=== PATIENT | female | born 1950 | race Caucasian/White ===

== ENCOUNTER 2020-05-24 18:42 | Outpatient (REF) | payer MEDICARE, SELFPAY | END 2020-05-24 18:43 | disposition home or self-care (01) | LOC: HO.LNP 18:42 | PROVIDERS: Visit Provider Hospitalist | DX: N39.0 Urinary tract infection, site not specified (principal) | CPT/HCPCS: 87086 ==

== ENCOUNTER 2020-05-28 11:10 | Outpatient (REF) | payer MEDICARE, SELFPAY | END 2020-05-28 11:11 | disposition home or self-care (01) | LOC: HO.HMGCLDS 11:10 | PROVIDERS: PCP Internal Medicine; Visit Provider Internal Medicine | DX: Z20.828 Contact with and (suspected) exposure to other viral communicable diseases (principal) | CPT/HCPCS: C9803; U0003 ==

== ENCOUNTER 2020-07-24 10:43 | Outpatient (REF) | payer MEDICARE, SELFPAY ==
--- NOTE | 2020-07-24 10:50 | XR_ITS ---
EXAMINATION: XR ANKLE, RIGHT CLINICAL INFORMATION: Pain COMPARISON: Previous exam most recent January 2016 TECHNIQUE: AP, lateral, and mortise views of the right ankle. FINDINGS: There is an old healed fracture of the right distal fibular shaft. No acute fracture or dislocation is seen. The ankle mortise is normal. Soft tissues are normal. XR/XR ankle RT min 3V IMPRESSION: Old healed fracture of the right distal fibular shaft. No acute fracture or dislocation seen.
== END 2020-07-24 10:44 | disposition home or self-care (01) ==
LOC: HO.HMGCX 10:43
PROVIDERS: PCP Internal Medicine; Visit Provider Nurse Practitioner Family
DX: M25.571 Pain in right ankle and joints of right foot (principal)
CPT/HCPCS: 73610

== ENCOUNTER 2020-08-20 10:25 | Outpatient (REF) | payer MEDICARE, SELFPAY ==
--- NOTE | 2020-08-20 | US_ITS ---
EXAMINATION: US THYROID CLINICAL INFORMATION: Nontoxic multinodular goiter. COMPARISON: Ultrasound soft tissue head/neck thyroid dated 05/10/2019 and 05/04/2018. TECHNIQUE: Linear transducer jones-scale and color Doppler examination with attention to the region of the thyroid. FINDINGS: SIZE: Measurements of the thyroid lobes and nodules are given in sagittal, anteroposterior and transverse dimensions respectively. Right Thyroid Lobe: 4.4 x 1.3 x 1.5 cm, volume 4.5 mL. Previously 4.1 x 1.4 x 1.6 cm, volume 4.8 mL. Parenchyma: The gland echotexture is heterogeneous. Thyroid vascularity is normal. Left Thyroid Lobe: 4.7 x 2.1 x 1.7 cm, volume 8.8 mL. Previously 4.8 x 1.9 x 1.7 cm, volume 8.1 mL. Parenchyma: The gland echotexture is heterogeneous. Thyroid vascularity is normal. Isthmus: 0.2 cm in maximum AP dimension. Previously 0.2 cm. Estimated total number of nodules greater than or equal to 1 cm: 1. Strategy Associate nodules are described as follows: 1. Location: Right lateral superior. Size: 0.6 x 0.4 x 0.4 cm, volume 0.05 mL. Previously: 0.4 x 0.4 x 0.3 cm, volume 0.03 mL. Nodule characteristics: Composition: Solid/almost completely solid (2). Echogenicity: Isoechoic (1). Shape: Not taller than wide (0). Margins: Smooth (0). Echogenic Foci: Punctate echogenic foci (3). ACR TI-RADS total points: 6 ACR TI-RADS category: 4 Significant change in size (>/= 20% in 2 dimensions and minimal increase of 2 mm): Not significant. Change in features: None. 2. Location: Right inferior medial. Size: 0.6 x 0.3 x 0.5 cm, volume 0.05 mL. Previously: 0.6 x 0.3 x 0.5 cm, volume 0.05 mL. Nodule characteristics: Composition: Spongiform (0). Echogenicity: Isoechoic (0). Shape: Not taller than wide (0). Margins: Smooth (0). Echogenic Foci: Punctate echogenic foci (0). ACR TI-RADS total points: 0 ACR TI-RADS category: 1 Significant change in size (>/= 20% in 2 dimensions and minimal increase of 2 mm): Not significant. Change in features: None. 3. Location: Left inferior/mid. Size: 1.9 x 1.8 x 1.8 cm, volume 3.22 mL. Previously: 1.8 x 1.8 x 1.7 cm, volume 2.88 mL. Nodule characteristics: Composition: Solid (2). Echogenicity: Isoechoic (1). Shape: Not taller than wide (0). Margins: Smooth (0). Echogenic Foci: Peripheral calcifications (2). ACR TI-RADS total points: 5 ACR TI-RADS category: 4 Significant change in size (>/= 20% in 2 dimensions and minimal increase of 2 mm): None. Change in features: Stable. 4. Location: Left inferior. Size: 0.5 x 0.5 x 0.4 cm, volume 0.05 mL. Previously: 0.6 x 0.4 x 0.4 cm, volume 0.05 mL. Nodule characteristics: Composition: Solid (2). Echogenicity: Hyperechoic (1). Shape: Taller than wide (3). Margins: Smooth (0). Echogenic Foci: None (0). ACR TI-RADS total points: 6 ACR TI-RADS category: 4 Significant change in size (>/= 20% in 2 dimensions and minimal increase of 2 mm): Not significant. Change in features: None. NODES: No lymphadenopathy is seen in the tissue surrounding the thyroid gland. US/US thyroid IMPRESSION: No significant change in the small nodules. The largest nodule lower pole left lobe is stable in spite of high TI-RADS category. Recommend continued followup. ACR TI-RADS RECOMMENDATIONS: Ultrasound-guided fine-needle aspiration, followup ultrasound, no further follow up. * TR1 (0 point) and TR 2 (2 points): No FNA or follow up * TR3 (3 points): FNA if more than or equal to 2.5 cm in maximum dimension, follow up in 1, 3 and 5 years if 1.5 to 2.4 cm in maximum dimension. * TR 4 (4-6 points): FNA if more than or equal to 1.5 cm in maximum dimension, follow up in 1, 2, 3 and 5 years if 1 to 1.4 cm in maximum dimension. * TR 5 (more than or equal to 7 points): FNA if more than or equal to 1 cm in maximum dimension, follow up every year for 5 years if 0.5 to 0.9 cm in maximum dimension. TR3, TR4 or TR5 nodules that are below the size threshold for follow up receive no follow up.
== END 2020-08-20 10:26 | disposition home or self-care (01) ==
LOC: HO.HMGCX 10:25
PROVIDERS: PCP Internal Medicine; Visit Provider Internal Medicine Endocrinology, Diabetes & Metabolism
DX: E04.2 Nontoxic multinodular goiter (principal)
CPT/HCPCS: 76536

== ENCOUNTER 2020-08-29 11:19 | Outpatient (REF) | payer MEDICARE, SELFPAY ==
--- NOTE | ~2020-08-29 | MM_ITS ---
EXAMINATION: MM SCREENING DIGITAL BREAST TOMOSYNTHESIS, BILATERAL CLINICAL INFORMATION: Screening. Asymptomatic. Prior history biopsy x2, fibroadenomatous). The lifetime risk of breast cancer based on the Tyrer-Cuzick Model is 10%. COMPARISON: Mammography: 10/04/2018, 09/30/2017, 04/29/2016 TECHNIQUE: Digital breast tomosynthesis is performed in both the craniocaudal and mediolateral oblique views along with computer-aided detection (CAD). Synthesized 2D images are generated from the tomosynthesis. FINDINGS: The breasts are heterogeneously dense, which may obscure small masses (ACR BI-RADS breast composition Category c). There are no significant masses, abnormal calcifications, or other abnormalities. There are scattered numerous bilateral punctate calcifications again noted in both breasts. The axilla and skin contours are unremarkable. No significant changes. MM/MM tomosynthesis screening BI IMPRESSION: No mammographic evidence of malignancy. ASSESSMENT: BI-RADS 2: Benign RECOMMENDATION: Routine annual mammography screening. This patient's information was entered into a reminder system with a target due date for their next mammogram.
== END 2020-08-29 11:20 | disposition home or self-care (01) ==
LOC: HO.MAMMO 11:19
PROVIDERS: PCP Internal Medicine; Visit Provider Internal Medicine
DX: Z12.31 Encounter for screening mammogram for malignant neoplasm of breast (principal)
CPT/HCPCS: 77063; 77067

== ENCOUNTER → 2020-09-18 11:15 | Outpatient (BNVA) | payer MEDICARE, SELFPAY | PROVIDERS: PCP Internal Medicine; Visit Provider Internal Medicine Endocrinology, Diabetes & Metabolism | DX: Z13.89 Encounter for screening for other disorder (principal) | CPT/HCPCS: 99212 ==

== ENCOUNTER 2020-09-18 12:34 | Outpatient (REF) | payer MEDICARE, SELFPAY ==
[2020-09-18 14:39] LABS: Free T4 (Free Thyroxine) 0.92 ng/dL (0.71-1.85)
== END 2020-09-18 12:35 | disposition home or self-care (01) ==
LOC: HO.10HDL 12:34
PROVIDERS: Visit Provider Internal Medicine Endocrinology, Diabetes & Metabolism
DX: E04.2 Nontoxic multinodular goiter (principal)
CPT/HCPCS: 36415; 84439; 84443; 99212

== ENCOUNTER 2020-09-24 11:49 | Outpatient (REF) | payer MEDICARE, SELFPAY | END 2020-09-24 11:50 | disposition home or self-care (01) | LOC: HO.HMGCLDS 11:49 | PROVIDERS: PCP Internal Medicine; Visit Provider Internal Medicine | DX: Z13.89 Encounter for screening for other disorder (principal) ==

== ENCOUNTER 2020-09-25 10:25 | Outpatient (REF) | payer MEDICARE, SELFPAY ==
[2020-09-25 11:10] LABS: MANUAL DIFF FLAG NO
[2020-09-25 11:28] LABS: Basophils Percent Auto 0.4 % (0-2); Eosinophils Absolute Auto 0.1 X10*3/uL (0.0-0.4); Hemoglobin 14.1 g/dl (12.0-16.0); Imm Gran Abs Auto 0.01 X10*3/uL (0.00-0.03); Imm Gran Pct Auto 0.2 % (0.0-0.4); Lymphocytes Absolute Auto 1.5 X10*3/uL (1.2-4.9); Lymphocytes Percent Auto 28.6 % (20-40); Mean Corpuscular HGB Conc 34.4 g/dl (31.0-35.0); Mean Corpuscular Hemoglobin 32.6 pg (27.0-33.0); Mean Corpuscular Volume 94.7 fL (80-98); Mean Platelet Volume 9.1 fL (9.4-12.3); Monocytes Absolute Auto 0.3 X10*3/uL (0.1-1.2); Monocytes Percent Auto 6.7 % (2-11); Neutrophils Absolute Auto 3.2 X10*3/uL (2.0-8.3); Neutrophils Percent Auto 63.1 % (45-73); Platelet Count 340 X10*3/uL (160-400); Red Blood Count 4.33 X10*6/uL (4.20-5.50); Red Cell Distribution Width 12.1 % (11.0-16.0); White Blood Count 5.1 X10*3/uL (4.8-10.8)
[2020-09-25 11:57] LABS: Alanine Aminotransferase 14 U/L (0-31); Albumin Level 4.3 g/dL (3.5-5.0); Alkaline Phosphatase 60 U/L (39-117); Anion Gap 12 (12-20); Aspartate Amino Transferase 23 U/L (5-31); Bilirubin Total 0.6 mg/dL (0.0-1.0); Blood Urea Nitrogen 9 mg/dL (9-16); Calcium 9.5 mg/dL (8.4-10.2); Carbon Dioxide 29 mmol/L (22-29); Chloride 101 mmol/L (96-108); Cholesterol 248 mg/dL; Estimated Glomerular Filt Rate > 60; Glucose Fasting 96 mg/dL (60-99); HDL Cholesterol 70 mg/dL; LDL Cholesterol Calculated 159 mg/dl; Potassium 4.8 mmol/L (3.3-5.1); Sodium 137 mmol/L (135-145); Total Protein 7.7 g/dL (6.5-8.0); Triglycerides 96 mg/dL
[2020-09-25 12:01] LABS: Free T4 (Free Thyroxine) 0.92 ng/dL (0.71-1.85); Thyroid Stimulating Hormone 0.69 uIU/mL (0.32-4.0)
[2020-09-25 12:06] LABS: Free T4 (Free Thyroxine) 0.87 ng/dL (0.71-1.85)
== END 2020-09-25 10:26 | disposition home or self-care (01) ==
LOC: HO.HMGCLDS 10:25
PROVIDERS: Internal Medicine Endocrinology, Diabetes & Metabolism; PCP Internal Medicine; Visit Provider Internal Medicine
DX: K21.9 Gastro-esophageal reflux disease without esophagitis (principal); E78.00 Pure hypercholesterolemia, unspecified; R63.4 Abnormal weight loss; E04.9 Nontoxic goiter, unspecified
CPT/HCPCS: 36415; 80053; 80061; 84439; 84443; 85025

== ENCOUNTER 2020-11-12 11:16 | Outpatient (REF) | payer MEDICARE, SELFPAY ==
--- NOTE | ~2020-11-12 | XR_ITS ---
EXAMINATION: THORACIC AND LUMBAR SPINE X-RAY CLINICAL INFORMATION: Back pain COMPARISON: Previous lumbar spine x-ray February 2016 TECHNIQUE: 3 views of the thoracic spine and 3 views of the lumbar spine FINDINGS: Thoracic spine: There is mild curvature of the midthoracic spine to the right. Bone alignment is otherwise normal. No fracture or dislocation is seen. There is multilevel degenerative disc disease and spondylosis of the mid and lower thoracic spine. There are spinal soft tissues are normal. Lumbar spine: There is curvature of the lower lumbar sacral spine to the right. Bone alignment is otherwise normal. No fracture or dislocation is seen. There is severe degenerative disc disease at L5-S1. There is mild degenerative disc disease at L3-L4. There is lower lumbar spine facet arthritis. Comparison with previous exam 2016, the sacral stimulator has been removed. XR/XR lumbar spine 2-3V IMPRESSION: Degenerative changes.
--- NOTE | ~2020-11-12 | XR_ITS ---
EXAMINATION: THORACIC AND LUMBAR SPINE X-RAY CLINICAL INFORMATION: Back pain COMPARISON: Previous lumbar spine x-ray February 2016 TECHNIQUE: 3 views of the thoracic spine and 3 views of the lumbar spine FINDINGS: Thoracic spine: There is mild curvature of the midthoracic spine to the right. Bone alignment is otherwise normal. No fracture or dislocation is seen. There is multilevel degenerative disc disease and spondylosis of the mid and lower thoracic spine. There are spinal soft tissues are normal. Lumbar spine: There is curvature of the lower lumbar sacral spine to the right. Bone alignment is otherwise normal. No fracture or dislocation is seen. There is severe degenerative disc disease at L5-S1. There is mild degenerative disc disease at L3-L4. There is lower lumbar spine facet arthritis. Comparison with previous exam 2016, the sacral stimulator has been removed. XR/XR thoracic spine 2V IMPRESSION: Degenerative changes.
--- NOTE | ~2020-11-12 | XR_ITS ---
EXAMINATION: XR SHOULDER, RIGHT CLINICAL INFORMATION: Pain COMPARISON: Previous x-ray May 2014 TECHNIQUE: AP external rotation, Grashey, scapular Y, and axillary views of the right shoulder. FINDINGS: Bone alignment is normal. No fracture or dislocation is seen. The glenohumeral joint is normal. There is mild arthritis at the acromioclavicular joint. There is an undersurface acromial osteophyte. XR/XR shoulder RT min 2V IMPRESSION: Mild arthritis at the acromioclavicular joint and undersurface acromial osteophyte.
[2020-11-12 13:02] LABS: MANUAL DIFF FLAG NO
[2020-11-12 13:09] LABS: Basophils Percent Auto 0.4 % (0-2); Eosinophils Absolute Auto 0.1 X10*3/uL (0.0-0.4); Eosinophils Percent Auto 1.5 % (0-4); Hematocrit 40.4 % (37-47); Hemoglobin 13.6 g/dl (12.0-16.0); Imm Gran Abs Auto 0.01 X10*3/uL (0.00-0.03); Imm Gran Pct Auto 0.2 % (0.0-0.4); Lymphocytes Absolute Auto 1.5 X10*3/uL (1.2-4.9); Lymphocytes Percent Auto 28.5 % (20-40); Mean Corpuscular HGB Conc 33.7 g/dl (31.0-35.0); Mean Corpuscular Volume 95.1 fL (80-98); Monocytes Absolute Auto 0.3 X10*3/uL (0.1-1.2); Monocytes Percent Auto 6.5 % (2-11); Neutrophils Absolute Auto 3.3 X10*3/uL (2.0-8.3); Neutrophils Percent Auto 62.9 % (45-73); Platelet Count 334 X10*3/uL (160-400); Red Blood Count 4.25 X10*6/uL (4.20-5.50); Red Cell Distribution Width 12.1 % (11.0-16.0); White Blood Count 5.3 X10*3/uL (4.8-10.8)
[2020-11-12 13:30] LABS: Alanine Aminotransferase 15 U/L (0-31); Albumin Level 4.1 g/dL (3.5-5.0); Alkaline Phosphatase 59 U/L (39-117); Anion Gap 13 (12-20); Aspartate Amino Transferase 21 U/L (5-31); Bilirubin Total 0.5 mg/dL (0.0-1.0); Blood Urea Nitrogen 12 mg/dL (9-16); C Reactive Protein 0.14 mg/dL (< or = 0.50); Calcium 9.7 mg/dL (8.4-10.2); Carbon Dioxide 31 mmol/L (22-29); Chloride 97 mmol/L (96-108); Estimated Glomerular Filt Rate > 60; Glucose Random 88 mg/dL (60-115); Potassium 4.8 mmol/L (3.3-5.1); Sodium 136 mmol/L (135-145); Total Protein 7.3 g/dL (6.5-8.0)
[2020-11-12 13:59] LABS: Vitamin B12 570 pg/mL (200-900)
[2020-11-12 14:26] LABS: Estimated Average Glucose 100 mg/dL; Hemoglobin A1c % 5.1 %
== END 2020-11-12 11:17 | disposition home or self-care (01) ==
LOC: HO.LAB 11:16
PROVIDERS: PCP Internal Medicine; Visit Provider Internal Medicine
DX: M54.9 Dorsalgia, unspecified (principal); M54.5 Low back pain; M25.511 Pain in right shoulder; R53.83 Other fatigue; E78.00 Pure hypercholesterolemia, unspecified; K21.9 Gastro-esophageal reflux disease without esophagitis; R42 Dizziness and giddiness
CPT/HCPCS: 36415; 72070; 72100; 73030; 80053; 82607; 83036; 85025; 86140

== ENCOUNTER 2020-12-08 02:13 | Emergency (ER) | payer MEDICARE, SELFPAY ==
--- NOTE | ~2020-12-08 | CT_ITS ---
EXAMINATION: NONCONTRAST HEAD CT NONCONTRAST CERVICAL SPINE CT INDICATION INFORMATION: Fall COMPARISON: None TECHNIQUE: Separate noncontrast CT examinations of the head and cervical spine were performed. Coronal head CT images and coronal and sagittal cervical spine images were created at the technologist workstation. DLP: 896 mGy-cm DOSE LOWERING TECHNIQUES: This CT examination was performed using dose optimization techniques as appropriate, variously including the following: - Automated exposure control - Adjustment of mA and/or kV according to patient size (this includes techniques or standardized protocols for targeted exams were dose is matched to indication/reason for exam; i.e. extremities or head) - Use of iterative reconstruction technique FINDINGS: Head: There is no evidence of acute intracranial hemorrhage or territorial infarction. No abnormal mass-effect or midline shift is seen. Fuentes to white matter differentiation is well preserved. No extra-axial fluid collections are identified. The ventricles are normal in size. There is mild to moderate patchy subcortical white matter hypoattenuation suspicious for chronic small vessel ischemic disease. No acute fracture is seen. There is right occipital scalp soft tissue swelling with foci of gas. The mastoid air cells and visualized portions of the paranasal sinuses are well-aerated. Cervical spine: There is minimal grade 1 anterolisthesis of C4 on C5. There is otherwise anatomic alignment of the vertebral bodies and posterior elements. Vertebral body heights are maintained. There is disc space narrowing at C5-C6 with associated endplate osteophyte formation. There is right-sided facet arthropathy of the mid cervical spine. No evidence of acute fracture. No prevertebral soft tissue swelling. Visualized portions of the lung apices are unremarkable. There is a peripherally calcified left thyroid nodule measuring up to 2.0 cm in the axial plane; of note, recent thyroid ultrasound was performed on 08/20/2020. CT/CT cervical spine wo con IMPRESSION: 1. Head: No acute intracranial findings. Right occipital scalp soft tissue injury. 2. Cervical spine: No acute findings identified.
[2020-12-08 02:17] VITALS: BP 114/57; PULSE 60; RESP 16; TEMP 36.6; O2SAT 97; BMI 20.3
--- NOTE | 2020-12-08 02:30 | ECG_ITS ---
Test Reason : FALL, DIZZINESS Blood Pressure : / mmHG Vent. Rate : 059 BPM Atrial Rate : 059 BPM P-R Int : 180 ms QRS Dur : 080 ms QT Int : 392 ms P-R-T Axes : 049 013 021 degrees QTc Int : 388 ms Sinus bradycardia Low voltage QRS Borderline ECG When compared with ECG of 02-AUG-2006 12:59, No significant change was found Referred By: Generic ED Physician Electronically Signed By:CARLYN KEENAN MD
--- NOTE | 2020-12-08 03:50 | PC.NURSE ---
Laceration and abrasion to the rear of head cleaned and bandaged. Ice applied. Awaiting primary MD marisela.
[2020-12-08 04:17] VITALS: BP 132/70; PULSE 63; RESP 16; TEMP 36.7; O2SAT 99
[2020-12-08 04:33] LABS: MANUAL DIFF FLAG NO
[2020-12-08 04:34] LABS: Basophils Percent Auto 0.3 % (0-2); Eosinophils Absolute Auto 0.3 X10*3/uL (0.0-0.4); Eosinophils Percent Auto 2.5 % (0-4); Hematocrit 39.7 % (37-47); Hemoglobin 13.5 g/dl (12.0-16.0); Imm Gran Abs Auto 0.03 X10*3/uL (0.00-0.03); Imm Gran Pct Auto 0.3 % (0.0-0.4); Lymphocytes Absolute Auto 1.9 X10*3/uL (1.2-4.9); Lymphocytes Percent Auto 18.3 % (20-40); Mean Corpuscular Hemoglobin 32.5 pg (27.0-33.0); Mean Corpuscular Volume 95.7 fL (80-98); Mean Platelet Volume 8.7 fL (9.4-12.3); Monocytes Absolute Auto 0.7 X10*3/uL (0.1-1.2); Monocytes Percent Auto 6.4 % (2-11); Neutrophils Absolute Auto 7.4 X10*3/uL (2.0-8.3); Neutrophils Percent Auto 72.2 % (45-73); Platelet Count 319 X10*3/uL (160-400); Red Blood Count 4.15 X10*6/uL (4.20-5.50); Red Cell Distribution Width 12.7 % (11.0-16.0); White Blood Count 10.3 X10*3/uL (4.8-10.8)
[2020-12-08 05:04] LABS: Alanine Aminotransferase 25 U/L (0-31); Albumin Level 4.4 g/dL (3.5-5.0); Alkaline Phosphatase 73 U/L (39-117); Anion Gap 13 (12-20); Aspartate Amino Transferase 29 U/L (5-31); Bilirubin Direct < 0.2 mg/dL (0.0-0.5); Bilirubin Total 0.2 mg/dL (0.0-1.0); Blood Urea Nitrogen 18 mg/dL (9-16); Calcium 9.8 mg/dL (8.4-10.2); Carbon Dioxide 30 mmol/L (22-29); Chloride 103 mmol/L (96-108); Creatinine Clr Calc Pharmacy 56.2; Estimated Glomerular Filt Rate > 60; Glucose Random 100 mg/dL (60-115); Potassium 4.8 mmol/L (3.3-5.1); Sodium 141 mmol/L (135-145); Total Protein 7.6 g/dL (6.5-8.0)
[2020-12-08 06:00] LABS: Appearance Urine HAZY; Color Urine YELLOW; Glucose Urine UA NEG (NEG); Leukocyte Esterase Urine 3+ (NEG); Nitrite Urine NEG (NEG); Specific Gravity - Urine 1.025 (1.005-1.025); UACC Culture Trigger YES; Urine Blood 2+ (NEG); Urine Ketones NEG (NEG); Urine Protein NEG (NEG-TRACE)
[2020-12-08 06:14] LABS: Bacteria Urine 1+ /LPF; Mucus Urine TRACE /LPF; Squamous Epithelial Cell Urine 1+ /LPF
--- NOTE | 2020-12-08 06:16 | ED.FALL ---
HPI - Fall General Chief Complaint: Fall Stated Complaint: fall Time Seen by Provider: 12/08/20 05:49 Source: patient Mode of arrival: ambulatory History of Present Illness HPI Narrative: This is a 69-year-old female who presents to the emergency room after having had a syncopal episode while walking to the bathroom. She denies any prodrome of symptoms and states that she just found herself on the kitchen floor. On further questioning patient describes it she was outside in the heat at a concert yesterday and drank very little water and then follow that with to last is of wine later on the evening. She denies ever feeling palpitations or dizziness. Related Data Home Medications Medication Instructions Recorded Confirmed estradiol 0.5 mg tablet 0.5 mg PO BEDTIME 05/24/20 12/03/20 fluoxetine 20 mg capsule 20 mg PO BEDTIME 05/24/20 12/03/20 acetaminophen 500 mg tablet 500 mg PO QAM 07/24/20 12/03/20 estradiol VAGINAL 09/18/20 omeprazole magnesium [Prilosec OTC] 20 mg PO DAILY PRN 12/03/20 12/03/20 Previous Rx's Medication Instructions Recorded cefdinir 300 mg PO BID 5 Days #10 cap 12/08/20 Allergies Allergy/AdvReac Type Severity Reaction Status Date / Time hydrocodone Allergy Intermediate Vomiting Verified 12/08/20 02:27 amoxicillin AdvReac Intermediate Gastrointestinal Verified 12/08/20 02:27 Upset nitrofurantoin AdvReac Intermediate Gastrointestinal Verified 12/08/20 02:27 Upset sulfadiazine AdvReac Intermediate Gastrointestinal Verified 12/08/20 02:27 Upset Review of Systems Review of Systems: Pertinent positives and negatives as stated in HPI 10 point review of systems otherwise negative. [facility] Past Medical History Source: nursing notes reviewed Medical History Arthritis COVID-19 vaccine administered Depression Elevated cholesterol GERD (gastroesophageal reflux disease) Hx of bipolar disorder Non-toxic multinodular goiter Surgical History H/O colonoscopy History of breast lump/mass excision Hx of cholecystectomy Hx of total hysterectomy with removal of both tubes and ovaries Social History Social History Household Members: Family Housing: House Are you a primary health care recruiter to a significant other at home: No Do you presently have visiting nurse or other home services: No Smoking Status: Former smoker Advance Directives: No Advance Directives Information Provided: No Physical Exam Vital Signs: Vital Signs: Last Vital Signs Temp 98.1 F 12/08/20 04:17 Pulse 63 12/08/20 04:17 Resp 16 12/08/20 04:17 BP 132/70 12/08/20 04:17 Pulse Ox 99 12/08/20 04:17 Body Mass Index 20.3 VITAL SIGNS: Reviewed. GENERAL: Well developed, well nourished, in no acute distress. HEAD: Normocephalic/1 laceration approximately 4.5 cm to the left occipital and 3 cm laceration to the right occipital EYES: PERRLA, EOMI OROPHARYNX: no oral lesions noted, posterior pharynx clear, tacky mucosa NECK: Supple, no adenopathy LUNGS: Normal breath sounds. No adventitious sounds or accessory muscle use. SpO2<99> CARDIOVASCULAR: Regular rate and rhythm without noted murmurs, no JVD or lower extremity edema. ABDOMEN: Soft, non-tender, non-distended with bowel sounds. NEUROLOGIC: Alert and oriented x 4. Strength and sensation to light touch were grossly intact x 4, no pronator drift, cranial nerves 2-12 are grossly intact, no facial asymmetry. Course Course Course Narrative: 69-year-old female with history and clinical presentation consistent with vasovagal syncope and low clinical suspicion for intracranial pathology or cardiac etiology. However, will rule out evidence of infection, anemia, arrhythmia. Review of all investigations significant for UTI. Lacerations were repaired in patient was discharged home with antibiotics for treatment of her UTI. Procedures Laceration Laceration 1: Site: scalp Side (If applicable): left Size (cm): 4.5 Description: linear Depth: simple, single layer Pre-repair: wound explored, irrigated extensively and deep structures intact Skin layer closed with: other (Eula) Number of sutures: 7 Laceration 2: Site: scalp Side (If applicable): right Size (cm): 3 Description: linear Depth: simple, single layer Pre-repair: wound explored, irrigated extensively and deep structures intact Skin layer closed with: other (Eula) Number of sutures: 2 Technique: simple, interrupted MDM - Fall Lab Data Result diagrams: 12/08/20 04:24 12/08/20 04:24 Labs: Lab Results 12/08/20 12/08/20 12/08/20 Range/Units 04:24 04:24 04:24 WBC 10.3 (4.8-10.8) X10*3/uL RBC 4.15 L (4.20-5.50) X10*6/uL Hgb 13.5 (12.0-16.0) g/dl Hct 39.7 (37-47) % MCV 95.7 (80-98) fL MCH 32.5 (27.0-33.0) pg MCHC 34.0 (31.0-35.0) g/dl RDW 12.7 (11.0-16.0) % Plt Count 319 (160-400) X10*3/uL MPV 8.7 L (9.4-12.3) fL Immature Gran % (Auto) 0.3 (0.0-0.4) % Neut % (Auto) 72.2 (45-73) % Lymph % (Auto) 18.3 L (20-40) % Carlisle % (Auto) 6.4 (2-11) % Eos % (Auto) 2.5 (0-4) % Baso % (Auto) 0.3 (0-2) % Lymph # (Auto) 1.9 (1.2-4.9) X10*3/uL Carl[place] # (Auto) 0.7 (0.1-1.2) X10*3/uL Eos # (Auto) 0.3 (0.0-0.4) X10*3/uL Baso # (Auto) 0.0 (0.0-0.2) X10*3/uL Abs Immat Gran (auto) 0.03 (0.00-0.03) X10*3/uL Absolute Neuts (auto) 7.4 (2.0-8.3) X10*3/uL Absolute Nucleated RBC 0.000 (0.0-0.012) X10*3/uL Nucleated RBC % (auto) 0.0 (0.0-0.2) /100WBC Hold Blue Top SEE NOTE Sodium 141 (135-145) mmol/L Potassium 4.8 (3.3-5.1) mmol/L Chloride 103 (96-108) mmol/L Carbon Dioxide 30 H (22-29) mmol/L Anion Gap 13 (12-20) BUN 18 H (9-16) mg/dL Creatinine 0.80 (0.5-1.4) mg/dL Estim Creat Clear Calc 56.2 Estimated GFR > 60 Random Glucose 100 (60-115) mg/dL Calcium 9.8 (8.4-10.2) mg/dL Total Bilirubin 0.2 (0.0-1.0) mg/dL Direct Bilirubin < 0.2 (0.0-0.5) mg/dL AST 29 (5-31) U/L ALT 25 (0-31) U/L Alkaline Phosphatase 73 D (39-117) U/L Total Protein 7.6 (6.5-8.0) g/dL Albumin 4.4 (3.5-5.0) g/dL Hold Red Top Urine Color Urine Appearance Urine pH (5.0-8.0) Ur Specific [place] (1.005-1.025) Urine Protein (NEG-TRACE) MG/DL Urine Glucose (UA) (NEG) MG/DL Urine Ketones (NEG) MG/DL Urine Blood (NEG) Urine Nitrite (NEG) Ur Leukocyte Esterase (NEG) Urine RBC (0) /HPF Urine WBC (0-4) /HPF Ur Squamous Epith Cells /LPF Urine Bacteria /LPF Urine Mucus /LPF 12/08/20 12/08/20 Range/Units 04:24 05:55 WBC (4.8-10.8) X10*3/uL RBC (4.20-5.50) X10*6/uL Hgb (12.0-16.0) g/dl Hct (37-47) % MCV (80-98) fL MCH (27.0-33.0) pg MCHC (31.0-35.0) g/dl RDW (11.0-16.0) % Plt Count (160-400) X10*3/uL MPV (9.4-12.3) fL Immature Gran % (Auto) (0.0-0.4) % Neut % (Auto) (45-73) % Lymph % (Auto) (20-40) % Carlisle % (Auto) (2-11) % Eos % (Auto) (0-4) % Baso % (Auto) (0-2) % Lymph # (Auto) (1.2-4.9) X10*3/uL [place] # (Auto) (0.1-1.2) X10*3/uL Eos # (Auto) (0.0-0.4) X10*3/uL Baso # (Auto) (0.0-0.2) X10*3/uL Abs Immat Gran (auto) (0.00-0.03) X10*3/uL Absolute Neuts (auto) (2.0-8.3) X10*3/uL Absolute Nucleated RBC (0.0-0.012) X10*3/uL Nucleated RBC % (auto) (0.0-0.2) /100WBC Hold Blue Top Sodium (135-145) mmol/L Potassium (3.3-5.1) mmol/L Chloride (96-108) mmol/L Carbon Dioxide (22-29) mmol/L Anion Gap (12-20) BUN (9-16) mg/dL Creatinine (0.5-1.4) mg/dL Estim Creat Clear Calc Estimated GFR Random Glucose (60-115) mg/dL Calcium (8.4-10.2) mg/dL Total Bilirubin (0.0-1.0) mg/dL Direct Bilirubin (0.0-0.5) mg/dL AST (5-31) U/L ALT (0-31) U/L Alkaline Phosphatase (39-117) U/L Total Protein (6.5-8.0) g/dL Albumin (3.5-5.0) g/dL Hold Red Top See Note Urine Color YELLOW Urine Appearance HAZY Urine pH 6.0 (5.0-8.0) Ur Specific [place] 1.025 (1.005-1.025) Urine Protein NEG (NEG-TRACE) MG/DL Urine Glucose (UA) NEG (NEG) MG/DL Urine Ketones NEG (NEG) MG/DL Urine Blood 2+ H (NEG) Urine Nitrite NEG (NEG) Ur Leukocyte Esterase 3+ H (NEG) Urine RBC 1-4 (0) /HPF Urine WBC 76-150 H (0-4) /HPF Ur Squamous Epith Cells 1+ /LPF Urine Bacteria 1+ /LPF Urine Mucus TRACE /LPF Discharge Plan Discharge Clinical Impression: Acute UTI, Syncope, vasovagal, Laceration of occipital scalp Patient Disposition: Home, Self-Care Instructions: Urinary Tract Infection in Women (ED), Syncope (ED), Head Laceration (ED) Additional Instructions: Resume all home medications as prescribed Return to your primary care provider for removal of eula in 7 days. You may cleanse your hair with soap and water without difficulty but use caution when brushing her hair. Recommend using efft-jum-lwatasm Tylenol/ibuprofen as needed for pain control. Return the ER for any acute worsening of your symptoms. Prescriptions: New cefdinir 300 mg capsule 300 mg PO BID 5 Days Qty: 10 RF: 0 No Action omeprazole magnesium [Prilosec OTC] 20 mg Tablet,Delayed Release (Dr/Ec) 20 mg PO DAILY PRN (Reason: Acid Reflux) RF: 0 acetaminophen [Tylenol Extra Strength] 500 mg tablet 500 mg PO QAM RF: 0 fluoxetine 20 mg capsule 20 mg PO BEDTIME RF: 0 estradiol 0.5 mg tablet 0.5 mg PO BEDTIME RF: 0 estradiol 0.01 % (0.1 mg/gram) cream vaginal RF: 0 Referrals: Jay Uribe MD [Primary Care Provider] - 2 days (Staple removal, 7 on left, 2 on right)
== END 2020-12-08 07:49 | disposition home or self-care (01) ==
PROVIDERS: Emergency Provider Student in an Organized Health Care Education/Training Program; PCP Internal Medicine
DX: S01.01XA Laceration without foreign body of scalp, initial encounter (principal); R55 Syncope and collapse; N39.0 Urinary tract infection, site not specified; G44.309 Post-traumatic headache, unspecified, not intractable; M54.2 Cervicalgia; W01.0XXA Fall on same level from slipping, tripping and stumbling without subsequent striking against object, initial encounter; Y93.9 Activity, unspecified; Y92.9 Unspecified place or not applicable; Y99.9 Unspecified external cause status; Z86.16 Personal history of COVID-19; Z79.899 Other long term (current) drug therapy; Z87.891 Personal history of nicotine dependence
CPT/HCPCS: 12002; 36415; 70450; 72125; 80053; 80076; 81001; 81003; 82248; 85025; 87086; 93005; 99284

== ENCOUNTER 2020-12-09 06:02 | Day surgery (SDC) | payer MEDICARE, SELFPAY ==
--- NOTE | 2020-11-29 16:27 | HP_ITS ---
DATE OF SERVICE: 12/09/2020 HISTORY OF PRESENT ILLNESS: The patient is a 69-year-old female, scheduled for cataract surgery with Dr. Deleon at the end of the month and in December. The patient has had lab work completed on November 12. REVIEW OF SYSTEMS: No fevers or chills. No chest pains or palpitations. No shortness of breath. No headaches. Weight is up 3 pounds. No abdominal pain or heartburn. No dysuria. Some arthralgias. Sleeping and appetite are stable. No complaints of hay fever. No skin complaints. 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 PAST FAMILY HISTORY: Parents are . She has 1 brother. SOCIAL HISTORY: She is , lives with daughter and grandchild. She has a daughter and a son. PHYSICAL EXAMINATION: GENERAL: She is awake and alert, in no distress. VITAL SIGNS: Temperature 98.7, pulse 68, respirations 12, blood pressure 112/80, and O2 of 98% on room air. Weight is 112 and height is 4 feet 9 inches. No distress. HEENT: Pupils are equal. TMs clear. Pharynx clear. NECK: Supple. No lymph nodes, bruits, or masses. HEART: Sounds S1 and S2. Regular rate. LUNGS: Clear. ABDOMEN: Soft. No HSM. EXTREMITIES: No clubbing, cyanosis, or edema. 1+ pulses. NEUROLOGICAL: Exam is nonfocal. Cranial nerves are intact. PRESENT MEDICATIONS: Fluoxetine 20 mg a day. Prilosec 20 mg a day. Premarin from [facility]. ALLERGIES: NO REPORTED ALLERGIES TO MEDICINES.??? She is medically stable for the proposed procedure. I will be available during medical questions. MD FLO Benoit/[facility] / [phone]
[2020-12-03 11:01] VITALS: BMI 23.3
--- NOTE | 2020-12-05 08:46 | MHC.SHP ---
Pre-Procedural Eval Section A The patient is an INPATIENT: No The History & Physical has been completed within 30 days and I have reviewed it.: Yes Section B Chief Complaint: Left Eye Cataract Allergies: Allergies Allergy/AdvReac Type Severity Reaction Status Date / Time hydrocodone Allergy Intermediate Vomiting Verified 12/03/20 11:09 amoxicillin AdvReac Intermediate Gastrointestinal Verified 12/03/20 10:58 Upset nitrofurantoin AdvReac Intermediate Gastrointestinal Verified 12/03/20 10:58 Upset sulfadiazine AdvReac Intermediate Gastrointestinal Verified 12/03/20 10:58 Upset Plan Diagnosis/Plan: Unchanged I have reviewed the history and physical and performed a pertinent physical examination on my patient. No changes have occurred unless specified.
--- NOTE | 2020-12-06 09:37 | P.CONAN_ITS ---
Documented by User: Cony Loganney 12/06/20 09:37 HPI - Anesthesia Eval Consult details Narrative: 69yo F for Left Cataract Extraction IOL Insertion PCP cleared No prev cataract on record PMFSH Active Problems Active Problems: All Active Problems (Updated 12/03/20 @ 11:02 by Mira Tian) Dysuria (Acute) Pain in right ankle (Acute) Non-toxic multinodular goiter (Acute) Past Medical History Medical History Arthritis COVID-19 vaccine administered Depression Elevated cholesterol GERD (gastroesophageal reflux disease) Hx of bipolar disorder Non-toxic multinodular goiter Surgical History Surgical History H/O colonoscopy History of breast lump/mass excision Hx of cholecystectomy Hx of total hysterectomy with removal of both tubes and ovaries Social History Social History Household Members: Family Housing: House Are you a primary intensive care specialist to a significant other at home: No Do you presently have visiting nurse or other home services: No Smoking Status: Former smoker Smoking Quit Date: 1990 Use of substances other than those prescribed or required for medical reasons: No Have you been hit, kicked, punched, or otherwise hurt by someone within the past year? If so, by whom?: No Are you DNR?: No Advance Directives Information Provided: No Recently lost weight without trying: No Eating poorly because of decreased appetite: No Nutrition Risks: No Nutritional Risk Poor oral hygiene: No (has lower partial) Meds Allergies Allergy/AdvReac Type Severity Reaction Status Date / Time hydrocodone Allergy Intermediate Vomiting Verified 12/09/20 06:18 amoxicillin AdvReac Intermediate Gastrointestinal Verified 12/09/20 06:18 Upset nitrofurantoin AdvReac Intermediate Gastrointestinal Verified 12/09/20 06:18 Upset sulfadiazine AdvReac Intermediate Gastrointestinal Verified 12/09/20 06:18 Upset Home Medications Medication Instructions Recorded Confirmed Last Taken Type estradiol 0.5 mg tablet 0.5 mg PO BEDTIME 05/24/20 12/03/20 Unknown History fluoxetine 20 mg capsule 20 mg PO BEDTIME 05/24/20 12/03/20 Unknown History acetaminophen 500 mg tablet 500 mg PO QAM 07/24/20 12/03/20 Unknown History estradiol VAGINAL 09/18/20 Unknown History omeprazole magnesium [Prilosec OTC] 20 mg PO DAILY PRN 12/03/20 12/03/20 Unknown History Exam Exam Date and Time: December 06, 2020 0937 Height,Weight and Vital Signs: Height 4 ft 10 in Weight 50.802 kg Assessment and Plan Assessment Anesthesia Assessment: Chart Reviewed Documented by User: Halie Aguilera 12/09/20 07:25 PMFSH Past Medical History Medical History Arthritis COVID-19 vaccine administered Depression Elevated cholesterol GERD (gastroesophageal reflux disease) Hx of bipolar disorder Non-toxic multinodular goiter Surgical History Surgical History H/O colonoscopy History of breast lump/mass excision Hx of cholecystectomy Hx of total hysterectomy with removal of both tubes and ovaries Social History Social History Household Members: Family Housing: House Are you a primary intensive care specialist to a significant other at home: No Do you presently have visiting nurse or other home services: No Smoking Status: Former smoker Smoking Quit Date: 1990 Use of substances other than those prescribed or required for medical reasons: No Have you been hit, kicked, punched, or otherwise hurt by someone within the past year? If so, by whom?: No Are you DNR?: No Advance Directives Information Provided: No Recently lost weight without trying: No Eating poorly because of decreased appetite: No Nutrition Risks: No Nutritional Risk Poor oral hygiene: No (has lower partial) Meds Allergies Allergy/AdvReac Type Severity Reaction Status Date / Time hydrocodone Allergy Intermediate Vomiting Verified 12/09/20 06:18 amoxicillin AdvReac Intermediate Gastrointestinal Verified 12/09/20 06:18 Upset nitrofurantoin AdvReac Intermediate Gastrointestinal Verified 12/09/20 06:18 Upset sulfadiazine AdvReac Intermediate Gastrointestinal Verified 12/09/20 06:18 Upset Home Medications Medication Instructions Recorded Confirmed Last Taken Type estradiol 0.5 mg tablet 0.5 mg PO BEDTIME 05/24/20 12/03/20 Unknown History fluoxetine 20 mg capsule 20 mg PO BEDTIME 05/24/20 12/03/20 Unknown History acetaminophen 500 mg tablet 500 mg PO QAM 07/24/20 12/03/20 Unknown History estradiol VAGINAL 09/18/20 Unknown History omeprazole magnesium [Prilosec OTC] 20 mg PO DAILY PRN 12/03/20 12/03/20 Unknown History Exam Airway Mallampati Class: III TM Dist: >3cm Neck ROM: Limited Loose/Missing/Broken Teeth: No Heart: RRR Lungs: CTA Assessment and Plan Assessment Anesthesia Assessment: Anesthesia Plan Discussed and Chart Reviewed Final Anesthetic Review NPO: Yes ASA Class: II Final Preanesthetic Review: Meds/Allgs Chart Reviewed, Consent Obtained/Reviewed and Anes Risks/Benef Reviewed Patient Risk: Low Procedure Risk: Low Anesthetic Plan Anesthetic Plan: MAC: Disposition: Standard PACU
[2020-12-09 06:23] VITALS: BP 165/76; PULSE 58; RESP 18; TEMP 36.2; O2SAT 99
[2020-12-09] MEDS: Tetracaine HCl/PF 0.5% Oph Sol 4 ML DROPS 1 DROP EYE-LEFT (06:45)
[2020-12-09] MEDS: Phenylephrine HCL 2.5% Oph SoL 2 ML BOTTLE 1 DROP EYE-LEFT ×3 (06:46→06:53)
[2020-12-09] MEDS: Tropicamide 1 % Ophth Sol 3 ML BTL 1 DROP EYE-LEFT ×3 (06:49→06:54)
[2020-12-09] MEDS: Lactated Ringers 500 ML 50 ML IV (07:02)
--- NOTE | 2020-12-09 07:55 | HO.PNOPHT ---
Ophthalmology Procedure Procedure Date of Service: 12/09/20 Ophthalmology Viscoelastic: Healon Duet Dual Pack Pro Ophthalmology Lenses: TECNIS [id number] (23.5) Procedure Notes: PREOPERATIVE DIAGNOSIS: Decreased visual acuity left eye secondary to cataract POSTOPERATIVE DIAGNOSIS: Same PROCEDURE: Left cataract extraction with intraocular lens insertion and trabeculectomy, left eye SURGEON: Oswald Deleon M.D. ANESTHESIA: Topical/MAC ESTIMATED BLOOD LOSS: None COMPLICATIONS: None
[2020-12-09 07:57] VITALS: BP 148/72; PULSE 63; RESP 16; TEMP 36.3; O2SAT 100
--- NOTE | 2020-12-09 07:57 | HO.PNOPHT ---
Ophthalmology Procedure Procedure Date of Service: 12/09/20 Ophthalmology Viscoelastic: Healon Duet Dual Pack Pro Ophthalmology Lenses: TECNIS [id number] (23.5) Procedure Notes: PREOPERATIVE DIAGNOSIS: Decreased visual acuity left eye secondary to cataract POSTOPERATIVE DIAGNOSIS: Same PROCEDURE: Left cataract extraction with intraocular lens insertion SURGEON: Oswald Deleon M.D. ANESTHESIA: Topical/MAC ESTIMATED BLOOD LOSS: None COMPLICATIONS: None After obtaining informed consent, the patient was brought to the operation room suite and placed in the supine position. After adequate sedation per anesthesia, topical drops of Tetracaine were given to the left eye. The eye was then prepped and draped in the usual sterile fashion. The operating room microscope was then positioned over the operative eye and a lid speculum placed. A paracentesis was created. Viscoelastic was then instilled into the anterior chamber. A three plane incision was then created temporally, utilizing a 2.85 mm keratome. Capsulotomy forceps were then utilized to create a circular tear capsulotomy. Hydrodissection and hydrodelineation were carried out until adequate mobilization of the nucleus occurred. Phacoemulsification was then utilized to remove the dense central nucleus followed by removal of the cortical material utilizing the automated aspiration irrigation unit. Viscoat elastic was instilled into the posterior capsular bag followed by placement of a posterior chamber intraocular lens without difficulty. The residual Viscoat elastic was then removed utilizing the automated IA machine. The wound was check and found to be watertight. The patient tolerated the procedure well and the lid speculum was removed. Intracameral injection of Vigamox 0.1 mL followed by a subtenon injection of Kenalog-40 0.2 mL were administered. The patient will be seen in the a.m.
== END 2020-12-09 08:16 | disposition home or self-care (01) ==
PROVIDERS: PCP Internal Medicine; Visit Provider Ophthalmology
PROC: (CPT 66985; principal; 2020-12-09 07:30)
DX: H25.12 Age-related nuclear cataract, left eye (principal); H54.7 Unspecified visual loss; H04.123 Dry eye syndrome of bilateral lacrimal glands; Z83.511 Family history of glaucoma; E04.2 Nontoxic multinodular goiter; Z79.899 Other long term (current) drug therapy
CPT/HCPCS: 66984; J2250; J3300; V2632

== ENCOUNTER 2020-12-23 06:02 | Day surgery (SDC) | payer MEDICARE, SELFPAY ==
[2020-12-03 11:07] VITALS: BMI 23.6
--- NOTE | 2020-12-18 16:29 | MHC.SHP ---
Pre-Procedural Eval Section A The patient is an INPATIENT: No The History & Physical has been completed within 30 days and I have reviewed it.: Yes Section B Chief Complaint: Right Eye Cataract Allergies: Allergies Allergy/AdvReac Type Severity Reaction Status Date / Time hydrocodone Allergy Intermediate Vomiting Verified 12/09/20 06:18 amoxicillin AdvReac Intermediate Gastrointestinal Verified 12/09/20 06:18 Upset nitrofurantoin AdvReac Intermediate Gastrointestinal Verified 12/09/20 06:18 Upset sulfadiazine AdvReac Intermediate Gastrointestinal Verified 12/09/20 06:18 Upset Plan Diagnosis/Plan: Unchanged I have reviewed the history and physical and performed a pertinent physical examination on my patient. No changes have occurred unless specified.
--- NOTE | 2020-12-20 09:09 | P.CONAN_ITS ---
Documented by User: Cony Handley 12/20/20 09:10 HPI - Anesthesia Eval Consult details Narrative: 69yo F for Right Cataract Extraction IOL Insertion PCP Cleared Left eye 12/09: Surekha 2 [facility] Active Problems Active Problems: All Active Problems (Updated 12/09/20 @ 00:01 by Malia Reed) Dysuria (Acute) Pain in right ankle (Acute) Non-toxic multinodular goiter (Acute) Past Medical History Medical History Arthritis COVID-19 vaccine administered Depression Elevated cholesterol GERD (gastroesophageal reflux disease) Hx of bipolar disorder Non-toxic multinodular goiter Surgical History Surgical History H/O colonoscopy History of breast lump/mass excision Hx of cholecystectomy Hx of total hysterectomy with removal of both tubes and ovaries Social History Social History Household Members: Family Housing: House Are you a primary acute care nursing assistant to a significant other at home: No Do you presently have visiting nurse or other home services: No Use of substances other than those prescribed or required for medical reasons: No Have you been hit, kicked, punched, or otherwise hurt by someone within the past year? If so, by whom?: No Are you DNR?: No Advance Directives Information Provided: No Recently lost weight without trying: No Eating poorly because of decreased appetite: No Nutrition Risks: No Nutritional Risk Poor oral hygiene: No (has lower partial) Meds Allergies Allergy/AdvReac Type Severity Reaction Status Date / Time hydrocodone Allergy Intermediate Vomiting Verified 12/09/20 06:18 amoxicillin AdvReac Intermediate Gastrointestinal Verified 12/09/20 06:18 Upset nitrofurantoin AdvReac Intermediate Gastrointestinal Verified 12/09/20 06:18 Upset sulfadiazine AdvReac Intermediate Gastrointestinal Verified 12/09/20 06:18 Upset Home Medications Medication Instructions Recorded Confirmed Last Taken Type estradiol 0.5 mg tablet 0.5 mg PO BEDTIME 05/24/20 12/03/20 Unknown History fluoxetine 20 mg capsule 20 mg PO BEDTIME 05/24/20 12/03/20 Unknown History acetaminophen 500 mg tablet 500 mg PO QAM 07/24/20 12/03/20 Unknown History estradiol VAGINAL 09/18/20 Unknown History omeprazole magnesium [Prilosec OTC] 20 mg PO DAILY PRN 12/03/20 12/03/20 Unknown History Exam Exam Date and Time: December 20, 2020908 Height,Weight and Vital Signs: Height 4 ft 10 in Weight 51.219 kg Assessment and Plan Assessment Anesthesia Assessment: Chart Reviewed Documented by User: Kamari Daniel 12/23/20 07:10 PMFSH Past Medical History Medical History Arthritis COVID-19 vaccine administered Depression Elevated cholesterol GERD (gastroesophageal reflux disease) Hx of bipolar disorder Non-toxic multinodular goiter Surgical History Surgical History H/O colonoscopy History of breast lump/mass excision Hx of cholecystectomy Hx of total hysterectomy with removal of both tubes and ovaries Social History Social History Household Members: Family Housing: House Are you a primary acute care nursing assistant to a significant other at home: No Do you presently have visiting nurse or other home services: No Use of substances other than those prescribed or required for medical reasons: No Have you been hit, kicked, punched, or otherwise hurt by someone within the past year? If so, by whom?: No Are you DNR?: No Advance Directives Information Provided: No Recently lost weight without trying: No Eating poorly because of decreased appetite: No Nutrition Risks: No Nutritional Risk Poor oral hygiene: No (has lower partial) Meds Allergies Allergy/AdvReac Type Severity Reaction Status Date / Time hydrocodone Allergy Intermediate Vomiting Verified 12/09/20 06:18 amoxicillin AdvReac Intermediate Gastrointestinal Verified 12/09/20 06:18 Upset nitrofurantoin AdvReac Intermediate Gastrointestinal Verified 12/09/20 06:18 Upset sulfadiazine AdvReac Intermediate Gastrointestinal Verified 12/09/20 06:18 Upset Home Medications Medication Instructions Recorded Confirmed Last Taken Type estradiol 0.5 mg tablet 0.5 mg PO BEDTIME 05/24/20 12/03/20 Unknown History fluoxetine 20 mg capsule 20 mg PO BEDTIME 05/24/20 12/03/20 Unknown History acetaminophen 500 mg tablet 500 mg PO QAM 07/24/20 12/03/20 Unknown History estradiol VAGINAL 09/18/20 Unknown History omeprazole magnesium [Prilosec OTC] 20 mg PO DAILY PRN 12/03/20 12/03/20 Unknown History Exam Airway Mallampati Class: II TM Dist: >3cm Neck ROM: Full Loose/Missing/Broken Teeth: No Heart: [id number] Lungs: cta b/l Assessment and Plan Assessment Anesthesia Assessment: Anesthesia Plan Discussed, PAT Visit and Chart Reviewed Final Anesthetic Review NPO: Yes ASA Class: II Final Preanesthetic Review: No Changes in Pt Med Stat, Meds/Allgs Chart Reviewed, Consent Obtained/Reviewed and Anes Risks/Benef Reviewed Patient Risk: Low Procedure Risk: Low Assessment/Block/Sedation in SS: Assess/Block/Sedation-SS Anesthetic Plan Anesthetic Plan: MAC: and Agree w/ Assess. and Plan Disposition: Standard PACU
[2020-12-23 06:30] VITALS: BP 151/71; PULSE 61; RESP 16; TEMP 35.7; O2SAT 98
[2020-12-23] MEDS: Tetracaine HCl/PF 0.5% Oph Sol 4 ML DROPS 1 DROP EYE-RIGHT (06:36)
[2020-12-23] MEDS: Tropicamide 1 % Ophth Sol 3 ML BTL 1 DROP EYE-RIGHT ×3 (06:40→06:53)
[2020-12-23] MEDS: Lactated Ringers 500 ML 50 ML IV (06:41)
[2020-12-23] MEDS: Phenylephrine HCL 2.5% Oph SoL 2 ML BOTTLE 1 DROP EYE-RIGHT ×3 (06:43→06:57)
[2020-12-23 08:10] VITALS: BP 150/78; PULSE 63; RESP 16; TEMP 36.2; O2SAT 98
--- NOTE | 2020-12-23 08:11 | HO.PNOPHT ---
Ophthalmology Procedure Procedure Date of Service: 12/23/20 Ophthalmology Viscoelastic: Healon Duet Dual Pack Pro Ophthalmology Lenses: TECNIS [id number] (23.5) Procedure Notes: PREOPERATIVE DIAGNOSIS: Decreased visual acuity right eye secondary to cataract POSTOPERATIVE DIAGNOSIS: Same PROCEDURE: Right cataract extraction with intraocular lens insertion SURGEON: Oswald Deleon M.D. ANESTHESIA: Topical/MAC ESTIMATED BLOOD LOSS: None COMPLICATIONS: None After obtaining informed consent, the patient was brought to the operating room suite and placed in the supine position. After adequate sedation per anesthesia, topical drops of Tetracaine were given to the right eye. The eye was then prepped and draped in the usual sterile fashion. The operating room microscope was then positioned over the operative eye and a lid speculum placed. A paracentesis was created. Viscoelastic was then instilled into the anterior chamber. A three plane incision was then created temporally, utilizing a 2.85 mm keratome. Capsulotomy forceps were then utilized to create a circular tear capsulotomy. Hydrodissection and hydrodelineation were carried out until adequate mobilization of the nucleus occurred. Phacoemulsification was then utilized to remove the dense central nucleus followed by removal of the cortical material utilizing the automated aspiration irrigation unit. Viscoelastic was instilled into the posterior capsular bag followed by placement of a posterior chamber intraocular lens without difficulty. The residual Viscoelastic was then removed utilizing the automated IA machine. The wound was checked and found to be watertight. The patient tolerated the procedure well and the lid speculum was removed. Intracameral injection of Vigamox 0.1 mL followed by a subtenon injection of Kenalog-40 0.2 mL were administered. The patient will be seen in the a.m.
== END 2020-12-23 08:13 | disposition home or self-care (01) ==
PROVIDERS: PCP Internal Medicine; Visit Provider Ophthalmology
PROC: (CPT 66985; principal; 2020-12-23 07:50)
DX: H25.11 Age-related nuclear cataract, right eye (principal); H54.7 Unspecified visual loss; H18.503 Unspecified hereditary corneal dystrophies, bilateral; H04.123 Dry eye syndrome of bilateral lacrimal glands; Z83.511 Family history of glaucoma; E04.2 Nontoxic multinodular goiter; Z79.899 Other long term (current) drug therapy; Z88.0 Allergy status to penicillin; Z88.2 Allergy status to sulfonamides; Z88.8 Allergy status to other drugs, medicaments and biological substances
CPT/HCPCS: 66984; J2250; J3010; J3300; V2632

== ENCOUNTER 2021-03-21 09:00 | Outpatient (RCR) | payer MEDICARE, SELFPAY | END 2021-04-15 11:41 | disposition home or self-care (01) | LOC: HO.PT 09:00 | PROVIDERS: PCP Internal Medicine; Visit Provider Physical Medicine & Rehabilitation | DX: M51.36 Other intervertebral disc degeneration, lumbar region (principal); M25.511 Pain in right shoulder | CPT/HCPCS: 97110; 97150; 97161; 97530 ==

== ENCOUNTER 2021-04-17 10:14 | Outpatient (REF) | payer MEDICARE, SELFPAY | END 2021-04-17 10:15 | disposition home or self-care (01) | LOC: HO.HMGCLDS 10:14 | PROVIDERS: PCP Internal Medicine; Visit Provider Internal Medicine | DX: Z20.822 Contact with and (suspected) exposure to COVID-19 (principal) | CPT/HCPCS: C9803; U0003; U0005 ==

== ENCOUNTER 2021-05-30 17:00 | Outpatient (REF) | payer MEDICARE, SELFPAY | END 2021-05-30 17:01 | disposition home or self-care (01) | LOC: HO.LNP 17:00 | PROVIDERS: Visit Provider Physician Assistant Medical | DX: J06.9 Acute upper respiratory infection, unspecified (principal); Z20.822 Contact with and (suspected) exposure to COVID-19 | CPT/HCPCS: U0003; U0005 ==

== ENCOUNTER 2021-06-07 18:15 | Emergency (ER) | payer MEDICARE, SELFPAY ==
[2021-06-07 18:19] VITALS: BP 151/75; PULSE 75; RESP 18; TEMP 37.3; O2SAT 99; BMI 54.8
== END 2021-06-07 20:46 | disposition left against medical advice (07) ==
PROVIDERS: Emergency Provider Emergency Medicine; PCP Internal Medicine
DX: R68.83 Chills (without fever) (principal)
CPT/HCPCS: 99281; 99282

== ENCOUNTER 2021-06-23 14:22 | Outpatient (REF) | payer MEDICARE, SELFPAY ==
[2021-06-23 15:13] LABS: Influenza A PCR NEGATIVE (Negative); Influenza B PCR NEGATIVE (Negative); Resp Syncy Virus RNA Qual PCR NEGATIVE (Negative); SARS COV2 PCR INHOUSE POSITIVE (Negative)
== END 2021-06-23 14:23 | disposition home or self-care (01) ==
LOC: HO.LNP 14:22
PROVIDERS: Visit Provider Internal Medicine
DX: Z20.822 Contact with and (suspected) exposure to COVID-19 (principal)
CPT/HCPCS: 0241U

== ENCOUNTER 2021-06-30 13:57 | Outpatient (REF) | payer MEDICARE, SELFPAY ==
[2021-06-30 15:22] LABS: Influenza A PCR NEGATIVE (Negative); Influenza B PCR NEGATIVE (Negative); Resp Syncy Virus RNA Qual PCR NEGATIVE (Negative); SARS COV2 PCR INHOUSE POSITIVE (Negative)
== END 2021-06-30 13:58 | disposition home or self-care (01) ==
LOC: HO.LNP 13:57
PROVIDERS: PCP Internal Medicine; Visit Provider Internal Medicine
DX: Z20.822 Contact with and (suspected) exposure to COVID-19 (principal); R05.9 Cough, unspecified
CPT/HCPCS: 0241U

== ENCOUNTER 2021-07-08 13:38 | Outpatient (REF) | payer MEDICARE, SELFPAY ==
[2021-07-08 14:28] LABS: Influenza A PCR NEGATIVE (Negative); Influenza B PCR NEGATIVE (Negative); Resp Syncy Virus RNA Qual PCR NEGATIVE (Negative); SARS COV2 PCR INHOUSE NEGATIVE (Negative)
== END 2021-07-08 13:39 | disposition home or self-care (01) ==
LOC: HO.LNP 13:38
PROVIDERS: Visit Provider Internal Medicine
DX: Z20.822 Contact with and (suspected) exposure to COVID-19 (principal)
CPT/HCPCS: 0241U

== ENCOUNTER 2021-09-01 15:11 | Outpatient (REF) | payer MEDICARE, SELFPAY ==
--- NOTE | ~2021-09-01 | MM_ITS ---
EXAMINATION: MM SCREENING DIGITAL BREAST TOMOSYNTHESIS, BILATERAL CLINICAL INFORMATION: Screening. Asymptomatic. The lifetime risk of breast cancer based on the Tyrer-Cuzick Model is 8%. COMPARISON: Mammography: 09/01/2021, 10/04/2018, 09/30/2017 TECHNIQUE: Digital breast tomosynthesis is performed in both the craniocaudal and mediolateral oblique views along with computer-aided detection (CAD). Synthesized 2D images are generated from the tomosynthesis. FINDINGS: The breasts are heterogeneously dense, which may obscure small masses (ACR BI-RADS breast composition Category c). Breast tissue composition borders on heterogeneously dense. There is fibronodular parenchymal pattern is similar to prior studies. There is no interval dominant nodularity, significant mass, or architectural abnormality. Again, there are numerous bilateral scattered and small grouped round calcifications. The axilla and skin contours are unremarkable. MM/MM tomosynthesis screening BI IMPRESSION: No mammographic evidence of malignancy. ASSESSMENT: BI-RADS 2: Benign RECOMMENDATION: Routine annual mammography screening. This patient's information was entered into a reminder system with a target due date for their next mammogram.
== END 2021-09-01 15:12 | disposition home or self-care (01) ==
LOC: HO.MAMMO 15:11
PROVIDERS: PCP Internal Medicine; Visit Provider Internal Medicine
DX: Z12.31 Encounter for screening mammogram for malignant neoplasm of breast (principal)
CPT/HCPCS: 77063; 77067

== ENCOUNTER 2021-09-16 10:51 | Outpatient (REF) | payer MEDICARE, SELFPAY ==
[2021-09-16 11:18] LABS: MANUAL DIFF FLAG NO
[2021-09-16 11:55] LABS: Basophils Percent Auto 0.7 % (0-2); Eosinophils Absolute Auto 0.1 X10*3/uL (0.0-0.4); Eosinophils Percent Auto 3.1 % (0-4); Hematocrit 38.9 % (37.0-47.0); Imm Gran Abs Auto 0.02 X10*3/uL (0.00-0.03); Imm Gran Pct Auto 0.4 % (0.0-0.4); Lymphocytes Absolute Auto 1.5 X10*3/uL (1.2-4.9); Lymphocytes Percent Auto 32.1 % (20-40); Mean Corpuscular HGB Conc 33.4 g/dl (31.0-35.0); Mean Corpuscular Hemoglobin 31.7 pg (27.0-33.0); Mean Corpuscular Volume 94.9 fL (80.0-98.0); Monocytes Absolute Auto 0.3 X10*3/uL (0.1-1.2); Monocytes Percent Auto 6.8 % (2-11); Neutrophils Absolute Auto 2.6 x10*3/uL (2.0-8.3); Neutrophils Percent Auto 56.9 % (45-73); Platelet Count 330 X10*3/uL (160-400); Red Cell Distribution Width 13.1 % (11.0-16.0); White Blood Count 4.6 X10*3/uL (4.8-10.8)
[2021-09-16 12:54] LABS: Alanine Aminotransferase 12 U/L (0-31); Alkaline Phosphatase 61 U/L (39-117); Anion Gap 12 (12-20); Aspartate Amino Transferase 20 U/L (5-31); Bilirubin Total 0.6 mg/dL (0.0-1.0); Blood Urea Nitrogen 12 mg/dL (9-16); Calcium 9.8 mg/dL (8.4-10.2); Carbon Dioxide 29 mmol/L (22-29); Chloride 102 mmol/L (96-108); Cholesterol 262 mg/dL; Estimated Glomerular Filt Rate > 60; Glucose Fasting 93 mg/dL (60-99); HDL Cholesterol 72 mg/dL; LDL Cholesterol Calculated 166 mg/dl; Potassium 4.8 mmol/L (3.3-5.1); Sodium 138 mmol/L (135-145); Total Protein 7.5 g/dL (6.5-8.0); Triglycerides 120 mg/dL
== END 2021-09-16 10:52 | disposition home or self-care (01) ==
LOC: HO.LAB 10:51
PROVIDERS: PCP Internal Medicine; Visit Provider Internal Medicine
DX: K21.9 Gastro-esophageal reflux disease without esophagitis (principal); E78.00 Pure hypercholesterolemia, unspecified; R06.02 Shortness of breath; Z86.16 Personal history of COVID-19
CPT/HCPCS: 36415; 80053; 80061; 84439; 84443; 85025

== ENCOUNTER 2021-09-29 11:09 | Outpatient (REF) | payer MEDICARE, SELFPAY ==
[2021-09-30 16:36] LABS: Triiodothyronine T3 Free 2.6 pg/mL (2.3-4.2)
[2021-09-30 18:07] LABS: Thyroid Peroxidase Antibodies 3 IU/mL (<9)
== END 2021-09-29 11:10 | disposition home or self-care (01) ==
LOC: HO.HMGCLDS 11:09
PROVIDERS: Visit Provider Internal Medicine
DX: E03.9 Hypothyroidism, unspecified (principal)
CPT/HCPCS: 36415; 84481; 86376

== ENCOUNTER 2021-12-22 15:59 | Outpatient (REF) | payer MEDICARE, SELFPAY ==
--- NOTE | ~2021-12-22 | US_ITS ---
EXAMINATION: US THYROID CLINICAL INFORMATION: Nontoxic multinodular goiter. COMPARISON: US thyroid 08/20/2020 and 05/10/2019. TECHNIQUE: Linear transducer grayscale and color Doppler examination with attention to the region of the thyroid. FINDINGS: SIZE: Measurements of the thyroid lobes and nodules are given in sagittal, anteroposterior and transverse dimensions respectively. Right Thyroid Lobe: 5.4 x 1.7 x 1.3 cm, volume 6.5 mL. Previously 4.4 x 1.3 x 1.5 cm, volume 4.5 mL. Parenchyma: The gland echotexture is homogeneous. Thyroid vascularity is normal. Left Thyroid Lobe: 6.2 x 2.1 x 1.5 cm, volume 10.1 mL. Previously 4.7 x 2.1 x 1.7 cm, volume 8.8 mL. Parenchyma: The gland echotexture is homogeneous. Thyroid vascularity is normal. Isthmus: 0.2 cm in maximum AP dimension. Previously 0.2 cm. Estimated total number of nodules greater than or equal to 1 cm: 1. Special Delivery Carrier nodules are described as follows: 1. Location: Right medial mid. Size: 0.6 x 0.5 x 0.3 cm, volume 0.04 mL. Previously: 0.6 x 0.3 x 0.5 cm, volume 0.04 mL. Nodule characteristics: Composition: Spongiform (0). Echogenicity: Anechoic (0). Shape: Not taller than wide (0). Margins: Smooth (0). Echogenic Foci: None (0). ACR TI-RADS total points: 0. ACR TI-RADS category: 1. Significant change in size (>/= 20% in 2 dimensions and minimal increase of 2 mm or 50% or greater increase in volume): None. Change in features: None. Change in ACR TI-RADS risk category: Not applicable. 2. Location: Right medial superior. Size: 0.4 x 0.3 x 0.3 cm, volume 0.01 mL. Previously: 0.4 x 0.3 x 0.3 cm, volume 0.01 mL. Nodule characteristics: Composition: Solid/almost completely solid (2). Echogenicity: Cannot be determined (1). Shape: Not taller than wide (0). Margins: Smooth (0). Echogenic Foci: None (0). ACR TI-RADS total points: 3. Previous: 0. ACR TI-RADS category: 3. Previous: 1. Significant change in size (>/= 20% in 2 dimensions and minimal increase of 2 mm or 50% or greater increase in volume): None. Change in features: None. Change in ACR TI-RADS risk category: None. 3. Location: Left mid. Size: 1.9 x 1.7 x 1.7 cm, volume 2.9 mL. Previously: 1.9 x 1.8 x 1.8 cm, volume 3.22 mL. Nodule characteristics: Composition: Solid (2). Echogenicity: Isoechoic (1). Shape: Not taller than wide (0). Margins: Smooth (0). Echogenic Foci: Peripheral calcifications (2). ACR TI-RADS total points: 5. Previous: 5. ACR TI-RADS category: 4. Previous: 4. Significant change in size (>/= 20% in 2 dimensions and minimal increase of 2 mm or 50% or greater increase in volume): None. Change in features: None. Change in ACR TI-RADS risk category: None. NODES: No lymphadenopathy is seen in the tissue surrounding the thyroid gland. US/US thyroid IMPRESSION: Multiple thyroid nodules. The largest midpole nodule left lobe has a calcified rim and is stable. It has a high ACR TI-RADS criteria, but stable since 05/06/2018. Continued follow-up is recommended. ACR TI-RADS RECOMMENDATION REFERENCE: Ultrasound-guided fine-needle aspiration, followup ultrasound, no further follow up. * TR1 (0 point) and TR 2 (2 points): No FNA or follow up * TR3 (3 points): FNA if more than or equal to 2.5 cm in maximum dimension, followup ultrasound in 1, 3 and 5 years if 1.5 to 2.4 cm in maximum dimension. * TR4 (4-6 points): FNA if more than or equal to 1.5 cm in maximum dimension, followup ultrasound in 1, 2, 3 and 5 years if 1 to 1.4 cm in maximum dimension. * TR5 (more than or equal to 7 points): FNA if more than or equal to 1 cm in maximum dimension, followup ultrasound every year for 5 years if 0.5 to 0.9 cm in maximum dimension. * TR3, TR4 or TR5 nodules that are below the size threshold for follow up receive no follow up.
== END 2021-12-22 16:00 | disposition home or self-care (01) ==
LOC: HO.US 15:59
PROVIDERS: Visit Provider Internal Medicine Endocrinology, Diabetes & Metabolism
DX: E04.2 Nontoxic multinodular goiter (principal)
CPT/HCPCS: 76536

== ENCOUNTER 2022-01-13 08:55 | Outpatient (REF) | payer MEDICARE, SELFPAY ==
[2022-01-13 09:32] LABS: MANUAL DIFF FLAG NO
[2022-01-13 10:03] LABS: Basophils Percent Auto 0.7 % (0-2); Eosinophils Absolute Auto 0.2 X10*3/uL (0.0-0.4); Eosinophils Percent Auto 3.5 % (0-4); Hematocrit 41.2 % (37.0-47.0); Hemoglobin 14.3 g/dl (12.0-16.0); Imm Gran Abs Auto 0.02 X10*3/uL (0.00-0.03); Imm Gran Pct Auto 0.4 % (0.0-0.4); Lymphocytes Absolute Auto 1.6 X10*3/uL (1.2-4.9); Lymphocytes Percent Auto 35.1 % (20-40); Mean Corpuscular HGB Conc 34.7 g/dl (31.0-35.0); Mean Corpuscular Hemoglobin 32.1 pg (27.0-33.0); Mean Corpuscular Volume 92.4 fL (80.0-98.0); Mean Platelet Volume 8.8 fL (9.4-12.3); Monocytes Absolute Auto 0.4 X10*3/uL (0.1-1.2); Monocytes Percent Auto 9.2 % (2-11); Neutrophils Absolute Auto 2.4 x10*3/uL (2.0-8.3); Neutrophils Percent Auto 51.1 % (45-73); Platelet Count 337 X10*3/uL (160-400); Red Blood Count 4.46 X10*6/uL (4.20-5.50); Red Cell Distribution Width 12.2 % (11.0-16.0); White Blood Count 4.6 X10*3/uL (4.8-10.8)
[2022-01-13 10:39] LABS: Alanine Aminotransferase 14 U/L (0-31); Albumin Level 4.4 g/dL (3.5-5.0); Alkaline Phosphatase 59 U/L (39-117); Anion Gap 11 (12-20); Aspartate Amino Transferase 22 U/L (5-31); Bilirubin Total 0.7 mg/dL (0.0-1.0); Blood Urea Nitrogen 11 mg/dL (9-16); C Reactive Protein 0.09 mg/dL (< or = 0.50); Calcium 9.6 mg/dL (8.4-10.2); Carbon Dioxide 29 mmol/L (22-29); Chloride 101 mmol/L (96-108); Cholesterol 215 mg/dL; Estimated Glomerular Filt Rate > 60; Glucose Fasting 112 mg/dL (60-99); HDL Cholesterol 83 mg/dL; LDL Cholesterol Calculated 120 mg/dl; Lipase 49 U/L (8-78); Potassium 4.5 mmol/L (3.3-5.1); Sodium 136 mmol/L (135-145); Total Protein 7.8 g/dL (6.5-8.0); Triglycerides 63 mg/dL
== END 2022-01-13 08:56 | disposition home or self-care (01) ==
LOC: HO.LAB 08:55
PROVIDERS: PCP Internal Medicine; Visit Provider Internal Medicine
DX: E78.00 Pure hypercholesterolemia, unspecified (principal); R10.9 Unspecified abdominal pain; K21.9 Gastro-esophageal reflux disease without esophagitis
CPT/HCPCS: 36415; 80053; 80061; 83690; 85025; 86140

== ENCOUNTER → 2022-01-29 09:50 | Outpatient (BNVA) | payer MEDICARE, SELFPAY | PROVIDERS: PCP Internal Medicine; Visit Provider Internal Medicine Endocrinology, Diabetes & Metabolism | DX: E04.2 Nontoxic multinodular goiter (principal) | CPT/HCPCS: Q3014 ==

== ENCOUNTER → 2022-03-16 14:14 | Outpatient (BNVA) | payer MEDICARE, SELFPAY | PROVIDERS: PCP Internal Medicine; Visit Provider Orthopaedic Surgery | DX: M75.41 Impingement syndrome of right shoulder (principal); F32.A Depression, unspecified | CPT/HCPCS: 99202 ==

== ENCOUNTER 2022-04-07 14:28 | Outpatient (REF) | payer MEDICARE, SELFPAY ==
[2022-04-07 15:13] LABS: COVID-19 Test Negative (Negative); IDNOW Serial# 55D5AD1C
== END 2022-04-07 14:29 | disposition home or self-care (01) ==
LOC: HO.LAB 14:28
PROVIDERS: Visit Provider Internal Medicine
DX: Z20.822 Contact with and (suspected) exposure to COVID-19 (principal)
CPT/HCPCS: 87635; C9803

== ENCOUNTER 2022-05-01 11:00 | Outpatient (RCR) | payer MEDICARE, SELFPAY ==
--- NOTE | 2022-03-31 13:27 | MHC.PT.DC ---
[facility] [place] Office [place] Office [place] Office [address] Andrea Griffith 140 [facility] [phone] F: [phone] F: [phone] F: [phone] F: [phone] Physical Therapy Discharge Report Diagnosis: impingement of R shoulder Date of Surgery: N/A Date of Evaluation: 03/31/22 Date of Discharge: Treatments to Date: 1 Cancellations to Date: No Shows to Date: Discharge Status: Discharge Summary: pt is a 71 yo female presenting to physical therapy with referring diagnosis impingement syndrome R shoulder . She has symptoms that include pain, decreased ROM, strength, postural awareness, and difficulty with ADLs. Pt has difficulty with ADLs including cleaning, carrying objects, caring for her father, and sleeping. Pt is a good candidate for PT d/t her success with PT in the past, disease pathology, and motivation. Pt will benefit from skilled PT to improve ROM, strength, postural re-education, modalities as needed, stretching, and proper lifting mechanics. Electronically signed by: Please sign and return to therapist. Thank you for your referral.
--- NOTE | 2022-03-31 18:11 | MHC.PT.EP ---
[facility] [place] Office [place] Office [place] Office [address] [phone] F: [phone] F: [phone] F: [phone] F: [phone] Physical Therapy Plan of Care Date of Evaluation: Date of Surgery: N/A Diagnosis: impingement of R shoulder Assessment: pt is a 71 yo female presenting to physical therapy with referring diagnosis impingement syndrome R shoulder . She has symptoms that include pain, decreased ROM, strength, postural awareness, and difficulty with ADLs. Pt has difficulty with ADLs including cleaning, carrying objects, caring for her father, and sleeping. Pt is a good candidate for PT d/t her success with PT in the past, disease pathology, and motivation. Pt will benefit from skilled PT to improve ROM, strength, postural re-education, modalities as needed, stretching, and proper lifting mechanics. Frequency and Duration: The patient will be seen 2x/4weeks Short Term Goals: Pt will be I in HEP to promote self-management of condition Pt will improve R ER ROM by 10* to assist with upper body ADLs/self-care. Certified Neurodiagnostic Technologist Goals: Pt will improve R shoulder flexion MMT to 5/5 to assist with primary client care specialist activities including transfers. Pt will demonstrate proper body mechanics with lifting 15# object from ground to self without verbal cueing. Pt will demonstrate proper sweeping and vacuuming techniques to return to PLOF. Treatment Plan: Modalities to reduce pain, spasms and effusion. Manual therapy to restore motion and function. Therapeutic exercise to improve strength and flexibility. Neuromuscular re-education for posture and balance. Therapeutic activities to return to functional activities of daily living. Electronically signed by: Ronda Hogan PT, DPT Please sign and return to therapist. Thank you for your referral.
--- NOTE | 2022-05-01 13:35 | MHC.PT.DC ---
[facility] [place] Office [place] Office [place] Office [address] Andrea Griffith [address] [phone] F: [phone] F: [phone] F: [phone] F: [phone] Physical Therapy Discharge Report Diagnosis: impingement of R shoulder Date of Surgery: N/A Date of Evaluation: 03/31/22 Date of Discharge: Treatments to Date: 4 Cancellations to Date: No Shows to Date: Discharge Status: Discharge Summary: The patient had poor attendance and compliance throughout this plan of care. In the 31 days her chart was open she only attended 3 visits. She was either more than 30 minutes late, had multiple cancels, or no showed. She was given home exercise programs but would refer to old exercise programs from greater than a year ago. The patient is currently taking care of her father which requires a lot of her time and attention which may also be contributing to her poor compliance. A final home exercise program was developed and reviewed today. She was encouraged, as always, to only move through her tolerable range of motion. It was also recommended to her to lighten her purse or to start carrying it under her left arm. She is discharged from this physical therapy plan of care with recommendations for other medical management at this time as she is not a physical therapy candidate. Electronically signed by: Please sign and return to therapist. Thank you for your referral.
== END 2022-05-01 13:36 | disposition home or self-care (01) ==
LOC: HO.PT 11:00
PROVIDERS: PCP Internal Medicine; Visit Provider Orthopaedic Surgery
DX: M75.41 Impingement syndrome of right shoulder (principal)
CPT/HCPCS: 97110; 97162

== ENCOUNTER 2022-05-07 10:36 | Outpatient (REF) | payer MEDICARE, SELFPAY ==
--- NOTE | ~2022-05-07 | XR_ITS ---
EXAMINATION: XR SHOULDER, RIGHT CLINICAL INFORMATION: Pain COMPARISON: Previous x-ray October 2020 TECHNIQUE: 3 views of the right shoulder. FINDINGS: Bone alignment is normal. No fracture or dislocation. Normal glenohumeral joint. Mild arthritis at the acromioclavicular joint. Undersurface acromial osteophyte. Degenerative changes of the greater tuberosity and adjacent periarticular soft tissue calcifications or ossifications. XR/XR shoulder RT min 2V IMPRESSION: Mild arthritis at the acromioclavicular joint. Undersurface acromial osteophyte. Degenerative changes of the greater tuberosity and adjacent soft tissue calcifications or ossifications.
== END 2022-05-07 10:37 | disposition home or self-care (01) ==
LOC: HO.HOSX 10:36
PROVIDERS: Visit Provider Orthopaedic Surgery
DX: M19.011 Primary osteoarthritis, right shoulder (principal); M75.41 Impingement syndrome of right shoulder; F32.1 Major depressive disorder, single episode, moderate
CPT/HCPCS: 20610; 73030; 99212; J1100

== ENCOUNTER 2022-06-02 16:45 | Outpatient (REF) | payer MEDICARE, SELFPAY ==
[2022-06-02 17:37] LABS: Influenza A PCR NEGATIVE (Negative); Influenza B PCR NEGATIVE (Negative); Resp Syncy Virus RNA Qual PCR NEGATIVE (Negative); SARS COV2 PCR INHOUSE NEGATIVE (Negative)
== END 2022-06-02 16:46 | disposition home or self-care (01) ==
LOC: HO.LNP 16:45
PROVIDERS: Visit Provider Internal Medicine
DX: Z20.822 Contact with and (suspected) exposure to COVID-19 (principal); R05.9 Cough, unspecified; R52 Pain, unspecified
CPT/HCPCS: 0241U; C9803

== ENCOUNTER 2022-06-16 11:06 | Outpatient (REF) | payer MEDICARE, SELFPAY ==
--- NOTE | ~2022-06-16 | XR_ITS ---
EXAMINATION: XR CHEST CLINICAL INFORMATION: Cough COMPARISON: Previous chest x-ray July 2006 TECHNIQUE: 2 views of the chest were obtained. FINDINGS: No significant abnormality is noted involving the heart, lungs, mediastinum, bony thorax or soft tissues. There are degenerative changes of the spine. XR/XR chest 2V IMPRESSION: No evidence for acute disease in the chest.
== END 2022-06-16 11:07 | disposition home or self-care (01) ==
LOC: HO.XRAY 11:06
PROVIDERS: PCP Internal Medicine; Visit Provider Internal Medicine
DX: R05.9 Cough, unspecified (principal)
CPT/HCPCS: 71046

== ENCOUNTER 2022-06-30 10:22 | Day surgery (SDC) | payer MEDICARE, SELFPAY ==
--- NOTE | 2022-06-29 13:57 | P.CONAN_ITS ---
Documented by User: Cony Handley NP 06/29/22 13:59 HPI - Anesthesia Eval Consult details Narrative: 71yo F for Colonoscopy PMFSH Active Problems Active Problems: All Active Problems (Updated 06/29/22 @ 13:21 by Brenda Anderson RN) Dysuria (Acute) Pain in right ankle (Acute) URI (upper respiratory infection) (Acute) Impingement syndrome of right shoulder (Acute) Depression (Acute) Non-toxic multinodular goiter (Acute) Past Medical History Medical History Arthritis COVID-19 vaccine administered Depression Elevated cholesterol GERD (gastroesophageal reflux disease) Hx of bipolar disorder Non-toxic multinodular goiter Urinary incontinence Surgical History Surgical History H/O colonoscopy History of bladder surgery History of breast lump/mass excision Hx of cholecystectomy Hx of total hysterectomy with removal of both tubes and ovaries Social History Social History Household Members: Family Housing: House Are you a primary urgent care nurse practitioner to a significant other at home: No Do you presently have visiting nurse or other home services: No Patient Tobacco Use Status: Former Tobacco user Quit Date: over 30 yrs ago Use of substances other than those prescribed or required for medical reasons: Yes Substance Use Type Other:: smoking Substance Use Frequency: Daily Are you DNR?: No Advance Directives: No Advance Directives Information Provided: Yes Meds Allergies Allergy/AdvReac Type Severity Reaction Status Date / Time hydrocodone Allergy Intermediate Vomiting Verified 05/07/22 12:07 amoxicillin AdvReac Intermediate Gastrointestinal Verified 05/07/22 12:07 Upset nitrofurantoin AdvReac Intermediate Gastrointestinal Verified 05/07/22 12:07 Upset sulfadiazine AdvReac Intermediate Gastrointestinal Verified 05/07/22 12:07 Upset Home Medications Medication Instructions Recorded Confirmed Last Taken Type estradiol 0.5 mg tablet 0.5 mg PO BEDTIME 05/24/20 02/27/22 Unknown History fluoxetine 20 mg capsule 20 mg PO BEDTIME 05/24/20 03/16/22 Unknown History acetaminophen 500 mg tablet 500 mg PO QAM 07/24/20 03/16/22 Unknown History (Tylenol Extra Strength) estradiol 0.01% (0.1 mg/gram) vaginal 09/18/20 02/27/22 Unknown History vaginal cream omeprazole magnesium 20 mg 20 mg PO DAILY PRN Acid Reflux 12/03/20 03/16/22 Unknown History tablet,delayed release (Prilosec OTC) fluoxetine 10 mg capsule 10 mg PO 01/29/22 02/27/22 Unknown History pravastatin 20 mg tablet 20 mg PO ONCE 01/29/22 03/16/22 Unknown History azithromycin 250 mg tablet mg PO 06/29/22 Unknown History diclofenac sodium 1 % topical gel g topical Q6H PRN pain 06/29/22 Unknown History estradiol 0.5 mg tablet 1 tab PO 3XW 06/29/22 06/29/22 Unknown History prednisone 20 mg tablet 2 tab PO DAILY 06/29/22 06/29/22 Unknown History Exam Exam Date and Time: June 29, 2022 1357 Pertinent Lab Results Pertinent Lab Results: Laboratory Tests 01/13/22 01/13/22 09:30 09:30 WBC 4.6 L Hgb 14.3 Hct 41.2 Plt Count 337 Sodium 136 Potassium 4.5 Chloride 101 Carbon Dioxide 29 BUN 11 Creatinine 0.86 Assessment and Plan Assessment Anesthesia Assessment: Chart Reviewed Documented by User: Halie Aguilera MD 06/30/22 11:35 [facility] Past Medical History Medical History Arthritis COVID-19 vaccine administered Depression Elevated cholesterol GERD (gastroesophageal reflux disease) Hx of bipolar disorder Non-toxic multinodular goiter Urinary incontinence Surgical History Surgical History H/O colonoscopy History of bladder surgery History of breast lump/mass excision Hx of cholecystectomy Hx of total hysterectomy with removal of both tubes and ovaries History of Problems with Anesthesia: No Social History Social History Household Members: Family Housing: House Are you a primary urgent care nurse practitioner to a significant other at home: No Do you presently have visiting nurse or other home services: No Patient Tobacco Use Status: Former Tobacco user Quit Date: over 30 yrs ago Use of substances other than those prescribed or required for medical reasons: Yes Substance Use Type Other:: smoking Substance Use Frequency: Daily Are you DNR?: No Advance Directives: No Advance Directives Information Provided: Yes Meds Allergies Allergy/AdvReac Type Severity Reaction Status Date / Time hydrocodone Allergy Intermediate Vomiting Verified 05/07/22 12:07 amoxicillin AdvReac Intermediate Gastrointestinal Verified 05/07/22 12:07 Upset nitrofurantoin AdvReac Intermediate Gastrointestinal Verified 05/07/22 12:07 Upset sulfadiazine AdvReac Intermediate Gastrointestinal Verified 05/07/22 12:07 Upset Home Medications Medication Instructions Recorded Confirmed Last Taken Type estradiol 0.5 mg tablet 0.5 mg PO BEDTIME 05/24/20 02/27/22 Unknown History fluoxetine 20 mg capsule 20 mg PO BEDTIME 05/24/20 03/16/22 Unknown History acetaminophen 500 mg tablet 500 mg PO QAM 07/24/20 03/16/22 Unknown History (Tylenol Extra Strength) estradiol 0.01% (0.1 mg/gram) vaginal 09/18/20 02/27/22 Unknown History vaginal cream omeprazole magnesium 20 mg 20 mg PO DAILY PRN Acid Reflux 12/03/20 03/16/22 Unknown History tablet,delayed release (Prilosec OTC) fluoxetine 10 mg capsule 10 mg PO 01/29/22 02/27/22 Unknown History pravastatin 20 mg tablet 20 mg PO ONCE 01/29/22 03/16/22 Unknown History azithromycin 250 mg tablet mg PO 06/29/22 Unknown History diclofenac sodium 1 % topical gel g topical Q6H PRN pain 06/29/22 Unknown History estradiol 0.5 mg tablet 1 tab PO 3XW 06/29/22 06/29/22 Unknown History prednisone 20 mg tablet 2 tab PO DAILY 06/29/22 06/29/22 Unknown History Exam Airway Mallampati Class: II TM Dist: >3cm Neck ROM: Full Loose/Missing/Broken Teeth: Yes and Upper (Missing upper left incisor) Heart: RRR Lungs: CTA Assessment and Plan Assessment Anesthesia Assessment: Anesthesia Plan Discussed Final Anesthetic Review History of Problems with Anesthesia: No NPO: Yes ASA Class: II Final Preanesthetic Review: Meds/Allgs Chart Reviewed, Consent Obtained/Reviewed and Anes Risks/Benef Reviewed Patient Risk: Low Procedure Risk: Low Anesthetic Plan Anesthetic Plan: MAC: Disposition: Standard PACU
[2022-06-30 11:06] VITALS: BMI 25.9
[2022-06-30 11:10] VITALS: BP 127/64; PULSE 65; RESP 16; TEMP 36.1; O2SAT 97
[2022-06-30] MEDS: Lactated Ringers 1,000 ML 100 ML IVCONT (11:18)
--- NOTE | 2022-06-30 11:34 | MHC.SHP ---
Pre-Procedural Eval Section A Date of Service: 06/30/22 The patient is an INPATIENT: No Changes since office visit: No Cold of Flu in the past 2 weeks, No New Medical Problems, No Changes in Medication and No Patient answered all questions The History & Physical has been completed within 30 days and I have reviewed it.: Yes Section B Chief Complaint: rectal bleeding Allergies: Allergies Allergy/AdvReac Type Severity Reaction Status Date / Time hydrocodone Allergy Intermediate Vomiting Verified 05/07/22 12:07 amoxicillin AdvReac Intermediate Gastrointestinal Verified 05/07/22 12:07 Upset nitrofurantoin AdvReac Intermediate Gastrointestinal Verified 05/07/22 12:07 Upset sulfadiazine AdvReac Intermediate Gastrointestinal Verified 05/07/22 12:07 Upset Plan I have reviewed the history and physical and performed a pertinent physical examination on my patient. No changes have occurred unless specified. Time Spent With Patient Time: Total time managing care of this patient today ____ minutes.
--- NOTE | 2022-06-30 12:05 | P.BOP_ITS ---
Brief Operative Note Date of Service: 06/30/22 Pre-op diagnosis: rectal bleeding Post-op diagnosis: same (limited exam) Procedure: colonoscopy Surgeon: Robert Mendoza Anesthesia: MAC Was an American Sign Language Teacher used for this Procedure?: No Estimated blood loss (mL): 0 Pathology: none sent Condition: stable Disposition: PACU
[2022-06-30 12:08] VITALS: BP 70/40; PULSE 70; RESP 16; TEMP 36.6; O2SAT 97
[2022-06-30 12:23] VITALS: BP 107/65; PULSE 16; RESP 16; TEMP 36.2; O2SAT 97
--- NOTE | 2022-06-30 13:05 | OP_ITS ---
SURGEON: Robert Mendoza MD INDICATIONS: Rectal bleeding. PREOPERATIVE DIAGNOSIS: POSTOPERATIVE DIAGNOSIS: PROCEDURE PERFORMED: Colonoscopy to the terminal ileum. ESTIMATED BLOOD LOSS: COMPLICATIONS: ANESTHESIA: Monitored anesthesia care. ASSISTANTS: SPECIMENS: DESCRIPTION OF PROCEDURE: Date 06/30/22. History and physical performed. The risks and benefits of the procedure were explained to the patient. Informed consent was obtained. The patient was placed in the left lateral decubitus position. A digital rectal exam was performed and was found to be normal. The Olympus pediatric video colonoscope was introduced into the rectum and advanced to the cecum without difficulty. The cecum was identified by transillumination, palpation, and identification of ileocecal valve. Examination was performed. The scope was removed. She tolerated the procedure well and was taken to recovery area in stable condition. FINDINGS: The terminal ileum was briefly examined and appeared normal. There was a large amount of formed and liquid stool present throughout the colon and the terminal ileum. This limited the sensitivity examination for detection of small polyps. No polyps were identified. There was mild sigmoid diverticulosis. Retroflexed examination did show some small internal hemorrhoids. IMPRESSION: Limited colonoscopy. RECOMMENDATION: Repeat colonoscopy in 6 months with a 2 day prep is recommended for a complete examination of the colon. MD MADELINE Iraheta/MIKI / [id number] MTDD
== END 2022-06-30 13:15 | disposition home or self-care (01) ==
PROVIDERS: PCP Internal Medicine; Visit Provider Internal Medicine Gastroenterology
PROC: 0DJD8ZZ Inspection of Lower Intestinal Tract, Via Natural or Artificial Opening Endoscopic (ICD-10-PCS; CPT 45378; principal; 2022-06-30 11:40)
DX: K62.5 Hemorrhage of anus and rectum (principal); K57.30 Diverticulosis of large intestine without perforation or abscess without bleeding; K64.8 Other hemorrhoids; K21.9 Gastro-esophageal reflux disease without esophagitis; M19.90 Unspecified osteoarthritis, unspecified site; Z79.52 Long term (current) use of systemic steroids; Z79.899 Other long term (current) drug therapy; Z88.0 Allergy status to penicillin; Z88.2 Allergy status to sulfonamides; Z88.5 Allergy status to narcotic agent
CPT/HCPCS: 45378; J2370

== ENCOUNTER 2022-07-28 08:02 | Day surgery (SDC) | payer MEDICARE, SELFPAY ==
--- NOTE | 2022-07-27 12:10 | P.CONAN_ITS ---
Documented by User: Cony Handley NP 07/27/22 12:12 HPI - Anesthesia Eval Consult details Narrative: 71yo F for Colonoscopy s/p colo 06/2022 with MAC (limited/poor prep) PMFSH Active Problems Active Problems: All Active Problems (Updated 06/29/22 @ 13:21 by Brenda Anderson RN) Dysuria (Acute) Pain in right ankle (Acute) URI (upper respiratory infection) (Acute) Impingement syndrome of right shoulder (Acute) Depression (Acute) Non-toxic multinodular goiter (Acute) Past Medical History Medical History Arthritis COVID-19 vaccine administered Depression Elevated cholesterol GERD (gastroesophageal reflux disease) Hx of bipolar disorder Non-toxic multinodular goiter Urinary incontinence Surgical History Surgical History H/O colonoscopy History of bladder surgery History of breast lump/mass excision Hx of cholecystectomy Hx of total hysterectomy with removal of both tubes and ovaries History of Problems with Anesthesia: No Social History Social History Household Members: Family Housing: House Are you a primary foster care case manager to a significant other at home: No Do you presently have visiting nurse or other home services: No Patient Tobacco Use Status: Former Tobacco user Quit Date: Use of substances other than those prescribed or required for medical reasons: Yes Are you DNR?: No Advance Directives: No Advance Directives Information Provided: Yes Meds Allergies Allergy/AdvReac Type Severity Reaction Status Date / Time hydrocodone Allergy Intermediate Vomiting Verified 05/07/22 12:07 amoxicillin AdvReac Intermediate Gastrointestinal Verified 05/07/22 12:07 Upset nitrofurantoin AdvReac Intermediate Gastrointestinal Verified 05/07/22 12:07 Upset sulfadiazine AdvReac Intermediate Gastrointestinal Verified 05/07/22 12:07 Upset Home Medications Medication Instructions Recorded Confirmed Last Taken Type estradiol 0.5 mg tablet 0.5 mg PO BEDTIME 05/24/20 02/27/22 Unknown History fluoxetine 20 mg capsule 20 mg PO BEDTIME 05/24/20 03/16/22 Unknown History acetaminophen 500 mg tablet 500 mg PO QAM 07/24/20 03/16/22 Unknown History (Tylenol Extra Strength) estradiol 0.01% (0.1 mg/gram) vaginal 09/18/20 02/27/22 Unknown History vaginal cream omeprazole magnesium 20 mg 20 mg PO DAILY PRN Acid Reflux 12/03/20 03/16/22 Unknown History tablet,delayed release (Prilosec OTC) pravastatin 20 mg tablet 20 mg PO DAILY 01/29/22 03/16/22 Unknown History diclofenac sodium 1 % topical gel g topical Q6H PRN pain 06/29/22 Unknown History estradiol 0.5 mg tablet 1 tab PO 3XW 06/29/22 06/29/22 Unknown History Exam Exam Date and Time: July 27, 2022 1210 Pertinent Lab Results Pertinent Lab Results: Laboratory Tests 01/13/22 01/13/22 09:30 09:30 WBC 4.6 L Hgb 14.3 Hct 41.2 Plt Count 337 Sodium 136 Potassium 4.5 Chloride 101 Carbon Dioxide 29 BUN 11 Creatinine 0.86 Assessment and Plan Assessment Anesthesia Assessment: Chart Reviewed Final Anesthetic Review History of Problems with Anesthesia: No Documented by User: Carol Cm MD 07/28/22 10:34 [facility] Active Problems Active Problems: All Active Problems (Updated 06/29/22 @ 13:21 by Brenda Anderson RN) Dysuria (Acute) Pain in right ankle (Acute) URI (upper respiratory infection) (Acute) Impingement syndrome of right shoulder (Acute) Depression (Acute) Non-toxic multinodular goiter (Acute) Right shoulder pain Past Medical History Medical History Arthritis COVID-19 vaccine administered Depression Elevated cholesterol GERD (gastroesophageal reflux disease) Hx of bipolar disorder Non-toxic multinodular goiter Urinary incontinence Family History Family history of problems with anesthesia: No Surgical History Surgical History H/O colonoscopy History of bladder surgery History of breast lump/mass excision Hx of cholecystectomy Hx of total hysterectomy with removal of both tubes and ovaries Social History Social History Household Members: Family Housing: House Are you a primary foster care case manager to a significant other at home: No Do you presently have visiting nurse or other home services: No Patient Tobacco Use Status: Former Tobacco user Quit Date: Use of substances other than those prescribed or required for medical reasons: Yes Are you DNR?: No Advance Directives: No Advance Directives Information Provided: Yes Meds Allergies Allergy/AdvReac Type Severity Reaction Status Date / Time hydrocodone Allergy Intermediate Vomiting Verified 05/07/22 12:07 amoxicillin AdvReac Intermediate Gastrointestinal Verified 05/07/22 12:07 Upset nitrofurantoin AdvReac Intermediate Gastrointestinal Verified 05/07/22 12:07 Upset sulfadiazine AdvReac Intermediate Gastrointestinal Verified 05/07/22 12:07 Upset Home Medications Medication Instructions Recorded Confirmed Last Taken Type estradiol 0.5 mg tablet 0.5 mg PO BEDTIME 05/24/20 02/27/22 Unknown History fluoxetine 20 mg capsule 20 mg PO BEDTIME 05/24/20 03/16/22 Unknown History acetaminophen 500 mg tablet 500 mg PO QAM 07/24/20 03/16/22 Unknown History (Tylenol Extra Strength) estradiol 0.01% (0.1 mg/gram) vaginal 09/18/20 02/27/22 Unknown History vaginal cream omeprazole magnesium 20 mg 20 mg PO DAILY PRN Acid Reflux 12/03/20 03/16/22 Unknown History tablet,delayed release (Prilosec OTC) pravastatin 20 mg tablet 20 mg PO DAILY 01/29/22 03/16/22 Unknown History diclofenac sodium 1 % topical gel g topical Q6H PRN pain 06/29/22 Unknown History estradiol 0.5 mg tablet 1 tab PO 3XW 06/29/22 06/29/22 Unknown History Exam Height,Weight and Vital Signs: Height 4 ft 10 in Weight 57.153 kg Vital Signs Temp Pulse Resp BP Pulse Ox O2 Del Method 07/28/22 09:02 98.1 F 81 18 167/77 H 98 Room Air Airway Mallampati Class: III TM Dist: >3cm Neck ROM: Full Loose/Missing/Broken Teeth: Yes (Missing top right back) Heart: RRR Lungs: CTAB Assessment and Plan Assessment Anesthesia Assessment: Anesthesia Plan Discussed Final Anesthetic Review Family History of Problems with Anesthesia: No NPO: Yes ASA Class: II Final Preanesthetic Review: No Changes in Pt Med Stat, Meds/Allgs Chart Reviewed , Consent Obtained/Reviewed and Anes Risks/Benef Reviewed Patient Risk: Low Procedure Risk: Low Assessment/Block/Sedation in SS: Assess/Block/Sedation-SS Anesthetic Plan Anesthetic Plan: MAC: Disposition: Standard PACU
[2022-07-28 09:02] VITALS: BP 167/77; PULSE 81; RESP 18; TEMP 36.7; O2SAT 98; BMI 26.3
[2022-07-28] MEDS: Lactated Ringers 1,000 ML 100 ML IVCONT (09:25)
--- NOTE | 2022-07-28 11:21 | P.HPSUR_ITS ---
Pre-Procedural Eval Section A Date of Service: 07/28/22 Section B Chief Complaint: Hemorrhage of anus and rectum Details of Present Illness: SEE h&p NO CHANGES Relevant Family History (Specify if Yes): No Relevant Social History: None Present Medications: see Short Stay Collaborative assessment Medical History: No relevant PMH History of Previous Operations: No relevant previous surgery Allergies: Allergies Allergy/AdvReac Type Severity Reaction Status Date / Time hydrocodone Allergy Intermediate Vomiting Verified 05/07/22 12:07 amoxicillin AdvReac Intermediate Gastrointestinal Verified 05/07/22 12:07 Upset nitrofurantoin AdvReac Intermediate Gastrointestinal Verified 05/07/22 12:07 Upset sulfadiazine AdvReac Intermediate Gastrointestinal Verified 05/07/22 12:07 Upset Review of Systems Sugical H&P ROS: Negative: Constitution, Cardiovascular, Respiratory, Neurological, Psychiatric, Hem-Onc, Allergic/Immunologic, Gastrointestinal, Genitourinary, Musculoskeletal, Integumentary, Endocrine and Eyes/Ears /Nose/Throat Exam Surgical H&P Exam: Normal: HEENT, Normal: Heart, Normal: Lungs, Normal: Extremities, Normal: Abdomen, Normal: Skin and Normal: Neurological Plan Diagnosis/Plan: Unchanged I have reviewed the history and physical and performed a pertinent physical examination on my patient. No changes have occurred unless specified. Time Spent With Patient Time: Total time managing care of this patient today ____ minutes.
[2022-07-28 12:13] VITALS: BP 113/52; PULSE 71; RESP 18; TEMP 36.7; O2SAT 97
--- NOTE | 2022-07-28 12:14 | PM.OP ---
Brief Operative Note Date of Service: 07/28/22 Pre-op diagnosis: RECTAL BLEEDING Post-op diagnosis: same Procedure: COLONOSCOPY Surgeon: Robert Mendoza Anesthesia: MAC Was an Weight Control Lecturer used for this Procedure?: No Estimated blood loss (mL): 5
--- NOTE | 2022-07-28 12:25 | OP_ITS ---
SURGEON: Robert Mendoza MD INDICATIONS: Rectal bleeding. PREOPERATIVE DIAGNOSIS: POSTOPERATIVE DIAGNOSIS: PROCEDURE PERFORMED: Colonoscopy to the terminal ilium with biopsy. ESTIMATED BLOOD LOSS: COMPLICATIONS: ANESTHESIA: Monitored anesthesia care. ASSISTANTS: SPECIMENS: DESCRIPTION OF PROCEDURE: The history and physical was performed. The risks and benefits of the procedure were explained to the patient. Informed consent was obtained. The patient was placed in the left lateral decubitus position. A digital rectal exam was performed and was found to be normal. The Olympus pediatric video colonoscope was introduced into the rectum and advanced to the cecum without difficulty. The cecum was identified by transillumination, palpation, identification of ileocecal valve. Examination was performed. The scope was removed. She tolerated the procedure well and was transferred to recovery area in stable condition. The procedure was performed on 07/28/2022. FINDINGS: The terminal ileum was examined and appeared normal. The visualized colonic mucosa was normal. The quality of the prep was good. Two polyps measuring less than 5 mm were identified in the right colon, one in the cecum and one at 65 cm. These were removed with biopsy forceps. No other polyps were identified. Retroflexed examination showed small internal hemorrhoids. There was mild sigmoid diverticulosis. IMPRESSION: Colon polyps. RECOMMENDATION: Follow up the biopsy results. MD MADELINE Iraheta/MIKI / [id number]
[2022-07-28 12:34] VITALS: BP 143/71; PULSE 64; RESP 18; TEMP 36.7; O2SAT 99
== END 2022-07-28 12:59 | disposition home or self-care (01) ==
PROVIDERS: PCP Internal Medicine; Visit Provider Internal Medicine Gastroenterology
PROC: 0DJD8ZZ Inspection of Lower Intestinal Tract, Via Natural or Artificial Opening Endoscopic (ICD-10-PCS; CPT 45378; principal; 2022-07-28 09:10)
DX: K62.5 Hemorrhage of anus and rectum (principal); D12.4 Benign neoplasm of descending colon; K63.5 Polyp of colon; K57.30 Diverticulosis of large intestine without perforation or abscess without bleeding; K64.8 Other hemorrhoids; K21.9 Gastro-esophageal reflux disease without esophagitis; E04.2 Nontoxic multinodular goiter; R32 Unspecified urinary incontinence; E78.00 Pure hypercholesterolemia, unspecified; Z79.52 Long term (current) use of systemic steroids; Z79.899 Other long term (current) drug therapy; Z88.2 Allergy status to sulfonamides; Z88.8 Allergy status to other drugs, medicaments and biological substances; Z87.891 Personal history of nicotine dependence; Z90.49 Acquired absence of other specified parts of digestive tract
CPT/HCPCS: 45380; 88305

== ENCOUNTER 2022-09-02 15:40 | Outpatient (REF) | payer MEDICARE, SELFPAY ==
--- NOTE | ~2022-09-02 | MM_ITS ---
EXAMINATION: MM SCREENING DIGITAL BREAST TOMOSYNTHESIS, BILATERAL CLINICAL INFORMATION: Screening. Asymptomatic. The lifetime risk of breast cancer based on the Tyrer-Cuzick Model is 8%. COMPARISON: Mammography: 09/01/2021, 08/29/2020, 10/04/2018 TECHNIQUE: Digital breast tomosynthesis is performed in both the craniocaudal and mediolateral oblique views along with computer-aided detection (CAD). Synthesized 2D images are generated from the tomosynthesis. FINDINGS: The breasts are heterogeneously dense, which may obscure small masses (ACR BI-RADS breast composition Category c). Parenchymal pattern is similar to prior studies. There is no developing density or architectural abnormality. Again, there are numerous bilateral scattered isolated and grouped punctate round calcifications. The axilla are unremarkable. No significant changes. MM/MM tomosynthesis screening BI IMPRESSION: No mammographic evidence of malignancy. ASSESSMENT: BI-RADS 2: Benign RECOMMENDATION: Routine annual mammography screening. This patient's information was entered into a reminder system with a target due date for their next mammogram.
== END 2022-09-02 15:41 | disposition home or self-care (01) ==
LOC: HO.MAMMO 15:40
PROVIDERS: PCP Internal Medicine; Visit Provider Internal Medicine
DX: Z12.31 Encounter for screening mammogram for malignant neoplasm of breast (principal)
CPT/HCPCS: 77063; 77067

== ENCOUNTER → 2022-09-03 14:45 | Outpatient (BNVA) | payer MEDICARE, SELFPAY | PROVIDERS: PCP Internal Medicine; Visit Provider Orthopaedic Surgery | DX: M75.41 Impingement syndrome of right shoulder (principal); F32.A Depression, unspecified | CPT/HCPCS: 99212 ==

== ENCOUNTER 2022-09-28 16:07 | Outpatient (REF) | payer MEDICARE, SELFPAY ==
[2022-09-28 17:35] LABS: Appearance Urine Cloudy; Color Urine Yellow; Glucose Urine UA Negative (Negative); Leukocyte Esterase Urine Large (3+) (Negative); Nitrite Urine Negative (Negative); Specific Gravity - Urine <= 1.005 (1.005-1.025); UMIC TRIGGER UACC YES; Urine Blood Small (1+) (Negative); Urine Ketones Negative (Negative); Urine Protein Negative (Neg-Trace)
[2022-09-28 17:51] LABS: Bacteria Urine 4+ (None Seen); Hyaline Casts Urine 0-2 /LPF (0-2); RBC Urine 0-2 /HPF (0-2); Squamous Epithelial Cell Urine 0-2 /HPF (0-2); UACC Culture Trigger YES; WBC Urine >50 /HPF (0-5)
[2022-09-29 03:38] LABS: CT PCR NOT DETECTED (Not Detect.); NG PCR NOT DETECTED (Not Detect.)
[2022-09-30 04:25] LABS: HIV AB/AG Nonreactive (Nonreactive); HIV Num 1 0.09 S/CO (0.00-0.99)
== END 2022-09-28 16:08 | disposition home or self-care (01) ==
LOC: HO.LAB 16:07
PROVIDERS: PCP Internal Medicine; Visit Provider Internal Medicine
DX: Z11.4 Encounter for screening for human immunodeficiency virus [HIV] (principal); Z20.2 Contact with and (suspected) exposure to infections with a predominantly sexual mode of transmission; R30.0 Dysuria
CPT/HCPCS: 0353U; 81001; 87086; 87088; 87186; 87389

== ENCOUNTER → 2022-11-20 12:28 | Outpatient (BNVA) | payer MEDICARE, SELFPAY | PROVIDERS: PCP Internal Medicine; Visit Provider Orthopaedic Surgery | DX: M75.41 Impingement syndrome of right shoulder (principal); M54.2 Cervicalgia; F32.A Depression, unspecified | CPT/HCPCS: 20610; 99212; J1100 ==

== ENCOUNTER 2023-01-07 11:06 | Outpatient (REF) | payer MEDICARE, SELFPAY ==
--- NOTE | ~2023-01-07 | XR_ITS ---
EXAMINATION: XR CERVICAL SPINE CLINICAL INFORMATION: Neck pain COMPARISON: None available. TECHNIQUE: 5 views of the cervical spine FINDINGS: Bone alignment is normal. No fracture or dislocation. Degenerative spondylosis and degenerative disc disease at C4-C5, C5-C6 and C6-C7. Right-sided neural foramen are patent. Left-sided neuroforaminal narrowing at C5-C6 from bony osteophyte. Prevertebral soft tissues are normal. XR/XR cervical spine 5V IMPRESSION: Degenerative changes.
[2023-01-07 11:23] LABS: MANUAL DIFF FLAG NO
[2023-01-07 11:58] LABS: Appearance Urine Cloudy; Color Urine Yellow; Glucose Urine UA Negative (Negative); Leukocyte Esterase Urine Large (3+) (Negative); Nitrite Urine Positive (Negative); Specific Gravity - Urine 1.015 (1.005-1.025); UMIC TRIGGER UACC YES; Urine Blood Small (1+) (Negative); Urine Ketones Negative (Negative); Urine Protein Negative (Neg-Trace)
[2023-01-07 12:00] LABS: Basophils Percent Auto 0.6 % (0-2); Eosinophils Absolute Auto 0.1 X10*3/uL (0.0-0.4); Eosinophils Percent Auto 1.9 % (0-4); Hematocrit 39.2 % (37.0-47.0); Hemoglobin 13.3 g/dl (12.0-16.0); Imm Gran Abs Auto 0.01 X10*3/uL (0.00-0.03); Imm Gran Pct Auto 0.2 % (0.0-0.4); Lymphocytes Absolute Auto 1.4 X10*3/uL (1.2-4.9); Lymphocytes Percent Auto 29.8 % (20-40); Mean Corpuscular HGB Conc 33.9 g/dl (31.0-35.0); Mean Corpuscular Hemoglobin 31.7 pg (27.0-33.0); Mean Corpuscular Volume 93.6 fL (80.0-98.0); Mean Platelet Volume 8.9 fL (9.4-12.3); Monocytes Absolute Auto 0.3 X10*3/uL (0.1-1.2); Monocytes Percent Auto 7.1 % (2-11); Neutrophils Absolute Auto 2.9 x10*3/uL (2.0-8.3); Neutrophils Percent Auto 60.4 % (45-73); Platelet Count 335 X10*3/uL (160-400); Red Blood Count 4.19 X10*6/uL (4.20-5.50); Red Cell Distribution Width 13.9 % (11.0-16.0); White Blood Count 4.8 X10*3/uL (4.8-10.8)
[2023-01-07 12:07] LABS: Bacteria Urine 4+ (None Seen); Hyaline Casts Urine 0-2 /LPF (0-2); RBC Urine 0-2 /HPF (0-2); UACC Culture Trigger YES; WBC Urine >50 /HPF (0-5)
[2023-01-07 12:53] LABS: Alanine Aminotransferase 14 U/L (0-31); Albumin Level 4.1 g/dL (3.5-5.0); Alkaline Phosphatase 62 U/L (39-117); Anion Gap 8 (12-20); Aspartate Amino Transferase 21 U/L (5-31); Bilirubin Total 0.8 mg/dL (0.0-1.0); Blood Urea Nitrogen 8 mg/dL (9-16); Calcium 9.1 mg/dL (8.4-10.2); Carbon Dioxide 30 mmol/L (22-29); Chloride 103 mmol/L (96-108); Cholesterol 226 mg/dL; Estimated Glomerular Filt Rate > 60; Free T4 (Free Thyroxine) 0.83 ng/dL (0.71-1.85); Glucose Fasting 97 mg/dL (60-99); HDL Cholesterol 80 mg/dL; LDL Cholesterol Calculated 119 mg/dl; Sodium 137 mmol/L (135-145); Thyroid Stimulating Hormone 0.75 uIU/mL (0.32-4.0); Total Protein 7.8 g/dL (6.5-8.0); Triglycerides 138 mg/dL
== END 2023-01-07 11:07 | disposition home or self-care (01) ==
LOC: HO.LAB 11:06
PROVIDERS: PCP Internal Medicine; Visit Provider Internal Medicine
DX: K21.9 Gastro-esophageal reflux disease without esophagitis (principal); E78.00 Pure hypercholesterolemia, unspecified; E04.9 Nontoxic goiter, unspecified; M19.90 Unspecified osteoarthritis, unspecified site; R82.90 Unspecified abnormal findings in urine
CPT/HCPCS: 36415; 72050; 80053; 80061; 81001; 84439; 84443; 85025; 87086; 87088; 87186

== ENCOUNTER 2023-01-14 11:00 | Outpatient (RCR) | payer MEDICARE, SELFPAY ==
--- NOTE | 2022-12-25 12:58 | MHC.PT.EP ---
[facility] [place] Office [place] Office [place] Office [address] Andrea Griffith [address] [phone] F: [phone] F: [phone] F: [phone] F: [phone] Physical Therapy Plan of Care Date of Evaluation: Date of Surgery: N/A Diagnosis: impingement syndrome of right shoulder cervicalgia Assessment: Pt is a pleasant 72yo F who presents to PT with neck and R shoulder pain. She presents to PT with current impairments in pain, decreased neck ROM, decreased shoulder ROM, decreased UE strength, soft tissue restrictions and impaired posture. She is limited functionally by looking down, head rotation, lifting, reaching, overhead ADLs, carrying groceries, raking, and texting. She is a good candidate for skilled PT in order to address current impairments to facilitate return to PLOF. She is recommended to be seen 2x/week for 4 weeks and will be reassessed at that time. Frequency and Duration: The patient will be seen 2x/week for 4 weeks Short Term Goals: Pt will be I with HEP to promote self management of symptoms Pt will improve B cervical rotation by at least 10 degrees ea Residential Goals: Pt will improve all planes of cervical ROM to assist with functional tasks such as reading Pt will improve R shoulder flexion strength to at least 4+/5 to assist with lifting and reaching Pt will demonstrate improvements in function as evidenced by statistically significant improvement in Neck Pain Disability Index Questionnaire Treatment Plan: Modalities to reduce pain, spasms and effusion. Manual therapy to restore motion and function. Therapeutic exercise to improve strength and flexibility. Neuromuscular re-education for posture and balance. Therapeutic activities to return to functional activities of daily living. Electronically signed by: Alexandra Gavin, PT, DPT Please sign and return to therapist. Thank you for your referral.
--- NOTE | 2023-02-22 10:43 | MHC.PT.DC ---
[facility] [place] Office [place] Office [place] Office [address] Andrea Griffith 140 [facility] [phone] F: [phone] F: [phone] F: [phone] F: [phone] Physical Therapy Discharge Report Diagnosis: impingement syndrome of right shoulder cervicalgia Date of Surgery: N/A Date of Evaluation: 12/24/22 Date of Discharge: 02/22/23 Treatments to Date: 5 Cancellations to Date: 3 No Shows to Date: Discharge Status: Patient Elected to Stop Discharge Summary: Pt was seen for PT from 12/24/22-. Her last attended appointment was 01/14/23. She had 3 cancellations including 2 cancellations for her last 2 scheduled appointments. When she cancelled her appointment on 01/21/23 she reported she was self discharging from PT. Pt is being D/C from skilled PT at this time. Pt current level of function unknown. Electronically signed by: Alexandra Gavin, PT, DPT Please sign and return to therapist. Thank you for your referral.
== END 2023-02-22 10:43 | disposition home or self-care (01) ==
LOC: HO.PT 11:00
PROVIDERS: PCP Internal Medicine; Visit Provider Orthopaedic Surgery
DX: M75.41 Impingement syndrome of right shoulder (principal); M54.2 Cervicalgia
CPT/HCPCS: 97035; 97110; 97140; 97163

== ENCOUNTER 2023-05-10 13:32 | Outpatient (AMB) | payer MEDICARE, SELFPAY ==
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
[2023-05-10 13:56] VITALS: BMI 26.3
== END 2023-05-10 14:41 | disposition home or self-care (01) ==
PROVIDERS: PCP Internal Medicine; Visit Provider Orthopaedic Surgery
DX: S46.211A Strain of muscle, fascia and tendon of other parts of biceps, right arm, initial encounter (principal); M75.41 Impingement syndrome of right shoulder
CPT/HCPCS: 99213

== ENCOUNTER → 2023-05-10 13:32 | Outpatient (BNVA) | payer MEDICARE, SELFPAY | PROVIDERS: PCP Internal Medicine; Visit Provider Orthopaedic Surgery | DX: S46.211A Strain of muscle, fascia and tendon of other parts of biceps, right arm, initial encounter (principal); M75.41 Impingement syndrome of right shoulder | CPT/HCPCS: 99212 ==

== ENCOUNTER 2023-07-22 16:57 | Outpatient (REF) | payer MEDICARE, SELFPAY | END 2023-07-22 16:58 | disposition home or self-care (01) | LOC: HO.LNP 16:57 | PROVIDERS: Visit Provider Internal Medicine | DX: R05.9 Cough, unspecified (principal); R06.02 Shortness of breath; Z11.52 Encounter for screening for COVID-19; Z20.828 Contact with and (suspected) exposure to other viral communicable diseases | CPT/HCPCS: 0241U ==

== ENCOUNTER 2023-07-27 04:39 | Emergency (ER) | payer MEDICARE, SELFPAY ==
[2023-07-27 04:51] VITALS: BP 181/72; PULSE 72; RESP 16; TEMP 36.4; O2SAT 96; BMI 26.4
--- NOTE | 2023-07-27 05:29 | ED.GENADULT ---
HPI - General Adult General Chief complaint: General Medical Stated complaint: ?Spots on tongue Time Seen by Provider: 07/27/23 05:16 History of Present Illness HPI narrative: Patient is a 72-year-old female with a history of arthritis. Patient has some diclofenac cream. Accidentally squeezed out a little too much. Patient tried to put the extra medication in the cap. Unfortunately she thought that cap contain water. Accidentally may have gotten a little diclofenac into her mouth. Patient denies any pain there is no systemic complaints there is no difficulty with her voice is no difficulty swallowing there is no difficulty breathing patient then look at her tongue and felt that there was some spots there. She decided come to the emergency department. Related Data Home Medications Medication Instructions Recorded Confirmed estradiol 0.5 mg tablet 0.5 mg PO BEDTIME 05/24/20 02/27/22 acetaminophen 500 mg tablet 500 mg PO QAM 07/24/20 03/16/22 (Tylenol Extra Strength) estradiol 0.01% (0.1 mg/gram) vaginal 09/18/20 02/27/22 vaginal cream omeprazole magnesium 20 mg 20 mg PO DAILY PRN Acid Reflux 12/03/20 03/16/22 tablet,delayed release (Prilosec OTC) pravastatin 20 mg tablet 20 mg PO DAILY 01/29/22 03/16/22 diclofenac sodium 1 % topical gel g topical Q6H PRN pain 06/29/22 estradiol 0.5 mg tablet 1 tab PO 3XW 06/29/22 06/29/22 cyclosporine 0.05 % eye drops 0 drp ophthalmic (eye) 11/20/22 (Restasis MultiDose) fluoxetine 20 mg capsule 30 mg PO BEDTIME 11/20/22 Allergies Allergy/AdvReac Type Severity Reaction Status Date / Time hydrocodone Allergy Intermediate Vomiting Verified 07/27/23 04:50 amoxicillin AdvReac Intermediate Gastrointestinal Verified 07/27/23 04:50 Upset nitrofurantoin AdvReac Intermediate Gastrointestinal Verified 07/27/23 04:50 Upset sulfadiazine AdvReac Intermediate Gastrointestinal Verified 07/27/23 04:50 Upset Review of Systems Review of Systems: No fever no chills no chest pain or shortness of breath no difficulty swallowing no changes in voice Yes all other systems are reviewed and are negative PMFSH Past Medical History Onset Date is defined in the Problem List Problems that require an onset date and time if occurred within 24 hrs of arrival to the ED Aortic Dissection and Rupture; Neurologic impairment; Cardiopulmonary Arrest; Endotracheal Intubation; Insertion or Replacement of Mechanical Circulatory Assist Device Medical History Urinary incontinence COVID-19 vaccine administered Arthritis Elevated cholesterol Hx of bipolar disorder Depression GERD (gastroesophageal reflux disease) Non-toxic multinodular goiter Surgical History History of bladder surgery History of breast lump/mass excision Hx of cholecystectomy Hx of total hysterectomy with removal of both tubes and ovaries H/O colonoscopy Social History Social History Household Members: Family Housing: House Are you a primary healthcare representative to a significant other at home: No Do you presently have visiting nurse or other home services: No Patient Tobacco Use Status: Former Tobacco user Quit Date: Physical Exam ED Vital Signs: Vital Signs - 24 hr 07/27/23 04:51 Temperature 97.6 F Pulse Rate 72 Respiratory Rate 16 Blood Pressure 181/72 H Pulse Oximetry 96 Oxygen Delivery Method Room Air BMI result Body Mass Index 26.4 Appearance: Alert. Oriented X3. No acute distress. Eyes: Pupils equal, round and reactive to light. ENT: Pharynx normal. Tongue was normal. Posterior pharynx is normal. Her voice is normal. She is able to swallow. Neck: Normal inspection. Neck supple. No lymph nodes noted. No crepitus CVS: Normal heart rate and rhythm. Pulses normal. Normal S1 and S2 Respiratory: No respiratory distress. Breath sounds normal. No Wheezing. No rales clear bilaterally to auscultation Abdomen: Soft and nontender. No rigidity. No distention. good BS x4 Skin: Skin warm and dry. Normal skin color. Normal skin turgor. Extremities: No lower extremity edema. Neurovascular intact to all extremities. No Lacerations. No Rash Neuro: Oriented X 3. No motor deficit. No sensory deficit. Moving all extermities. No slurred speech Medical Decision Making Medical Decision Making MDM Narrative: Patient has no difficulty swallowing. No lesion was noted in the tongue. Patient O2 sat is normal. No changes in speech. No difficulty breathing. Will discharge patient home. Explained to patient the need to take care of her medications carefully. She states understanding Differential Diagnosis Differential Diagnoses: The differential diagnosis associated with the presentation includes Overdose of medication, burn to the mouth. Admission/Observation Consideration of admission/observation: Escalation of care including admission/observation considered Patient well-appearing no need to admit Prescription Management History of arthritis Discharge Plan Discharge Clinical Impression: Medication adverse effect Patient Disposition: Home, Self-Care Instructions: Adult Overdose (ED) Prescriptions: No Action omeprazole magnesium [Prilosec OTC] 20 mg Tablet,Delayed Release (Dr/Ec) 20 mg PO DAILY PRN (Reason: Acid Reflux) estradiol 0.5 mg tablet 1 tab PO 3XW diclofenac sodium 1 % gel topical Q6H PRN (Reason: pain) acetaminophen [Tylenol Extra Strength] 500 mg tablet 500 mg PO QAM estradiol 0.5 mg tablet 0.5 mg PO BEDTIME fluoxetine 20 mg capsule 30 mg PO BEDTIME estradiol 0.01 % (0.1 mg/gram) cream vaginal pravastatin 20 mg tablet 20 mg PO DAILY Restasis MultiDose 0.05 % drops 0 drp ophthalmic (eye) Referrals: Jay Uribe MD [Primary Care Provider] - 07/30/23
--- OUTSIDE RECORDS SUMMARY | 2023-07-27 05:38 | XMS_ITS | Patient Health Record ---
Author Name Unknown Organization [facility] Address [address] [place] [address] Care Team Providers Care Group Account Director Name Role Phone Jay Uribe MD Primary Care Provider UnavailRobert Pepper Jr Unavailable [phone] ALLERGIES Allergen (clinical drug ingredient) Drug/Non Drug Allergy documented on EMR Reaction Allergy Type Onset Date Status Sulfa Unknown Drug Allergy Active RESULTS Component Value Reference Range Notes Pathology Reviewed date:08/04/2022 02:03:13 PM Interpretation: Performing Lab:[facility], [address] [place] [id number] Notes/Report: REASON FOR REFERRAL No Information MEDICATIONS Medication SIG (Take, Route, Frequency, Duration) Notes Start Date End Date Status Multi For Her 50+ - as directed Orally Active Hair Regrowth for Women Active Estradiol 0.5 MG 1 tablet Orally Once a day for 30 day(s) Active Tylenol 325 MG 1 tablet as needed Orally every 4 hrs Active Biotin 10 MG 1 tablet Orally Once a day for 30 day(s) Active Calcium 1 tab Oral for 14 days Active Flax Seed Oil 1000 MG as directed Orally Active Naproxen 15 % Externally Activ e oxyBUTYnin Chloride 5 MG 1 tablet Orally Twice a day for 30 day(s) as needed Active Omeprazole 20 MG 1 capsule Orally Onc e a day Active Premarin 0.3 MG 1 tablet Orally Jeanne y for Three Weeks, 1 Week off Active Fluoxetine & Diet Manage Prod 10 MG Orally Active Pravastatin Sodium 20 MG 1 tablet Orally Once a day Active IMMUNIZATIONS Vaccine Route Administration Date Status Comme nts Influenza Unknown 03/19/2015 Administered Influenza Unknown 05/19/2022 Administered SOCIAL HISTORY Sex Assigned At : Social History Observation Description Sex Assigned At Unknown PROBLEMS Problem Type ICD Code Onset Dates Problem Status W/U Status Risk SNOMED Code Notes Problem Colon cancer screening (Z12.11) Active confirmed 664845999 Problem Gastroesophageal reflux disease without esophagitis (K21.9) Active confirmed 669600299 Problem Gastroesophageal reflux disease, unspecified whether esophagitis present (K21.9) Active confirmed 024068261 Problem Constipation, unspecified constipation type (K59.00) Active confirmed 75817838 Encounters Encounter Location Date Provider Diagnosis [facility] Out[facility] [address] [place] [phone] 07/28/2022 Robert Mendoza Jr Rectal bleeding K62.5 and Colon polyps K63.5 [facility] [address] [id number] 12/23/2022 Robert Mendoza Jr Gastroesophageal reflux disease without esophagitis K21.9 ; Colon cancer screening Z12.11 and Constipation, unspecified constipation type K59.00 [facility] [address] [place] [id number] 08/04/2022 Robert Mendoza Jr ASSESSMENTS Encounter Date Diagnosis Assessment Notes Treatment Notes Treatment Clinical Notes 12/23/2022 Gastroesophageal reflux disease without esophagitis (ICD-10 - K21.9) Gastroesophageal reflux disease material was printed 07/28/2022 Rectal bleeding (ICD-10 - K62.5) 07/28/2022 Colon polyps (ICD-10 - K63.5) 12/23/2022 Colon cancer screening (ICD-10 - Z12.11) 12/23/2022 Constipation, unspecified constipation type (ICD-10 - K59.00) PLAN OF TREATMENT Future Test Test Name Order Date COLONOSCOPY 12/04/2015 COLONOSCOPY 06/08/2022 Next Appt Details Provider Name:Robert loving Jr, 2023 11:10:00 AM, [address] [place] [address], Suite [facility], [place], [address], Insurance Providers Payer Name Payer Address Payer Phone Subscriber Number Group Number Insured Name Patient Relationship to Insured Coverage Start Date Coverage End Date [facility] [address] [place], [place] [phone] [id number] RIANNA FERGUSON Self - patient is the insured MEDICAL (GENERAL) HISTORY Medical History History ICD Code urinary incontinence, bladder stimulator placement and removal Multinodular goiter Arthritis Depression Elevated cholesterol Gastroesophageal reflux disease Surgical History Surgery Date(Month/Year) removal fibroadenoma left and right [facility] [facility] Total hysterectomy 09/1999 Cholecystectomy 08/2006 Thyroid nodules
== END 2023-07-27 05:42 | disposition home or self-care (01) ==
LOC: HO.ED 05:36
PROVIDERS: Emergency Provider Emergency Medicine Emergency Medical Services; PCP Internal Medicine
DX: R13.10 Dysphagia, unspecified (principal); T50.905A Adverse effect of unspecified drugs, medicaments and biological substances, initial encounter; Y92.9 Unspecified place or not applicable; Z79.899 Other long term (current) drug therapy
CPT/HCPCS: 99282; 99284

== ENCOUNTER 2023-08-04 21:38 | Emergency (ER) | payer MEDICARE, SELFPAY ==
[2023-08-04 21:55] VITALS: BP 140/70; PULSE 85; RESP 16; TEMP 36.7; O2SAT 94; BMI 27.0
[2023-08-04 22:41] VITALS: BP 134/71; PULSE 73; RESP 16; TEMP 36.6; O2SAT 96
--- NOTE | 2023-08-04 22:41 | ED.GENADULT ---
HPI - General Adult General Chief complaint: General Medical Stated complaint: Had surgery on wednesday, pain at incision Time Seen by Provider: 08/04/23 22:36 Source: patient Mode of arrival: ambulatory Limitations: no limitations History of Present Illness HPI narrative: Patient is a 9-year-old female who presents emergency department for evaluation. She underwent bladder surgery 07/30/[address] Myers this involved implantation of stimulator due to her overactive/dysfunctional bladder and incontinence by her account, (Brand name [id number], a sacral neuromodulator). She reports for the past 2 days she has noticed blood on the initial surgical incision bandage. She felt as though this was increasing in size which prompted her concern. She also states that she had been experiencing pain at this site which is primarily to the left/mid lower back. Pain is intermittent. She does state that she ?may have overdone it? while grocery shopping as this did cause her to have worse pain. She has been taking Tylenol with some improvement. She also states she has been taking the prophylactic antibiotics as prescribed. Earlier today that the pain in her lower back radiated upwards through the abdomen towards her ribs, was brief in nature. She denies fevers, chills, nausea, vomiting, abdominal pain, hematuria, dysuria Related Data Home Medications Medication Instructions Recorded Confirmed estradiol 0.5 mg tablet 0.5 mg PO BEDTIME 05/24/20 02/27/22 acetaminophen 500 mg tablet 500 mg PO QAM 07/24/20 03/16/22 (Tylenol Extra Strength) estradiol 0.01% (0.1 mg/gram) vaginal 09/18/20 02/27/22 vaginal cream omeprazole magnesium 20 mg 20 mg PO DAILY PRN Acid Reflux 12/03/20 03/16/22 tablet,delayed release (Prilosec OTC) pravastatin 20 mg tablet 20 mg PO DAILY 01/29/22 03/16/22 diclofenac sodium 1 % topical gel g topical Q6H PRN pain 06/29/22 estradiol 0.5 mg tablet 1 tab PO 3XW 06/29/22 06/29/22 cyclosporine 0.05 % eye drops 0 drp ophthalmic (eye) 11/20/22 (Restasis MultiDose) fluoxetine 20 mg capsule 30 mg PO BEDTIME 11/20/22 Allergies Allergy/AdvReac Type Severity Reaction Status Date / Time hydrocodone Allergy Intermediate Vomiting Verified 08/04/23 21:51 amoxicillin AdvReac Intermediate Gastrointestinal Verified 08/04/23 21:51 Upset nitrofurantoin AdvReac Intermediate Gastrointestinal Verified 08/04/23 21:51 Upset sulfadiazine AdvReac Intermediate Gastrointestinal Verified 08/04/23 21:51 Upset Review of Systems Review of Systems: Yes all other systems are reviewed and are negative PMFSH Past Medical History Attestation statement: The following information was validated with the patient. Source: old records reviewed Onset Date is defined in the Problem List Problems that require an onset date and time if occurred within 24 hrs of arrival to the ED Aortic Dissection and Rupture; Neurologic impairment; Cardiopulmonary Arrest; Endotracheal Intubation; Insertion or Replacement of Mechanical Circulatory Assist Device Medical History Urinary incontinence COVID-19 vaccine administered Arthritis Elevated cholesterol Hx of bipolar disorder Depression GERD (gastroesophageal reflux disease) Non-toxic multinodular goiter Surgical History History of bladder surgery History of breast lump/mass excision Hx of cholecystectomy Hx of total hysterectomy with removal of both tubes and ovaries H/O colonoscopy Social History Social History Household Members: Family Housing: House Are you a primary doggy daycare activities director to a significant other at home: No Do you presently have visiting nurse or other home services: No Patient Tobacco Use Status: Former Tobacco user Quit Date: Advance Directives: No Advance Directives Information Provided: No Physical Exam ED Vital Signs: Vital Signs - 24 hr 08/04/23 21:55 08/04/23 22:41 Temperature 98.0 F 97.8 F Pulse Rate 85 73 Respiratory Rate 16 16 Blood Pressure 140/70 H 134/71 Pulse Oximetry 94 96 Oxygen Delivery Method Room Air Room Air BMI result Body Mass Index 27.0 Appearance: Alert.?Oriented to person, place and time. No acute distress.?Normal affect. Eyes: Pupils equal, round and reactive to light.? ENT: Pharynx normal.?? Neck: Normal inspection.? Neck supple.?? CVS: Heart sounds normal. Normal heart rate and rhythm.? Pulses normal.?? Respiratory: No respiratory distress.? Lung sounds clear to auscultation bilaterally?? Abdomen: Soft and non-tender. Normoactive bowel sounds. Back: Mild tenderness upon palpation over the surgical site, bandage with small amount of dried blood, appears to be initial surgical bandage, which is over the neuromodulator insertion site. The insertion site itself appears normal, there is no active bleeding, pus like discharge, redness, swelling Skin: Skin warm and dry.? Normal skin color.? Extremities: No lower extremity edema.? No calf ttp? Neuro: Moves all extremities spontaneously. Sensation intact bilaterally.No focal neuro deficits. Ambulates with normal steady gait. Medical Decision Making Medical Decision Making MDM Narrative: Patient is a 72-year-old female who presents to the emergency department for evaluation of pain primarily localized towards her surgical site where sacral neuromodulator was inserted and concern over blood noted on the surgical bandage. There is a small amount of dried blood, overall is non concerning in my opinion, the insertion site of the neuromodulator is free from signs of infection. She does have some diffuse tenderness upon palpation over the left lumbosacral region. Her abdominal examination is benign. She appears nontoxic, afebrile, and is without tachycardia. Serum labs obtained reveals no evidence of leukocytosis or anemia. CMP is unremarkable, no DANIA her electrolyte derangement. Urinalysis reveals microscopic hematuria, 3+ leukocyte esterase, urine wbc's and 1+ bacteria although there is however squamous epithelial cells present, concern whether this is true UTI versus contaminant, nonetheless she is already taking a course of antibiotics, cephalexin, I would not recommend change at this time. Culture to be followed. Viral testing is negative. I reviewed all these findings with patient, I did recommend that she refrain from any strenuous activity especially over the next few days. She should have outpatient follow-up with her surgeon and further monitoring of her surgical site as scheduled. We discussed worrisome signs and symptoms that would warrant re-evaluation in the emergency department. All questions answered. Stable for discharge. Differential Diagnosis Differential Diagnoses: The differential diagnosis associated with the presentation includes (Seen narrative above ) Admission/Observation Consideration of admission/observation: Escalation of care including admission/observation considered (See narrative above) Lab Data MDM Lab Attestation statement: I reviewed the patient's lab results. (See narrative above) 08/04/23 22:55 08/04/23 22:55 Labs: Lab Results 08/04/23 08/04/23 Range/Units 22:55 22:57 WBC 6.6 (4.8-10.8) X10*3/uL RBC 4.18 L (4.20-5.50) X10*6/uL Hgb 13.4 (12.0-16.0) g/dl Hct 38.4 (37.0-47.0) % MCV 91.9 (80.0-98.0) fL MCH 32.1 (27.0-33.0) pg MCHC 34.9 (31.0-35.0) g/dl RDW 12.6 (11.0-16.0) % Plt Count 363 (160-400) X10*3/uL MPV 8.5 L (9.4-12.3) fL Immature Gran % (Auto) 0.3 (0.0-0.4) % Neut % (Auto) 52.0 (45-73) % Lymph % (Auto) 29.8 (20-40) % [place] % (Auto) 8.0 (2-11) % Eos % (Auto) 9.1 H (0-4) % Baso % (Auto) 0.8 (0-2) % Lymph # (Auto) 2.0 (1.2-4.9) X10*3/uL [place] # (Auto) 0.5 (0.1-1.2) X10*3/uL Eos # (Auto) 0.6 H (0.0-0.4) X10*3/uL Baso # (Auto) 0.1 (0.0-0.2) X10*3/uL Abs Immat Gran (auto) 0.02 (0.00-0.03) X10*3/uL Absolute Neuts (auto) 3.4 (2.0-8.3) x10*3/uL Absolute Nucleated RBC 0.000 (0.0-0.012) X10*3/uL Nucleated RBC % (auto) 0.0 (0.0-0.2) /100WBC Sodium 136 (135-145) mmol/L Potassium 3.9 (3.3-5.1) mmol/L Chloride 102 (96-108) mmol/L Carbon Dioxide 27 (22-29) mmol/L Anion Gap 11 L (12-20) BUN 12 (9-16) mg/dL Creatinine 0.77 (0.5-1.4) mg/dL Estim Creat Clear Calc 49.1 Estimated GFR > 60 Random Glucose 89 (60-115) mg/dL Calcium 9.2 (8.4-10.2) mg/dL Magnesium 2.2 (1.6-2.6) mg/dL Total Bilirubin 0.4 (0.0-1.0) mg/dL AST 18 (5-31) U/L ALT 13 (0-31) U/L Alkaline Phosphatase 66 (39-117) U/L B-Natriuretic Peptide 53 (<100) pg/mL Total Protein 7.4 (6.5-8.0) g/dL Albumin 3.9 (3.5-5.0) g/dL Urine Color Yellow Urine Appearance Cloudy Urine pH 7.5 (5.0-9.0) Ur Specific [place] 1.015 (1.005-1.025) Urine Protein Negative (Neg-Trace) mg/dL Urine Glucose (UA) Negative (Negative) mg/dL Urine Ketones Negative (Negative) mg/dL Urine Blood Trace H (Negative) Urine Nitrite Negative (Negative) Ur Leukocyte Esterase Large (3+) H (Negative) Urine RBC 3-5 H (0-2) /HPF Urine WBC 21-50 H (0-5) /HPF Ur Squamous Epith Cells 11-20 (0-2) /HPF Urine Bacteria 1+ (None Seen) Hyaline Casts 0-2 (0-2) /LPF COVID-19 (LYDIA) Negative (Negative) COVID-19 Clin Com See Note Influenza Type A (KARINA) Negative (Negative) Influenza Type B (KARINA) Negative (Negative) Influenza A & B Note See Note Independent Historian Clinical information obtained from an independent historian. History obtained from or confirmed by: Other (Daughter who confirms history) External Record Review External record reviewed: Outpatient record Prescription Management I considered prescription management with: Antibiotic (She is already on antibiotics) Discharge Plan Discharge Clinical Impression: Encounter for post surgical wound check Patient Disposition: Home, Self-Care Additional Instructions: Continue taking all of your medications as prescribed. Contact your doctor to arrange for outpatient follow-up and further management of your stimulator. You may return back to emergency department any new or worsening symptoms or concerns. Prescriptions: No Action omeprazole magnesium [Prilosec OTC] 20 mg Tablet,Delayed Release (Dr/Ec) 20 mg PO DAILY PRN (Reason: Acid Reflux) estradiol 0.5 mg tablet 1 tab PO 3XW diclofenac sodium 1 % gel topical Q6H PRN (Reason: pain) acetaminophen [Tylenol Extra Strength] 500 mg tablet 500 mg PO QAM estradiol 0.5 mg tablet 0.5 mg PO BEDTIME fluoxetine 20 mg capsule 30 mg PO BEDTIME estradiol 0.01 % (0.1 mg/gram) cream vaginal pravastatin 20 mg tablet 20 mg PO DAILY Restasis MultiDose 0.05 % drops 0 drp ophthalmic (eye) Referrals: Jay Uribe MD [Primary Care Provider] -
[2023-08-04 23:00] LABS: MANUAL DIFF FLAG NO
[2023-08-04 23:02] LABS: Basophils Absolute Auto 0.1 X10*3/uL (0.0-0.2); Basophils Percent Auto 0.8 % (0-2); Eosinophils Absolute Auto 0.6 X10*3/uL (0.0-0.4); Eosinophils Percent Auto 9.1 % (0-4); Hematocrit 38.4 % (37.0-47.0); Hemoglobin 13.4 g/dl (12.0-16.0); Imm Gran Abs Auto 0.02 X10*3/uL (0.00-0.03); Imm Gran Pct Auto 0.3 % (0.0-0.4); Lymphocytes Percent Auto 29.8 % (20-40); Mean Corpuscular HGB Conc 34.9 g/dl (31.0-35.0); Mean Corpuscular Hemoglobin 32.1 pg (27.0-33.0); Mean Corpuscular Volume 91.9 fL (80.0-98.0); Mean Platelet Volume 8.5 fL (9.4-12.3); Monocytes Absolute Auto 0.5 X10*3/uL (0.1-1.2); Neutrophils Absolute Auto 3.4 x10*3/uL (2.0-8.3); Platelet Count 363 X10*3/uL (160-400); Red Blood Count 4.18 X10*6/uL (4.20-5.50); Red Cell Distribution Width 12.6 % (11.0-16.0); White Blood Count 6.6 X10*3/uL (4.8-10.8)
[2023-08-04 23:03] LABS: Appearance Urine Cloudy; Color Urine Yellow; Glucose Urine UA Negative (Negative); Leukocyte Esterase Urine Large (3+) (Negative); Nitrite Urine Negative (Negative); PH 7.5 (5.0-9.0); Specific Gravity - Urine 1.015 (1.005-1.025); UMIC TRIGGER UACC YES; Urine Blood Trace (Negative); Urine Ketones Negative (Negative); Urine Protein Negative (Neg-Trace)
[2023-08-04 23:12] LABS: Bacteria Urine 1+ (None Seen); Hyaline Casts Urine 0-2 /LPF (0-2); UACC Culture Trigger YES; WBC Urine 21-50 /HPF (0-5)
[2023-08-04 23:21] LABS: Alanine Aminotransferase 13 U/L (0-31); Albumin Level 3.9 g/dL (3.5-5.0); Alkaline Phosphatase 66 U/L (39-117); Anion Gap 11 (12-20); Aspartate Amino Transferase 18 U/L (5-31); Bilirubin Total 0.4 mg/dL (0.0-1.0); Blood Urea Nitrogen 12 mg/dL (9-16); Calcium 9.2 mg/dL (8.4-10.2); Carbon Dioxide 27 mmol/L (22-29); Chloride 102 mmol/L (96-108); Creatinine Clr Calc Pharmacy 49.1; Estimated Glomerular Filt Rate > 60; Glucose Random 89 mg/dL (60-115); Magnesium 2.2 mg/dL (1.6-2.6); Potassium 3.9 mmol/L (3.3-5.1); Sodium 136 mmol/L (135-145); Total Protein 7.4 g/dL (6.5-8.0)
[2023-08-04 23:26] LABS: B Type Natriuretic Peptide 53 pg/mL (<100)
[2023-08-04 23:28] LABS: COVID-19 Test Negative (Negative); IDNOW Serial# 08D9AD1C; IDNOW Serial# 9DB6401D; Influenza A Negative (Negative); Influenza B2 Negative (Negative)
[2023-08-05 00:05] VITALS: BP 141/82; PULSE 66; RESP 16; TEMP 36.8; O2SAT 97
== END 2023-08-05 00:21 | disposition home or self-care (01) ==
PROVIDERS: Nurse Practitioner Family; Emergency Provider Emergency Medicine; PCP Internal Medicine
DX: Z48.01 Encounter for change or removal of surgical wound dressing (principal); G89.18 Other acute postprocedural pain; Z11.52 Encounter for screening for COVID-19
CPT/HCPCS: 80053; 81001; 81003; 83735; 83880; 85025; 87086; 87502; 87635; 99283; 99284

== ENCOUNTER → 2023-09-13 15:45 | Outpatient (BNV) | payer MEDICARE, SELFPAY | PROVIDERS: PCP Internal Medicine; Visit Provider Radiology Diagnostic Radiology | DX: Z12.31 Encounter for screening mammogram for malignant neoplasm of breast (principal) | CPT/HCPCS: 77063; 77067 ==

== ENCOUNTER 2023-09-13 15:50 | Outpatient (REF) | payer MEDICARE, SELFPAY ==
--- NOTE | ~2023-09-13 | MM_ITS ---
EXAMINATION: MM SCREENING DIGITAL BREAST TOMOSYNTHESIS, BILATERAL CLINICAL INFORMATION: Screening. Asymptomatic. COMPARISON: Mammography: This study is compared with prior exams dating back to 2018. TECHNIQUE: Digital breast tomosynthesis is performed in both the craniocaudal and mediolateral oblique views along with computer-aided detection (CAD). Synthesized 2D images are generated from the tomosynthesis. FINDINGS: The breasts are heterogeneously dense, which may obscure small masses (ACR BI-RADS breast composition Category c). There are no significant masses, abnormal calcifications, or other abnormalities. Few, bilateral benign calcifications are present. MM/MM tomosynthesis screening BI IMPRESSION: No mammographic evidence of malignancy. ASSESSMENT: BI-RADS BI-RADS 2 - Benign Findings RECOMMENDATION: Routine annual mammography screening. 1 year F/U This examination should not preclude the clinical evaluation of a suspicious palpable abnormality. This patient's information was entered into a reminder system with a target due date for their next mammogram.
== END 2023-09-13 15:51 | disposition home or self-care (01) ==
LOC: HO.MAMMO 15:50
PROVIDERS: PCP Internal Medicine; Visit Provider Internal Medicine
DX: Z12.31 Encounter for screening mammogram for malignant neoplasm of breast (principal)
CPT/HCPCS: 77063; 77067

== ENCOUNTER 2023-11-11 12:03 | Outpatient (REF) | payer MEDICARE, SELFPAY ==
--- NOTE | ~2023-11-11 | XR_ITS ---
EXAMINATION: XR CERVICAL SPINE CLINICAL INFORMATION: Neck pain. COMPARISON: January 07, 2023. TECHNIQUE: 6 views of the cervical spine. FINDINGS: The bones are diffusely demineralized. Degenerative changes in the imaged upper thoracic spine. Grade 1 anterolisthesis of C4 and C5. Multilevel cervical spondylosis with [id number] loss of disc space height at C4-C5, C5-C6 and C6-C7. XR/XR cervical spine 3V IMPRESSION: Multilevel cervical spondylosis most notable at C4-C7.
== END 2023-11-11 12:04 | disposition home or self-care (01) ==
LOC: HO.HOSX 12:03
PROVIDERS: PCP Internal Medicine; Visit Provider Physical Medicine & Rehabilitation
DX: M47.812 Spondylosis without myelopathy or radiculopathy, cervical region (principal); M79.18 Myalgia, other site; M54.2 Cervicalgia
CPT/HCPCS: 72040; 99202

== ENCOUNTER 2023-11-11 12:03 | Outpatient (AMB) | payer MEDICARE, SELFPAY ==
--- NOTE | 2023-11-11 12:07 | A.OFFVIS_ITS ---
Intake Visit Reasons: newprob- neck pain Intake Note: Isabel is a 72 year old female who presents to the office today for neck pain. Pt states her neck pain started a long time ago without any known injury. She states she has tried PT and it helped but now she states it came back. She denies any numbness or tingling. Allergies hydrocodone Allergy (Intermediate, Verified 11/11/23 12:07) Vomiting amoxicillin Adverse Reaction (Intermediate, Verified 11/11/23 12:07) Gastrointestinal Upset nitrofurantoin Adverse Reaction (Intermediate, Verified 11/11/23 12:07) Gastrointestinal Upset sulfadiazine Adverse Reaction (Intermediate, Verified 11/11/23 12:07) Gastrointestinal Upset Medication List - Last Reconciled 11/11/23 by Patricia Galaviz MD acetaminophen (Tylenol Extra Strength) 500 mg PO QAM cyclosporine 0.05% (Restasis MultiDose) 0 drps ophthalmic (eye) diclofenac sodium 1% grams topical Q6H PRN estradiol 1 tab PO 3XW estradiol 0.5 mg PO BEDTIME estradiol 0.01%(0.1mg/gram) vaginal fluoxetine 30 mg PO BEDTIME omeprazole magnesium (Prilosec OTC) 20 mg PO DAILY PRN pravastatin 20 mg PO DAILY tizanidine 2 mg PO BID HPI Comments Details: Neck pain since 2018. 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 Admits to bad posture. No recent falls or accidents. Feels like twinge. Midline posterior neck goes to trapezius. Non radicular to arms. No numbness. 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 [facility] Medical History (Updated 11/11/23 @ 12:22 by Patricia Galaviz MD) Cervical spondylosis Urinary incontinence COVID-19 vaccine administered Arthritis Elevated cholesterol Hx of bipolar disorder Depression GERD (gastroesophageal reflux disease) Non-toxic multinodular goiter Surgical History History of bladder surgery History of breast lump/mass excision Hx of cholecystectomy Hx of total hysterectomy with removal of both tubes and ovaries H/O colonoscopy Social History Household Members: Family Housing: House Are you a primary child care specialist to a significant other at home: No Do you presently have visiting nurse or other home services: No Patient Tobacco Use Status: Former Tobacco user Quit Date: Review of Systems Const All systems reviewed & are unremarkable except as noted in HPI and below Physical Exam Constitutional: Patient appears to be in no acute distress, well nourished and well developed. Patient was appropriately conversant and oriented. Good historian. MSK: Inspection reveals appropriate head and neck positioning. No pain with palpation over the spinous processes. Slightly tight upper trapezius. Cervical ROM was limited extension due to pain. Spurling's sign negative. Strength is 5/5 in all muscle groups tested. No increased tone noted. Neurological: Neurologic examination of the upper and lower extremities was nonfocal with intact sensation, muscle stretch reflexes and without focal motor deficits . Brambila?s negative bilaterally. Babinski was down going bilaterally. Clonus was negative. Gait is non-antalgic without loss of balance. Results Reviewed Results Reviewed: Ordering Physician: Generic ED Physician Date of Service: 12/08/20 Procedure(s): CT cervical spine wo con Accession Number(s): [id number] cc: Generic ED Physician~ EXAMINATION: NONCONTRAST HEAD CT NONCONTRAST CERVICAL SPINE CT INDICATION INFORMATION: Fall COMPARISON: None TECHNIQUE: Separate noncontrast CT examinations of the head and cervical spine were performed. Coronal head CT images and coronal and sagittal cervical spine images were created at the technologist workstation. DLP: 896 mGy-cm DOSE LOWERING TECHNIQUES: This CT examination was performed using dose optimization techniques as appropriate, variously including the following: - Automated exposure control - Adjustment of mA and/or kV according to patient size (this includes techniques or standardized protocols for targeted exams were dose is matched to indication/reason for exam; i.e. extremities or head) - Use of iterative reconstruction technique FINDINGS: Head: There is no evidence of acute intracranial hemorrhage or territorial infarction. No abnormal mass-effect or midline shift is seen. Fuentes to white matter differentiation is well preserved. No extra-axial fluid collections are identified. The ventricles are normal in size. There is mild to moderate patchy subcortical white matter hypoattenuation suspicious for chronic small vessel ischemic disease. No acute fracture is seen. There is right occipital scalp soft tissue swelling with foci of gas. The mastoid air cells and visualized portions of the paranasal sinuses are well-aerated. Cervical spine: There is minimal grade 1 anterolisthesis of C4 on C5. There is otherwise anatomic alignment of the vertebral bodies and posterior elements. Vertebral body heights are maintained. There is disc space narrowing at C5-C6 with associated endplate osteophyte formation. There is right-sided facet arthropathy of the mid cervical spine. No evidence of acute fracture. No prevertebral soft tissue swelling. Visualized portions of the lung apices are unremarkable. There is a peripherally calcified left thyroid nodule measuring up to 2.0 cm in the axial plane; of note, recent thyroid ultrasound was performed on 08/20/2020. CT/CT cervical spine wo con IMPRESSION: 1. Head: No acute intracranial findings. Right occipital scalp soft tissue injury. 2. Cervical spine: No acute findings identified. Ordering Physician: CLARITA MARQUEZ MD Date of Service: 11/12/20 Procedure(s): XR lumbar spine 2-3V Accession Number(s): [id number] cc: CLARITA MARQUEZ MD~ EXAMINATION: THORACIC AND LUMBAR SPINE X-RAY CLINICAL INFORMATION: Back pain COMPARISON: Previous lumbar spine x-ray February 2016 TECHNIQUE: 3 views of the thoracic spine and 3 views of the lumbar spine FINDINGS: Thoracic spine: There is mild curvature of the midthoracic spine to the right. Bone alignment is otherwise normal. No fracture or dislocation is seen. There is multilevel degenerative disc disease and spondylosis of the mid and lower thoracic spine. There are spinal soft tissues are normal. Lumbar spine: There is curvature of the lower lumbar sacral spine to the right. Bone alignment is otherwise normal. No fracture or dislocation is seen. There is severe degenerative disc disease at L5-S1. There is mild degenerative disc disease at L3-L4. There is lower lumbar spine facet arthritis. Comparison with previous exam 2015, the sacral stimulator has been removed. XR/XR lumbar spine 2-3V IMPRESSION: Degenerative changes. I reviewed records from the following: Ortho PCP Assessment & Plan Assessment & Plan (1) Cervical spondylosis: Code(s): M47.812 - Spondylosis without myelopathy or radiculopathy, cervical region Category: Medical (2) Myofascial pain: Code(s): M79.18 - Myalgia, other site Category: Medical Plan History of cervical spondylosis. Tight upper trapezius. Will repeat cervical xrays today. Discussed option for injection - trigger points injection vs facet injection. She does not seem to want any injections especially if steroid. I asked her to consider trigger point injections that would not haver steroid. Assessment and plan discussed with patient, and patient was agreeable. All questions were answered thoroughly. Follow-up 6 weeks. Patricia Galaviz MD, BETSY Board Certified, [place] [employer] and Rehabilitation (ABPMR) Board Certified, [place] Board [employer] Electro[employer] (ABEM) Orders: Orders XR cervical spine 3V Today M54.2 - Cervicalgia Coding Level of Care Code New Pt Level 4 (97483) Diagnoses Cervical spondylosis M47.812 Myofascial pain M79.18
== END 2023-11-11 15:00 ==
PROVIDERS: PCP Internal Medicine; Visit Provider Physical Medicine & Rehabilitation
DX: M47.812 Spondylosis without myelopathy or radiculopathy, cervical region (principal); M79.18 Myalgia, other site
CPT/HCPCS: 99204

== ENCOUNTER 2023-12-09 11:48 | Outpatient (AMB) | payer MEDICARE, SELFPAY ==
--- NOTE | 2023-12-09 11:51 | MHC.OFFVIS ---
Intake Visit Reasons: ov-neck pain Intake Note: Isabel is a 72 year old female who presenets today for a follow up of cervical spondylosis & Tight upper trapezius. Patient reports that she is feeling depressed which is due to bipolar. She is having continued pain, she is asking about possibility of a neck brace. She does not want lidoncaine, she believes it is very damaging. When asked about new medications she reports I dont remember Allergies hydrocodone Allergy (Intermediate, Verified 12/09/23 11:54) Vomiting amoxicillin Adverse Reaction (Intermediate, Verified 12/09/23 11:54) Gastrointestinal Upset nitrofurantoin Adverse Reaction (Intermediate, Verified 12/09/23 11:54) Gastrointestinal Upset sulfadiazine Adverse Reaction (Intermediate, Verified 12/09/23 11:54) Gastrointestinal Upset HPI Comments Details: Neck pain since 2019. 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 Admits to bad posture. No recent falls or accidents. Feels like twinge. Midline posterior neck goes to trapezius. Non radicular to arms. No numbness. No weakness Treatment done so far: NSAIDs tizanidine - helps, been taking since June, but does not like taking it [facility] - December 2022 Lidocaine cream Follows with ortho for shoulder pain. [facility] Medical History (Updated 11/11/23 @ 12:22 by Patricia Galaviz MD) Cervical spondylosis Urinary incontinence COVID-19 vaccine administered Arthritis Elevated cholesterol Hx of bipolar disorder Depression GERD (gastroesophageal reflux disease) Non-toxic multinodular goiter Surgical History History of bladder surgery History of breast lump/mass excision Hx of cholecystectomy Hx of total hysterectomy with removal of both tubes and ovaries H/O colonoscopy Social History Household Members: Family Housing: House Are you a primary mall plant caretaker to a significant other at home: No Do you presently have visiting nurse or other home services: No Patient Tobacco Use Status: Former Tobacco user Quit Date: Physical Exam Constitutional: Patient appears to be in no acute distress, well nourished and well developed. Patient was appropriately conversant and oriented. Results Reviewed Results Reviewed: Ordering Physician: Generic ED Physician Date of Service: 12/08/20 Procedure(s): CT cervical spine wo con Accession Number(s): [id number] cc: Generic ED Physician~ EXAMINATION: NONCONTRAST HEAD CT NONCONTRAST CERVICAL SPINE CT INDICATION INFORMATION: Fall COMPARISON: None TECHNIQUE: Separate noncontrast CT examinations of the head and cervical spine were performed. Coronal head CT images and coronal and sagittal cervical spine images were created at the technologist workstation. DLP: 896 mGy-cm DOSE LOWERING TECHNIQUES: This CT examination was performed using dose optimization techniques as appropriate, variously including the following: - Automated exposure control - Adjustment of mA and/or kV according to patient size (this includes techniques or standardized protocols for targeted exams were dose is matched to indication/reason for exam; i.e. extremities or head) - Use of iterative reconstruction technique FINDINGS: Head: There is no evidence of acute intracranial hemorrhage or territorial infarction. No abnormal mass-effect or midline shift is seen. Fuentes to white matter differentiation is well preserved. No extra-axial fluid collections are identified. The ventricles are normal in size. There is mild to moderate patchy subcortical white matter hypoattenuation suspicious for chronic small vessel ischemic disease. No acute fracture is seen. There is right occipital scalp soft tissue swelling with foci of gas. The mastoid air cells and visualized portions of the paranasal sinuses are well-aerated. Cervical spine: There is minimal grade 1 anterolisthesis of C4 on C5. There is otherwise anatomic alignment of the vertebral bodies and posterior elements. Vertebral body heights are maintained. There is disc space narrowing at C5-C6 with associated endplate osteophyte formation. There is right-sided facet arthropathy of the mid cervical spine. No evidence of acute fracture. No prevertebral soft tissue swelling. Visualized portions of the lung apices are unremarkable. There is a peripherally calcified left thyroid nodule measuring up to 2.0 cm in the axial plane; of note, recent thyroid ultrasound was performed on 08/20/2020. CT/CT cervical spine wo con IMPRESSION: 1. Head: No acute intracranial findings. Right occipital scalp soft tissue injury. 2. Cervical spine: No acute findings identified. Ordering Physician: CLARITA MARQUEZ MD Date of Service: 11/12/20 Procedure(s): XR lumbar spine 2-3V Accession Number(s): [id number] cc: CLARITA MARQUEZ MD~ EXAMINATION: THORACIC AND LUMBAR SPINE X-RAY CLINICAL INFORMATION: Back pain COMPARISON: Previous lumbar spine x-ray February 2016 TECHNIQUE: 3 views of the thoracic spine and 3 views of the lumbar spine FINDINGS: Thoracic spine: There is mild curvature of the midthoracic spine to the right. Bone alignment is otherwise normal. No fracture or dislocation is seen. There is multilevel degenerative disc disease and spondylosis of the mid and lower thoracic spine. There are spinal soft tissues are normal. Lumbar spine: There is curvature of the lower lumbar sacral spine to the right. Bone alignment is otherwise normal. No fracture or dislocation is seen. There is severe degenerative disc disease at L5-S1. There is mild degenerative disc disease at L3-L4. There is lower lumbar spine facet arthritis. Comparison with previous exam 2016, the sacral stimulator has been removed. XR/XR lumbar spine 2-3V IMPRESSION: Degenerative changes. I reviewed records from the following: Ortho PCP Assessment & Plan Assessment & Plan (1) Cervical spondylosis: Code(s): M47.812 - Spondylosis without myelopathy or radiculopathy, cervical region Category: Medical (2) Myofascial pain: Code(s): M79.18 - Myalgia, other site Category: Medical Plan Non focal exam previously. Suspect more myofascial. No signs of myelopathy or radiculopathy. She had many questions about whether synvisc can be used for neck pain because she read on internet, [employer] this is not done as far as I am aware of. She had questions about lidocaine. She does not want any form of steroid. She had questions about neck brace which I discussed was not indicated for her. Ultimately she is curious about cervical interventions but with many questions and agreed to being referred to Pain Management, as I believe they are able to give more options including but not limited to PNS. She is now agreeable to being referred back to PT. Assessment and plan discussed with patient, and patient was agreeable. All questions were answered thoroughly. Patricia Galaviz MD, BETSY Board Certified, [place] Board [employer] Medicine and Rehabilitation (ABPMR) Board Certified, [place] Board of Electrodiagnostic Medicine (ABEM) Orders: Orders PT Evaluation and Treatment Today M47.812 - Spondylosis without myelopathy or radiculopathy, cervical region, M79.18 - Myalgia, other site Referrals Pain Management Referral M47.812 - Spondylosis without myelopathy or radiculopathy, cervical region Coding Level of Care Code Est Pt Level 3 (83935) Diagnoses Cervical spondylosis M47.812 Myofascial pain M79.18
== END 2023-12-09 12:04 | disposition home or self-care (01) ==
PROVIDERS: PCP Internal Medicine; Visit Provider Physical Medicine & Rehabilitation
DX: M47.812 Spondylosis without myelopathy or radiculopathy, cervical region (principal); M79.18 Myalgia, other site
CPT/HCPCS: 99213

== ENCOUNTER → 2023-12-09 11:48 | Outpatient (BNVA) | payer MEDICARE, SELFPAY | PROVIDERS: PCP Internal Medicine; Visit Provider Physical Medicine & Rehabilitation | DX: M47.812 Spondylosis without myelopathy or radiculopathy, cervical region (principal); M79.18 Myalgia, other site | CPT/HCPCS: 99212 ==

== ENCOUNTER 2024-05-26 13:01 | Outpatient (REF) | payer MEDICARE, SELFPAY ==
[2024-05-26 13:46] LABS: MANUAL DIFF FLAG NO
[2024-05-26 14:25] LABS: Basophils Percent Auto 0.8 % (0-2); Eosinophils Absolute Auto 0.1 X10*3/uL (0.0-0.4); Eosinophils Percent Auto 2.4 % (0-4); Hematocrit 40.6 % (37.0-47.0); Hemoglobin 14.2 g/dl (12.0-16.0); Imm Gran Abs Auto 0.01 X10*3/uL (0.00-0.03); Imm Gran Pct Auto 0.2 % (0.0-0.4); Lymphocytes Absolute Auto 1.5 X10*3/uL (1.2-4.9); Lymphocytes Percent Auto 28.9 % (20-40); Mean Corpuscular Hemoglobin 33.1 pg (27.0-33.0); Mean Corpuscular Volume 94.6 fL (80.0-98.0); Mean Platelet Volume 8.9 fL (9.4-12.3); Monocytes Absolute Auto 0.4 X10*3/uL (0.1-1.2); Monocytes Percent Auto 8.5 % (2-11); Neutrophils Percent Auto 59.2 % (45-73); Platelet Count 335 X10*3/uL (160-400); Red Blood Count 4.29 X10*6/uL (4.20-5.50); Red Cell Distribution Width 13.3 % (11.0-16.0); White Blood Count 5.1 X10*3/uL (4.8-10.8)
[2024-05-26 15:35] LABS: Alanine Aminotransferase 18 U/L (0-31); Albumin Level 4.3 g/dL (3.5-5.0); Alkaline Phosphatase 65 U/L (39-117); Anion Gap 13 (12-20); Aspartate Amino Transferase 28 U/L (5-31); Bilirubin Total 0.6 mg/dL (0.0-1.0); Blood Urea Nitrogen 8 mg/dL (9-16); Calcium 9.7 mg/dL (8.4-10.2); Carbon Dioxide 28 mmol/L (22-29); Chloride 102 mmol/L (96-108); Cholesterol 228 mg/dL (<200); Estimated Glomerular Filt Rate > 60; Glucose Random 98 mg/dL (60-115); HDL Cholesterol 89 mg/dL (>40); LDL Cholesterol Calculated 117 mg/dL (<100); Potassium 4.5 mmol/L (3.3-5.1); Sodium 138 mmol/L (135-145); Total Protein 8.2 g/dL (6.5-8.0); Triglycerides 110 mg/dL (<150)
[2024-05-26 15:54] LABS: Vitamin D 25-OH Total 40.8 ng/mL (>30)
[2024-05-26 16:06] LABS: Folate 14.1 ng/mL (> or = 4.0); Vitamin B12 579 pg/mL (200-900)
== END 2024-05-26 13:02 | disposition home or self-care (01) ==
LOC: HO.LAB 13:01
PROVIDERS: PCP Internal Medicine; Visit Provider Internal Medicine
DX: E78.00 Pure hypercholesterolemia, unspecified (principal); K21.9 Gastro-esophageal reflux disease without esophagitis; R53.83 Other fatigue
CPT/HCPCS: 36415; 80053; 80061; 82306; 82607; 82746; 84443; 85025

== ENCOUNTER 2024-07-11 04:41 | Emergency (ER) | payer MEDICARE, SELFPAY ==
--- NOTE | ~2024-07-11 | CT_ITS ---
EXAMINATION: CT LUMBAR SPINE WITHOUT CONTRAST CLINICAL INFORMATION: Worsening lumbar pain. COMPARISON: No prior CT or MRI available. Correlation made with plain films lumbar spine 11/12/2020. TECHNIQUE: Spiral CT imaging of the lumbar spine was performed without IV contrast. Sagittal, coronal, and thin section axial reformatted images were constructed from the axial data set. This CT examination was performed using dose optimization techniques as appropriate, variously including the following: *Automated exposure control *Adjustment of mA and/or kV according to patient size (this includes techniques or standardized protocols for targeted exams where dose is matched to indication/reason for exam; i.e. extremities or head) *Use of iterative reconstruction technique DLP; 262 mGy-cm FINDINGS: There is normal bony mineralization. No fractures or compression deformities. There is straightening of the normal lordosis, nonspecific. There is a 5 mm degenerative anterolisthesis of L4 upon L5. There is complete bony fusion of the L5-S1 disc space. There is predominantly sclerotic bubbly lesion in the posterior S1 vertebral body, in the midline, uncertain etiology although appearance is most consistent with a benign enostosis. Mild sclerotic type endplate changes present T12-L1 with severe disc degeneration. Moderate loss of disc disc height L3-4 and L4-5. There are scattered Schmorl's nodes in the endplates. No central canal or neural foraminal stenosis spanning T12-L3. At L3-4, there is a diffuse disc bulge present, concentrically involving both foraminal zones, mild facet hypertrophic arthropathy with mild posterior ligamentous thickening/infolding, with the combination of findings resulting in mild central canal stenosis, mild bilateral subarticular recess stenosis, and mild bilateral neural foraminal stenosis. At L4-5, there is a 5 mm anterolisthesis which appears based upon degenerative disc and facet changes. There are no pars defects. There is disc uncovering with a diffusely bulging disc present,, with a superimposed right lateral and foraminal extrusion of disc material with a small associated calcification. This indents upon the right lateral ventral thecal sac, and coupled with advanced degenerative facet changes bilaterally, results in severe right subarticular recess narrowing, mild central canal narrowing, and severe right greater than left neural foraminal narrowing. At L5-S1, the disc space is completely fused. There are mild to moderate left greater than right hypertrophic degenerative facet changes, and a minimal irregular disc osteophytic bulge without significant central canal narrowing. There is mild subarticular recess narrowing bilaterally, and there is moderate to severe bilateral neural foraminal narrowing. A right sided sacral stimulator device is noted on the machine inspector exam. There are cholecystectomy clips present. The aorta is calcified but nonaneurysmal. Mild atelectasis in the imaged lung bases. There is a incompletely imaged probable type I hiatus hernia. CT/CT lumbar spine wo IV con IMPRESSION: 1. No acute fracture or acute findings of the lumbar spine. 2. Spondylotic findings most significant at L4-5, where there is a 5 mm degenerative anterolisthesis, based upon degenerative disc and facet changes. There is a disc bulge with a superimposed right lateral and foraminal disc extrusion which indents upon the right ventral thecal sac, and results in severe right subarticular recess narrowing, and mild central canal narrowing. There is severe right greater than left neural foraminal narrowing. 3. At L5-S1, there is moderate to severe bilateral neural foraminal narrowing. There is complete bony fusion of the disc space. 4. See the body of the report for further detail. Electronically signed by: Chavez Liz MD 07/11/2024 09:42 AM CARMEN
[2024-07-11 04:48] VITALS: BP 180/80; PULSE 55; RESP 20; TEMP 36.6; O2SAT 99; BMI 24.1
--- NOTE | 2024-07-11 05:35 | ED.BACK ---
HPI - Back Pain/Injury General Chief Complaint: Back Pain/Injury Stated Complaint: back pain & right leg pain Time Seen by Provider: 07/11/24 05:01 Source: patient and family Mode of arrival: ambulatory Limitations: no limitations History of Present Illness ED Provider: Dr. Kizzy Heard HPI Narrative: Patient comes to the emergency room reporting chronic back pain for months. However, patient states that recently she started noticing that it radiates towards the right thigh. According to the patient she has never had pain this bad before. Patient states that all night she could not get comfortable despite taking Tylenol. Patient denies urinary retention. According to the patient, it is not her back that hurts, it is mostly the constant discomfort of numbness tingling and burning sensation in the inner thigh. Patient denies any recent falls. Related Data Home Medications ?Medication ?Instructions ?Recorded ?Confirmed estradiol 0.5 mg tablet 0.5 mg PO BEDTIME 05/24/20 11/11/23 acetaminophen 500 mg tablet 500 mg PO QAM 07/24/20 11/11/23 (Tylenol Extra Strength) estradiol 0.01% (0.1 mg/gram) vaginal 09/18/20 11/11/23 vaginal cream omeprazole magnesium 20 mg 20 mg PO DAILY PRN Acid Reflux 12/03/20 11/11/23 tablet,delayed release (Prilosec OTC) pravastatin 20 mg tablet 20 mg PO DAILY 01/29/22 11/11/23 diclofenac sodium 1 % topical gel g topical Q6H PRN pain 06/29/22 11/11/23 estradiol 0.5 mg tablet 1 tab PO 3XW 06/29/22 11/11/23 cyclosporine 0.05 % eye drops 0 drp ophthalmic (eye) 11/20/22 11/11/23 (Restasis MultiDose) fluoxetine 20 mg capsule 30 mg PO BEDTIME 11/20/22 11/11/23 tizanidine 2 mg tablet 2 mg PO BID 11/11/23 11/11/23 Previous Rx's ?Medication ?Instructions ?Recorded gabapentin 100 mg capsule 100 mg PO BID #20 caps 07/11/24 Allergies Allergy/AdvReac Type Severity Reaction Status Date / Time hydrocodone Allergy Intermediate Vomiting Verified 07/11/24 04:52 amoxicillin AdvReac Intermediate Gastrointestinal Verified 07/11/24 04:52 Upset nitrofurantoin AdvReac Intermediate Gastrointestinal Verified 07/11/24 04:52 Upset sulfadiazine AdvReac Intermediate Gastrointestinal Verified 07/11/24 04:52 Upset PMFSH Past Medical History Medical History Cervical spondylosis Urinary incontinence COVID-19 vaccine administered Arthritis Elevated cholesterol Hx of bipolar disorder Depression GERD (gastroesophageal reflux disease) Non-toxic multinodular goiter Surgical History History of bladder surgery History of breast lump/mass excision Hx of cholecystectomy Hx of total hysterectomy with removal of both tubes and ovaries H/O colonoscopy Social History Social History Household Members: Family Housing: House Are you a primary long term acute care registered nurse to a significant other at home: No Do you presently have visiting nurse or other home services: No Alcohol intake: current Alcohol intake frequency: a few times a week Patient Tobacco Use Status: Former Tobacco user Smoked in Last 30 Days: No Use of substances other than those prescribed or required for medical reasons: Yes Substance Use Type: Marijuana Substance Use Frequency: Weekly Advance Directives: No Advance Directives Information Provided: Yes Physical Exam Vital Signs: Vital Signs: Last Vital Signs Temp 98.2 F 07/11/24 06:33 Pulse 59 07/11/24 06:33 Resp 18 07/11/24 06:33 BP 169/71 H 07/11/24 06:33 Pulse Ox 98 07/11/24 06:33 O2 Del Method Room Air 07/11/24 06:33 BMI result Body Mass Index 24.1 Const: Other: Appearance: Alert. Oriented X3. No acute distress. Eyes: Pupils equal, round and reactive to light. ENT: Pharynx normal. Neck: Normal inspection. Neck supple. No lymph nodes noted. No crepitus CVS: Normal heart rate and rhythm. Pulses normal. Normal S1 and S2 Respiratory: No respiratory distress. Breath sounds normal. No Wheezing. No rales Abdomen: Soft and nontender. No rigidity. No distention. Back: No cervical spine pain or thoracic or lumbar. Negative bilateral leg raise test Skin: Skin warm and dry. Normal skin color. Normal skin turgor. Extremities: No lower extremity edema. No Lacerations. No Rash Neuro: Oriented X 3. No motor deficit. No sensory deficit. Moving all extremities. No slurred speech. CN 2 through 12 grossly intact Psych: calm, cooperative, normal affect Medications Administered Discontinued Medications Generic Name Dose Route Start Last Admin Trade Name Freq PRN Reason Stop Dose Admin Dexamethasone Sodium Phosphate 4 mg 07/11/24 05:32 07/11/24 05:40 Dexamethasone Sod Phosphate 4 Mg/Ml Vial IM 07/11/24 05:33 4 mg ONCE ONE Administration Ketorolac Tromethamine 30 mg 07/11/24 05:36 07/11/24 05:41 Ketorolac Tromethamine 30 Mg/Ml Vial IM 07/11/24 05:37 30 mg ONCE ONE Administration Oxycodone HCl 5 mg 07/11/24 07:06 07/11/24 07:29 Oxycodone Hcl Immed Release 5 Mg Tablet PO 07/11/24 07:07 5 mg ONCE ONE Administration Medical Decision Making Medical Decision Making [facility] Narrative: I discussed the physical exam with the patient and her daughter, patient likely having sciatica versus disc herniation versus/radiculopathy -patient was given ketorolac and Decadron, patient states that she still having pain. Patient given p.o. oxycodone. -patient denies any lower extremity weakness,, no saddle anesthesia, no urinary/fecal incontinence/retention Patient is a bit anxious, CT scan pending sign-out given to my colleague Dr. Del Real Differential Diagnosis Differential Diagnoses: The differential diagnosis associated with the presentation includes (As above) Independent Interpretation I performed an independent interpretation of an: CT Scan Discharge Plan Discharge Clinical Impression: Sciatica, Radiculopathy Patient Disposition: Home, Self-Care Instructions: Sciatica (ED), Back Pain (ED) Additional Instructions: Please make sure that if you take gabapentin, stay in bed, this medication may make you feel drowsy. Please follow-up with your primary care physician tomorrow. If you have any worsening or new symptoms, please return to the emergency room or call 911 Prescriptions: New gabapentin 100 mg capsule 100 mg PO BID Qty: 20 0RF No Action omeprazole magnesium [Prilosec OTC] 20 mg Tablet,Delayed Release (Dr/Ec) 20 mg PO DAILY PRN (Reason: Acid Reflux) estradiol 0.5 mg tablet 1 tab PO 3XW diclofenac sodium 1 % gel topical Q6H PRN (Reason: pain) acetaminophen [Tylenol Extra Strength] 500 mg tablet 500 mg PO QAM estradiol 0.5 mg tablet 0.5 mg PO BEDTIME fluoxetine 20 mg capsule 30 mg PO BEDTIME estradiol 0.01 % (0.1 mg/gram) cream vaginal pravastatin 20 mg tablet 20 mg PO DAILY Restasis MultiDose 0.05 % drops 0 drp ophthalmic (eye) tizanidine 2 mg tablet 2 mg PO BID Print Language: Ug[place]an
[2024-07-11] MEDS: dexAMETHasone sod phosphate 4 MG/ML VIAL IM (05:40)
[2024-07-11] MEDS: Ketorolac Tromethamine 30 MG/ML VIAL IM (05:41)
[2024-07-11 06:33] VITALS: BP 169/71; PULSE 59; RESP 18; TEMP 36.8; O2SAT 98
[2024-07-11] MEDS: oxyCODONE HCl Immed Release 5 MG TABLET PO (07:29)
--- NOTE | 2024-07-11 07:34 | PC.NURSE ---
ambulated to the bathroom independently with strong steady gait. patient reports pain with ambulation.
[2024-07-11 09:10] VITALS: BP 168/76; PULSE 70; RESP 16; TEMP 36.4; O2SAT 97
[2024-07-11 10:13] VITALS: BP 168/76; PULSE 70; RESP 16; TEMP 36.4; O2SAT 97
== END 2024-07-11 10:14 | disposition home or self-care (01) ==
PROVIDERS: Emergency Provider Emergency Medicine; PCP Internal Medicine
DX: M54.16 Radiculopathy, lumbar region (principal); M54.50 Low back pain, unspecified; M79.651 Pain in right thigh
CPT/HCPCS: 72131; 99284; J1100; J1885

== ENCOUNTER → 2024-07-11 05:29 | Outpatient (BNV) | payer MEDICARE, SELFPAY | PROVIDERS: Emergency Provider Emergency Medicine; PCP Internal Medicine; Visit Provider Radiology Diagnostic Radiology | DX: M54.50 Low back pain, unspecified (principal) | CPT/HCPCS: 72131 ==

== ENCOUNTER 2024-07-11 11:30 | Emergency (ER) | payer MEDICARE, SELFPAY ==
[2024-07-11 11:31] VITALS: BP 164/79; PULSE 84; RESP 16; TEMP 36.4; O2SAT 96; BMI 23.4
--- NOTE | 2024-07-11 11:33 | ED_ITS ---
HPI - General Adult General Chief complaint: Recheck/Abnormal Lab/Rx Stated complaint: Pain Time Seen by Provider: 07/11/24 11:32 Source: patient and family (patient's niece Alexandra) Mode of arrival: ambulatory Limitations: no limitations History of Present Illness ED Provider: Jill Torres PA-C HPI narrative: Patient is a 73 year old assigned female at with a history of depression presenting to the emergency department today with right sided low back and upper leg pain. Patient states that she was seen on 07/11/2024 for this right sided low back pain that radiates into her right upper leg. Patient states that while in the department she was given Toradol, Decadron, and PO Oxycodone. Patient states that Oxycodone is what helped the most and she was not discharged home with a prescription for it. Patient states that she was sent home with a prescription for Gabapentin but she has never been on that medication before and is concerned it won't be enough to address the pain. Patient's niece, Alexandra, states that she is in town for the next few days and does not live with the patient. Patient denies any dizziness, lightheadedness, abdominal pain, nausea, vomiting, fever, chills, blurry vision, double vision, loss of vision, chest pain, difficulty breathing, shortness of breath, night sweats, pain with urination, increased urinary frequency, increased urinary urgency, blood in her urine or stool, syncope or a near syncopal episode, recent trauma or falls, bowel incontinence, bladder incontinence, or any other complaints at this time. Relieving factors: immobilization Exacerbating factors: movement Associated symptoms: denies other symptoms Treatments prior to arrival: other ([facility] ED visit where she received Toradol, Decadron, and Oxycodone.) Related Data Home Medications ?Medication ?Instructions ?Recorded ?Confirmed estradiol 0.5 mg tablet 0.5 mg PO BEDTIME 05/24/20 11/11/23 acetaminophen 500 mg tablet 500 mg PO QAM 07/24/20 11/11/23 (Tylenol Extra Strength) estradiol 0.01% (0.1 mg/gram) vaginal 09/18/20 11/11/23 vaginal cream omeprazole magnesium 20 mg 20 mg PO DAILY PRN Acid Reflux 12/03/20 11/11/23 tablet,delayed release (Prilosec OTC) pravastatin 20 mg tablet 20 mg PO DAILY 01/29/22 11/11/23 diclofenac sodium 1 % topical gel g topical Q6H PRN pain 06/29/22 11/11/23 estradiol 0.5 mg tablet 1 tab PO 3XW 06/29/22 11/11/23 cyclosporine 0.05 % eye drops 0 drp ophthalmic (eye) 11/20/22 11/11/23 (Restasis MultiDose) fluoxetine 20 mg capsule 30 mg PO BEDTIME 11/20/22 11/11/23 tizanidine 2 mg tablet 2 mg PO BID 11/11/23 11/11/23 Previous Rx's ?Medication ?Instructions ?Recorded gabapentin 100 mg capsule 100 mg PO BID #20 caps 07/11/24 oxycodone 5 mg tablet,oral ONLY 5 mg PO Q8H PRN breakthrough pain 07/11/24 (not feeding tubes) #3 ea Allergies Allergy/AdvReac Type Severity Reaction Status Date / Time hydrocodone Allergy Intermediate Vomiting Verified 07/11/24 11:32 amoxicillin AdvReac Intermediate Gastrointestinal Verified 07/11/24 11:32 Upset nitrofurantoin AdvReac Intermediate Gastrointestinal Verified 07/11/24 11:32 Upset sulfadiazine AdvReac Intermediate Gastrointestinal Verified 07/11/24 11:32 Upset Review of Systems Constitutional: Constitutional: Reports no additional constitutional complaints, Denies chills, Denies fever(s) and Denies night sweats Eyes: Eyes: Reports no additional eye complaints, Denies blurry vision, Denies change in vision, Denies diplopia, Denies eye discharge, Denies loss of vision and Denies eye pain ENT: Denies dizziness Cardiovascular: Cardiovascular: Reports no additional cardiovascular complaints, Denies chest pain, Denies lightheadedness, Denies Loss of Consciousness and Denies dyspnea Respiratory: Respiratory: Reports no additional respiratory complaints and Denies dyspnea Gastrointestinal: Gastrointestinal: Reports no additional gastrointestinal complaints, Denies abdominal pain, Denies melena, Denies hematochezia, Denies change in bowel habits and Denies change in stool character Genitourinary: Genitourinary: Denies hematuria, Denies urinary frequency, Denies dysuria, Denies urinary incontinence, Denies urinary hesitancy and Denies urinary urgency Musculoskeletal: Musculoskeletal: Reports no additional musculoskeletal complaints, Reports back pain, Denies numbness and Denies tingling Neurologic: Denies dizziness, Denies loss of vision, Denies numbness and Denies tingling Psychiatric: Psychiatric: Reports no additional psychiatric complaints Endocrine: Endocrine: Reports no additional endocrine complaints Hematologic/Lymphatic: Hematologic/Lymphatic: Reports no additional hematologic/lymphatic complaints Allergic/Immunologic: Allergic/Immunologic: Reports no additional allergic/immunologic complaints PMFSH Past Medical History Attestation statement: The following information was validated with the patient. (all information validated with the patient's niece) Source: old records reviewed, obtained from family (patient's niece provided additional history and confirmed the history provided by the patient.) and nursing notes reviewed Medical History Right arm pain Pain in right ankle Sciatic nerve pain Dysuria URI (upper respiratory infection) Cervical spondylosis Urinary incontinence COVID-19 vaccine administered Arthritis Elevated cholesterol Hx of bipolar disorder Depression GERD (gastroesophageal reflux disease) Non-toxic multinodular goiter Surgical History History of bladder surgery History of breast lump/mass excision Hx of cholecystectomy Hx of total hysterectomy with removal of both tubes and ovaries H/O colonoscopy Social History Social History Household Members: Family Housing: House Are you a primary palliative care nurse to a significant other at home: No Do you presently have visiting nurse or other home services: No Alcohol intake: current Alcohol intake frequency: a few times a week Patient Tobacco Use Status: Former Tobacco user Substance Use Type: Marijuana Advance Directives: No Advance Directives Information Provided: Yes Physical Exam ED Vital Signs: Vital Signs - 24 hr 07/11/24 11:31 07/11/24 13:46 07/11/24 13:47 Temperature 97.6 F 97.5 F 97.5 F Pulse Rate 84 76 76 Respiratory Rate 16 14 14 Blood Pressure 164/79 H 162/88 H 162/88 H Pulse Oximetry 96 96 96 Oxygen Delivery Method Room Air Room Air Room Air BMI result Body Mass Index 23.4 Const General: cooperative, no acute distress, alert and awake Nutritional Appearance: well nourished Orientation/consciousness: patient oriented x3 Limitations: no limitations HENMT Head: Yes normal to inspection and Yes atraumatic Ears: hearing grossly normal bilaterally and external ears normal General nose exam: Normal external nose present, no nasal discharge noted and no epistaxis Face and sinus: Yes normal facial exam, No abrasion and No laceration Mouth: Normal oral and palatal mucosa present, no drooling and no muffled voice Eyes General: appearance normal, both eyes and all related structures Periorbital: periorbital findings normal Eyelids: Yes eyelids normal Conjunctivae: conjunctivae normal Pupils: Equal, round and reactive pupils present EOM: EOMs intact bilaterally Neck Neck: Yes normal visual inspection, Yes full ROM and Yes no lymphadenopathy Chest Chest palpation & inspection: normal inspection of the chest Resp Effort & Inspection: normal respiratory effort and able to speak in complete sentences GI Inspection: Yes normal to inspection Neuro General: patient oriented x3 and moves all extremities Cranial nerves: Yes Equal, round and reactive pupils present Cognition (Neuro): normal cognition Extrem General: Yes normal to inspection, Yes full ROM and Yes capillary refill normal Psych Appearance: grossly normal Mental Status: mental status grossly normal Affect: normal affect Attitude: cooperative Thought process: Normal thought process present Thought content: Normal thought content present Insight: Good insight present (Psych) Medications Administered Discontinued Medications Generic Name Dose Route Start Last Admin Trade Name Freq PRN Reason Stop Dose Admin Gabapentin 100 mg 07/11/24 11:33 07/11/24 12:07 Gabapentin 100 Mg Capsule PO 07/11/24 11:34 100 mg ONCE ONE Administration Naloxone HCl 8 mg 07/11/24 13:28 07/11/24 13:35 Naloxone Hcl Nasal Take Home 4 Mg [place] NOSTRILALT 07/11/24 13:29 8 mg ONCE ONE Administration Oxycodone HCl 5 mg 07/11/24 13:11 07/11/24 13:29 Oxycodone Hcl Immed Release 5 Mg Tablet PO 07/11/24 13:12 5 mg ONCE ONE Administration Medical Decision Making Medical Decision Making MDM Narrative: Patient is a 73 year old assigned female at with a history of depression presenting to the emergency department today with right sided low back and upper leg pain. Patient's physical exam was unremarkable, patient was able to cross her right leg overtop her left and was able to ambulate. Patient's CT lumbar spine performed on her previous 07/11/2024 ED visit showed no acute fracture or findings of the lumbar spine but showed multiple chronic findings including spondylotic findings at L4-5, disc bulge with a superimposed right lateral and foraminal disc extrusion that indents upon the right ventral thecal sac that results in right subarticular recess narrowing, mild central canal narrowing, and right greater than left neural foraminal narrowing, there is additionally L5-S1 bilateral neural foraminal narrowing. I explained my physical exam findings as well as all test results to the patient and the patient's niece, Alexandra. I answered all questions asked by the patient and the patient's niece, Alexandra. Patient received PO Gabapentin which, upon re-evaluation, she stated it helped it did not help her symptoms in any meaningful way. I had a lengthy conversation with the patient and her niece, Alexandra, regarding appropriate pain management for the patient's diagnosis. I explained, repeatedly, that opiates are not the mainstay of treatment as they do not treat the underlying cause and have multiple adverse effects on individuals over the age of 65. I explained to the patient and Alexandra that the patient on opiate medication at home is at a higher risk of falls and her living alone, is worrisome. Patient's niece Alexandra stated that she would stay with the patient over night and monitor her if that meant getting the patient prescribed Oxycodone for home. I explained to Alexandra and the patient that I would be willing to prescribed 3 doses of 5mg Oxycodone for breakthrough pain only if Alexandra was staying over with the patient and willing to take on any and all liability for any negative or adverse outcomes the patient may experience. Traci and the patient verbalized understanding, acceptance, and agreement of this proposed treatment plan. I stressed the importance of the patient taking her medication as directed (either prescribed or as the over the counter packaging recommends). I stressed the importance of the patient following up with her primary care provider, a pain specialist, and given her CT findings - a experience specialist. I stressed the importance of the patient returning to the emergency department immediately if her symptoms were to worsen or if she were to develop any dizziness, shortness of breath, difficulty breathing, chest pain, blurry vision, loss of vision, nausea, vomiting, abdominal pain, fever, chills, back pain, or any other complaints. Patient and the patient's niece Alexandra, verbalized agreement and understanding with this treatment plan and discharge. Patient's niece contact information: Alexandra Bates [phone] Differential Diagnosis Differential Diagnoses: The differential diagnosis associated with the presentation includes Low back pain Sciatic nerve pain Admission/Observation Consideration of admission/observation: Escalation of care including admission/observation considered Patient would have been admitted to the hospital had her work up had any findings where hospital admission was appropriate and her clinical presentation warranted hospital admission. Independent Interpretation I performed an independent interpretation of an: CT Scan Interpretation: My interpretation is in agreement with the radiologist's impression of this imaging study. EXAMINATION: CT LUMBAR SPINE WITHOUT CONTRAST CLINICAL INFORMATION: Worsening lumbar pain. COMPARISON: No prior CT or MRI available. Correlation made with plain films lumbar spine 11/12/2020. TECHNIQUE: Spiral CT imaging of the lumbar spine was performed without IV contrast. Sagittal, coronal, and thin section axial reformatted images were constructed from the axial data set. This CT examination was performed using dose optimization techniques as appropriate, variously including the following: *Automated exposure control *Adjustment of mA and/or kV according to patient size (this includes techniques or standardized protocols for targeted exams where dose is matched to indication/reason for exam; i.e. extremities or head) *Use of iterative reconstruction technique DLP; 262 mGy-cm FINDINGS: There is normal bony mineralization. No fractures or compression deformities. There is straightening of the normal lordosis, nonspecific. There is a 5 mm degenerative anterolisthesis of L4 upon L5. There is complete bony fusion of the L5-S1 disc space. There is predominantly sclerotic bubbly lesion in the posterior S1 vertebral body, in the midline, uncertain etiology although appearance is most consistent with a benign enostosis. Mild sclerotic type endplate changes present T12-L1 with severe disc degeneration. Moderate loss of disc disc height L3-4 and L4-5. There are scattered Schmorl's nodes in the endplates. No central canal or neural foraminal stenosis spanning T12-L3. At L3-4, there is a diffuse disc bulge present, concentrically involving both foraminal zones, mild facet hypertrophic arthropathy with mild posterior ligamentous thickening/infolding, with the combination of findings resulting in mild central canal stenosis, mild bilateral subarticular recess stenosis, and mild bilateral neural foraminal stenosis. At L4-5, there is a 5 mm anterolisthesis which appears based upon degenerative disc and facet changes. There are no pars defects. There is disc uncovering with a diffusely bulging disc present,, with a superimposed right lateral and foraminal extrusion of disc material with a small associated calcification. This indents upon the right lateral ventral thecal sac, and coupled with advanced degenerative facet changes bilaterally, results in severe right subarticular recess narrowing, mild central canal narrowing, and severe right greater than left neural foraminal narrowing. At L5-S1, the disc space is completely fused. There are mild to moderate left greater than right hypertrophic degenerative facet changes, and a minimal irregular disc osteophytic bulge without significant central canal narrowing. There is mild subarticular recess narrowing bilaterally, and there is moderate to severe bilateral neural foraminal narrowing. A right sided sacral stimulator device is noted on the crap game box person exam. There are cholecystectomy clips present. The aorta is calcified but nonaneurysmal. Mild atelectasis in the imaged lung bases. There is a incompletely imaged probable type I hiatus hernia. CT/CT lumbar spine wo IV con IMPRESSION: 1. No acute fracture or acute findings of the lumbar spine. 2. Spondylotic findings most significant at L4-5, where there is a 5 mm degenerative anterolisthesis, based upon degenerative disc and facet changes. There is a disc bulge with a superimposed right lateral and foraminal disc extrusion which indents upon the right ventral thecal sac, and results in severe right subarticular recess narrowing, and mild central canal narrowing. There is severe right greater than left neural foraminal narrowing. 3. At L5-S1, there is moderate to severe bilateral neural foraminal narrowing. There is complete bony fusion of the disc space. 4. See the body of the report for further detail. Electronically signed by: Chavez Liz MD 07/11/2024 09:42 AM [facility] Dictated By: Chavez Liz MD Signed By: Electronically signed by Chavez Liz MD 07/11/24 0987 Radiology Impression Discussion of test interpretation with radiology: I have reviewed the radiologist's reading. Independent Historian Clinical information obtained from an independent historian. History obtained from or confirmed by: Other (Patient's niece Alexandra provided additional history and confirmed the history provided by the patient.) Prescription Management I considered prescription management with: Pain Medication (patient prescribed pain medication as noted in the MDM Rationale portion of this note.) Discharge Plan Discharge Clinical Impression: Sciatic nerve pain, Bulging lumbar disc Patient Disposition: Home, Self-Care Instructions: Sciatica (ED), Acute Low Back Pain (ED), Lower Back Exercises (ED) Additional Instructions: Your CT of the lumbar spine showed the following things: 1. NO fracutre (break) or other acute (emergent / new) findings in the lumbar spine. 2. Spondylotic findings most significant at L4 - L5 with a bulging right lateral and foraminal disc indenting upon the right ventral thecal sac which is resulting in right subarticular recess narrowing and mild central canal narrowing. There is also right great than left neural foraminal narrowing. 3. At the L5 - S1 level there is bilateral neural foraminal narrowing with complete bony fusion of the disc space. You MUST follow up with both your primary care provider for these findings / about your visits to the Emergency Department on 07/11/2024 and a experience specialist. I also recommend you see a pain specialist as this pain is likely to return. Take your medication as prescribed. The Oxycodone is reserved for breakthrough pain only. You should continue taking NSAID medication (like Advil, Aleve, or ibuprofen) as well as Tylenol and the previously prescribed Gabapentin to manage the pain on a continuing basis. The Oxycodone poses an increased risk of falls. Your niece Alexandra has stated she will stay with you to ensure you do not fall or have any adverse effects taking this medication. I have informed you and Alexandra of all the associated risks of taking narcotic type medication for someone of your age. You and Alexandra verbaliz ed understanding and requested to be prescribed it anyway. I have provided take home Narcan for you as well. If you were to have decreased respirations or to stop breathing after taking the Oxycodone, Alexandra should use this on you immediately. Return to the emergency department immediately if your symptoms worsen or if you develop any dizziness, shortness of breath, difficulty breathing, chest pain, blurry vision, loss of vision, nausea, vomiting, abdominal pain, fever, chills, back pain, or any other complaints. Please see the information below about our Patient Portal. If you are not yet enrolled in the [facility] Patient Portal, you will receive an enrollment email invitation following your visit to any [facility] setting. You may also self-enroll in the Patient Portal by visiting our website: [email or web address] The following information is required to access the Patient Portal: - Your [facility] Medical Record Number - Your personal home email address (must match what is in your electronic medical record, Registration staff can assist with this) - Name - Date of Capabilities of the Patient Portal: - Message some providers - View upcoming appointments - Access your health summary, medical history, and visit history - View current conditions and allergies - View procedure and lab results - View your medications, including guidelines, side effects, and precautions - Complete pre-appointment questionnaires requested by your provider - Ready summary reports of your office visits and procedures To access the Patient Portal Mobile [employer], follow these directions: - Search [employer] in the [employer] Store or [employer] Store - Download the [employer]illa - Search for [facility] - Enter your login/password Prescriptions: New oxycodone 5 mg tablet, oral only 5 mg PO Q8H PRN (Reason: breakthrough pain) Qty: 3 0RF Rx Instructions: Partial Fill upon patient request. No Action omeprazole magnesium [Prilosec OTC] 20 mg Tablet,Delayed Release (Dr/Ec) 20 mg PO DAILY PRN (Reason: Acid Reflux) estradiol 0.5 mg tablet 1 tab PO 3XW diclofenac sodium 1 % gel topical Q6H PRN (Reason: pain) gabapentin 100 mg capsule 100 mg PO BID Qty: 20 0RF acetaminophen [Tylenol Extra Strength] 500 mg tablet 500 mg PO QAM estradiol 0.5 mg tablet 0.5 mg PO BEDTIME fluoxetine 20 mg capsule 30 mg PO BEDTIME estradiol 0.01 % (0.1 mg/gram) cream vaginal pravastatin 20 mg tablet 20 mg PO DAILY Restasis MultiDose 0.05 % drops 0 drp ophthalmic (eye) tizanidine 2 mg tablet 2 mg PO BID Referrals: [facility] Family Medicine [Provider Group] (Call to establish and follow up with a primary care provider. If you already have a primary care provider, please follow up with them (there was not one listed in your chart).) [facility] Primary Care, [facility] [Provider Group] (Call to establish and follow up with a primary care provider. If you already have a primary care provider, please follow up with them (there was not one listed in your chart).) [facility] Primary [facility]on[facility] [Provider Group] (Call to establish and follow up with a primary care provider. If you already have a primary care provider, please follow up with them (there was not one listed in your chart).) [facility] Sp[facility] [Provider Group] (Call to establish and follow up with a experience specialist for your CT lumbar spine findings. ) [facility] Pain Management [Provider Group] (Call to establish and follow up with a pain specialist for your low back pain. ) [facility] [Provider Group] (Call to establish and follow up with a experience specialist for your CT lumbar spine findings. ) Interventions: ED Discharge Assessment Last Done: 07/11/24 13:47 Discharge Date/Time: 07/11/24 13:47 Print Language: Portuguese
[2024-07-11] MEDS: Gabapentin 100 MG CAPSULE PO (12:07)
[2024-07-11] MEDS: oxyCODONE HCl Immed Release 5 MG TABLET PO (13:29)
[2024-07-11] MEDS: Naloxone HCl Nasal TAKE HOME 4 MG SPRAY 8 MG NOSTRILALT (13:35)
[2024-07-11 13:46] VITALS: BP 162/88; PULSE 76; RESP 14; TEMP 36.4; O2SAT 96
[2024-07-11 13:47] VITALS: BP 162/88; PULSE 76; RESP 14; TEMP 36.4; O2SAT 96
== END 2024-07-11 13:47 | disposition home or self-care (01) ==
PROVIDERS: Emergency Provider Student in an Organized Health Care Education/Training Program
DX: M54.41 Lumbago with sciatica, right side (principal); M79.604 Pain in right leg; Z79.899 Other long term (current) drug therapy; Z87.891 Personal history of nicotine dependence
CPT/HCPCS: 72131; 96372; 99283; 99284; J1100; J1885

== ENCOUNTER 2024-07-20 14:25 | Outpatient (AMB) | payer MEDICARE, SELFPAY ==
--- NOTE | 2024-07-20 14:27 | A.SPINEOV_ITS ---
Intake Visit Reasons: ED F/u Intake Note: Ms. Cid is here today to F/u after being seen at the ED for Low back pain. Vp Rheumatology Required: No Allergies hydrocodone Allergy (Intermediate, Verified 07/20/24 14:34) Vomiting amoxicillin Adverse Reaction (Intermediate, Verified 07/20/24 14:34) Gastrointestinal Upset nitrofurantoin Adverse Reaction (Intermediate, Verified 07/20/24 14:34) Gastrointestinal Upset sulfadiazine Adverse Reaction (Intermediate, Verified 07/20/24 14:34) Gastrointestinal Upset Assessment & Plan Assessment & Plan (1) Spondylolisthesis at L4-L5 level: Code(s): M43.16 - Spondylolisthesis, lumbar region Category: Medical Plan Isabel is a pleasant 73-year-old female who comes in today after being evaluated in our emergency department a couple of weeks ago for low back pain and shooting pains into her right leg. Today she reports continuation of this pain. She is a somewhat poor historian and reports she has been having memory issues as of late. When describing the pain she states it starts in her low back, shoots over her right hip, into her right anterior thigh, terminating near the anterior tibialis. She has developed numbness over the anterior thigh and tibialis which she states began a few weeks ago. When describing her back pain she states it has been there for years but when describing her leg pain she states it began without any inciting incident back in March. She feels this pain has worsened since onset. She has tried many conservative treatments including at home stretching / walking, advil, tylneol, tizanidine, gabapentin, oxycodone, and prednisone. She has experienced modest relief from the medications, but the pain always returns. In the last month or so she feels the pain has gotten so bad with ambulation that she now needs either a walker or wheelchair to get around. She can only walk about 10-15 feet without needing to sit down and rest. She is scheduled to start physical therapy later today. She has not had any injections as of yet. PMH: No surgical Hx. Right shoulder impingement. Depression, GERD, hyperlipidemia. Social hx: Patient does not use nicotine. Does report occasional cannabis and alcohol use. Medications: Tylenol, Restasis, diclofenac, estradiol, fluoxetine, gabapentin, omeprazole, oxycodone, pravastatin, tizanidine. Allergies: Hydrocodone, amoxicillin, nitrofurantoin, sulfadiazine. Physical exam: The patient has 5/5 strength of her upper and lower extremities. She has hypoesthesia over her right anterior thigh and right anterior tibialis. Her right patella reflex is hypoactive, but the rest of her lower extremity reflexes are 2+. Her upper extremities reveal hyperreflexia. She also has (+) bilateral lee's. No clonus. No babinski. (-) bilateral straight leg raise. Imaging review: CT scan of the lumbar spine completed here at [facility] shows diffuse spondylosis of the lumbar spine with complete auto fusion at L5-S1. There is a grade 1 spondylolisthesis at L4-5. It is difficult to assess the neuro anatomy on CT imaging. Impression: Isabel is a pleasant 73 year old female who comes in today with a CC of low back pain and shooting pain into her right lower extremity. She also has a component of anterior thigh and tibialis numbness on the right. She has trouble recounting some events, but states that she has had low back pain for many years. She began having increased low back pain with a new component of right leg pain back in March. This pain has gradually worsened in intensity and it is now to the point where she is unable to ambulate due to the pain. She is now dependent on assistive devices to travel anywhere outside of her home. Her CT scan imaging shows auto fusion at L5-S1 with a grade 1 spondylolisthesis at L4-5. The spondylolisthesis at L4-5 is likely contributing to her neurogenic claudication and radicular pain. I would like to send the patient for an MRI of the lumbar spine to evaluate the neuro anatomy. I believe she likely has central canal stenosis with a component of right-sided foraminal stenosis as well at this level. Thank you for allowing us to care for your patient. The total time spent with this visit with this patient was 45 minutes reviewing history, physical exam, MRI imaging review, and implementation of treatment plan or further diagnostic testing Adria Lyon MD,PhD [facility] Orders: Orders MR lumbar spine wo con Today M43.10 - Spondylolisthesis, site unspecified Coding Level of Care Code New Pt Level 4 (66230) Diagnoses Spondylolisthesis at L4-L5 level M43.16
== END 2024-07-20 15:56 | disposition home or self-care (01) ==
PROVIDERS: PCP Internal Medicine; Visit Provider Physician Assistant
DX: M43.16 Spondylolisthesis, lumbar region (principal)
CPT/HCPCS: 99204

== ENCOUNTER → 2024-07-20 14:25 | Outpatient (BNVA) | payer MEDICARE, SELFPAY | PROVIDERS: PCP Internal Medicine; Visit Provider Physician Assistant | DX: M43.16 Spondylolisthesis, lumbar region (principal) | CPT/HCPCS: 99202 ==

== ENCOUNTER 2024-07-22 13:36 | Emergency (ER) | payer MEDICARE, SELFPAY ==
--- NOTE | ~2024-07-22 | XR_ITS ---
CLINICAL HISTORY: fall 4 view right knee Comparison: None Findings: No fractures or dislocations. No significant loss of joint space, osteophytes, or erosions. No joint effusion. No radiopaque foreign body. IMPRESSION: 1. No acute findings. This document has been electronically signed by: Marquis Quiros MD on 07/22/2024 18:15:05
[2024-07-22 13:44] VITALS: BP 194/94; BP 210/94; PULSE 67; PULSE 94; RESP 20; TEMP 36.1; O2SAT 94; O2SAT 96; BMI 27.5
--- NOTE | 2024-07-22 13:59 | PC.NURSE ---
patient presents from home, states she has right leg pain that goes from her waist down to her toes. starts as sharp then goes to burning. patient is atruamtic and has been going on since 07/11. patient states she lives with her daughter and 15 y/o grandson. patient states that her daughter helps her with meals but feels like she needs more help at home. patient requested to speak to a social sciences lecturer.
[2024-07-22 14:31] LABS: MANUAL DIFF FLAG NO
[2024-07-22 14:34] LABS: Basophils Percent Auto 0.1 % (0-2); Hemoglobin 13.6 g/dl (12.0-16.0); Imm Gran Abs Auto 0.05 X10*3/uL (0.00-0.03); Imm Gran Pct Auto 0.5 % (0.0-0.4); Lymphocytes Absolute Auto 0.9 X10*3/uL (1.2-4.9); Lymphocytes Percent Auto 9.7 % (20-40); Mean Corpuscular HGB Conc 35.8 g/dl (31.0-35.0); Mean Corpuscular Hemoglobin 32.9 pg (27.0-33.0); Mean Platelet Volume 8.6 fL (9.4-12.3); Monocytes Absolute Auto 0.1 X10*3/uL (0.1-1.2); Monocytes Percent Auto 0.9 % (2-11); Neutrophils Absolute Auto 8.2 x10*3/uL (2.0-8.3); Neutrophils Percent Auto 88.8 % (45-73); Platelet Count 341 X10*3/uL (160-400); Red Blood Count 4.13 X10*6/uL (4.20-5.50); Red Cell Distribution Width 12.4 % (11.0-16.0); White Blood Count 9.2 X10*3/uL (4.8-10.8)
[2024-07-22 14:50] LABS: Alanine Aminotransferase 23 U/L (0-31); Albumin Level 3.9 g/dL (3.5-5.0); Alkaline Phosphatase 63 U/L (39-117); Anion Gap 14 (12-20); Aspartate Amino Transferase 23 U/L (5-31); Bilirubin Total 0.4 mg/dL (0.0-1.0); Blood Urea Nitrogen 12 mg/dL (9-16); Calcium 9.4 mg/dL (8.4-10.2); Carbon Dioxide 23 mmol/L (22-29); Chloride 102 mmol/L (96-108); Estimated Glomerular Filt Rate > 60; Glucose Random 154 mg/dL (60-115); Potassium 4.3 mmol/L (3.3-5.1); Sodium 135 mmol/L (135-145); Total Protein 7.8 g/dL (6.5-8.0)
[2024-07-22 16:22] VITALS: BP 185/80; PULSE 73; RESP 17; O2SAT 96
--- NOTE | 2024-07-22 16:51 | ED.GENADULT ---
HPI - General Adult General Chief complaint: General Medical Stated complaint: R LEG PAIN Time Seen by Provider: 07/22/24 16:22 Source: patient, RN notes reviewed and old records reviewed Mode of arrival: EMS Limitations: no limitations History of Present Illness ED Provider: Linda ARNOLD narrative: 73-year-old female past medical history significant for hyperlipidemia, bipolar disorder presents for evaluation right lower back pain that radiates down her right leg. Patient was seen here on [place], a little over week ago for similar complaints and was diagnosed with sciatica. She states that her pain feels similar Her pain radiates down the right lateral leg and wraps around to the front of her right knee She feels that her pain is worse with standing She reports that she followed up with the ?social media content specialist last . She was not given any prescriptions to help with her symptoms. She reports that she fell onto her knees later that day on . She does complain of some right knee pain. The patient is able to ambulate with assistance. She reports that she has a walker at home Denies any numbness and tingling. Denies any bladder or bowel incontinence Her pain is 10/10 Related Data Home Medications ?Medication ?Instructions ?Recorded ?Confirmed acetaminophen 500 mg tablet 500 mg PO QAM 07/24/20 11/11/23 (Tylenol Extra Strength) estradiol 0.01% (0.1 mg/gram) vaginal 09/18/20 11/11/23 vaginal cream omeprazole magnesium 20 mg 20 mg PO DAILY PRN Acid Reflux 12/03/20 07/22/24 tablet,delayed release (Prilosec OTC) diclofenac sodium 1 % topical gel g topical Q6H PRN pain 06/29/22 11/11/23 cyclosporine 0.05 % eye drops 1 drp ophthalmic (eye) DAILY 11/20/22 07/22/24 (Restasis MultiDose) tizanidine 2 mg tablet 2 mg PO BID 11/11/23 11/11/23 estradiol 0.5 mg tablet 0.5 mg PO 3XW 07/22/24 07/22/24 fluoxetine 20 mg capsule 20 mg PO BEDTIME 07/22/24 07/22/24 gabapentin 100 mg capsule 200 mg PO TID 07/22/24 07/22/24 oxycodone 5 mg tablet 5 mg PO Q8H PRN pain 07/22/24 07/22/24 pravastatin 20 mg tablet 20 mg PO BEDTIME 07/22/24 07/22/24 Allergies Allergy/AdvReac Type Severity Reaction Status Date / Time hydrocodone Allergy Intermediate Vomiting Verified 07/22/24 13:46 amoxicillin AdvReac Intermediate Gastrointestinal Verified 07/22/24 13:46 Upset nitrofurantoin AdvReac Intermediate Gastrointestinal Verified 07/22/24 13:46 Upset sulfadiazine AdvReac Intermediate Gastrointestinal Verified 07/22/24 13:46 Upset Review of Systems Constitutional: Constitutional: Denies body ache(s), Denies chills, Denies fever(s) and Denies headache(s) Eyes: Eyes: Denies blurry vision ENT: Denies headache(s), Denies neck pain and Denies sore throat Cardiovascular: Cardiovascular: Denies chest pain and Denies dyspnea Respiratory: Respiratory: Denies cough and Denies dyspnea Gastrointestinal: Gastrointestinal: Denies abdominal pain, Denies nausea and Denies vomiting Musculoskeletal: Musculoskeletal: Reports back pain, Reports arthralgias, Reports joint swelling, Reports limited range of motion, Denies neck pain, Denies numbness and Denies stiffness Integumentary/Breasts: Skin/Breast: Denies rash Neurologic: Denies headache(s) and Denies numbness Psychiatric: Psychiatric: Denies anxiety PMFSH Past Medical History Medical History Right arm pain Pain in right ankle Sciatic nerve pain Dysuria URI (upper respiratory infection) Cervical spondylosis Urinary incontinence COVID-19 vaccine administered Arthritis Elevated cholesterol Hx of bipolar disorder Depression GERD (gastroesophageal reflux disease) Non-toxic multinodular goiter Surgical History History of bladder surgery History of breast lump/mass excision Hx of cholecystectomy Hx of total hysterectomy with removal of both tubes and ovaries H/O colonoscopy Social History Social History Household Members: Family Housing: House Are you a primary healthcare market consultant to a significant other at home: No Do you presently have visiting nurse or other home services: No Alcohol intake: current Alcohol intake frequency: a few times a week Patient Tobacco Use Status: Former Tobacco user Substance Use Type: Marijuana Advance Directives: Yes Advance Directives on File: Yes Advance Directives Date on File: 07/23/24 Do you have a plan to hurt others: No Plan Physical Exam ED Vital Signs: Vital Signs - 24 hr 07/22/24 13:44 07/22/24 16:22 07/22/24 18:33 Temperature 97 F 98.0 F Pulse Rate 67 73 70 Respiratory Rate 20 17 17 Blood Pressure 194/94 H 185/80 H 167/85 H Pulse Oximetry 96 96 95 Oxygen Delivery Method Room Air Room Air Room Air 07/23/24 03:50 07/23/24 08:00 07/23/24 08:42 Temperature 97.8 F 98.1 F Pulse Rate 66 63 Respiratory Rate 18 12 Blood Pressure 214/100 H 197/95 H 197/95 H Pulse Oximetry 97 97 Oxygen Delivery Method Room Air Room Air BMI result Body Mass Index 27.5 Const General: healthy appearing, comfortable, no acute distress, alert and awake Nutritional Appearance: well nourished Orientation/consciousness: patient oriented x3 HENMT Head: Yes normocephalic and Yes atraumatic Eyes Eyelids: Yes eyelids normal Conjunctivae: conjunctivae normal Sclerae: sclerae normal Corneas: corneas normal Pupils: Equal, round and reactive pupils present EOM: EOMs intact bilaterally Neck Neck: Yes full ROM Resp Effort & Inspection: normal respiratory effort, able to speak in complete sentences and not labored GI Inspection: No distended Palpation (GI): Soft to palpation, not firm, nontender, no guarding and not rigid Back/Spine/Pelvis Other: Minimal tenderness to the right lumbar paraspinous region. Straight leg raise test negative on the right. Skin General skin exam: elasticity normal Neuro General: patient oriented x3 Cranial nerves: Yes Equal, round and reactive pupils present and Yes Bilaterally intact EOM present Cognition (Neuro): normal cognition Extrem Other: No calf tenderness to palpation Course Course Course Narrative: Patient is pending a physical therapy evaluation and case management involvement to determine disposition. She had some discomfort overnight and so I did adjust her oxycodone frequency and added tizanidine and Lidoderm patches as needed. I did speak to her at the bedside and length about her stay and her recent CT results as well as her recent appointment with her social media content specialist. Vital signs are stable. No complaints from nursing overnight with the exception of above. Will continue physician observation pain disposition Medications Administered Generic Name Dose Route Start Last Admin Trade Name Isaiahq PRN Reason Stop Dose Admin Fluoxetine HCl 20 mg 07/22/24 21:00 07/22/24 20:37 Fluoxetine Hcl 20 Mg Capsule PO 20 mg BEDTIME JOSÉ MIGUEL Administration Gabapentin 200 mg 07/23/24 09:00 07/23/24 08:41 Gabapentin 100 Mg Capsule PO 200 mg TID JOSÉ MIGUEL Administration Ibuprofen 600 mg 07/22/24 19:45 07/23/24 03:41 Ibuprofen 600 Mg Tablet PO 600 mg Q6H PRN Administration Pain, Mild 1-3,fever,headache Pravastatin Sodium 20 mg 07/22/24 21:00 07/22/24 21:56 Pravastatin Sodium 20 Mg Tablet PO 20 mg BEDTIME JOSÉ MIGUEL Administration Discontinued Medications Generic Name Dose Route Start Last Admin Trade Name Idania PRN Reason Stop Dose Admin Amlodipine Besylate 10 mg 07/23/24 05:39 07/23/24 06:23 Amlodipine Besylate 10 Mg Tablet PO 07/23/24 05:40 Not Given ONCE ONE Protocol Amlodipine Besylate 10 mg 07/23/24 09:00 07/23/24 08:42 Amlodipine Besylate 10 Mg Tablet PO 07/23/24 09:01 10 mg ONCE ONE Administration Protocol Gabapentin 100 mg 07/22/24 21:00 07/22/24 21:00 Gabapentin 100 Mg Capsule PO Not Given BID JOSÉ MIGUEL Gabapentin 200 mg 07/22/24 19:45 07/22/24 20:37 Gabapentin 100 Mg Capsule PO 07/22/24 19:46 200 mg TID ONE Administration Lidocaine 1 patch 07/23/24 09:39 07/23/24 10:40 Lidocaine 4 % Patch Adh..Patch TRANSDERMA 07/23/24 09:40 1 patch ONCE ONE Administration Protocol Oxycodone HCl 5 mg 07/22/24 21:46 07/23/24 08:40 Oxycodone Hcl Immed Release 5 Mg Tablet PO 5 mg Q8H PRN Administration Pain, Severe (Pain Scale 7-10) Medical Decision Making Medical Decision Making [facility] Narrative: 73-year-old female presents for evaluation of continued right lower back pain that radiates down her right leg. I did review her CT scan of the lumbar spine that was ordered on 07/11/2024. This shows significant neural foraminal narrowing and disc herniation which is likely contributing to sciatica. The patient's exam is reassuring. She is able to ambulate with assistance. There are no red flag signs for cauda equina syndrome. I ordered a knee x-ray on the right due to the reported fall from 2 days ago. The patient is interested in physical therapy/rehab. Her labs are without any concerning abnormalities I was informed by the patient's nurse that the patient's blood pressure is in the I want 90s systolic to 214 systolic. Patient was given p.o. 10 mg amlodipine. -per patient's nurse, patient is not having any chest pain shortness of breath or headache. Differential Diagnosis Differential Diagnoses: The differential diagnosis associated with the presentation includes Sciatica Muscle strain Disc herniation Right knee pain Arthritis Patellar fracture Lab Data MDM Lab Attestation statement: I reviewed the patient's lab results. No leukocytosis or anemia. Normal platelet count. No electrolyte abnormalities. Random glucose elevated to 154. No evidence of DKA. The patient is not a known diabetic and this was a random glucose 07/22/24 14:28 07/22/24 14:28 Labs: Lab Results 07/22/24 Range/Units 14:28 WBC 9.2 (4.8-10.8) X10*3/uL RBC 4.13 L (4.20-5.50) X10*6/uL Hgb 13.6 (12.0-16.0) g/dl Hct 38.0 (37.0-47.0) % MCV 92.0 (80.0-98.0) fL MCH 32.9 (27.0-33.0) pg MCHC 35.8 H (31.0-35.0) g/dl RDW 12.4 (11.0-16.0) % Plt Count 341 (160-400) X10*3/uL MPV 8.6 L (9.4-12.3) fL Immature Gran % (Auto) 0.5 H (0.0-0.4) % Neut % (Auto) 88.8 H (45-73) % Lymph % (Auto) 9.7 L (20-40) % [place] % (Auto) 0.9 L (2-11) % Eos % (Auto) 0.0 (0-4) % Baso % (Auto) 0.1 (0-2) % Lymph # (Auto) 0.9 L (1.2-4.9) X10*3/uL [place] # (Auto) 0.1 (0.1-1.2) X10*3/uL Eos # (Auto) 0.0 (0.0-0.4) X10*3/uL Baso # (Auto) 0.0 (0.0-0.2) X10*3/uL Abs Immat Gran (auto) 0.05 H (0.00-0.03) X10*3/uL Absolute Neuts (auto) 8.2 (2.0-8.3) x10*3/uL Absolute Nucleated RBC 0.000 (0.0-0.012) X10*3/uL Nucleated RBC % (auto) 0.0 (0.0-0.2) /100WBC Sodium 135 (135-145) mmol/L Potassium 4.3 (3.3-5.1) mmol/L Chloride 102 (96-108) mmol/L Carbon Dioxide 23 (22-29) mmol/L Anion Gap 14 (12-20) BUN 12 (9-16) mg/dL Creatinine 0.66 (0.5-1.4) mg/dL Estim Creat Clear Calc 57.0 Estimated GFR > 60 Random Glucose 154 H (60-115) mg/dL Calcium 9.4 (8.4-10.2) mg/dL Total Bilirubin 0.4 (0.0-1.0) mg/dL AST 23 (5-31) U/L ALT 23 (0-31) U/L Alkaline Phosphatase 63 (39-117) U/L Total Protein 7.8 (6.5-8.0) g/dL Albumin 3.9 (3.5-5.0) g/dL Discharge Plan Discharge Clinical Impression: Low back pain radiating to right leg Patient Disposition: Still a Patient Prescriptions: No Action omeprazole magnesium [Prilosec OTC] 20 mg Tablet,Delayed Release (Dr/Ec) 20 mg PO DAILY PRN (Reason: Acid Reflux) diclofenac sodium 1 % gel topical Q6H PRN (Reason: pain) pravastatin 20 mg tablet 20 mg PO BEDTIME gabapentin 100 mg capsule 200 mg PO TID estradiol 0.5 mg tablet 0.5 mg PO 3XW Rx Instructions: bedtime fluoxetine 20 mg capsule 20 mg PO BEDTIME oxycodone 5 mg tablet 5 mg PO Q8H PRN (Reason: pain) acetaminophen [Tylenol Extra Strength] 500 mg tablet 500 mg PO QAM estradiol 0.01 % (0.1 mg/gram) cream vaginal Restasis MultiDose 0.05 % drops 1 drp ophthalmic (eye) DAILY Rx Instructions: 1 drop, both eyes tizanidine 2 mg tablet 2 mg PO BID Print Language: Portuguese
[2024-07-22 18:33] VITALS: BP 167/85; PULSE 70; RESP 17; TEMP 36.7; O2SAT 95
--- NOTE | 2024-07-22 19:39 | PC.NURSE ---
med rec completed based on pt's written home med list adn recently filled list in record, pt also reports taking ibuprofen now, not Tylenol, provider aware.
[2024-07-22] MEDS: FLUoxetine HCl 20 MG CAPSULE PO (20:37)
[2024-07-22] MEDS: Gabapentin 100 MG CAPSULE 200 MG PO (20:37)
--- NOTE | 2024-07-22 21:51 | PC.NURSE ---
report given to overflow RN
[2024-07-22] MEDS: oxyCODONE HCl Immed Release 5 MG TABLET PO (21:56)
[2024-07-22] MEDS: Pravastatin Sodium 20 MG TABLET PO (21:56)
--- NOTE | 2024-07-22 23:46 | PC.NURSE ---
Pt is a&ox4, no signs of distress. Pt ambulates to restroom with a slow steady gait. Plan of care ongoing.
[2024-07-23] MEDS: Ibuprofen 600 MG TABLET PO ×2 (03:41→23:20)
[2024-07-23 03:50] VITALS: BP 214/100; PULSE 66; RESP 18; TEMP 36.6; O2SAT 97
--- NOTE | 2024-07-23 03:59 | PC.NURSE ---
ED provider notified of pts B/P. No new orders at this time. Plan of care ongoing.
--- NOTE | 2024-07-23 06:27 | PC.NURSE ---
Pt reports sciatica pain that is increasing, believes it is due to the way she is sitting in bed. Pt denies chest pain/headaches at this time. Plan of care ongoing.
[2024-07-23 08:00] VITALS: BP 197/95; PULSE 63; RESP 12; TEMP 36.7; O2SAT 97
[2024-07-23] MEDS: oxyCODONE HCl Immed Release 5 MG TABLET PO ×3 (08:40→23:18)
[2024-07-23] MEDS: Gabapentin 100 MG CAPSULE 200 MG PO ×3 (08:41→20:43)
[2024-07-23 08:42] VITALS: BP 197/95
[2024-07-23] MEDS: amLODIPine Besylate 10 MG TABLET PO (08:42)
--- NOTE | 2024-07-23 08:44 | PC.NURSE ---
patient a&ox3, pt noted to be hypertensive- pt medicated with amlodipine per order, pt continues to c/o 04/27 pain to rt hip radiating down rt leg- this nurse spoke with patient about lidocaine patches and she is willing to try them as well- will speak with the provider to see if that would be an option she could try. pt rr equal/non labored, lungs clear- speaking in full sentences, ate full breakfast, ambulated with assist due to pain to bathroom, pt can make her needs known, call tan within reach, plan of care ongoing
[2024-07-23] MEDS: Lidocaine 4 % Patch ADH..PATCH 1 PATCH TRANSDERMA (10:40)
--- NOTE | 2024-07-23 13:33 | MHC.CM.PN ---
Addendum entered by Ирина Hernandez RN 07/23/24 16:08: JIAN/JODY DECLINES PT, [facility]VIEW[facility]. Addendum entered by Ирина Hernandez RN 07/23/24 14:19: REF PLACED TO [facility] Original Note: CM RECEIVED CM ASSESSMENT FROM GAUDENCIO MEEKS, CM MET W/PT WHO REPORTS SHE WOULD LIKE STR D/T HER PAIN, CM DISCUSSED IN DETAIL MULTIPLE TIMES THAT SHE IS NOT ADMITTED TO HOSPITAL AND THEREFORE MEDICARE WILL NOT PAY FOR STR, AND PT WILL NEED TO PRIVATE PAY IF P.T. RECOMMENDS REHAB AND SHE DOES NOT MEET CRITERIA FOR ACUTE WHICH SHE WILL LIKELY NOT, IF P.T. REC'S HOME W/SERVICES HER INSURANCE WILL PAY FOR HOME P.T. PT REPORTS SHE HAS ENOUGH MONEY TO PAY FOR 2 WKS AT A STR AND IS VERY INSISTENT SHE GOES TO REHAB, REF'S PLACED TO LOCAL STR/AR. PT REPORTS SHE LIVES AT HOME W/DTR BECKY AND GRANDCHILD, PT HAS A CANE/WALKER AT HOME HOWEVER DOES NOT USE THEM, NO HOME SERVICES. PT EDUCATED ON AND COMPLETES A HCP NAMING HER DTR BECKY DE LA CRUZLIEU [phone] HER [facility] AND HER SON DELFINA CHAWLA C: [phone] W: [phone] HER ALTERNATE, COPY UPLOADED TO [facility] AND PLACED IN CHART.
[2024-07-23 14:01] VITALS: BP 193/78; PULSE 69; RESP 16; TEMP 36.6; O2SAT 94
--- NOTE | 2024-07-23 15:13 | PHA.MEDREC ---
Addendum entered by Kinsey Hutchins RPh 07/23/24 18:48: Med rec reviewed by [facility]. Original Note: Pharmacy Consult ? Medication Reconciliation Pharmacy has completed the medication reconciliation. Spoke with patient to confirm. She ran out of oxycodone (1 day supply on 07/11), leaving it off home med list. No claims for restasis, says she uses one drop daily instead of BID because she cannot afford it. Her estradiol cream is 3xw but only does it 1x/wk due to sciatica pain making it hard to apply. She is not currently taking 30 mg of fluoxetine, only 20 mg daily. She completed prednisone course.
[2024-07-23 15:27] VITALS: BP 183/85; PULSE 76; RESP 16; TEMP 36.5; O2SAT 96
--- NOTE | 2024-07-23 15:35 | PC.NURSE ---
pt a&ox3, pt continues to be hypertensive despite her am 1x dose of amlodipine, notified provider of this. after family left pt stating her pain is 10/10- pt was medicated with prn pain meds. call tan within reach, plan of care ongoing
[2024-07-23 20:37] VITALS: BP 146/72; PULSE 80; RESP 14; TEMP 37; O2SAT 97
[2024-07-23] MEDS: Pravastatin Sodium 20 MG TABLET PO (20:43)
[2024-07-23] MEDS: FLUoxetine HCl 20 MG CAPSULE PO (20:43)
--- NOTE | 2024-07-23 21:25 | MHC.EDTECH ---
Provided ADL toiletries for patient. Toothpaste/brush, mouthwash, and denture janitor and cleaner with cup. Patient requested purewick in place. Purewick placed. All current needs met.
--- NOTE | 2024-07-23 23:39 | PC.NURSE ---
Patient requesting Oxycodone 5 mg and Ibuprofen 600 mg PO for 7/10 pain in right lower back and right lower leg d/t sciatica.
--- NOTE | 2024-07-23 23:41 | PC.NURSE ---
Patient medicated with Oxycodone and Ibuprofen for right lower back and leg pain, tolerated well, call tan in patient's reach. Plan of care ongoing.
[2024-07-24 00:45] VITALS: BP 184/88; PULSE 72; RESP 16; TEMP 36.6; O2SAT 97
--- NOTE | 2024-07-24 01:24 | PC.NURSE ---
BP 184/88, P72 reported to [facility], ED provider. Patient asymptomatic-she denies headache, chest pain, SOB. ED provider prescribed Metoprolol Tartrate 25 mg PO once. Patient medicated per SEP. Plan of care ongoing.
[2024-07-24 01:30] VITALS: BP 184/88; PULSE 72
[2024-07-24] MEDS: Metoprolol Tartrate 25 MG TABLET PO (01:30)
[2024-07-24] MEDS: oxyCODONE HCl Immed Release 5 MG TABLET PO ×2 (06:17→12:55)
[2024-07-24 06:44] VITALS: BP 174/89; PULSE 62; RESP 16; TEMP 37; O2SAT 98
[2024-07-24] MEDS: amLODIPine Besylate 10 MG TABLET PO (08:24)
[2024-07-24] MEDS: Gabapentin 100 MG CAPSULE 200 MG PO ×2 (08:25→14:50)
[2024-07-24 08:28] VITALS: BP 123/80; PULSE 61
[2024-07-24] MEDS: TiZANidine HCL 4 MG TABLET 2 MG PO (10:39)
[2024-07-24] MEDS: Ibuprofen 600 MG TABLET PO (10:40)
[2024-07-24 11:42] LABS: COVID-19 Test Negative (Negative); IDNOW Serial# 58CA691E
--- NOTE | 2024-07-24 13:34 | MHC.CM.ED ---
Patient remains in ER overflow. Physical therapy eval completed. Home with services is recommended. Met with patient in regards to discharge planning. Patient states she is unable to afford private pay SNF and is willing to d/c home. She has experience with [facility] with her mother and father and is requesting referral there for physical therapy. Patient also interested in meals on wheels, a home health aide and a toll line inspector. Referral made to [facility] in [facility] so they can reach out to patient. Patient is requesting to speak to Wendie TIMMONS. Patient wants to make sure she goes home with oxycodone. Wendie TIMMONS aware. Patient states her daughter will transport her home. Continue to monitor for d/c needs.
[2024-07-24 14:13] VITALS: BP 115/61; PULSE 67; RESP 16; TEMP 36.7; O2SAT 96
[2024-07-24 15:26] VITALS: BP 115/61; PULSE 67; RESP 16; TEMP 36.7; O2SAT 96
== END 2024-07-24 15:39 | disposition still patient (30) ==
PROVIDERS: Physician Assistant Medical; Emergency Provider Emergency Medicine Emergency Medical Services; PCP Internal Medicine
DX: M54.41 Lumbago with sciatica, right side (principal); M25.561 Pain in right knee; G89.29 Other chronic pain; E78.5 Hyperlipidemia, unspecified; F31.9 Bipolar disorder, unspecified; Z79.891 Long term (current) use of opiate analgesic; Z87.891 Personal history of nicotine dependence; F12.90 Cannabis use, unspecified, uncomplicated; Z79.02 Long term (current) use of antithrombotics/antiplatelets; Z79.899 Other long term (current) drug therapy; Z11.52 Encounter for screening for COVID-19
CPT/HCPCS: 36415; 73562; 80053; 85025; 87635; 97161; 99285

== ENCOUNTER → 2024-07-22 17:02 | Outpatient (BNV) | payer MEDICARE, SELFPAY | PROVIDERS: Emergency Provider Emergency Medicine Emergency Medical Services; PCP Internal Medicine; Visit Provider Nuclear Medicine | DX: M79.604 Pain in right leg (principal) | CPT/HCPCS: 73562 ==

== ENCOUNTER 2024-07-28 13:05 | Emergency (ER) | payer MEDICARE, SELFPAY ==
[2024-07-28 13:26] VITALS: BP 170/90; PULSE 72; O2SAT 96
[2024-07-28 13:56] VITALS: BP 148/82; PULSE 83; RESP 16; TEMP 36.8; O2SAT 98; BMI 27.0
--- NOTE | 2024-07-28 13:56 | ED_ITS ---
HPI - Back Pain/Injury General Chief Complaint: Back Pain/Injury Stated Complaint: CHRONIC BACK PAIN Time Seen by Provider: 07/28/24 15:49 Source: patient Mode of arrival: ambulatory Limitations: no limitations History of Present Illness ED Provider: SHANELLE Gómez HPI Narrative: This is a 73-year-old female presenting to the emergency department with low back pain with radiation into right lower extremity posteriorly then wraps around to the lateral calf. She reports pain is worse with movement better at rest. She has been seen here multiple times for this same type of pain and has had multiple imaging modalities done. She reports she was supposed to see somebody in pain management however they cancel that appointment on her and rescheduled her for Wednesday. She reports she has physical therapy scheduled. Denies numbness, tingling, fevers, chills, urinary/bowel incontinence/retention. No new trauma or falls. Related Data Home Medications ?Medication ?Instructions ?Recorded ?Confirmed estradiol 0.01% (0.1 mg/gram) 1 g vaginal QWEEK 09/18/20 07/23/24 vaginal cream omeprazole magnesium 20 mg 20 mg PO DAILY PRN Acid Reflux 12/03/20 07/23/24 tablet,delayed release (Prilosec OTC) diclofenac sodium 1 % topical gel 2 g topical Q6H PRN pain 06/29/22 07/23/24 cyclosporine 0.05 % eye drops 1 drp ophthalmic (eye) DAILY 11/20/22 07/23/24 (Restasis MultiDose) tizanidine 2 mg tablet 2 mg PO BID PRN Pain 11/11/23 07/23/24 estradiol 0.5 mg tablet 0.5 mg PO MOWEFR 07/22/24 07/23/24 fluoxetine 20 mg capsule 20 mg PO BEDTIME 07/22/24 07/23/24 gabapentin 100 mg capsule 200 mg PO TID 07/22/24 07/23/24 pravastatin 20 mg tablet 20 mg PO BEDTIME 07/22/24 07/23/24 calcium 600 mg (as 1 tab PO DAILY 07/23/24 07/23/24 carbonate)-vitamin D3 10 mcg (400 unit) tablet (Calcium 600 + D(3)) flaxseed oil 1,000 mg capsule 1,000 mg PO DAILY 07/23/24 07/23/24 multivitamin 1 tab PO DAILY 07/23/24 07/23/24 Previous Rx's ?Medication ?Instructions ?Recorded acetaminophen 650 mg 650 mg PO Q8H PRN pain #30 tabs 07/24/24 tablet,extended release (Tylenol Arthritis Pain) lidocaine 5 % topical patch 1 patch topical DAILY #30 ea 07/24/24 (DermacinRx Lidocan) oxycodone 5 mg tablet 5 mg PO Q8H PRN severe pain (scale 07/24/24 score 7-10) 1 day #3 tabs gabapentin 300 mg capsule 300 mg PO TID 14 days #42 caps 07/28/24 lidocaine 5 % topical patch 1 patch topical DAILY PRN pain #15 07/28/24 ea Allergies Allergy/AdvReac Type Severity Reaction Status Date / Time hydrocodone Allergy Intermediate Vomiting Verified 07/28/24 13:57 amoxicillin AdvReac Intermediate Gastrointestinal Verified 07/28/24 13:57 Upset nitrofurantoin AdvReac Intermediate Gastrointestinal Verified 07/28/24 13:57 Upset sulfadiazine AdvReac Intermediate Gastrointestinal Verified 07/28/24 13:57 Upset Review of Systems Review of Systems: Yes all other systems are reviewed and are negative [facility] Past Medical History Attestation statement: The following information was validated with the patient. Source: old records reviewed and nursing notes reviewed Medical History Right arm pain Pain in right ankle Sciatic nerve pain Dysuria URI (upper respiratory infection) Cervical spondylosis Urinary incontinence COVID-19 vaccine administered Arthritis Elevated cholesterol Hx of bipolar disorder Depression GERD (gastroesophageal reflux disease) Non-toxic multinodular goiter Surgical History History of bladder surgery History of breast lump/mass excision Hx of cholecystectomy Hx of total hysterectomy with removal of both tubes and ovaries H/O colonoscopy Social History Social History Household Members: Family Housing: House Are you a primary career technical counselor to a significant other at home: No Do you presently have visiting nurse or other home services: No Alcohol intake: current Alcohol intake frequency: a few times a week Patient Tobacco Use Status: Former Tobacco user Substance Use Type: Marijuana Advance Directives: Yes Advance Directives on File: Yes Advance Directives Date on File: 07/23/24 Physical Exam Vital Signs: Vital Signs: Last Vital Signs Temp 98.1 F 07/28/24 15:30 Pulse 81 07/28/24 15:30 Resp 16 07/28/24 15:30 BP 146/84 H 07/28/24 15:30 Pulse Ox 98 07/28/24 15:30 O2 Del Method Room Air 07/28/24 15:30 BMI result Body Mass Index 27.0 vss Appearance: Alert.? Oriented X3.? No acute distress.? Head: Normocephalic, atraumatic, no step-offs or deformities Eyes: Pupils equal, round and reactive to light.? ENT: Pharynx normal.? Neck: Normal inspection.? Neck supple.? CVS: Normal heart rate and rhythm.? Pulses normal.? Respiratory: No respiratory distress.? Breath sounds normal.? Abdomen: Soft and nontender.? Skin: Skin warm and dry.? Normal skin color.? Normal skin turgor.? Extremities: No lower extremity edema.? No calf ttp. 5/5 strength to bilateral upper and lower extremities Back: No midline tenderness, no C-spine tenderness, full range of motion, no CVA tenderness bilaterally + there is lumbosacral paraspinous discomfort bilaterally. Ambulating with slow steady gait. Lower extremity reflexes intact. Neuro: Oriented X 3.? No motor deficit.? No sensory deficit. CN 2-12 intact no saddle anesthesias. Course Course Course Narrative: This is an RME performed by Marely Shafer CNP: Additional HPI, ROS, PE not included below will be deferred to primary provider. Patient is a 73-year-old female who presents emergency department for evaluation of acute on chronic sciatica? low back pain radiating to the right leg. She states that she had an appointment for yesterday with pain management however they called and canceled this yesterday morning, she was scheduled again for this coming Wednesday she reports that she saw specialist last week and she is awaiting an outpatient MRI. She was transported via EMS to ED, EMS reports she was essentialy non mobile, she is in a wheelchair now. Denies any fall or injury since discharge from the emergency department 07/24/2023 Plan: Placed in waiting room and wheelchair pending bed availability for pain management/safe disposition Reevaluation(s) Reevaluation #1: Educated patient on diagnosis and treatment plan, answered all question, patient verbalizes understanding. At this time patient will be discharged home, advised to return with new or worsening symptoms. Educated on worrisome signs and sy mptoms and when to return. At this time I feel comfortable discharge home. Time: 18:16 Medications Administered Discontinued Medications Generic Name Dose Route Start Last Admin Trade Name Idania PRN Reason Stop Dose Admin Gabapentin 300 mg 07/28/24 16:47 07/28/24 17:12 Gabapentin 300 Mg Capsule PO 07/28/24 16:48 300 mg ONCE ONE Administration Ketorolac Tromethamine 30 mg 07/28/24 17:03 07/28/24 17:12 Ketorolac Tromethamine 30 Mg/Ml Vial IM 07/28/24 17:04 30 mg ONCE ONE Administration Lidocaine 1 patch 07/28/24 17:03 07/28/24 17:11 Lidocaine 4 % Patch Adh..Patch TRANSDERMA 07/28/24 17:04 1 patch ONCE ONE Administration Protocol Medical Decision Making Medical Decision Making MDM Narrative: 73-year-old female presents with low back pain with radiation down right lower extremity. Physical exam with lumbosacral paraspinous tenderness bilaterally worse on the right. History and physical exam concerning for L4-L5 radiculopathy. No signs of cord compression, cauda equina, epidural abscess. Herniated disc remains on the differential as well as lumbar sprain or strain. Plan will increase patient's gabapentin home dose. I do not agree with sending patient home on narcotics due to her age and she is already on gabapentin. She needs to be seen by a pain specialist or back specialist. She may benefit from epidural injections in her back for radiculopathy. No red flag symptoms or anything leading me to order an emergent MRI of the low back. She is scheduled to see them on Wednesday. I can increase her gabapentin dose from here. Will also send her with Lidoderm patches. I did review her previous imaging studies which were done on 07/11/2024, clear explanation for patient's symptoms. CT scan of the lumbar spine with no acute fractures or acute findings of the lumbar spine there is spondylitic findings most significant at L4-L5 where there is a 5 mm degenerative anterolisthesis based upon degenerative disc and facet changes. There is a disc bulge with a superimposed right lateral and foraminal disc extrusion which indents upon the right ventral thecal sac and results in severe right subarticular recess narrowing and mild central canal stenosis there is severe right greater than left neural foraminal narrowing. At L5-S1 there is moderate to severe bilateral neural foraminal narrowing. Complete bony fusion of the disc space. No red flag symptoms. Plan discharge home with gabapentin. Differential Diagnosis Differential Diagnoses: The differential diagnosis associated with the presentation includes (History and physical exam concerning for L4-L5 radiculopathy. No signs of cord compression, cauda equina, epidural abscess. Herniated disc remains on the differential as well as lumbar sprain or strain.) Admission/Observation Consideration of admission/observation: Escalation of care including admissio n/observation considered (no indication ) Independent Interpretation Interpretation: Review CT on 07/11 Radiology Impression Discussion of test interpretation with radiology: I have reviewed the radiologist's reading. External Record Review External record reviewed: Inpatient record, Office record, Outpatient record, Prior outpatient labs, Prior outpatient radiology, Primary care record and Outside ED record Chronic Conditions Patient?s care impacted by: Other (see HPI ) Discharge Plan Discharge Clinical Impression: Lumbar radiculopathy Patient Disposition: Home, Self-Care Instructions: Acute Low Back Pain (ED), Lumbar Radiculopathy (ED) Additional Instructions: Take your medications as prescribed. If you were prescribed antibiotics today, it is important that you take your medication to their entirety, do not skip any doses, do not finish them early. Follow-up with your primary care provider this week. Return to the emergency department with new or worsening symptoms. Such as fevers, chills, chest pain, shortness of breath, nausea, vomiting, dizziness, headache, vision changes, lethargy In case of emergency call 911 You can take 300 mg of gabapentin 3 times a day as needed. You need to follow up with the home theater specialist or pain to help take control of this back pain. CT/CT lumbar spine wo IV con 07/11/2024 IMPRESSION: 1. No acute fracture or acute findings of the lumbar spine. 2. Spondylotic findings most significant at L4-5, where there is a 5 mm degenerative anterolisthesis, based upon degenerative disc and facet changes. There is a disc bulge with a superimposed right lateral and foraminal disc extrusion which indents upon the right ventral thecal sac, and results in severe right subarticular recess narrowing, and mild central canal narrowing. There is severe right greater than left neural foraminal narrowing. 3. At L5-S1, there is moderate to severe bilateral neural foraminal narrowing. There is complete bony fusion of the disc space. 4. See the body of the report for further detail. Prescriptions: New gabapentin 300 mg capsule 300 mg PO TID 14 Days Qty: 42 0RF lidocaine 5 % adhesive patch,medicated 1 patch topical DAILY PRN (Reason: pain) Qty: 15 0RF Rx Instructions: leave on most painful area for up to 12 hrs No Action omeprazole magnesium [Prilosec OTC] 20 mg Tablet,Delayed Release (Dr/Ec) 20 mg PO DAILY PRN (Reason: Acid Reflux) diclofenac sodium 1 % gel 2 g topical Q6H PRN (Reason: pain) Patient Comments: Applies to right back, hip, thigh, knee (sciatica pain) pravastatin 20 mg tablet 20 mg PO BEDTIME gabapentin 100 mg capsule 200 mg PO TID estradiol 0.5 mg tablet 0.5 mg PO MOWEFR Rx Instructions: bedtime fluoxetine 20 mg capsule 20 mg PO BEDTIME multivitamin Tablet 1 tab PO DAILY flaxseed oil 1,000 mg Capsule 1,000 mg PO DAILY Rx Instructions: administer with a meal calcium carbonate-vitamin D3 [Calcium 600 + D(3)] 600 mg-10 mcg (400 unit) Tablet 1 tab PO DAILY acetaminophen [Tylenol Arthritis Pain] 650 mg tablet extended release 650 mg PO Q8H PRN (Reason: pain) Qty: 30 0RF oxycodone 5 mg tablet 5 mg PO Q8H PRN (Reason: severe pain (scale score 7-10)) 1 Days Qty: 3 0RF Rx Instructions: Partial Fill upon patient request. lidocaine [DermacinRx Lidocan] 5 % adhesive patch,medicated 1 patch topical DAILY Qty: 30 0RF Rx Instructions: leave on most painful area for up to 12 hrs estradiol 0.01 % (0.1 mg/gram) cream 1 g vaginal QWEEK Restasis MultiDose 0.05 % drops 1 drp ophthalmic (eye) DAILY Rx Instructions: 1 drop, both eyes tizanidine 2 mg tablet 2 mg PO BID PRN (Reason: Pain) Referrals: ED Physician,Generic [Physician] - 2 days Martinez Lyon MD, PhD [Physician] - 3 days Print Language: Georgian
[2024-07-28 15:30] VITALS: BP 146/84; PULSE 81; RESP 16; TEMP 36.7; O2SAT 98
--- OUTSIDE RECORDS SUMMARY | 2024-07-28 15:38 | XMS_ITS | Clinical Summary ---
Author Organization Unknown Care Team Providers Care Broach Setter Name Role Phone JIMMY TIDWELL, JOHN Unavailable Unavailable ANTONIA PT, MARCUS Unavailable Unavailable Payers Payer Name Policy Type Policy Number Effective Date Expira tion Date MEDICARE - NGS [facility] [id number] [facility] [id number] Problems Condition Name Condition Details Condition Category Status Onset Date Resolution Date Last Treatment Date Treating Clinician Comments SCIATICA, RIGHT SIDE Active 07-19 00:00: 00 BIPOLAR DISORDER, UNSPECIFIED Active 07-19 00:00: 00 SPONDYLOSIS W/O MYELOPATHY OR RADICULOPATH Y, CERVICAL REGION Active 07-19 00:00: 00 ESSENTIAL (PRIMARY) HYPERTENSION Active 07-19 00:00: 00 NONTOXIC MULTINODULAR GOITER Active 07-19 00:00: 00 HYPERLIPIDEM IA, UNSPECIFIED Active 07-19 00:00: 00 Problems related to health literacy Active 07-19 00:00: 00 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 Active 07-19 00:00: 00 ACQUIRED ABSENCE OF OTHER SPECIFIED PARTS OF DIGESTIVE TRACT Active 07-19 00:00: 00 ACQUIRED ABSENCE OF BOTH CERVIX AND UTERUS Active 07-19 00:00: 00 Allergies, Adverse Reactions, Alerts Allergy Name Allergy Type Status Severity Reaction(s) Onset Date Inactive Date Treating Clinician Comments NKA Propensity to adverse reactions Active 2024-07 07:25:1 1 Vital Signs Vital Name Observation Time Observation Value Commen ts Temperature 2024-07-26 13:13:00.000 98.5 [degF] BMI (%) 2024-07-26 13:13:00.000 22 kg/m2 Height 2024-07-26 13:13:00.000 58 [in_us] Pulse 2024-07-26 13:13:00.000 72 /min O2 Saturation (%) 2024-07-26 13:13:00.000 99 % Respirations 2024-07-26 13:13:00.000 16 /min Weight (lbs) 2024-07-26 13:13:00.000 110 [lb_av] Systolic Blood Pressure 2024-07-26 13:13:00.000 168 mm [Hg] Diastolic Blood Pressure 2024-07-26 13:13:00.000 72 mm [Hg] Plan of Treatment Planned Activity Planned Date Details Comments Future Scheduled Test PHYSICAL T HERAPIST TO EVALUATE PATIENT SECONDARY TO FUNCTIONAL DEFICITS/SAFETY CONCERNS. [code = PHYSICAL THERAPIST TO EVALUATE PATIENT SECONDARY TO FUNCTIONAL DEFICITS/SAFETY CONCERNS.] Future Scheduled Test SUMMARY OF THERAPY EVAL/ASSESSMENT FINDINGS AND REASON(S) SKILLS OF A THERAPIST ARE INDICATED: 07/26 SOC SUMMARY: PATIENT IS A 73-YEAR-OLD FEMALE WITH HISTORY OF CERVICAL SPONDYLOSIS, URINARY INCONTINENCE, GERD, MULTINODULAR GOITER, HYPERLIPIDEMIA, DEPRESSION, BIPOLAR DISORDER, PRESENTS REFERRAL FOR HOME PT SERVICES FOLLOWING [facility] ED PRESENTATION ON 07/23-07/24 FOR RIGHT SIDED HIP/LOWER EXTREMITY PAIN. PATIENT HAD RECENT ED PRESENTATION AT [facility] ON 07/11 FOR EVALUATION, PATIENT DISCHARGED HOME WITHOUT ANY MEDICATION CHANGES. WORKUP FOR SECOND ED PRESENTATION REMARKABLE FOR SCIATICA AND PATIENT REFERRED TO [facility] NEW VEHICLE SALES CONSULTANT DR. BOBBY. PATIENT WAS PRESCRIBED OXYCODONE AND DISCHARGED HOME. PATIENT REQUESTED TO DISCHARGE TO SHORT TERM REHAB HOWEVER UNABLE TO BE PLACED PATIENT WAS NOT ADMITTED AND WOULD HAVE TO PAY OUT OF POCKET FOR REHAB SERVICES IN FACILITY. 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 PATIENT IS PENDING LUMBAR SPINE MRI, SHE WAS EDUCATED ON CALLING NEW VEHICLE SALES CONSULTANT FOR FOLLOW UP APPOINTMENT FROM THIS CLINICIAN. PLOF: PATIENT LIVES WITH SON AND GRANDSON IN SINGLE FAMILY HOME WITH 3 STAIRS TO ENTER. PATIENT OWNS A ROLLING WALKER, SHOWER CHAIR, AND MANUAL WHEELCHAIR. PATIENT REPORTS THAT SHE SUSTAINED FALL BETWEEN ED PRESENTATIONS RELATED TO LOWER EXTREMITY WEAKNESS AND RIGHT LOWER EXTREMITY PAIN. PATIENT IS TYPICALLY INDEPENDENT WITH HOUSEHOLD AND COMMUNITY LEVEL MOBILITY WITHOUT ASSISTIVE DEVICE USE, DOES NOT DRIVE, SHE IS INDEPENDENT WITH ADLS AND MOST IADLS. REPORTS THAT SHE HAS NOT BEEN SHOWERING SINCE ONSET OF RIGHT SIDED LOWER EXTREMITY PAIN ON 07/11 AND HAS MAINLY BEEN SPONGE BATHING. PATIENT'S PRIMARY GOAL WITH HOME PT SERVICES IS TO RETURN TO PRIOR LEVEL OF FUNCTION. CONSENT FORM SIGNED, WELCOME VIDEO PLAYED FOR PATIENT, EMERGENCY PREPAREDNESS, SURVEY, ON-CALL HOURS, AND CALL US FIRST POLICY REVIEWED WITH PATIENT. HOME SAFETY HANDOUT REVIEWED WITH PATIENT, NO SAFETY CONCERNS WITH HOME ENVIRONMENT AT THIS TIME. PATIENT IS INCREDIBLY ANXIOUS AND REQUIRES INCREASED TIME FOR PROCESSING INFORMATION, PATIENT RECORDS MAJORITY OF INFORMATION THIS CLINICIAN WAS DISCUSSING ON PAPER. BIMS SCORE 14, PATIENT IS ALERT AND ORIENTED X3. PATIENT REPORTS THAT SHE HAS BEEN DEPRESSED OVER LAST 6 MONTHS, HOWEVER RESPONDING NO ON PHQ QUESTIONS. RECOMMENDED PUG MILL OPERATOR HELPER CONSULT FOR FURTHER EMOTIONAL SUPPORT PATIENT HAS LOST SPOUSE IN THE LAST 2 YEARS AND HAS HAD MAJOR AGUAYO [code = SUMMARY OF THERAPY EVAL/ASSESSMENT FINDINGS AND REASON(S) SKILLS OF A THERAPIST ARE INDICATED: 07/26 SOC SUMMARY: PATIENT IS A 73-YEAR-OLD FEMALE WITH HISTORY OF CERVICAL SPONDYLOSIS, URINARY INCONTINENCE, GERD, MULTINODULAR GOITER, HYPERLIPIDEMIA, DEPRESSION, BIPOLAR DISORDER, PRESENTS REFERRAL FOR HOME PT SERVICES FOLLOWING [facility] ED PRESENTATION ON 07/23-07/24 FOR RIGHT SIDED HIP/LOWER EXTREMITY PAIN. PATIENT HAD RECENT ED PRESENTATION AT [facility] ON 07/11 FOR EVALUATION, PATIENT DISCHARGED HOME WITHOUT ANY MEDICATION CHANGES. WORKUP FOR SECOND ED PRESENTATION REMARKABLE FOR SCIATICA AND PATIENT REFERRED TO [facility] NEW VEHICLE SALES CONSULTANT DR. BOBBY. PATIENT WAS PRESCRIBED OXYCODONE AND DISCHARGED HOME. PATIENT REQUESTED TO DISCHARGE TO SHORT TERM REHAB HOWEVER UNABLE TO BE PLACED PATIENT WAS NOT ADMITTED AND WOULD HAVE TO PAY OUT OF POCKET FOR REHAB SERVICES IN FACILITY. 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 PATIENT IS PENDING LUMBAR SPINE MRI, SHE WAS EDUCATED ON CALLING NEW VEHICLE SALES CONSULTANT FOR FOLLOW UP APPOINTMENT FROM THIS CLINICIAN. PLOF: PATIENT LIVES WITH SON AND GRANDSON IN SINGLE FAMILY HOME WITH 3 STAIRS TO ENTER. PATIENT OWNS A ROLLING WALKER, SHOWER CHAIR, AND MANUAL WHEELCHAIR. PATIENT REPORTS THAT SHE SUSTAINED FALL BETWEEN ED PRESENTATIONS RELATED TO LOWER EXTREMITY WEAKNESS AND RIGHT LOWER EXTREMITY PAIN. PATIENT IS TYPICALLY INDEPENDENT WITH HOUSEHOLD AND COMMUNITY LEVEL MOBILITY WITHOUT ASSISTIVE DEVICE USE, DOES NOT DRIVE, SHE IS INDEPENDENT WITH ADLS AND MOST IADLS. REPORTS THAT SHE HAS NOT BEEN SHOWERING SINCE ONSET OF RIGHT SIDED LOWER EXTREMITY PAIN ON 07/11 AND HAS MAINLY BEEN SPONGE BATHING. PATIENT'S PRIMARY GOAL WITH HOME PT SERVICES IS TO RETURN TO PRIOR LEVEL OF FUNCTION. CONSENT FORM SIGNED, WELCOME VIDEO PLAYED FOR PATIENT, EMERGENCY PREPAREDNESS, SURVEY, ON-CALL HOURS, AND CALL US FIRST POLICY REVIEWED WITH PATIENT. HOME SAFETY HANDOUT REVIEWED WITH PATIENT, NO SAFETY CONCERNS WITH HOME ENVIRONMENT AT THIS TIME. PATIENT IS INCREDIBLY ANXIOUS AND REQUIRES INCREASED TIME FOR PROCESSING INFORMATION, PATIENT RECORDS MAJORITY OF INFORMATION THIS CLINICIAN WAS DISCUSSING ON PAPER. BIMS SCORE 14, PATIENT IS ALERT AND ORIENTED X3. PATIENT REPORTS THAT SHE HAS BEEN DEPRESSED OVER LAST 6 MONTHS, HOWEVER RESPONDING NO ON PHQ QUESTIONS. RECOMMENDED PUG MILL OPERATOR HELPER CONSULT FOR FURTHER EMOTIONAL SUPPORT PATIENT HAS LOST SPOUSE IN THE LAST 2 YEARS AND HAS HAD MAJOR AGUAYO] Future Scheduled Test PHYSICAL T HERAPIST TO ASSESS BEST PRACTICE INTERVENTIONS TO ASSIST PATIENTS TO IMPROVE OR STABILIZE MEDICAL STATUS AND PREVENT RE-HOSPITALIZATION. MEASURES INCLUDING REVIEW AND IDENTIFICATION OF CONCERNS FOR THE FOLLOWING AREAS: PRESSURE ULCERS, PAIN, AND DISEASE MANAGEMENT. [code = PHYSICAL THERAPIST TO ASSESS BEST PRACTICE INTERVENTIONS TO ASSIST PATIENTS TO IMPROVE OR STABILIZE MEDICAL STATUS AND PREVENT RE-HOSPITALIZATION. MEASURES INCLUDING REVIEW AND IDENTIFICATION OF CONCERNS FOR THE FOLLOWING AREAS: PRESSURE ULCERS, PAIN, AND DISEASE MANAGEMENT.] Future Scheduled Test PHYSICAL T HERAPY FOR OBSERVATION AND ASSESSMENT OF PAIN, EFFECTIVENESS OF PAIN MANAGEMENT REGIMEN AND SKILLED TEACHING RELATED TO PAIN MANAGEMENT. THERAPIST TO REPORT INCREASED PAIN LEVEL TO PHYSICIAN FOR PROMPT INTERVENTION. [code = PHYSICAL THERAPY FOR OBSERVATION AND ASSESSMENT OF PAIN, EFFECTIVENESS OF PAIN MANAGEMENT REGIMEN AND SKILLED TEACHING RELATED TO PAIN MANAGEMENT. THERAPIST TO REPORT INCREASED PAIN LEVEL TO PHYSICIAN FOR PROMPT INTERVENTION.] Future Scheduled Test PHYSICAL T HERAPY TO PROVIDE MANUAL THERAPY TECHNIQUES INCLUDING FRACTION, JOINT MOBILIZATIONS, SOFT TISSUE MOBILIZATIONS TO LUMBAR SPINE AND BILATERAL HIPS IN ORDER TO ASSIST WITH PAIN CONTROL AND/OR JOINT MOBILITY. [code = PHYSICAL THERAPY TO PROVIDE MANUAL THERAPY TECHNIQUES INCLUDING FRACTION, JOINT MOBILIZATIONS, SOFT TISSUE MOBILIZATIONS TO LUMBAR SPINE AND BILATERAL HIPS IN ORDER TO ASSIST WITH PAIN CONTROL AND/OR JOINT MOBILITY.] Future Scheduled Test PHYSICAL T HERAPY TO ESTABLISH /UPGRADE/DOWNGRADE THERAPEUTIC EXERCISE PROGRAM AND INSTRUCT PATIENT/CAREGIVER ON EXERCISE PRECAUTIONS WITH WRITTEN HOME PROGRAM. MAY INCLUDE PROM, AAROM, AROM, RROM APPROPRIATE TO IMPROVE FUNCTIONAL STRENGTH AND RANGE OF MOTION. [code = PHYSICAL THERAPY TO ESTABLISH /UPGRADE/DOWNGRADE THERAPEUTIC EXERCISE PROGRAM AND INSTRUCT PATIENT/CAREGIVER ON EXERCISE PRECAUTIONS WITH WRITTEN HOME PROGRAM. MAY INCLUDE PROM, AAROM, AROM, RROM APPROPRIATE TO IMPROVE FUNCTIONAL STRENGTH AND RANGE OF MOTION.] Future Scheduled Test PHYSICAL T HERAPY TO INSTRUCT PATIENT/CAREGIVER ON BED MOBILITY TECHNIQUES TO IMPROVE PATIENT MOBILITY AND POSITIONING TECHNIQUES IN ORDER TO INCREASE PATIENTS COMFORT AND DECREASE RISK OF SKIN BREAKDOWN. [code = PHYSICAL THERAPY TO INSTRUCT PATIENT/CAREGIVER ON BED MOBILITY TECHNIQUES TO IMPROVE PATIENT MOBILITY AND POSITIONING TECHNIQUES IN ORDER TO INCREASE PATIENTS COMFORT AND DECREASE RISK OF SKIN BREAKDOWN.] Future Scheduled Test PHYSICAL T HERAPY TO INSTRUCT PATIENT/CAREGIVER ON SAFE TRANSFER TECHNIQUES USING PROPER BODY MECHANICS AND EQUIPMENT. [code = PHYSICAL THERAPY TO INSTRUCT PATIENT/CAREGIVER ON SAFE TRANSFER TECHNIQUES USING PROPER BODY MECHANICS AND EQUIPMENT.] Future Scheduled Test PHYSICAL T HERAPY TO INSTRUCT PATIENT/CAREGIVER ON GAIT TRAINING TECHNIQUES USING APPROPRIATE ASSISTIVE DEVICE, PROPER BODY MECHANICS TO IMPROVE MOBILITY, AND PREVENT INJURY OF PATIENT AND/OR CAREGIVER. [code = PHYSICAL THERAPY TO INSTRUCT PATIENT/CAREGIVER ON GAIT TRAINING TECHNIQUES USING APPROPRIATE ASSISTIVE DEVICE, PROPER BODY MECHANICS TO IMPROVE MOBILITY, AND PREVENT INJURY OF PATIENT AND/OR CAREGIVER.] Future Scheduled Test PHYSICAL T HERAPY TO INSTRUCT PATIENT/CAREGIVER ON BALANCE AND BALANCE STRATEGIES TO IMPROVE SAFE MOBILITY AND REDUCE RISK FOR FALL AND INJURY [code = PHYSICAL THERAPY TO INSTRUCT PATIENT/CAREGIVER ON BALANCE AND BALANCE STRATEGIES TO IMPROVE SAFE MOBILITY AND REDUCE RISK FOR FALL AND INJURY] Future Scheduled Test PHYSICAL T HERAPY TO ASSESS AND RECOMMEND HOME SAFETY ADAPTATIONS AND EDUCATE PATIENT /CAREGIVER ON FALL PREVENTION STRATEGIES. [code = PHYSICAL THERAPY TO ASSESS AND RECOMMEND HOME SAFETY ADAPTATIONS AND EDUCATE PATIENT /CAREGIVER ON FALL PREVENTION STRATEGIES.] Future Scheduled Test PHYSICAL T HERAPY TO PROVIDE INSTRUCTION IN SAFE FUNCTIONAL WHEELCHAIR MOBILITY AND PROVIDE RECOMMENDATIONS AND TRAINING FOR PROPER WHEELCHAIR FIT. [code = PHYSICAL THERAPY TO PROVIDE INSTRUCTION IN SAFE FUNCTIONAL WHEELCHAIR MOBILITY AND PROVIDE RECOMMENDATIONS AND TRAINING FOR PROPER WHEELCHAIR FIT.] Goal Patient Goal - I WANT TO GET BACK TO NORMAL Goal Provider Goal - PHYSICAL THERAPY EVALUATION TO BE COMPLETED WITH RECOMMENDATIONS AND/OR WRITTEN TREATMENT PLAN OF CARE ESTABLISHED FOR THE PHYSICIANS SIGNATURE Goal Provider Goal - Goal Provider Goal - PATIENT/CAREGIVER VERBALIZES UNDERSTANDING OF THE INITIAL BEST PRACTICE RECOMMENDATIONS. PHYSICIAN TO BE NOTIFIED APPROPRIATE FOR ANY CHANGES OR COMPLICATIONS THROUGHOUT THE CERTIFICATION PERIOD. Goal Provider Goal - INCREASED PAIN OR INEFFECTIVE PAIN CONTROL MEASURES WILL BE IDENTIFIED AND PROMPTLY REPORTED TO THE PHYSICIAN. PATIENT/CAREGIVER WILL DEMONSTRATE EFFECTIVE PAIN MANAGEMENT. Goal Provider Goal - PHYSICAL THERAPIST WILL PERFORM MANUAL THERAPY TECHNIQUES. Goal Provider Goal - PATIENT/CAREGIVER WILL PERFORM THERAPEUTIC EXERCISE/S AND DEMONSTRATE PARTICIPATION IN A HOME PROGRAM. Goal Provider Goal - PATIENT/CAREGIVER WILL DEMONSTRATE IMPROVED BED MOBILITY TECHNIQUES. Goal Provider Goal - PATIENT/CAREGIVER WILL DEMONSTRATE SAFE TRANSFERS USING APPROPRIATE ASSISTIVE DEVICE, BODY MECHANICS AND EQUIPMENT. Goal Provider Goal - PATIENT/CAREGIVER WILL DEMONSTRATE IMPROVED GAIT TECHNIQUES TO MINIMIZE RISK OF INJURY. Goal Provider Goal - PATIENT/CAREGIVER WILL DEMONSTRATE IMPROVED BALANCE AND REDUCE THE RISK OF FALLS AND INJURY. Goal Provider Goal - PATIENT/CAREGIVER WILL DEMONSTRATE/VERBALIZE UNDERSTANDING OF RECOMMENDATIONS TO INCREASE SAFETY IN THE HOME AND FALL PREVENTION. Goal Provider Goal - PATIENT/CAREGIVER WILL DEMONSTRATE IMPROVED WHEELCHAIR MOBILITY AND FITTING. Progress Notes Progress Notes <paragraph>[Visit Date: 2024 by MARCUS KNIGHT PT]:</paragraph><paragraph>07/26 SOC SUMMARY: PATIENT IS A 73-YEAR-OLD FEMALE WITH HISTORY OF CERVICAL SPONDYLOSIS, URINARY INCONTINENCE, GERD, MULTINODULAR GOITER, HYPERLIPIDEMIA, DEPRESSION, BIPOLAR DISORDER, PRESENTS REFERRAL FOR HOME PT SERVICES FOLLOWING [facility] ED PRESENTATION ON 07/23-07/24 FOR RIGHT SIDED HIP/LOWER EXTREMITY PAIN. PATIENT HAD RECENT ED PRESENTATION AT [facility] ON 07/11 FOR EVALUATION, PATIENT DISCHARGED HOME WITHOUT ANY MEDICATION CHANGES. WORKUP FOR SECOND ED PRESENTATION REMARKABLE FOR SCIATICA AND PATIENT REFERRED TO [facility] NEW VEHICLE SALES CONSULTANT DR. BOBBY. PATIENT WAS PRESCRIBED OXYCODONE AND DISCHARGED HOME. PATIENT REQUESTED TO DISCHARGE TO SHORT TERM REHAB HOWEVER UNABLE TO BE PLACED PATIENT WAS NOT ADMITTED AND WOULD HAVE TO PAY OUT OF POCKET FOR REHAB SERVICES IN FACILITY. 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 PATIENT IS PENDING LUMBAR SPINE MRI, SHE WAS EDUCATED ON CALLING NEW VEHICLE SALES CONSULTANT FOR FOLLOW UP APPOINTMENT FROM THIS CLINICIAN. PLOF: PATIENT LIVES WITH SON AND GRANDSON IN SINGLE FAMILY HOME WITH 3 STAIRS TO ENTER. PATIENT OWNS A ROLLING WALKER, SHOWER CHAIR, AND MANUAL WHEELCHAIR. PATIENT REPORTS THAT SHE SUSTAINED FALL BETWEEN ED PRESENTATIONS RELATED TO LOWER EXTREMITY WEAKNESS AND RIGHT LOWER EXTREMITY PAIN. PATIENT IS TYPICALLY INDEPENDENT WITH HOUSEHOLD AND COMMUNITY LEVEL MOBILITY WITHOUT ASSISTIVE DEVICE USE, DOES NOT DRIVE, SHE IS INDEPENDENT WITH ADLS AND MOST IADLS. REPORTS THAT SHE HAS NOT BEEN SHOWERING SINCE ONSET OF RIGHT SIDED LOWER EXTREMITY PAIN ON 07/11 AND HAS MAINLY BEEN SPONGE BATHING. PATIENT'S PRIMARY GOAL WITH HOME PT SERVICES IS TO RETURN TO PRIOR LEVEL OF FUNCTION. CONSENT FORM SIGNED, WELCOME VIDEO PLAYED FOR PATIENT, EMERGENCY PREPAREDNESS, SURVEY, ON-CALL HOURS, AND CALL US FIRST POLICY REVIEWED WITH PATIENT. HOME SAFETY HANDOUT REVIEWED WITH PATIENT, NO SAFETY CONCERNS WITH HOME ENVIRONMENT AT THIS TIME. PATIENT IS INCREDIBLY ANXIOUS AND REQUIRES INCREASED TIME FOR PROCESSING INFORMATION, PATIENT RECORDS MAJORITY OF INFORMATION THIS CLINICIAN WAS DISCUSSING ON PAPER. BIMS SCORE 14, PATIENT IS ALERT AND ORIENTED X3. PATIENT REPORTS THAT SHE HAS BEEN DEPRESSED OVER LAST 6 MONTHS, HOWEVER RESPONDING NO ON PHQ QUESTIONS. RECOMMENDED PUG MILL OPERATOR HELPER CONSULT FOR FURTHER EMOTIONAL SUPPORT PATIENT HAS LOST SPOUSE IN THE LAST 2 YEARS AND HAS HAD MAJOR CHANGE IN MOBILITY STATUS THIS MONTH LIKELY CONTRIBUTING TO DEPRESSION. PATIENT DECLINED PUG MILL OPERATOR HELPER CONSULT, PATIENT ALSO DECLINED OT EVALUATION DESPITE EVIDENT NEED FOR ASSISTANCE WITH ADLS AND REGRESSION IN ADL PERFORMANCE SINCE 07/11. MEDICATIONS RECONCILED WITHOUT ISSUES. PATIENT IS ONLY TAKING OXYCODONE FOR HIGH RISK MEDICATIONS, EDUCATED PATIENT ON PRECAUTIONS TO TAKE WITH OPIOIDS INCLUDING MONITORING FOR CONSTIPATION AND USE OF P.R.N. STOOL SOFTENERS AND PATIENT VERBALIZED UNDERSTANDING. VSS WITH ACTIVITY AND AT REST TODAY WITH BLOOD PRESSURE ELEVATED AND 160S OVER 90S LIKELY SECONDARY TO PAIN LEVELS. LUNG SOUNDS CLEAR TO AUSCULTATION ALL CHERRY. NO WOUNDS ON ASSESSMENT. PATIENT DEMONSTRATES RIGHT HIP PAIN THAT RADIATES TO LATERAL THIGH AND INTO MEDIAL LOWER LEG CONSISTENT WITH L4 DERMATOME DISTRIBUTION. SYMPTOMS ARE ELICITED WITH SLUMP TEST, STRAIGHT LEG RAISE TEST, AND CROSS STRAIGHT LEG RAISE TEST. PATIENT DEMONSTRATES RIGHT SIDED DORSIFLEXION WEAKNESS WITHOUT EVIDENCE OF FOOTDROP, OTHERWISE DEMONSTRATES RELATIVELY SYMMETRICAL STRENGTH BILATERAL LOWER EXTREMITIES. PAIN IS ALSO ELICITED IN STANDING/WEIGHTBEARING ON RIGHT LOWER EXTREMITY AND WITH LUMBAR SPINE EXTENSION. EDUCATED PATIENT ON HOOK LYING POSITION IN SUPINE WITH SELF ASSISTED LUMBAR SPINE TRACTION WITH SYMPTOM RELIEF APPRECIATED. EDUCATED PATIENT ON Q.2 H. POSITION CHANGES IN ORDER TO PREVENT PRESSURE ULCERS. EDUCATED PATIENT ON LOG ROLLING TECHNIQUE WITH ABDOMINAL BRACING TO DECREASE STRESS ON LUMBAR SPINE WELL. PATIENT WILL REQUIRE ONGOING EDUCATION AND REVIEW TO ENSURE CARRYOVER OF THERAPIST'S RECOMMENDATIONS TODAY. PATIENT REQUIRED MOD ASSIST X1 FOR SUPINE TO SIT TRANSITIONS VIA LOG ROLLING TECHNIQUE, MIN ASSIST X1 FOR TRANSFERS AND LEVEL SURFACE AMBULATION WITH ROLLING WALKER USE. PATIENT WILL REQUIRE HOME PT SERVICES IN ORDER TO MAXIMIZE CURRENT LEVEL OF FUNCTION AND INDEPENDENCE IN ORDER TO ALLOW PATIENT TO SAFELY ACCESS AND NAVIGATE HER HOME ENVIRONMENT WITH MINIMIZE RISK FOR FALLS AND POTENTIAL REHOSPITALIZATION. DISCUSSED PT PLAN OF CARE FREQUENCY WITH PATIENT AND PATIENT AGREEABLE TO WEEKLY VISITS X8 WEEKS. LEFT CALLBACK NUMBER AT MD OFFICE FOR VERBAL ORDER FOR PT PLAN OF CARE AND DISCUSS LEVEL 2 INTERACTION WITH MEDICATIONS FOUND ON RECONCILIATION, NO CHANGES TO REGIMEN AT THIS TIME.</paragraph> Encounters Start Date/Time End Date/Time Encounter Type Admission Type Attending [facility] Care Department Encounter ID Discharge Date Discharge Status Discharge Condition Discharge Reason Percent Goals Met 2024-07-26 00:00:00 2024-09-23 00:00:00 Outpatient NEW ADMISSION MARCUS KNIGHT [facility] [id number]
[2024-07-28] MEDS: Lidocaine 4 % Patch ADH..PATCH 1 PATCH TRANSDERMA (17:11)
[2024-07-28] MEDS: Gabapentin 300 MG CAPSULE PO (17:12)
[2024-07-28] MEDS: Ketorolac Tromethamine 30 MG/ML VIAL IM (17:12)
[2024-07-28 18:35] VITALS: BP 146/84; PULSE 81; RESP 16; TEMP 36.7; O2SAT 98
--- NOTE | 2024-07-28 18:37 | PC.NURSE ---
pt able to stand and get in the wheel chair and states she can walk at home but states she needs a wheel chair to leave, states she has a walker and can safely ambulate at home and has her daughter coming
== END 2024-07-28 18:38 | disposition home or self-care (01) ==
PROVIDERS: Emergency Provider Emergency Medicine; PCP Internal Medicine
DX: M54.50 Low back pain, unspecified (principal); M54.16 Radiculopathy, lumbar region
CPT/HCPCS: 99283; J1885

== ENCOUNTER 2024-07-31 13:32 | Outpatient (AMB) | payer MEDICARE, SELFPAY ==
--- NOTE | 2024-07-31 13:36 | A.OFFVIS_ITS ---
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: No Accompanied by: Self / Same As Patient Allergies hydrocodone Allergy (Intermediate, Verified 07/31/24 13:45) Vomiting amoxicillin Adverse Reaction (Intermediate, Verified 07/31/24 13:45) Gastrointestinal Upset nitrofurantoin Adverse Reaction (Intermediate, Verified 07/31/24 13:45) Gastrointestinal Upset sulfadiazine Adverse Reaction (Intermediate, Verified 07/31/24 13:45) Gastrointestinal Upset HPI HPI Sciatic Nerve Pain/ER Referral: Details: Patient is a 73-year-old female is history of depression and bipolar disorder, chronic low back pain with sciatica, urinary incontinence and urgency s/p Axonics bladder stimulator placement ([facility], 2023), memory concerns, presents today for initial evaluation of acute on chronic lower back pain with right-sided radiculopathy. She denies any recent trauma, injury, or falls however she admits being significantly depressed last summer, fall, and winter and would not get up from the cough and lay on my right side for 12 or more hours a day. Back pain has been progressively worsening over the past 2 weeks and debilitating to the point where patient had to check in to [facility] ER x3 on 07/11/24, 07/22/24 and 07/28/24. She was also evaluated by [facility] on 07/20/24 with pending lumbar spine MRI. Lumbar CT scan showed multilevel diffuse spondylosis of the lumbar spine with complete bony fusion at L5-S1 and a grade 1 spondylolisthesis at L4-L5 with disc herniation resulting in central and neuroforaminal narrowing. Back pain is localized to lower back with radiation into right buttock, lateral hips bilaterally and into anterior thigh and costello and lateral calf of right lower leg with intermittent weakness and decreased sensation with parasthesias from knee down to her foot. Patient is able to ambulate for 2-5 min but has to sit down due to worsening pain with neurogenic claudication and radiculopathy. She also reports back pain will radiate to both buttocks and posterior thigh posteriorly but not as disabling as right lower leg pain. Denies any fever or chills, abdominal or groin pain, foot drop, bowel dysfunction or saddle anesthesia. She has AxonFlotype stimulator serial #[id number]. Justina is rep for this patient , I contacted her during today's visit, Ally reports patient's device is MRI conditional and will need safety checks prior to MRI. She was then transferred to our MRI department to relay this information and facilitate booking a STAT MRI for patient per Neurosurgery. Location: Lower back pain radiates into RLE and intermittenly both legs posteriorly Duration: Chronic pain, worsening for 1 month Characteristics of symptom or complaint: Shooting, stabbing, throbbing, radiating, spasming, paresthesias RLE Aggravating or associated factors: movement, walking, bending, changing positions, twisting, standing Relieving factors: Oxycodone, gabapentin, NSAIDs, sitting, resting, wheelchair, heat Treatment: CT lumbar, multiple ER visits, Neurosurgery eval, pending stat lumbar MRI [facility] Medical History (Updated 07/31/24 @ 21:47 by AMANDA Mosher) Lumbar degenerative disc disease Right arm pain Pain in right ankle Sciatic nerve pain Dysuria URI (upper respiratory infection) Cervical spondylosis Urinary incontinence COVID-19 vaccine administered Arthritis Elevated cholesterol Hx of bipolar disorder Depression GERD (gastroesophageal reflux disease) Non-toxic multinodular goiter Surgical History History of bladder surgery History of breast lump/mass excision Hx of cholecystectomy Hx of total hysterectomy with removal of both tubes and ovaries H/O colonoscopy Social History Household Members: Family Housing: House Are you a primary child care giver to a significant other at home: No Do you presently have visiting nurse or other home services: No Alcohol intake: current Alcohol intake frequency: a few times a week Patient Tobacco Use Status: Former Tobacco user Substance Use Type: Marijuana Advance Directives Date on File: 07/23/24 Review of Systems Const All systems reviewed & are unremarkable except as noted in HPI and below Physical Exam Vital Signs: Last Vital Signs Pulse 75 07/31/24 13:48 BP 162/78 H 07/31/24 13:48 Pulse Ox 98 07/31/24 13:48 Oxygen Delivery Method Room Air 07/31/24 13:48 BMI result Body Mass Index 27.5 General: Appears afebrile. Alert and oriented. Mood and affect appropriate. Follows and participates in conversation appropriately. Respiratory effort is unlabored. No cough. Able to transition from sit to stand unassisted. Patient arrived via wheelchair. Able to stand and pivot. Unable to walk for >2-5 min due back pain with neurogenic claudication and radicular pain. Unable to perform lumbar ROM due to pain. +SLR with dorsiflexion on the right. Results Reviewed Results Reviewed: CT LUMBAR SPINE WITHOUT CONTRAST 07/11/24 CLINICAL INFORMATION: Worsening lumbar pain. COMPARISON: No prior CT or MRI available. Correlation made with plain films lumbar spine 11/12/2020. FINDINGS: There is normal bony mineralization. No fractures or compression deformities. There is straightening of the normal lordosis, nonspecific. There is a 5 mm degenerative anterolisthesis of L4 upon L5. There is complete bony fusion of the L5-S1 disc space. There is predominantly sclerotic bubbly lesion in the posterior S1 vertebral body, in the midline, uncertain etiology although appearance is most consistent with a benign enostosis. Mild sclerotic type endplate changes present T12-L1 with severe disc degeneration. Moderate loss of disc disc height L3-4 and L4-5. There are scattered Schmorl's nodes in the endplates. No central canal or neural foraminal stenosis spanning T12-L3. At L3-4, there is a diffuse disc bulge present, concentrically involving both foraminal zones, mild facet hypertrophic arthropathy with mild posterior ligamentous thickening/infolding, with the combination of findings resulting in mild central canal stenosis, mild bilateral subarticular recess stenosis, and mild bilateral neural foraminal stenosis. At L4-5, there is a 5 mm anterolisthesis which appears based upon degenerative disc and facet changes. There are no pars defects. There is disc uncovering with a diffusely bulging disc present,, with a superimposed right lateral and foraminal extrusion of disc material with a small associated calcification. This indents upon the right lateral ventral thecal sac, and coupled with advanced degenerative facet changes bilaterally, results in severe right subarticular recess narrowing, mild central canal narrowing, and severe right greater than left neural foraminal narrowing. At L5-S1, the disc space is completely fused. There are mild to moderate left greater than right hypertrophic degenerative facet changes, and a minimal irregular disc osteophytic bulge without significant central canal narrowing. There is mild subarticular recess narrowing bilaterally, and there is moderate to severe bilateral neural foraminal narrowing. 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 There are cholecystectomy clips present. The aorta is calcified but nonaneurysmal. Mild atelectasis in the imaged lung bases. There is a incompletely imaged probable type I hiatus hernia. IMPRESSION: 1. No acute fracture or acute findings of the lumbar spine. 2. Spondylotic findings most significant at L4-5, where there is a 5 mm degenerative anterolisthesis, based upon degenerative disc and facet changes. There is a disc bulge with a superimposed right lateral and foraminal disc extrusion which indents upon the right ventral thecal sac, and results in severe right subarticular recess narrowing, and mild central canal narrowing. There is severe right greater than left neural foraminal narrowing. 3. At L5-S1, there is moderate to severe bilateral neural foraminal narrowing. There is complete bony fusion of the disc space. 4. See the body of the report for further detail. Assessment & Plan Assessment & Plan (1) Spinal stenosis of lumbar region with neurogenic claudication: Code(s): M48.062 - Spinal stenosis, lumbar region with neurogenic claudication Category: Medical (2) Spondylolisthesis at L4-L5 level: Code(s): M43.16 - Spondylolisthesis, lumbar region Category: Medical (3) Acute exacerbation of chronic low back pain: Code(s): M54.50 - Low back pain, unspecified; G89.29 - Other chronic pain Category: Medical (4) Lumbar degenerative disc disease: Code(s): M51.369 - Other intervertebral disc degeneration, lumbar region without mention of lumbar back pain or lower extremity pain Category: Medical Plan Patient has pending STAT lumbar spine MRI per [facility] to further evaluate spinal stenosis related with neurogenic claudication and radiculopathy and a grade 1 spondylolisthesis at L4-L5 with disc herniation. Patient has AxonFlotype stimulator serial #[id number]. Justina is rep for this patient [phone], I contacted her during today's visit, Justina reports patient's device is MRI conditional and will need safety checks prior to MRI. She was then transferred to our MRI department to relay this information and facilitate booking a STAT MRI for patient per Neurosurgery. Patient will follow up with [facility] to discuss results of the MRI findings when it is done and consider surgical or interventional therapy as indicated. We briefly discussed interventional treatments for axial, discogenic and radicular pain. She is hesitant towards steroid injections. I do not believe she is a good candidate for neuromodulation such as PNS or SCS therapy at this time due to worsening memory issues and she has to write down everything due to forgetfulness. All questions and concerns have been answered and patient agreed with the treatment plan. Follow up as needed. Coding Level of Care Code New Pt Level 4 (09024) Complex EM visit Add On G2211 Diagnoses Spinal stenosis of lumbar region with neurogenic claudication M48.062 Spondylolisthesis at L4-L5 level M43.16 Acute exacerbation of chronic low back pain M54.50; G89.29 Lumbar degenerative disc disease M51.369
[2024-07-31 13:48] VITALS: BP 162/78; PULSE 75; O2SAT 98; BMI 27.5
--- OUTSIDE RECORDS SUMMARY | 2024-07-31 16:29 | XMS_ITS | Clinical Summary ---
Author Organization Unknown Care Team Providers Care Mitten Stitcher Name Role Phone JIMMY TIDWELL, JOHN Unavailable Unavailable ANTONIA PT, MARCUS Unavailable Unavailable Payers Payer Name Policy Type Policy Number Effective Date Expira tion Date MEDICARE - [facility] [id number] [facility] [id number] Problems Condition Name Condition Details Condition Category [...] PRESENTS REFERRAL FOR HOME PT SERVICES FOLLOWING [facility] ED PRESENTATION ON 07/23-07/24 FOR RIGHT SIDED HIP/LOWER EXTREMITY PAIN. PATIENT HAD RECENT ED PRESENTATION AT [facility] ON 07/11 FOR EVALUATION, PATIENT DISCHARGED HOME WITHOUT ANY MEDICATION CHANGES. WORKUP FOR SECOND ED PRESENTATION REMARKABLE FOR SCIATICA AND PATIENT REFERRED TO [facility] GUIDE DR. BOBBY. PATIENT WAS PRESCRIBED OXYCODONE AND DISCHARGED HOME. PATIENT REQUESTED TO DISCHARGE TO SHORT TERM REHAB HOWEVER UNABLE TO BE PLACED PATIENT WAS NOT ADMITTED AND WOULD HAVE TO PAY OUT OF POCKET FOR REHAB SERVICES IN FACILITY. 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 PATIENT IS PENDING LUMBAR SPINE MRI, SHE WAS EDUCATED ON CALLING GUIDE FOR FOLLOW UP APPOINTMENT FROM THIS CLINICIAN. [...] HOWEVER RESPONDING NO ON PHQ QUESTIONS. RECOMMENDED STAGE ELECTRICIAN CONSULT FOR FURTHER EMOTIONAL SUPPORT PATIENT HAS LOST SPOUSE IN THE LAST 2 YEARS AND HAS HAD MAJOR AGUAYO [code = SUMMARY OF THERAPY EVAL/ASSESSMENT FINDINGS AND REASON(S) SKILLS OF A THERAPIST ARE INDICATED: 07/26 SOC SUMMARY: PATIENT IS A 73-YEAR-OLD FEMALE WITH HISTORY OF CERVICAL SPONDYLOSIS, URINARY INCONTINENCE, GERD, MULTINODULAR GOITER, HYPERLIPIDEMIA, DEPRESSION, BIPOLAR DISORDER, PRESENTS REFERRAL FOR HOME PT SERVICES FOLLOWING [facility] ED PRESENTATION ON 07/23-07/24 FOR RIGHT SIDED HIP/LOWER EXTREMITY PAIN. PATIENT HAD RECENT ED PRESENTATION AT [facility] ON 07/11 FOR EVALUATION, PATIENT DISCHARGED HOME WITHOUT ANY MEDICATION CHANGES. WORKUP FOR SECOND ED PRESENTATION REMARKABLE FOR SCIATICA AND PATIENT REFERRED TO [facility] GUIDE DR. BOBBY. PATIENT WAS PRESCRIBED OXYCODONE AND DISCHARGED HOME. PATIENT REQUESTED TO DISCHARGE TO SHORT TERM REHAB HOWEVER UNABLE TO BE PLACED PATIENT WAS NOT ADMITTED AND WOULD HAVE TO PAY OUT OF POCKET FOR REHAB SERVICES IN FACILITY. 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 PATIENT IS PENDING LUMBAR SPINE MRI, SHE WAS EDUCATED ON CALLING GUIDE FOR FOLLOW UP APPOINTMENT FROM THIS CLINICIAN. [...] HOWEVER RESPONDING NO ON PHQ QUESTIONS. RECOMMENDED STAGE ELECTRICIAN CONSULT FOR FURTHER EMOTIONAL SUPPORT PATIENT HAS [...] PRESENTS REFERRAL FOR HOME PT SERVICES FOLLOWING [facility] ED PRESENTATION ON 07/23-07/24 FOR RIGHT SIDED HIP/LOWER EXTREMITY PAIN. PATIENT HAD RECENT ED PRESENTATION AT [facility] ON 07/11 FOR EVALUATION, PATIENT DISCHARGED HOME WITHOUT ANY MEDICATION CHANGES. WORKUP FOR SECOND ED PRESENTATION REMARKABLE FOR SCIATICA AND PATIENT REFERRED TO [facility] GUIDE DR. BOBBY. PATIENT WAS PRESCRIBED OXYCODONE AND DISCHARGED HOME. PATIENT REQUESTED TO DISCHARGE TO SHORT TERM REHAB HOWEVER UNABLE TO BE PLACED PATIENT WAS NOT ADMITTED AND WOULD HAVE TO PAY OUT OF POCKET FOR REHAB SERVICES IN FACILITY. 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 PATIENT IS PENDING LUMBAR SPINE MRI, SHE WAS EDUCATED ON CALLING GUIDE FOR FOLLOW UP APPOINTMENT FROM THIS CLINICIAN. [...] HOWEVER RESPONDING NO ON PHQ QUESTIONS. RECOMMENDED STAGE ELECTRICIAN CONSULT FOR FURTHER EMOTIONAL SUPPORT PATIENT HAS LOST SPOUSE IN THE LAST 2 YEARS AND HAS HAD MAJOR CHANGE IN MOBILITY STATUS THIS MONTH LIKELY CONTRIBUTING TO DEPRESSION. PATIENT DECLINED STAGE ELECTRICIAN CONSULT, PATIENT ALSO DECLINED OT EVALUATION DESPITE [...] End Date/Time Encounter Type Admission Type Attending [facility] Care Department Encounter ID Discharge Date Discharge Status Discharge Condition Discharge Reason Percent Goals Met 2024-07-26 00:00:00 2024-09-23 00:00:00 Outpatient NEW ADMISSION MARCUS KNIGHT [facility] [id number] 100.00
== END 2024-07-31 14:50 | disposition home or self-care (01) ==
PROVIDERS: PCP Internal Medicine; Visit Provider Nurse Practitioner Family
DX: M48.062 Spinal stenosis, lumbar region with neurogenic claudication (principal); M43.16 Spondylolisthesis, lumbar region; M54.50 Low back pain, unspecified; G89.29 Other chronic pain; M51.369 Other intervertebral disc degeneration, lumbar region without mention of lumbar back pain or lower extremity pain
CPT/HCPCS: 99204; G2211

== ENCOUNTER → 2024-07-31 13:32 | Outpatient (BNVA) | payer MEDICARE, SELFPAY | PROVIDERS: PCP Internal Medicine; Visit Provider Nurse Practitioner Family | DX: M48.062 Spinal stenosis, lumbar region with neurogenic claudication (principal); M43.16 Spondylolisthesis, lumbar region; M54.50 Low back pain, unspecified; M51.369 Other intervertebral disc degeneration, lumbar region without mention of lumbar back pain or lower extremity pain; G89.29 Other chronic pain | CPT/HCPCS: 99202 ==

== ENCOUNTER 2024-08-02 15:08 | Outpatient (REF) | payer MEDICARE, SELFPAY ==
--- NOTE | ~2024-08-02 | MR_ITS ---
EXAMINATION: MR LUMBAR SPINE WITHOUT CONTRAST CLINICAL INFORMATION: 3 view resting back pain resulting in 3 images in visits in the last 10 days. COMPARISON: CT lumbar spine 07/11/2024. TECHNIQUE: MRI of the lumbar spine was obtained using routine sequences without contrast. FINDINGS: There is maintained lumbar lordosis with grade 1 anterolisthesis L4 over L5. There is loss of L3-L4 and L4-L5 disc heights. There is almost L5-S1 disc fusion with no disc visualized as was seen on CT previously. The L1-2, L2-3 disc levels are unremarkable. The neural foramina are mildly narrowed bilaterally at the L2-3 disc level. At L3-4 disc level there is mild diffuse bulge flattening the ventral thecal sac without spinal canal stenosis. The neural foramina are patent bilaterally. At L4-5 disc level there is a broad-based diffuse moderate bulge with moderate bilateral facet joint and ligament flavum hypertrophy resulting in moderate to severe spinal canal stenosis. There is a right paracentral disc herniation with upward migration into right epidural space impinging on the exiting right L4 nerve root in proximal lateral recess and spinal canal. There is [id number] right and mild left neural from narrowing. At L5-S1 disc level there is almost disc fusion with posterior spondylosis. The spinal canal is capacious. The neural foramina are mildly narrowed bilaterally. The bone marrow signal and intraspinal signal is normal. Conus medullaris terminates at L1-2 disc level and appears normal in morphology. The paravertebral soft tissues are normal. MR/MR lumbar spine wo con IMPRESSION: Grade 1 anterolisthesis L4 over L5 with degenerative disc changes L4-5 disc level. There is moderate to see there is spinal canal stenosis or underlying bulge, bilateral facet joint and ligament flavum hypertrophy. There is cephalad migrated para midline disc herniation impinging on the exhibiting right L4 nerve root within the spinal canal and proximal neural foramina. There is moderate to severe right and mild left neural foraminal narrowing. Mild bulge L3-4 and almost bony fusion L5-S1 disc level. L5-S1 fusion is also noted on recent CT 07/11/2024. Electronically signed by: Pasquale Paniagua MD 08/02/2024 04:37 PM EST
--- OUTSIDE RECORDS SUMMARY | 2024-08-02 17:51 | XMS_ITS | Clinical Summary ---
Author Organization Unknown Care Team Providers Care Garbage Person Name Role Phone JIMMY TIDWELL, JOHN Unavailable Unavailable ANTONIA PT, MARCUS Unavailable Unavailable Payers Payer Name Policy Type Policy Number Effective Date Expira tion Date MEDICARE - [facility] [id number] [facility] [id number] Problems Condition Name Condition Details Condition Category [...] to adverse reactions Active 2024-07 07:25:1 1 Medications Ordered Medication Name Filled Medication Name Start Date Stop Date Current Medication? Ordering Clinician Indication Dosage Frequency Signature (SIG) Comments Components pravastatin 20 mg tablet 2023-07 2- 00:00: 00 07-26 00:00 :00 No [id number] Per instruc tions Per instructio ns (route: oral) Med Classific ation: Cardiovas cular Therapy Agents fluoxetine 20 mg capsule 2023-07 00:00: 00 Yes [id number] 1 capsule BEDTIME 1 capsule BEDTIME (route: oral) Med Classific ation: Central Nervous System Agents gabapentin 100 mg capsule 2023-07 00:00: 00 Yes [id number] 2 capsule 3 TIMES DAILY 2 capsule 3 TIMES DAILY (route: oral) Med Classific ation: Central Nervous System Agents estradiol 0.5 mg tablet 2023-07 00:00: 00 Yes [id number] Per instruc tions DIRECTED Per instructio ns DIRECTED (route: oral) Med Classific ation: Endocrine diclofenac 1 % topical gel 2023-07 00:00: 00 Yes [id number] Per instruc tions DIRECTED Per instructio ns DIRECTED (route: topical) Med Classific ation: Dermatolo gical estradiol 0.01% (0.1 mg/gram) vaginal cream 2023-07 00:00: 00 Yes [id number] Per instruc tions DIRECTED Per instructio ns DIRECTED (route: vaginal) Med Classific ation: Vaginal Products omeprazole magnesium 20 mg tablet,leon yed release 2023-07 00:00: 00 Yes [id number] 1 tablet DAILY 1 tablet DAILY (route: oral) Med Classific ation: Gastroint estinal Therapy Agents oxycodone 5 mg tablet 2023-07 00:00: 00 Yes [id number] 1 tablet EVERY 8 HOURS 1 tablet EVERY 8 HOURS (route: oral) Med Classific ation: Analgesic , Anti-infl ammatory or Antipyret ic pravastatin 20 mg tablet 2023-07 00:00: 00 Yes [id number] 1 tablet BEDTIME 1 tablet BEDTIME (route: oral) Med Classific ation: Cardiovas cular Therapy Agents Restasis MultiDose 0.05 % eye drops 2023-07 00:00: 00 Yes [id number] 1 drops DAILY 1 drops DAILY (route: ophthalmic (eye)) Med Classific ation: Ophthalmi c Agents tizanidine 2 mg tablet 2023-07 00:00: 00 Yes [id number] 1 tablet 2 TIMES DAILY 1 tablet 2 TIMES DAILY (route: oral) Med Classific ation: Locomotor System Tylenol Extra Strength 500 mg tablet 07-20 00:00: 00 Yes [id number] 1 tablet EVERY AM 1 tablet EVERY AM (route: oral) Med Classific ation: Analgesic , Anti-infl ammatory or Antipyret ic Vital Signs Vital Name Observation Time Observation [...] PRESENTS REFERRAL FOR HOME PT SERVICES FOLLOWING [facility] ED PRESENTATION ON 07/23-07/24 FOR RIGHT SIDED HIP/LOWER EXTREMITY PAIN. PATIENT HAD RECENT ED PRESENTATION AT [facility] ON 07/11 FOR EVALUATION, PATIENT DISCHARGED HOME WITHOUT ANY MEDICATION CHANGES. WORKUP FOR SECOND ED PRESENTATION REMARKABLE FOR SCIATICA AND PATIENT REFERRED TO [facility] ELECTRIC CLOCK MECHANIC DR. BOBBY. PATIENT WAS PRESCRIBED OXYCODONE AND DISCHARGED HOME. PATIENT REQUESTED TO DISCHARGE TO SHORT TERM REHAB HOWEVER UNABLE TO BE PLACED PATIENT WAS NOT ADMITTED AND WOULD HAVE TO PAY OUT OF POCKET FOR REHAB SERVICES IN FACILITY. 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 PATIENT IS PENDING LUMBAR SPINE MRI, SHE WAS EDUCATED ON CALLING ELECTRIC CLOCK MECHANIC FOR FOLLOW UP APPOINTMENT FROM THIS CLINICIAN. [...] HOWEVER RESPONDING NO ON PHQ QUESTIONS. RECOMMENDED POLICY WRITER TYPIST CONSULT FOR FURTHER EMOTIONAL SUPPORT PATIENT HAS LOST SPOUSE IN THE LAST 2 YEARS AND HAS HAD MAJOR AGUAYO [code = SUMMARY OF THERAPY EVAL/ASSESSMENT FINDINGS AND REASON(S) SKILLS OF A THERAPIST ARE INDICATED: 07/26 SOC SUMMARY: PATIENT IS A 73-YEAR-OLD FEMALE WITH HISTORY OF CERVICAL SPONDYLOSIS, URINARY INCONTINENCE, GERD, MULTINODULAR GOITER, HYPERLIPIDEMIA, DEPRESSION, BIPOLAR DISORDER, PRESENTS REFERRAL FOR HOME PT SERVICES FOLLOWING [facility] ED PRESENTATION ON 07/23-07/24 FOR RIGHT SIDED HIP/LOWER EXTREMITY PAIN. PATIENT HAD RECENT ED PRESENTATION AT [facility] ON 07/11 FOR EVALUATION, PATIENT DISCHARGED HOME WITHOUT ANY MEDICATION CHANGES. WORKUP FOR SECOND ED PRESENTATION REMARKABLE FOR SCIATICA AND PATIENT REFERRED TO [facility] ELECTRIC CLOCK MECHANIC DR. BOBBY. PATIENT WAS PRESCRIBED OXYCODONE AND DISCHARGED HOME. PATIENT REQUESTED TO DISCHARGE TO SHORT TERM REHAB HOWEVER UNABLE TO BE PLACED PATIENT WAS NOT ADMITTED AND WOULD HAVE TO PAY OUT OF POCKET FOR REHAB SERVICES IN FACILITY. 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 PATIENT IS PENDING LUMBAR SPINE MRI, SHE WAS EDUCATED ON CALLING ELECTRIC CLOCK MECHANIC FOR FOLLOW UP APPOINTMENT FROM THIS CLINICIAN. [...] HOWEVER RESPONDING NO ON PHQ QUESTIONS. RECOMMENDED POLICY WRITER TYPIST CONSULT FOR FURTHER EMOTIONAL SUPPORT PATIENT HAS [...] WILL DEMONSTRATE IMPROVED WHEELCHAIR MOBILITY AND FITTING. Encounters Start Date/Time End Date/Time Encounter Type Admission Type Attending [facility] Care Facility Care Department Encounter ID Discharge Date Discharge Status Discharge Condition Discharge Reason Percent Goals Met 2024-07-26 00:00:00 2024-09-23 00:00:00 Outpatient NEW ADMISSION MARCUS KNIGHT [facility] [id number] 100.00
== END 2024-08-02 15:09 | disposition home or self-care (01) ==
LOC: HO.MRI 15:08
PROVIDERS: PCP Internal Medicine; Visit Provider Physician Assistant
DX: M43.10 Spondylolisthesis, site unspecified (principal)
CPT/HCPCS: 72148

== ENCOUNTER → 2024-08-02 15:23 | Outpatient (BNV) | payer MEDICARE, SELFPAY | PROVIDERS: PCP Internal Medicine; Visit Provider Radiology Diagnostic Radiology | DX: M43.10 Spondylolisthesis, site unspecified (principal) | CPT/HCPCS: 72148 ==

== ENCOUNTER 2024-08-03 09:59 | Outpatient (REF) | payer MEDICARE, SELFPAY ==
--- OUTSIDE RECORDS SUMMARY | 2024-08-03 11:40 | XMS_ITS | Clinical Summary ---
Author Organization Unknown Care Team Providers Care Warehouse Processor Name Role Phone JIMMY TIDWELL, JOHN Unavailable Unavailable ANTONIA PT, MARCUS Unavailable Unavailable Payers Payer Name Policy Type Policy Number Effective Date Expira tion Date MEDICARE - [facility] [id number] [facility] [id number] Problems Condition Name Condition Details Condition Category [...] 2- 00:00: 00 07-26 00:00 :00 No [id number] Per instruc tions Per instructio ns (route: oral) Med Classific ation: Cardiovas cular Therapy Agents fluoxetine 20 mg capsule 2023-07 00:00: 00 Yes [id number] 1 capsule BEDTIME 1 capsule BEDTIME (route: oral) Med Classific ation: Central Nervous System Agents gabapentin 100 mg capsule 2023-07 00:00: 00 Yes [id number] 2 capsule 3 TIMES DAILY 2 capsule 3 TIMES DAILY (route: oral) Med Classific ation: Central Nervous System Agents estradiol 0.5 mg tablet 2023-07 00:00: 00 Yes [id number] Per instruc tions DIRECTED Per instructio ns DIRECTED (route: oral) Med Classific ation: Endocrine diclofenac 1 % topical gel 2023-07 00:00: 00 Yes [id number] Per instruc tions DIRECTED Per instructio ns DIRECTED (route: topical) Med Classific ation: Dermatolo gical estradiol 0.01% (0.1 mg/gram) vaginal cream 2023-07 00:00: 00 Yes [id number] Per instruc tions DIRECTED Per instructio ns DIRECTED (route: vaginal) Med Classific ation: Vaginal Products omeprazole magnesium 20 mg tablet,leon yed release 2023-07 00:00: 00 Yes [id number] 1 tablet DAILY 1 tablet DAILY (route: oral) Med Classific ation: Gastroint estinal Therapy Agents oxycodone 5 mg tablet 2023-07 00:00: 00 Yes [id number] 1 tablet EVERY 8 HOURS 1 tablet EVERY 8 HOURS (route: oral) Med Classific ation: Analgesic , Anti-infl ammatory or Antipyret ic pravastatin 20 mg tablet 2023-07 00:00: 00 Yes [id number] 1 tablet BEDTIME 1 tablet BEDTIME (route: oral) Med Classific ation: Cardiovas cular Therapy Agents Restasis MultiDose 0.05 % eye drops 2023-07 00:00: 00 Yes [id number] 1 drops DAILY 1 drops DAILY (route: ophthalmic (eye)) Med Classific ation: Ophthalmi c Agents tizanidine 2 mg tablet 2023-07 00:00: 00 Yes [id number] 1 tablet 2 TIMES DAILY 1 tablet 2 TIMES DAILY (route: oral) Med Classific ation: Locomotor System Tylenol Extra Strength 500 mg tablet 07-20 00:00: 00 Yes [id number] 1 tablet EVERY AM 1 tablet EVERY [...] PRESENTS REFERRAL FOR HOME PT SERVICES FOLLOWING [facility] ED PRESENTATION ON 07/23-07/24 FOR RIGHT SIDED HIP/LOWER EXTREMITY PAIN. PATIENT HAD RECENT ED PRESENTATION AT [facility] ON 07/11 FOR EVALUATION, PATIENT DISCHARGED HOME WITHOUT ANY MEDICATION CHANGES. WORKUP FOR SECOND ED PRESENTATION REMARKABLE FOR SCIATICA AND PATIENT REFERRED TO [facility] WEIGHT ENGINEER DR. BOBBY. PATIENT WAS PRESCRIBED OXYCODONE AND DISCHARGED HOME. PATIENT REQUESTED TO DISCHARGE TO SHORT TERM REHAB HOWEVER UNABLE TO BE PLACED PATIENT WAS NOT ADMITTED AND WOULD HAVE TO PAY OUT OF POCKET FOR REHAB SERVICES IN FACILITY. 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 PATIENT IS PENDING LUMBAR SPINE MRI, SHE WAS EDUCATED ON CALLING WEIGHT ENGINEER FOR FOLLOW UP APPOINTMENT FROM THIS CLINICIAN. [...] HOWEVER RESPONDING NO ON PHQ QUESTIONS. RECOMMENDED BUTCHER MEAT CONSULT FOR FURTHER EMOTIONAL SUPPORT PATIENT HAS LOST SPOUSE IN THE LAST 2 YEARS AND HAS HAD MAJOR AGUAYO [code = SUMMARY OF THERAPY EVAL/ASSESSMENT FINDINGS AND REASON(S) SKILLS OF A THERAPIST ARE INDICATED: 07/26 SOC SUMMARY: PATIENT IS A 73-YEAR-OLD FEMALE WITH HISTORY OF CERVICAL SPONDYLOSIS, URINARY INCONTINENCE, GERD, MULTINODULAR GOITER, HYPERLIPIDEMIA, DEPRESSION, BIPOLAR DISORDER, PRESENTS REFERRAL FOR HOME PT SERVICES FOLLOWING [facility] ED PRESENTATION ON 07/23-07/24 FOR RIGHT SIDED HIP/LOWER EXTREMITY PAIN. PATIENT HAD RECENT ED PRESENTATION AT [facility] ON 07/11 FOR EVALUATION, PATIENT DISCHARGED HOME WITHOUT ANY MEDICATION CHANGES. WORKUP FOR SECOND ED PRESENTATION REMARKABLE FOR SCIATICA AND PATIENT REFERRED TO [facility] WEIGHT ENGINEER DR. BOBBY. PATIENT WAS PRESCRIBED OXYCODONE AND DISCHARGED HOME. PATIENT REQUESTED TO DISCHARGE TO SHORT TERM REHAB HOWEVER UNABLE TO BE PLACED PATIENT WAS NOT ADMITTED AND WOULD HAVE TO PAY OUT OF POCKET FOR REHAB SERVICES IN FACILITY. 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 PATIENT IS PENDING LUMBAR SPINE MRI, SHE WAS EDUCATED ON CALLING WEIGHT ENGINEER FOR FOLLOW UP APPOINTMENT FROM THIS CLINICIAN. [...] HOWEVER RESPONDING NO ON PHQ QUESTIONS. RECOMMENDED BUTCHER MEAT CONSULT FOR FURTHER EMOTIONAL SUPPORT PATIENT HAS [...] End Date/Time Encounter Type Admission Type Attending [facility] Care Facility Care Department Encounter ID Discharge Date Discharge Status Discharge Condition Discharge Reason Percent Goals Met 2024-07-26 00:00:00 2024-09-23 00:00:00 Outpatient NEW ADMISSION MARCUS KNIGHT [facility] [id number] 100.00
--- OUTSIDE RECORDS SUMMARY | 2024-08-03 11:40 | XMS_ITS | Clinical Summary ---
Author Organization Unknown Care Team Providers Care Sales Order Administrator Name Role Phone JIMMY TIDWELL, JOHN Unavailable Unavailable ANTONIA PT, MARCUS Unavailable Unavailable Payers Payer Name Policy Type Policy Number Effective Date Expira tion Date MEDICARE - [facility] [id number] [facility] [id number] Problems Condition Name Condition Details Condition Category [...] 2- 00:00: 00 07-26 00:00 :00 No [id number] Per instruc tions Per instructio ns (route: oral) Med Classific ation: Cardiovas cular Therapy Agents fluoxetine 20 mg capsule 2023-07 00:00: 00 Yes [id number] 1 capsule BEDTIME 1 capsule BEDTIME (route: oral) Med Classific ation: Central Nervous System Agents gabapentin 100 mg capsule 2023-07 00:00: 00 Yes [id number] 2 capsule 3 TIMES DAILY 2 capsule 3 TIMES DAILY (route: oral) Med Classific ation: Central Nervous System Agents estradiol 0.5 mg tablet 2023-07 00:00: 00 Yes [id number] Per instruc tions DIRECTED Per instructio ns DIRECTED (route: oral) Med Classific ation: Endocrine diclofenac 1 % topical gel 2023-07 00:00: 00 Yes [id number] Per instruc tions DIRECTED Per instructio ns DIRECTED (route: topical) Med Classific ation: Dermatolo gical estradiol 0.01% (0.1 mg/gram) vaginal cream 2023-07 00:00: 00 Yes [id number] Per instruc tions DIRECTED Per instructio ns DIRECTED (route: vaginal) Med Classific ation: Vaginal Products omeprazole magnesium 20 mg tablet,leon yed release 2023-07 00:00: 00 Yes [id number] 1 tablet DAILY 1 tablet DAILY (route: oral) Med Classific ation: Gastroint estinal Therapy Agents oxycodone 5 mg tablet 2023-07 00:00: 00 Yes [id number] 1 tablet EVERY 8 HOURS 1 tablet EVERY 8 HOURS (route: oral) Med Classific ation: Analgesic , Anti-infl ammatory or Antipyret ic pravastatin 20 mg tablet 2023-07 00:00: 00 Yes [id number] 1 tablet BEDTIME 1 tablet BEDTIME (route: oral) Med Classific ation: Cardiovas cular Therapy Agents Restasis MultiDose 0.05 % eye drops 2023-07 00:00: 00 Yes [id number] 1 drops DAILY 1 drops DAILY (route: ophthalmic (eye)) Med Classific ation: Ophthalmi c Agents tizanidine 2 mg tablet 2023-07 00:00: 00 Yes [id number] 1 tablet 2 TIMES DAILY 1 tablet 2 TIMES DAILY (route: oral) Med Classific ation: Locomotor System Tylenol Extra Strength 500 mg tablet 07-20 00:00: 00 Yes [id number] 1 tablet EVERY AM 1 tablet EVERY [...] PRESENTS REFERRAL FOR HOME PT SERVICES FOLLOWING [facility] ED PRESENTATION ON 07/23-07/24 FOR RIGHT SIDED HIP/LOWER EXTREMITY PAIN. PATIENT HAD RECENT ED PRESENTATION AT [facility] ON 07/11 FOR EVALUATION, PATIENT DISCHARGED HOME WITHOUT ANY MEDICATION CHANGES. WORKUP FOR SECOND ED PRESENTATION REMARKABLE FOR SCIATICA AND PATIENT REFERRED TO [facility] LAB INSTRUCTOR DR. BOBBY. PATIENT WAS PRESCRIBED OXYCODONE AND DISCHARGED HOME. PATIENT REQUESTED TO DISCHARGE TO SHORT TERM REHAB HOWEVER UNABLE TO BE PLACED PATIENT WAS NOT ADMITTED AND WOULD HAVE TO PAY OUT OF POCKET FOR REHAB SERVICES IN FACILITY. 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 PATIENT IS PENDING LUMBAR SPINE MRI, SHE WAS EDUCATED ON CALLING LAB INSTRUCTOR FOR FOLLOW UP APPOINTMENT FROM THIS CLINICIAN. [...] HOWEVER RESPONDING NO ON PHQ QUESTIONS. RECOMMENDED CLOCKMAKER CONSULT FOR FURTHER EMOTIONAL SUPPORT PATIENT HAS LOST SPOUSE IN THE LAST 2 YEARS AND HAS HAD MAJOR AGUAYO [code = SUMMARY OF THERAPY EVAL/ASSESSMENT FINDINGS AND REASON(S) SKILLS OF A THERAPIST ARE INDICATED: 07/26 SOC SUMMARY: PATIENT IS A 73-YEAR-OLD FEMALE WITH HISTORY OF CERVICAL SPONDYLOSIS, URINARY INCONTINENCE, GERD, MULTINODULAR GOITER, HYPERLIPIDEMIA, DEPRESSION, BIPOLAR DISORDER, PRESENTS REFERRAL FOR HOME PT SERVICES FOLLOWING [facility] ED PRESENTATION ON 07/23-07/24 FOR RIGHT SIDED HIP/LOWER EXTREMITY PAIN. PATIENT HAD RECENT ED PRESENTATION AT [facility] ON 07/11 FOR EVALUATION, PATIENT DISCHARGED HOME WITHOUT ANY MEDICATION CHANGES. WORKUP FOR SECOND ED PRESENTATION REMARKABLE FOR SCIATICA AND PATIENT REFERRED TO [facility] LAB INSTRUCTOR DR. BOBBY. PATIENT WAS PRESCRIBED OXYCODONE AND DISCHARGED HOME. PATIENT REQUESTED TO DISCHARGE TO SHORT TERM REHAB HOWEVER UNABLE TO BE PLACED PATIENT WAS NOT ADMITTED AND WOULD HAVE TO PAY OUT OF POCKET FOR REHAB SERVICES IN FACILITY. 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 PATIENT IS PENDING LUMBAR SPINE MRI, SHE WAS EDUCATED ON CALLING LAB INSTRUCTOR FOR FOLLOW UP APPOINTMENT FROM THIS CLINICIAN. [...] HOWEVER RESPONDING NO ON PHQ QUESTIONS. RECOMMENDED CLOCKMAKER CONSULT FOR FURTHER EMOTIONAL SUPPORT PATIENT HAS [...] End Date/Time Encounter Type Admission Type Attending [facility] Care Facility Care Department Encounter ID Discharge Date Discharge Status Discharge Condition Discharge Reason Percent Goals Met 2024-07-26 00:00:00 2024-09-23 00:00:00 Outpatient NEW ADMISSION MARCUS KNIGHT [facility] [id number] 100.00
== END 2024-08-03 10:00 | disposition home or self-care (01) ==
LOC: HO.HOSX 09:59
PROVIDERS: Visit Provider Physician Assistant
DX: Z13.89 Encounter for screening for other disorder (principal)

== ENCOUNTER 2024-08-09 09:59 | Outpatient (REF) | payer MEDICARE, SELFPAY ==
--- NOTE | ~2024-08-09 | XR_ITS ---
EXAMINATION: Lumbar spine 4 views. CLINICAL INDICATION: Low back pain. COMPARISON: None. FINDINGS: There is mild straightening of lumbar lordosis. There is grade 1 anterolisthesis L4-L5. Rest of the vertebral alignment is normal. Mild loss of L3-4, L4-5 and L5-S1 disc height is noted. On flexion and extension views there is no significant change in the at the L4-5 disc level. No lytic or sclerotic process seen. XR/XR lumbar spine 4V min IMPRESSION: Grade 1 anterolisthesis of L4 on L5 without any significant change on flexion or extension views. Mild degenerative disc changes lumbar spine. Electronically signed by: Pasquale Paniagua MD 08/09/2024 03:11 PM [facility]
--- OUTSIDE RECORDS SUMMARY | 2024-08-09 14:39 | XMS_ITS | Clinical Summary ---
Author Organization Unknown Care Team Providers Care Teaseler Name Role Phone JIMMY TIDWELL, JOHN Unavailable Unavailable ANTONIA PT, MARCUS Unavailable Unavailable Payers Payer Name Policy Type Policy Number Effective Date Expira tion Date MEDICARE - [facility] [id number] [facility] [id number] Problems Condition Name Condition Details Condition Category [...] 2- 00:00: 00 07-26 00:00 :00 No [id number] Per instruc tions Per instructio ns (route: oral) Med Classific ation: Cardiovas cular Therapy Agents fluoxetine 20 mg capsule 2023-07 00:00: 00 Yes [id number] 1 capsule BEDTIME 1 capsule BEDTIME (route: oral) Med Classific ation: Central Nervous System Agents gabapentin 100 mg capsule 2023-07 00:00: 00 Yes [id number] 2 capsule 3 TIMES DAILY 2 capsule 3 TIMES DAILY (route: oral) Med Classific ation: Central Nervous System Agents estradiol 0.5 mg tablet 2023-07 00:00: 00 Yes [id number] Per instruc tions DIRECTED Per instructio ns DIRECTED (route: oral) Med Classific ation: Endocrine diclofenac 1 % topical gel 2023-07 00:00: 00 Yes [id number] Per instruc tions DIRECTED Per instructio ns DIRECTED (route: topical) Med Classific ation: Dermatolo gical estradiol 0.01% (0.1 mg/gram) vaginal cream 2023-07 00:00: 00 Yes [id number] Per instruc tions DIRECTED Per instructio ns DIRECTED (route: vaginal) Med Classific ation: Vaginal Products omeprazole magnesium 20 mg tablet,leon yed release 2023-07 00:00: 00 Yes [id number] 1 tablet DAILY 1 tablet DAILY (route: oral) Med Classific ation: Gastroint estinal Therapy Agents oxycodone 5 mg tablet 2023-07 00:00: 00 Yes [id number] 1 tablet EVERY 8 HOURS 1 tablet EVERY 8 HOURS (route: oral) Med Classific ation: Analgesic , Anti-infl ammatory or Antipyret ic pravastatin 20 mg tablet 2023-07 00:00: 00 Yes [id number] 1 tablet BEDTIME 1 tablet BEDTIME (route: oral) Med Classific ation: Cardiovas cular Therapy Agents Restasis MultiDose 0.05 % eye drops 2023-07 00:00: 00 Yes [id number] 1 drops DAILY 1 drops DAILY (route: ophthalmic (eye)) Med Classific ation: Ophthalmi c Agents tizanidine 2 mg tablet 2023-07 00:00: 00 Yes [id number] 1 tablet 2 TIMES DAILY 1 tablet 2 TIMES DAILY (route: oral) Med Classific ation: Locomotor System Tylenol Extra Strength 500 mg tablet 07-20 00:00: 00 Yes [id number] 1 tablet EVERY AM 1 tablet EVERY [...] PRESENTS REFERRAL FOR HOME PT SERVICES FOLLOWING [facility] ED PRESENTATION ON 07/23-07/24 FOR RIGHT SIDED HIP/LOWER EXTREMITY PAIN. PATIENT HAD RECENT ED PRESENTATION AT [facility] ON 07/11 FOR EVALUATION, PATIENT DISCHARGED HOME WITHOUT ANY MEDICATION CHANGES. WORKUP FOR SECOND ED PRESENTATION REMARKABLE FOR SCIATICA AND PATIENT REFERRED TO [facility] TILESETTER DR. BOBBY. PATIENT WAS PRESCRIBED OXYCODONE AND DISCHARGED HOME. PATIENT REQUESTED TO DISCHARGE TO SHORT TERM REHAB HOWEVER UNABLE TO BE PLACED PATIENT WAS NOT ADMITTED AND WOULD HAVE TO PAY OUT OF POCKET FOR REHAB SERVICES IN FACILITY. 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 PATIENT IS PENDING LUMBAR SPINE MRI, SHE WAS EDUCATED ON CALLING TILESETTER FOR FOLLOW UP APPOINTMENT FROM THIS CLINICIAN. [...] HOWEVER RESPONDING NO ON PHQ QUESTIONS. RECOMMENDED GROUTER HELPER CONSULT FOR FURTHER EMOTIONAL SUPPORT PATIENT [...] PRESENTS REFERRAL FOR HOME PT SERVICES FOLLOWING [facility] ED PRESENTATION ON 07/23-07/24 FOR RIGHT SIDED HIP/LOWER EXTREMITY PAIN. PATIENT HAD RECENT ED PRESENTATION AT [facility] ON 07/11 FOR EVALUATION, PATIENT DISCHARGED HOME WITHOUT ANY MEDICATION CHANGES. WORKUP FOR SECOND ED PRESENTATION REMARKABLE FOR SCIATICA AND PATIENT REFERRED TO [facility] TILESETTER DR. BOBBY. PATIENT WAS PRESCRIBED OXYCODONE AND DISCHARGED HOME. PATIENT REQUESTED TO DISCHARGE TO SHORT TERM REHAB HOWEVER UNABLE TO BE PLACED PATIENT WAS NOT ADMITTED AND WOULD HAVE TO PAY OUT OF POCKET FOR REHAB SERVICES IN FACILITY. 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 PATIENT IS PENDING LUMBAR SPINE MRI, SHE WAS EDUCATED ON CALLING TILESETTER FOR FOLLOW UP APPOINTMENT FROM THIS CLINICIAN. [...] HOWEVER RESPONDING NO ON PHQ QUESTIONS. RECOMMENDED GROUTER HELPER CONSULT FOR FURTHER EMOTIONAL SUPPORT PATIENT [...] End Date/Time Encounter Type Admission Type Attending [facility] Care Facility Care Department Encounter ID Discharge Date Discharge Status Discharge Condition Discharge Reason Percent Goals Met 2024-07-26 00:00:00 2024-09-23 00:00:00 Outpatient NEW ADMISSION MARCUS KNIGHT [facility] [id number] 100.00
--- OUTSIDE RECORDS SUMMARY | 2024-08-09 14:39 | XMS_ITS | Clinical Summary ---
Author Organization Unknown Care Team Providers Care Independent Agent Music Education Name Role Phone JIMMY TIDWELL, JOHN Unavailable Unavailable ANTONIA PT, MARCUS Unavailable Unavailable Payers Payer Name Policy Type Policy Number Effective Date Expira tion Date MEDICARE - [facility] [id number] [facility] [id number] Problems Condition Name Condition Details Condition Category [...] 2- 00:00: 00 07-26 00:00 :00 No [id number] Per instruc tions Per instructio ns (route: oral) Med Classific ation: Cardiovas cular Therapy Agents fluoxetine 20 mg capsule 2023-07 00:00: 00 Yes [id number] 1 capsule BEDTIME 1 capsule BEDTIME (route: oral) Med Classific ation: Central Nervous System Agents gabapentin 100 mg capsule 2023-07 00:00: 00 Yes [id number] 2 capsule 3 TIMES DAILY 2 capsule 3 TIMES DAILY (route: oral) Med Classific ation: Central Nervous System Agents estradiol 0.5 mg tablet 2023-07 00:00: 00 Yes [id number] Per instruc tions DIRECTED Per instructio ns DIRECTED (route: oral) Med Classific ation: Endocrine diclofenac 1 % topical gel 2023-07 00:00: 00 Yes [id number] Per instruc tions DIRECTED Per instructio ns DIRECTED (route: topical) Med Classific ation: Dermatolo gical estradiol 0.01% (0.1 mg/gram) vaginal cream 2023-07 00:00: 00 Yes [id number] Per instruc tions DIRECTED Per instructio ns DIRECTED (route: vaginal) Med Classific ation: Vaginal Products omeprazole magnesium 20 mg tablet,leon yed release 2023-07 00:00: 00 Yes [id number] 1 tablet DAILY 1 tablet DAILY (route: oral) Med Classific ation: Gastroint estinal Therapy Agents oxycodone 5 mg tablet 2023-07 00:00: 00 Yes [id number] 1 tablet EVERY 8 HOURS 1 tablet EVERY 8 HOURS (route: oral) Med Classific ation: Analgesic , Anti-infl ammatory or Antipyret ic pravastatin 20 mg tablet 2023-07 00:00: 00 Yes [id number] 1 tablet BEDTIME 1 tablet BEDTIME (route: oral) Med Classific ation: Cardiovas cular Therapy Agents Restasis MultiDose 0.05 % eye drops 2023-07 00:00: 00 Yes [id number] 1 drops DAILY 1 drops DAILY (route: ophthalmic (eye)) Med Classific ation: Ophthalmi c Agents tizanidine 2 mg tablet 2023-07 00:00: 00 Yes [id number] 1 tablet 2 TIMES DAILY 1 tablet 2 TIMES DAILY (route: oral) Med Classific ation: Locomotor System Tylenol Extra Strength 500 mg tablet 07-20 00:00: 00 Yes [id number] 1 tablet EVERY AM 1 tablet EVERY [...] PRESENTS REFERRAL FOR HOME PT SERVICES FOLLOWING [facility] ED PRESENTATION ON 07/23-07/24 FOR RIGHT SIDED HIP/LOWER EXTREMITY PAIN. PATIENT HAD RECENT ED PRESENTATION AT [facility] ON 07/11 FOR EVALUATION, PATIENT DISCHARGED HOME WITHOUT ANY MEDICATION CHANGES. WORKUP FOR SECOND ED PRESENTATION REMARKABLE FOR SCIATICA AND PATIENT REFERRED TO [facility] BURN OUT SCARFING OPERATOR DR. BOBBY. PATIENT WAS PRESCRIBED OXYCODONE AND DISCHARGED HOME. PATIENT REQUESTED TO DISCHARGE TO SHORT TERM REHAB HOWEVER UNABLE TO BE PLACED PATIENT WAS NOT ADMITTED AND WOULD HAVE TO PAY OUT OF POCKET FOR REHAB SERVICES IN FACILITY. 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 PATIENT IS PENDING LUMBAR SPINE MRI, SHE WAS EDUCATED ON CALLING BURN OUT SCARFING OPERATOR FOR FOLLOW UP APPOINTMENT FROM THIS CLINICIAN. [...] HOWEVER RESPONDING NO ON PHQ QUESTIONS. RECOMMENDED COMMUNITY WORKER CONSULT FOR FURTHER EMOTIONAL SUPPORT PATIENT HAS LOST SPOUSE IN THE LAST 2 YEARS AND HAS HAD MAJOR AGUAYO [code = SUMMARY OF THERAPY EVAL/ASSESSMENT FINDINGS AND REASON(S) SKILLS OF A THERAPIST ARE INDICATED: 07/26 SOC SUMMARY: PATIENT IS A 73-YEAR-OLD FEMALE WITH HISTORY OF CERVICAL SPONDYLOSIS, URINARY INCONTINENCE, GERD, MULTINODULAR GOITER, HYPERLIPIDEMIA, DEPRESSION, BIPOLAR DISORDER, PRESENTS REFERRAL FOR HOME PT SERVICES FOLLOWING [facility] ED PRESENTATION ON 07/23-07/24 FOR RIGHT SIDED HIP/LOWER EXTREMITY PAIN. PATIENT HAD RECENT ED PRESENTATION AT [facility] ON 07/11 FOR EVALUATION, PATIENT DISCHARGED HOME WITHOUT ANY MEDICATION CHANGES. WORKUP FOR SECOND ED PRESENTATION REMARKABLE FOR SCIATICA AND PATIENT REFERRED TO [facility] BURN OUT SCARFING OPERATOR DR. BOBBY. PATIENT WAS PRESCRIBED OXYCODONE AND DISCHARGED HOME. PATIENT REQUESTED TO DISCHARGE TO SHORT TERM REHAB HOWEVER UNABLE TO BE PLACED PATIENT WAS NOT ADMITTED AND WOULD HAVE TO PAY OUT OF POCKET FOR REHAB SERVICES IN FACILITY. 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 PATIENT IS PENDING LUMBAR SPINE MRI, SHE WAS EDUCATED ON CALLING BURN OUT SCARFING OPERATOR FOR FOLLOW UP APPOINTMENT FROM THIS CLINICIAN. [...] HOWEVER RESPONDING NO ON PHQ QUESTIONS. RECOMMENDED COMMUNITY WORKER CONSULT FOR FURTHER EMOTIONAL SUPPORT PATIENT HAS [...] End Date/Time Encounter Type Admission Type Attending [facility] Care Facility Care Department Encounter ID Discharge Date Discharge Status Discharge Condition Discharge Reason Percent Goals Met 2024-07-26 00:00:00 2024-09-23 00:00:00 Outpatient NEW ADMISSION MARCUS KNIGHT [facility] [id number] 100.00
== END 2024-08-09 10:00 | disposition home or self-care (01) ==
LOC: HO.HOSX 09:59
PROVIDERS: Visit Provider Physician Assistant
DX: M43.16 Spondylolisthesis, lumbar region (principal); M51.26 Other intervertebral disc displacement, lumbar region
CPT/HCPCS: 72110; 99212

== ENCOUNTER 2024-08-09 13:31 | Outpatient (AMB) | payer MEDICARE, SELFPAY ==
--- NOTE | 2024-08-09 13:34 | HO.SPINEOV ---
Intake Visit Reasons: MRI f/u with Xrays Intake Note: Ms. Cid is here today to F/u on the results to her MRI. Film Replacement Orderer Required: No Allergies hydrocodone Allergy (Intermediate, Verified 07/31/24 13:45) Vomiting amoxicillin Adverse Reaction (Intermediate, Verified 07/31/24 13:45) Gastrointestinal Upset nitrofurantoin Adverse Reaction (Intermediate, Verified 07/31/24 13:45) Gastrointestinal Upset sulfadiazine Adverse Reaction (Intermediate, Verified 07/31/24 13:45) Gastrointestinal Upset Assessment & Plan Assessment & Plan (1) Spondylolisthesis at L4-L5 level: Code(s): M43.16 - Spondylolisthesis, lumbar region Category: Medical Plan Isabel comes in today for review of her recent MRI and to discuss her current symptoms. To recap she was previously evaluated in our office for low back pain and shooting pains into her right lower extremity. When describing the shooting pain she runs her hand over the right lateral thigh to the top of her anterior thigh over her right knee and down the anterior tibialis. In addition to this she reports numbness throughout the anterior tibialis. Today she reports that her pain has been worsening day by day. She has been walking less and less and becoming more reliant on her wheelchair. She does not walk due to the pain. She is accompanied by her son to this visit who helps provide history and answer questions. On examination the patient has 5/5 strength in her bilateral lower extremities. She has hypoesthesia over her right anterior tibialis. The rest of her sensation is intact. The rest of her examination remains the same as previous. MRI completed here at [facility] shows recent demonstration of the auto fusion at L5-S1 with a large paracentral right-sided posterior disc herniation at L4-5. Flexion/extension x-rays obtained during this visit show worsening of spondylolisthesis at L4-5, becoming what I would call a grade 2 spondylolisthesis with flexion. I reviewed the patient's imaging, physical examination, and history with the attending neurosurgeon Dr. Lyon, who evaluated the patient alongside this program writer today. He offered her a L4-5 transforaminal lumbar interbody fusion to address her disc herniation and to correct her spondylolisthesis. This procedure was extensively explained to the patient and her son, utilizing the spine models in our office. Our operating room surgical technologist will call her to figure out a date for surgery. Isabel was given risk and benefits of surgery including but not limited to infection, hematoma, nerve injury, durotomy, weakness, bowel/bladder injury, persistent pain, as well as the option to continue with conservative treatment and patient wishes to proceed with surgery. They are aware they should stop NSAIDs 7 days prior to surgery. All questions were answered to the best of our ability. If there is anything about this patients medical history that we have overlooked or concerns you have about us proceeding with surgery we would appreciate any input you can offer. Adria Lyon MD,PhD [facility] Coding Level of Care Code Est Pt Level 3 (59327) Diagnoses Spondylolisthesis at L4-L5 level M43.16
--- OUTSIDE RECORDS SUMMARY | 2024-08-09 15:40 | XMS_ITS | Clinical Summary ---
Author Organization Unknown Care Team Providers Care Specialty Sales Consultant Name Role Phone JIMMY TIDWELL, JOHN Unavailable Unavailable ANTONIA PT, MARCUS Unavailable Unavailable Payers Payer Name Policy Type Policy Number Effective Date Expira tion Date [place] [facility] [id number] [facility] [id number] Problems Condition Name Condition Details Condition Category [...] 2- 00:00: 00 07-26 00:00 :00 No [id number] Per instruc tions Per instructio ns (route: oral) Med Classific ation: Cardiovas cular Therapy Agents fluoxetine 20 mg capsule 2023-07 00:00: 00 Yes [id number] 1 capsule BEDTIME 1 capsule BEDTIME (route: oral) Med Classific ation: Central Nervous System Agents gabapentin 100 mg capsule 2023-07 00:00: 00 Yes [id number] 2 capsule 3 TIMES DAILY 2 capsule 3 TIMES DAILY (route: oral) Med Classific ation: Central Nervous System Agents estradiol 0.5 mg tablet 2023-07 00:00: 00 Yes [id number] Per instruc tions DIRECTED Per instructio ns DIRECTED (route: oral) Med Classific ation: Endocrine diclofenac 1 % topical gel 2023-07 00:00: 00 Yes [id number] Per instruc tions DIRECTED Per instructio ns DIRECTED (route: topical) Med Classific ation: Dermatolo gical estradiol 0.01% (0.1 mg/gram) vaginal cream 2023-07 00:00: 00 Yes [id number] Per instruc tions DIRECTED Per instructio ns DIRECTED (route: vaginal) Med Classific ation: Vaginal Products omeprazole magnesium 20 mg tablet,leon yed release 2023-07 00:00: 00 Yes [id number] 1 tablet DAILY 1 tablet DAILY (route: oral) Med Classific ation: Gastroint estinal Therapy Agents oxycodone 5 mg tablet 2023-07 00:00: 00 Yes [id number] 1 tablet EVERY 8 HOURS 1 tablet EVERY 8 HOURS (route: oral) Med Classific ation: Analgesic , Anti-infl ammatory or Antipyret ic pravastatin 20 mg tablet 2023-07 00:00: 00 Yes [id number] 1 tablet BEDTIME 1 tablet BEDTIME (route: oral) Med Classific ation: Cardiovas cular Therapy Agents Restasis MultiDose 0.05 % eye drops 2023-07 00:00: 00 Yes [id number] 1 drops DAILY 1 drops DAILY (route: ophthalmic (eye)) Med Classific ation: Ophthalmi c Agents tizanidine 2 mg tablet 2023-07 00:00: 00 Yes [id number] 1 tablet 2 TIMES DAILY 1 tablet 2 TIMES DAILY (route: oral) Med Classific ation: Locomotor System Tylenol Extra Strength 500 mg tablet 07-20 00:00: 00 Yes [id number] 1 tablet EVERY AM 1 tablet EVERY [...] PRESENTS REFERRAL FOR HOME PT SERVICES FOLLOWING [facility] ED PRESENTATION ON 07/23-07/24 FOR RIGHT SIDED HIP/LOWER EXTREMITY PAIN. PATIENT HAD RECENT ED PRESENTATION AT [facility] ON 07/11 FOR EVALUATION, PATIENT DISCHARGED HOME WITHOUT ANY MEDICATION CHANGES. WORKUP FOR SECOND ED PRESENTATION REMARKABLE FOR SCIATICA AND PATIENT REFERRED TO [facility] [employer] BU[employer]DER DR. BOBBY. PATIENT WAS PRESCRIBED OXYCODONE AND DISCHARGED HOME. PATIENT REQUESTED TO DISCHARGE TO SHORT TERM REHAB HOWEVER UNABLE TO BE PLACED PATIENT WAS NOT ADMITTED AND WOULD HAVE TO PAY OUT OF POCKET FOR REHAB SERVICES IN FACILITY. 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 PATIENT IS PENDING LUMBAR SPINE MRI, SHE WAS EDUCATED ON CALLING MANIFOLD BUILDER FOR FOLLOW UP APPOINTMENT FROM THIS CLINICIAN. [...] HOWEVER RESPONDING NO ON PHQ QUESTIONS. RECOMMENDED PHYSICALLY IMPAIRED TEACHER CONSULT FOR FURTHER EMOTIONAL SUPPORT PATIENT HAS LOST SPOUSE IN THE LAST 2 YEARS AND HAS HAD MAJOR AGUAYO [code = SUMMARY OF THERAPY EVAL/ASSESSMENT FINDINGS AND REASON(S) SKILLS OF A THERAPIST ARE INDICATED: 07/26 SOC SUMMARY: PATIENT IS A 73-YEAR-OLD FEMALE WITH HISTORY OF CERVICAL SPONDYLOSIS, URINARY INCONTINENCE, GERD, MULTINODULAR GOITER, HYPERLIPIDEMIA, DEPRESSION, BIPOLAR DISORDER, PRESENTS REFERRAL FOR HOME PT SERVICES FOLLOWING [facility] ED PRESENTATION ON 07/23-07/24 FOR RIGHT SIDED HIP/LOWER EXTREMITY PAIN. PATIENT HAD RECENT ED PRESENTATION AT [facility] ON 07/11 FOR EVALUATION, PATIENT DISCHARGED HOME WITHOUT ANY MEDICATION CHANGES. WORKUP FOR SECOND ED PRESENTATION REMARKABLE FOR SCIATICA AND PATIENT REFERRED TO [facility] BU[employer] DR. BOBBY. PATIENT WAS PRESCRIBED OXYCODONE AND DISCHARGED HOME. PATIENT REQUESTED TO DISCHARGE TO SHORT TERM REHAB HOWEVER UNABLE TO BE PLACED PATIENT WAS NOT ADMITTED AND WOULD HAVE TO PAY OUT OF POCKET FOR REHAB SERVICES IN FACILITY. 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 PATIENT IS PENDING LUMBAR SPINE MRI, SHE WAS EDUCATED ON CALLING MANIFOLD BUILDER FOR FOLLOW UP APPOINTMENT FROM THIS CLINICIAN. [...] HOWEVER RESPONDING NO ON PHQ QUESTIONS. RECOMMENDED PHYSICALLY IMPAIRED TEACHER CONSULT FOR FURTHER EMOTIONAL SUPPORT PATIENT HAS [...] End Date/Time Encounter Type Admission Type Attending [facility] Care Facility Care Department Encounter ID Discharge Date Discharge Status Discharge Condition Discharge Reason Percent Goals Met 2024-07-26 00:00:00 2024-09-23 00:00:00 Outpatient NEW ADMISSION MARCUS KNIGHT [facility] [id number] 100.00
--- OUTSIDE RECORDS SUMMARY | 2024-08-09 15:41 | XMS_ITS ---
Author Organization [facility] Address [address] [place] [address] Care Team Providers Care Scout Professional Sports Name Role Phone Jay Uribe MD Primary Care Provider Robert Powell Jr Unavailable ALLERGIES Allergen (clinical drug ingredient) Drug/Non Drug Allergy documented on EMR Reaction Allergy Type Onset Date Status Sulfa Unknown Drug Allergy Active REASON FOR VISIT Patient presents today for stomach issues MEDICATIONS Medication SIG (Take, Route, Frequency, Duration) Notes Start Date End Date Status Estradiol 0.5 MG 1 tablet Orally Once a day for 30 day(s) Active Multi For Her 50+ - as directed Orally Active Hair Regrowth for Women Active Fluoxetine & Diet Manage Prod 10 MG Orally Active Pravastatin Sodium 20 MG 1 tablet Orally Once a day Active Tylenol 325 MG 1 tablet as needed Orally every 4 hrs Active oxyBUTYnin Chloride 5 MG 1 tablet Orally Twice a day for 30 day(s) as needed Active Flax Seed Oil 1000 MG as directed Orally Active Calcium 1 tab Oral for 14 days Active Omeprazole 20 MG 1 capsule Orally Onc e a day Active Premarin 0.3 MG 1 tablet Orally Jeanne y for Three Weeks, 1 Week off Active PROBLEMS Problem Type ICD Code Onset Dates Problem Status W/U Status Risk SNOMED Code Notes Problem Irritable bowel syndrome with diarrhea (K58.0) Active confirmed VITAL SIGNS BMI 25.31 kg/m2 04/10/2024 Blood pressure systolic 000 mm Hg 04/10/20 24 Blood pressure diastolic 00 mm Hg 024 Height 58 in 04/10/2024 Temperature 96.9 degrees Fahrenheit 04/10/20 24 Weight 121 lb 2 oz lbs 04/10/2024 Encounters Encounter Location Date Provider Diagnosis [facility] [address] [place] [address] 04/10/2024 Robert Mendoza Jr Gastroesophageal reflux disease without esophagitis K21.9 ; Irritable bowel syndrome with diarrhea K58.0 and Colon cancer screening Z12.11 ASSESSMENTS Encounter Date Diagnosis Assessment Notes Treatment Notes Treatment Clinical Notes 04/10/2024 Gastroesophageal reflux disease without esophagitis (ICD-10 - K21.9) Gastroesophageal reflux disease material was printed 04/10/2024 Irritable bowel syndrome with diarrhea (ICD-10 - K58.0) 04/10/2024 Colon cancer screening (ICD-10 - Z12.11) PLAN OF TREATMENT Treatment Notes Assessment Notes Gastroesophageal reflux dise ase without esophagitis Gastroesophageal reflux disease material was printed Next Appt Details Follow Up: 1 Year, Reason: Provider Name:Robert loving Jr, 04/09/2025 10:50:00 AM, [address], [address], [place], [address],
--- OUTSIDE RECORDS SUMMARY | 2024-08-09 15:41 | XMS_ITS ---
Author Organization [facility] Address [address] [place] [address] Care Team Providers Care Live In Housekeeper Nanny Name Role Phone Jay Uribe MD Primary Care Provider Unavaileugene Mendoza Jr, Robert Serrato REASON FOR VISIT Pt no show Encounters Encounter Location Date Provider Diagnosis [facility] [address] [place] [address] 2023 Robert Mendoza Jr PLAN OF TREATMENT Next Appt Details Provider Name:Robert loving Jr, 04/09/2025 10:50:00 AM, [address] [place] [address], [address], [place], [address],
--- OUTSIDE RECORDS SUMMARY | 2024-08-09 15:42 | XMS_ITS | Clinical Summary ---
Author Organization Unknown Care Team Providers Care Umbrella Frame Maker Name Role Phone JIMMY TIDWELL, JOHN Unavailable Unavailable ANTONIA PT, MARCUS Unavailable Unavailable Payers Payer Name Policy Type Policy Number Effective Date Expira tion Date MEDICARE - [facility] [place] [id number] [facility] [id number] Problems Condition Name Condition Details Condition Category [...] 2- 00:00: 00 07-26 00:00 :00 No [id number] Per instruc tions Per instructio ns (route: oral) Med Classific ation: Cardiovas cular Therapy Agents fluoxetine 20 mg capsule 2023-07 00:00: 00 Yes [id number] 1 capsule BEDTIME 1 capsule BEDTIME (route: oral) Med Classific ation: Central Nervous System Agents gabapentin 100 mg capsule 2023-07 00:00: 00 Yes [id number] 2 capsule 3 TIMES DAILY 2 capsule 3 TIMES DAILY (route: oral) Med Classific ation: Central Nervous System Agents estradiol 0.5 mg tablet 2023-07 00:00: 00 Yes [id number] Per instruc tions DIRECTED Per instructio ns DIRECTED (route: oral) Med Classific ation: Endocrine diclofenac 1 % topical gel 2023-07 00:00: 00 Yes [id number] Per instruc tions DIRECTED Per instructio ns DIRECTED (route: topical) Med Classific ation: Dermatolo gical estradiol 0.01% (0.1 mg/gram) vaginal cream 2023-07 00:00: 00 Yes [id number] Per instruc tions DIRECTED Per instructio ns DIRECTED (route: vaginal) Med Classific ation: Vaginal Products omeprazole magnesium 20 mg tablet,leon yed release 2023-07 00:00: 00 Yes [id number] 1 tablet DAILY 1 tablet DAILY (route: oral) Med Classific ation: Gastroint estinal Therapy Agents oxycodone 5 mg tablet 2023-07 00:00: 00 Yes [id number] 1 tablet EVERY 8 HOURS 1 tablet EVERY 8 HOURS (route: oral) Med Classific ation: Analgesic , Anti-infl ammatory or Antipyret ic pravastatin 20 mg tablet 2023-07 00:00: 00 Yes [id number] 1 tablet BEDTIME 1 tablet BEDTIME (route: oral) Med Classific ation: Cardiovas cular Therapy Agents Restasis MultiDose 0.05 % eye drops 2023-07 00:00: 00 Yes [id number] 1 drops DAILY 1 drops DAILY (route: ophthalmic (eye)) Med Classific ation: Ophthalmi c Agents tizanidine 2 mg tablet 2023-07 00:00: 00 Yes [id number] 1 tablet 2 TIMES DAILY 1 tablet 2 TIMES DAILY (route: oral) Med Classific ation: Locomotor System Tylenol Extra Strength 500 mg tablet 07-20 00:00: 00 Yes [id number] 1 tablet EVERY AM 1 tablet EVERY [...] PRESENTS REFERRAL FOR HOME PT SERVICES FOLLOWING [facility] ED PRESENTATION ON 07/23-07/24 FOR RIGHT SIDED HIP/LOWER EXTREMITY PAIN. PATIENT HAD RECENT ED PRESENTATION AT [facility] ON 07/11 FOR EVALUATION, PATIENT DISCHARGED HOME WITHOUT ANY MEDICATION CHANGES. WORKUP FOR SECOND ED PRESENTATION REMARKABLE FOR SCIATICA AND PATIENT REFERRED TO [facility] RESTAURANT LINE [employer]OOK DR. BOBBY. PATIENT WAS PRESCRIBED OXYCODONE AND DISCHARGED HOME. PATIENT REQUESTED TO DISCHARGE TO SHORT TERM REHAB HOWEVER UNABLE TO BE PLACED PATIENT WAS NOT ADMITTED AND WOULD HAVE TO PAY OUT OF POCKET FOR REHAB SERVICES IN FACILITY. 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 PATIENT IS PENDING LUMBAR SPINE MRI, SHE WAS EDUCATED ON CALLING [employer]ANT [employer] FOR FOLLOW UP APPOINTMENT FROM THIS CLINICIAN. [...] HOWEVER RESPONDING NO ON PHQ QUESTIONS. RECOMMENDED ORTHOPEDIC ASSISTANT CONSULT FOR FURTHER EMOTIONAL SUPPORT PATIENT HAS LOST SPOUSE IN THE LAST 2 YEARS AND HAS HAD MAJOR AGUAYO [code = SUMMARY OF THERAPY EVAL/ASSESSMENT FINDINGS AND REASON(S) SKILLS OF A THERAPIST ARE INDICATED: 07/26 SOC SUMMARY: PATIENT IS A 73-YEAR-OLD FEMALE WITH HISTORY OF CERVICAL SPONDYLOSIS, URINARY INCONTINENCE, GERD, MULTINODULAR GOITER, HYPERLIPIDEMIA, DEPRESSION, BIPOLAR DISORDER, PRESENTS REFERRAL FOR HOME PT SERVICES FOLLOWING [facility] ED PRESENTATION ON 07/23-07/24 FOR RIGHT SIDED HIP/LOWER EXTREMITY PAIN. PATIENT HAD RECENT ED PRESENTATION AT [facility] ON 07/11 FOR EVALUATION, PATIENT DISCHARGED HOME WITHOUT ANY MEDICATION CHANGES. WORKUP FOR SECOND ED PRESENTATION REMARKABLE FOR SCIATICA AND PATIENT REFERRED TO [facility] [employer] DR. BOBBY. PATIENT WAS PRESCRIBED OXYCODONE AND DISCHARGED HOME. PATIENT REQUESTED TO DISCHARGE TO SHORT TERM REHAB HOWEVER UNABLE TO BE PLACED PATIENT WAS NOT ADMITTED AND WOULD HAVE TO PAY OUT OF POCKET FOR REHAB SERVICES IN FACILITY. 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 PATIENT IS PENDING LUMBAR SPINE MRI, SHE WAS EDUCATED ON CALLING RESTAURANT [employer] COOK FOR FOLLOW UP APPOINTMENT FROM THIS CLINICIAN. [...] HOWEVER RESPONDING NO ON PHQ QUESTIONS. RECOMMENDED ORTHOPEDIC ASSISTANT CONSULT FOR FURTHER EMOTIONAL SUPPORT PATIENT HAS [...] End Date/Time Encounter Type Admission Type Attending [facility] Care Facility Care Department Encounter ID Discharge Date Discharge Status Discharge Condition Discharge Reason Percent Goals Met 2024-07-26 00:00:00 2024-09-23 00:00:00 Outpatient NEW ADMISSION MARCUS KNIGHT [facility] [id number] 100.00
--- OUTSIDE RECORDS SUMMARY | 2024-08-09 15:42 | XMS_ITS | Patient Health Record ---
Author Organization [facility] Address [address] [place] [address] Care Team Providers Care Film Masker Name Role Phone Jay Uribe MD Primary Care Provider Robert Powell Jr Unavailable ALLERGIES Allergen (clinical drug ingredient) Drug/Non Drug Allergy documented on EMR Reaction Allergy Type Onset Date Status Sulfa Unknown Drug Allergy Active REASON FOR REFERRAL No Information MEDICATIONS Medication SIG (Take, Route, Frequency, Duration) Notes Start Date End Date Status Estradiol 0.5 MG 1 tablet Orally Once a day for 30 day(s) Active Tylenol 325 MG 1 tablet as needed Orally every 4 hrs Active Multi For Her 50+ - as directed Orally Active Hair Regrowth for Women Active Fluoxetine & Diet Manage Prod 10 MG Orally Active Pravastatin Sodium 20 MG 1 tablet Orally Once a day Active oxyBUTYnin Chloride 5 MG 1 tablet Orally Twice a day for 30 day(s) as needed Active Omeprazole 20 MG 1 capsule Orally Onc e a day Active Premarin 0.3 MG 1 tablet Orally Jeanne y for Three Weeks, 1 Week off Active Flax Seed Oil 1000 MG as directed Orally Active Calcium 1 tab Oral for 14 days Active IMMUNIZATIONS Vaccine Route Administration Date Status Comme nts Influenza Unknown 03/19/2015 Administered Influenza Unknown 05/19/2022 Administered Influenza Unknown 06/08/2023 Administered SOCIAL HISTORY Sex Assigned At : Social History Observation Description Sex Assigned At Unknown PROBLEMS Problem Type ICD Code Onset Dates Problem Status W/U Status Risk SNOMED Code Notes Problem Colon cancer screening (Z12.11) Active confirmed 554623143 Problem Irritable bowel syndrome with diarrhea (K58.0) Active confirmed 666646621 Problem Gastroesophageal reflux disease without esophagitis (K21.9) Active confirmed 843241724 Problem Constipation, unspecified constipation type (K59.00) Active confirmed 50311051 VITAL SIGNS Temperature 96.9 degrees Fahrenheit 04/10/2024 Blood pressure diastolic 00 mm Hg 04/10/2024 Height 58 in 04/10/2024 Blood pressure systolic 000 mm Hg 04/10/2024 Weight 121 lb 2 oz lbs 04/10/2024 BMI 25.31 kg/m2 04/10/2024 Encounters Encounter Location Date Provider Diagnosis [facility] [address] [place] [address] 2023 Robert Mendoza Jr [facility] [address] [place] [phone] 04/10/2024 Robert Mendoza Jr Gastroesophageal reflux disease without esophagitis K21.9 ; Irritable bowel syndrome with diarrhea K58.0 and Colon cancer screening Z12.11 [facility] [address] [place] [phone] 11/18/2023 Robert Mendoza Jr [facility] [address] [place] [address] [place] [phone] 2023 Robert Mendoza Jr ASSESSMENTS Encounter Date Diagnosis Assessment Notes Treatment Notes Treatment Clinical Notes 04/10/2024 Irritable bowel syndrome with diarrhea (ICD-10 - K58.0) 04/10/2024 Gastroesophageal reflux disease without esophagitis (ICD-10 - K21.9) Gastroesophageal reflux disease material was printed 04/10/2024 Colon cancer screening (ICD-10 - Z12.11) PLAN OF TREATMENT Future Test Test Name Order Date COLONOSCOPY 12/04/2015 COLONOSCOPY 06/08/2022 Next Appt Details Provider Name:Robert loving Jr, 04/09/2025 10:50:00 AM, [address] [place] [address], [address], [place], [address], Insurance Providers Payer Name Payer Address Payer Phone Subscriber Number Group Number Insured Name Patient Relationship to Insured Coverage Start Date Coverage End Date MEDICARE OF [facility] [address] [place] [address] [id number] LOVELY Mon RIANNA Self - patient is the insured [employer] ATTN CLAIMS [address] [place] [address] [phone] [id number] RIANNA FERGUSON Self - patient is the insured MEDICAL (GENERAL) HISTORY Medical History History ICD Code urinary incontinence, bladder stimulator placement and removal Multinodular goiter Arthritis Depression Elevated cholesterol Gastroesophageal reflux disease Surgical History Surgery Date(Month/Year) removal fibroadenoma left and right [address] [facility] Total hysterectomy 09/1999 Cholecystectomy 08/2006 Thyroid nodules neurostimulator in bladder 08/11
--- OUTSIDE RECORDS SUMMARY | 2024-08-09 15:42 | XMS_ITS ---
Author Organization [facility] Address [address] [place] [address] Care Team Providers Care Necktie Maker Name Role Phone Jay Uribe MD Primary Care Provider Unavaila denia Mendoza Jr, Robert Serrato REASON FOR VISIT Patient presents today for gerd Encounters Encounter Location Date Provider Diagnosis [facility] [address] [place] [address] [address] [place] [address] 2023 Robert Mendoza Jr PLAN OF TREATMENT Next Appt Details Provider Name:Robert loving Jr, 04/09/2025 10:50:00 AM, [address] [place] [address], [address], [place], [address],
== END 2024-08-09 14:24 | disposition home or self-care (01) ==
PROVIDERS: PCP Internal Medicine; Visit Provider Physician Assistant
DX: M43.16 Spondylolisthesis, lumbar region (principal)
CPT/HCPCS: 99213

== ENCOUNTER 2024-08-11 11:19 | Outpatient (AMB) | payer MEDICARE, SELFPAY ==
[2024-08-11 11:20] VITALS: BMI 27.5
--- NOTE | 2024-08-11 11:20 | MHC.OFFVIS ---
Vital Signs 08/11/24 11:20 Height 4 ft 9 in Weight 127 lb BMI 27.5 Intake Visit Reasons: FU after MRI Infant Nanny Required: No Allergies hydrocodone Allergy (Intermediate, Verified 08/11/24 11:20) Vomiting amoxicillin Adverse Reaction (Intermediate, Verified 08/11/24 11:20) Gastrointestinal Upset nitrofurantoin Adverse Reaction (Intermediate, Verified 08/11/24 11:20) Gastrointestinal Upset sulfadiazine Adverse Reaction (Intermediate, Verified 08/11/24 11:20) Gastrointestinal Upset HPI Comments Details: Patient presents today via telehealth encounter visit to discuss recent lumbar spine MRI and xray results. Patient reports she reviewed spine imaging with [facility] 2 days ago and is being scheduled for back surgery on 08/29/[address] Lyon for L4-5 transforaminal lumbar interbody fusion. She demands oxycodone while she awaits her back surgery. Discussed risks with opioids use, patient's age, memory issues and forgetfulness, depression, and Bipolar disorder. Discussed treatments with interventional management. Patient is adamant and states oxycodone is the only thing that helps me with pain. I have tried Tylenol and Ibuprofen and nothing else helps. They gave it to me in the hospital. Patient was deferred to her PCP and [facility] for opioid prescribing for pre and post-operative medical management and offered to return to our office after surgery rehab if her low back pain is not improved with surgery to consider interventional treatments. PRIOR: Patient is a 73-year-old female is history of depression and bipolar disorder, chronic low back pain with sciatica, urinary incontinence and urgency s/p [employer] bladder stimulator placement ([facility], 2023), memory concerns, presents today for initial evaluation of acute on chronic lower back pain with right-sided radiculopathy. She denies any recent trauma, injury, or falls however she admits being significantly depressed last summer, fall, and winter and would not get up from the cough and lay on my right side for 12 or more hours a day. Back pain has been progressively worsening over the past 2 weeks and debilitating to the point where patient had to check in to [facility] x3 on 07/11/24, 07/22/24 and 07/28/24. She was also evaluated by [facility] on 07/20/24 with pending lumbar spine MRI. Lumbar CT scan showed multilevel diffuse spondylosis of the lumbar spine with complete bony fusion at L5-S1 and a grade 1 spondylolisthesis at L4-L5 with disc herniation resulting in central and neuroforaminal narrowing. Back pain is localized to lower back with radiation into right buttock, lateral hips bilaterally and into anterior thigh and costello and lateral calf of right lower leg with intermittent weakness and decreased sensation with parasthesias from knee down to her foot. Patient is able to ambulate for 2-5 min but has to sit down due to worsening pain with neurogenic claudication and radiculopathy. She also reports back pain will radiate to both buttocks and posterior thigh posteriorly but not as disabling as right lower leg pain. Denies any fever or chills, abdominal or groin pain, foot drop, bowel dysfunction or saddle anesthesia. She has [employer] stimulator serial #[id number]. Justina is rep for this patient , I contacted her during today's visit, Ally reports patient's device is MRI conditional and will need safety checks prior to MRI. She was then transferred to our MRI department to relay this information and facilitate booking a STAT MRI for patient per Neurosurgery. Location: Lower back pain radiates into RLE and intermittently both legs posteriorly Duration: Chronic pain, worsening for 1 month Characteristics of symptom or complaint: Shooting, stabbing, throbbing, radiating, spasming, paresthesias RLE Aggravating or associated factors: movement, walking, bending, changing positions, twisting, standing Relieving factors: Oxycodone, gabapentin, NSAIDs, sitting, resting, wheelchair, heat Treatment: CT lumbar, multiple ER visits, Neurosurgery eval, pending stat lumbar MRI [facility] Medical History (Updated 07/31/24 @ 21:47 by AMANDA Mosher) Lumbar degenerative disc disease Right arm pain Pain in right ankle Sciatic nerve pain Dysuria URI (upper respiratory infection) Cervical spondylosis Urinary incontinence COVID-19 vaccine administered Arthritis Elevated cholesterol Hx of bipolar disorder Depression GERD (gastroesophageal reflux disease) Non-toxic multinodular goiter Surgical History History of bladder surgery History of breast lump/mass excision Hx of cholecystectomy Hx of total hysterectomy with removal of both tubes and ovaries H/O colonoscopy Social History Household Members: Family Housing: House Are you a primary resident care manager rn to a significant other at home: No Do you presently have visiting nurse or other home services: No Alcohol intake: current Alcohol intake frequency: a few times a week Patient Tobacco Use Status: Former Tobacco user Substance Use Type: Marijuana Advance Directives Date on File: 07/23/24 Review of Systems Const All systems reviewed & are unremarkable except as noted in HPI and below ENT Reports Normal hearing present Neuro Reports Normal hearing present Physical Exam Vital Signs: BMI result Body Mass Index 27.5 Const General: alert Orientation/consciousness: oriented to person, oriented to place and Other orientation findings (easily forgetful) Resp Effort & Inspection: able to speak in complete sentences, no audible wheezes and no cough Neuro General: oriented to person and oriented to place Cranial nerves: Yes Normal hearing present Cognition (Neuro): normal cognition Psych Mental Status: mental status grossly normal Speech and movement: Clear speech present Affect: normal affect Attitude: cooperative Thought process: Circumstantial thought process present Thought content: Normal thought content present and Depressive thoughts present Insight: Good insight present (Psych) Judgement: Fair judgement present (Psych) Telehealth Telehealth Telehealth Platform: Telephone Location of provider rendering services: practice address Location of patient: address on file Patient Identification confirmed using: Name, : Yes Telehealth method: voice only Patient verbally consented to treatment: Yes Patient verbally consented to billing insurance company: Yes Patient informed of any privacy concerns related to visit: Yes Minutes spent on Phone/Video with Pt.: 19 Results Reviewed Results Reviewed: Lumbar spine 4 views 08/09/24 CLINICAL INDICATION: Low back pain. COMPARISON: None. FINDINGS: There is mild straightening of lumbar lordosis. There is grade 1 anterolisthesis L4-L5. Rest of the vertebral alignment is normal. Mild loss of L3-4, L4-5 and L5-S1 disc height is noted. On flexion and extension views there is no significant change in the at the L4-5 disc level. No lytic or sclerotic process seen. IMPRESSION: Grade 1 anterolisthesis of L4 on L5 without any significant change on flexion or extension views. Mild degenerative disc changes lumbar spine. MR LUMBAR SPINE WITHOUT CONTRAST 08/02/24 CLINICAL INFORMATION: 3 view resting back pain resulting in 3 images in visits in the last 10 days. COMPARISON: CT lumbar spine 07/11/2024. TECHNIQUE: MRI of the lumbar spine was obtained using routine sequences without contrast. FINDINGS: There is maintained lumbar lordosis with grade 1 anterolisthesis L4 over L5. There is loss of L3-L4 and L4-L5 disc heights. There is almost L5-S1 disc fusion with no disc visualized as was seen on CT previously. The L1-2, L2-3 disc levels are unremarkable. The neural foramina are mildly narrowed bilaterally at the L2-3 disc level. At L3-4 disc level there is mild diffuse bulge flattening the ventral thecal sac without spinal canal stenosis. The neural foramina are patent bilaterally. At L4-5 disc level there is a broad-based diffuse moderate bulge with moderate bilateral facet joint and ligament flavum hypertrophy resulting in moderate to severe spinal canal stenosis. There is a right paracentral disc herniation with upward migration into right epidural space impinging on the exiting right L4 nerve root in proximal lateral recess and spinal canal. There is [id number] right and mild left neural from narrowing. At L5-S1 disc level there is almost disc fusion with posterior spondylosis. The spinal canal is capacious. The neural foramina are mildly narrowed bilaterally. The bone marrow signal and intraspinal signal is normal. Conus medullaris terminates at L1-2 disc level and appears normal in morphology. The paravertebral soft tissues are normal. IMPRESSION: Grade 1 anterolisthesis L4 over L5 with degenerative disc changes L4-5 disc level. There is moderate to see there is spinal canal stenosis or underlying bulge, bilateral facet joint and ligament flavum hypertrophy. There is cephalad migrated para midline disc herniation impinging on the exhibiting right L4 nerve root within the spinal canal and proximal neural foramina. There is moderate to severe right and mild left neural foraminal narrowing. Mild bulge L3-4 and almost bony fusion L5-S1 disc level. L5-S1 fusion is also noted on recent CT 07/11/2024. Assessment & Plan Assessment & Plan (1) Spinal stenosis of lumbar region with neurogenic claudication: Code(s): M48.062 - Spinal stenosis, lumbar region with neurogenic claudication Category: Medical (2) Spondylolisthesis at L4-L5 level: Code(s): M43.16 - Spondylolisthesis, lumbar region Category: Medical (3) Acute exacerbation of chronic low back pain: Code(s): M54.50 - Low back pain, unspecified; G89.29 - Other chronic pain Category: Medical (4) Lumbar degenerative disc disease: Code(s): M51.369 - Other intervertebral disc degeneration, lumbar region without mention of lumbar back pain or lower extremity pain Category: Medical Plan Lumbar spine xray and MRI results were reviewed today. Patient was seen by [facility] on 08/09/[address] Lyon for L4-5 transforaminal lumbar interbody fusion. Patient demanded oxycodone prescribing while she awaits her surgery. This was deferred to her PCP and [facility] for opioid prescribing for pre and post-operative medical management and offered to return to our office after surgery rehab if her low back pain is not improved with surgery to consider interventional treatments. All questions and concerns have been answered. Follow up as needed. I hereby testify that I spent 19 minutes in conversation with this patient as well as with planning and coordinating care for this patient and organizing this note. Coding Level of Care Code Tele Est Pt Level 3 (69924) Complex EM visit Add On G2211 Diagnoses Spinal stenosis of lumbar region with neurogenic claudication M48.062 Spondylolisthesis at L4-L5 level M43.16 Acute exacerbation of chronic low back pain M54.50; G89.29 Lumbar degenerative disc disease M51.369
== END 2024-08-11 11:37 | disposition home or self-care (01) ==
LOC: HO.PMC 11:19
PROVIDERS: PCP Internal Medicine; Visit Provider Nurse Practitioner Family
DX: M48.062 Spinal stenosis, lumbar region with neurogenic claudication (principal); M43.16 Spondylolisthesis, lumbar region; M54.50 Low back pain, unspecified; G89.29 Other chronic pain; M51.369 Other intervertebral disc degeneration, lumbar region without mention of lumbar back pain or lower extremity pain
CPT/HCPCS: 98016

== ENCOUNTER → 2024-08-11 11:19 | Outpatient (BNVA) | payer MEDICARE, SELFPAY | PROVIDERS: PCP Internal Medicine; Visit Provider Nurse Practitioner Family ==

== ENCOUNTER 2024-08-11 17:06 | Emergency (ER) | payer MEDICARE, SELFPAY ==
[2024-08-11 17:16] VITALS: BP 150/92; PULSE 72; O2SAT 97
[2024-08-11 17:22] VITALS: BP 159/86; PULSE 76; RESP 18; TEMP 37; O2SAT 97; BMI 26.8
[2024-08-11 20:00] VITALS: BP 179/82; PULSE 79; RESP 18; TEMP 36.8; O2SAT 98
--- NOTE | 2024-08-11 20:11 | MHC.EDTECH ---
This tech took over care of pt at 1900,rounded and introduced self to pt,upon entry to room pt demanding oxycodone,T/W made RN aware, vitsl taken,call tan in reach
--- NOTE | 2024-08-11 21:09 | PC.NURSE ---
Continuing to await ED provider evaluation. Patient reports pain, requesting Oxycodone or other strong pain medication. Purewick in place, connected to wall suction. Linens changed, changed into hospital attire.
--- NOTE | 2024-08-11 21:10 | MHC.EDTECH ---
T/W placed a pure-wick on pt,draining at this time,pt tolerated well
[2024-08-11] MEDS: oxyCODONE HCl Immed Release 5 MG TABLET PO (23:40)
--- NOTE | 2024-08-11 23:40 | ED_ITS ---
HPI - General Adult General Chief complaint: General Medical Stated complaint: back pain herniated disc, trouble peeing Time Seen by Provider: 08/11/24 22:52 Source: patient, RN notes reviewed and old records reviewed Mode of arrival: EMS Limitations: no limitations History of Present Illness ED Provider: Linda HPI narrative: 73-year-old female presents for evaluation of back pain. Patient has been seen here several times since [place]. This is her 5th visit for similar complaints She was initially diagnosed with sciatica She had a CT scan of the lumbar spine that showed spondylolytic findings most significant L4-L5 with anterior listhesis. She had L5-S1 moderate to severe bilateral neural foraminal narrowing The patient has subsequently followed up outpatient with neurosurgery and reports that she is due to have surgery on 08/29/2024 due to her disc herniations The patient had a lumbar MRI of without contrast performed on 08/02/24 This again showed anterior listhesis at L4 over L5 with degenerative disc changes at L4-L5 there is moderate to severe spinal canal stenosis There is moderate to severe right and mild left neural foraminal narrowing. The patient reports that she has had some difficulty urinating over the last month She has numbness and tingling in both legs right greater than left She reports that she told her physical therapist today about her numbness and tingling and was referred to the ER to ?rule out cauda equina. ? Related Data Home Medications ?Medication ?Instructions ?Recorded ?Confirmed flaxseed oil 1,000 mg capsule 1,000 mg PO DAILY 07/23/24 08/12/24 multivitamin 1 tab PO DAILY 07/23/24 08/12/24 acetaminophen 650 mg 650 mg PO Q8H PRN pain 08/12/24 08/12/24 tablet,extended release cyclosporine 0.05 % eye drops in a 1 drp ophthalmic (eye) DAILY 08/12/24 08/12/24 dropperette (Restasis) estradiol 0.5 mg tablet 0.5 mg PO MOWEFR@0900 08/12/24 08/12/24 fluoxetine 20 mg capsule 20 mg PO DAILY 08/12/24 08/12/24 gabapentin 300 mg capsule 300 mg PO QID 08/12/24 08/12/24 ibuprofen 200 mg tablet 400 mg PO Q8H PRN Pain (Scale 08/12/24 08/12/24 Score 1-3) omeprazole 20 mg capsule,delayed 20 mg PO DAILY@0630 PRN Heartburn 08/12/24 08/12/24 release oxycodone 5 mg tablet 5 mg PO Q8H PRN severe pain 08/12/24 08/12/24 polyvinyl alcohol 1.4 % eye drops 1 drp ophthalmic (eye) QID PRN Dry 08/12/24 08/12/24 (Artificial Tears (polyvinyl Eyes alcohol)) pravastatin 20 mg tablet 20 mg PO DAILY 08/12/24 08/12/24 tizanidine 2 mg tablet 2 mg PO BID PRN Muscle Spasm 08/12/24 08/12/24 Previous Rx's ?Medication ?Instructions ?Recorded lidocaine 5 % topical patch 1 patch topical DAILY PRN pain #15 07/28/24 ea dexamethasone 4 mg tablet 4 mg PO BID #6 tabs 08/12/24 Allergies Allergy/AdvReac Type Severity Reaction Status Date / Time hydrocodone Allergy Intermediate Vomiting Verified 08/11/24 17:28 amoxicillin AdvReac Intermediate Gastrointestinal Verified 08/11/24 17:28 Upset nitrofurantoin AdvReac Intermediate Gastrointestinal Verified 08/11/24 17:28 Upset sulfadiazine AdvReac Intermediate Gastrointestinal Verified 08/11/24 17:28 Upset Review of Systems Constitutional: Constitutional: Denies body ache(s), Denies chills and Denies headache(s) Eyes: Eyes: Denies blurry vision ENT: Denies vertigo, Denies dizziness and Denies headache(s) Cardiovascular: Cardiovascular: Denies chest pain and Denies dyspnea Respiratory: Respiratory: Denies cough and Denies dyspnea Gastrointestinal: Gastrointestinal: Denies abdominal pain, Denies nausea and Denies vomiting Musculoskeletal: Musculoskeletal: Reports back pain, Reports radiating pain i nto limb, Reports stiffness and Reports tingling Integumentary/Breasts: Skin/Breast: Denies rash Neurologic: Denies vertigo, Denies dizziness, Denies headache(s) and Reports tingling PMFSH Past Medical History Medical History Lumbar degenerative disc disease Right arm pain Pain in right ankle Sciatic nerve pain Dysuria URI (upper respiratory infection) Cervical spondylosis Urinary incontinence COVID-19 vaccine administered Arthritis Elevated cholesterol Hx of bipolar disorder Depression GERD (gastroesophageal reflux disease) Non-toxic multinodular goiter Surgical History History of bladder surgery History of breast lump/mass excision Hx of cholecystectomy Hx of total hysterectomy with removal of both tubes and ovaries H/O colonoscopy Social History Social History Household Members: Family Housing: House Are you a primary child caregiver private home to a significant other at home: No Do you presently have visiting nurse or other home services: No Alcohol intake: current Alcohol intake frequency: a few times a week Patient Tobacco Use Status: Former Tobacco user Smoked in Last 30 Days: No Use of substances other than those prescribed or required for medical reasons: No Substance Use Type: Marijuana Advance Directives: Yes Advance Directives on File: Yes Advance Directives Date on File: 07/23/24 Physical Exam ED Vital Signs: Vital Signs - 24 hr 08/11/24 17:22 08/11/24 20:00 08/11/24 23:53 Temperature 98.6 F 98.2 F 97.9 F Pulse Rate 76 79 70 Respiratory Rate 18 18 18 Blood Pressure 159/86 H 179/82 H 182/84 H Pulse Oximetry 97 98 99 Oxygen Delivery Method Room Air Room Air Room Air 08/12/24 03:30 Temperature 97.8 F Pulse Rate 80 Respiratory Rate 16 Blood Pressure 164/78 H Pulse Oximetry 97 Oxygen Delivery Method Room Air BMI result Body Mass Index 26.8 Const General: healthy appearing, comfortable, no acute distress, alert and awake Nutritional Appearance: well nourished Orientation/consciousness: patient oriented x3 HENMT Head: Yes normocephalic and Yes atraumatic Eyes Eyelids: Yes eyelids normal Conjunctivae: conjunctivae normal Sclerae: sclerae normal Corneas: corneas normal Pupils: Equal, round and reactive pupils present EOM: EOMs intact bilaterally Neck Neck: Yes full ROM Resp Effort & Inspection: normal respiratory effort, able to speak in complete sentences and not labored Cardio Rate: regular rate Rhythm: regular rhythm GI Inspection: No distended Palpation (GI): Soft to palpation, not firm, nontender, no guarding and not rigid Back/Spine/Pelvis Other: Straight leg raise positive on right Skin General skin exam: elasticity normal Neuro General: patient oriented x3 Cranial nerves: Yes Equal, round and reactive pupils present and Yes Bilaterally intact EOM present Cognition (Neuro): normal cognition Motor exam (neuro): 5/5 motor strength present throughout Extrem Other: Moving all extremities well without any obvious deformities Course Reevaluation(s) Reevaluation #1: Patient reports feeling much better after receiving a dose of oxycodone. She is able to sit up without any assistance. Again with her bladder scan not showing severe urinary retention in the fact that she was much more mobile with a simple pain medication cauda equina is far less likely. The patient is comfortable with discharge home and she will follow up with her neurosurgical office. I did agree to give the patient a short course of oxycodone for her severe pain. I advised her not to take the oxycodone if she does not need it. I did discuss case management with the patient needed she reports that she was seen them twice in the last month and was told that she can not qualify for acute rehab and she can not pay for private care. Time: 01:06 Reevaluation #2: Patient was to be discharged, she reported that she moved the wrong way and now I feel awful. ? She also states that she ?had a sandwich and am now over tired. Patient is not comfortable with discharge now. She will be evaluated by Physical therapy and case management in the morning. She has no additional complaints other than her back pain I do not see any indication to order any additional testing at this time. Time: 02:29 Reevaluation #3: 08/12/2024 12:28 Andree Shafer NP Patient was evaluated by Physical therapy, their recommendation is for rehab. Unfortunately she was declined by acute care rehab. She is not able to privat lizbeth pay for short-term rehab. 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 She was offered an ambulance for transportation home she however has stated she will contact your family for a ride home. She remains in physician observation at this time pending disposition home Time: 12:28 Medications Administered Generic Name Dose Route Start Last Admin Trade Name Freq PRN Reason Stop Dose Admin Oxycodone HCl 5 mg 08/12/24 02:30 08/12/24 05:45 Oxycodone Hcl Immed Release 5 Mg Tablet PO 5 mg Q6H PRN Administration Pain, Severe (Pain Scale 7-10) Discontinued Medications Generic Name Dose Route Start Last Admin Trade Name Idania PRN Reason Stop Dose Admin Acetaminophen 650 mg 08/12/24 01:25 08/12/24 01:36 Acetaminophen 325 Mg Tablet PO 08/12/24 01:26 650 mg ONCE ONE Administration Oxycodone HCl 5 mg 08/11/24 23:12 08/11/24 23:40 Oxycodone Hcl Immed Release 5 Mg Tablet PO 08/11/24 23:13 5 mg ONCE ONE Administration Medical Decision Making Medical Decision Making [facility] Narrative: 73-year-old female presents for evaluation of back pain. She does have a history of back pain has been seen here 4 times previously for back pain in the last month. I reviewed her CT scan and her more recent lumbar spine MRI dated 08/02/2024. This is only 9 days ago. She had no further trauma, there was no mass that could be growing in the area. I have a low suspicion for cauda equina as this was not mentioned on the MRI from a week and a half ago. Her symptoms are likely related to her disc herniation. We will get a bladder scan to evaluate for distended bladder. However she is on the pure wick and has put out over 400 cc since presentation. The patient's bladder scan showed 206 cc in the bladder, this is not consistent with acute urinary retention. I do not feel we need to get a new MRI as the patient does not clinically have acute cauda equina syndrome. Discussed with the attending, Dr Kenny who agrees with plan Differential Diagnosis Differential Diagnoses: The differential diagnosis associated with the presentation includes Chronic back pain Disc herniation Cauda equina syndrome Lumbar strain Anterior listhesis Lab Data Labs: Lab Results 08/12/24 Range/Units 10:33 COVID-19 (LYDIA) Negative (Negative) COVID-19 Clin Com See Note Discharge Plan Discharge Clinical Impression: Acute on chronic back pain Patient Disposition: Home, Self-Care Instructions: Acute Low Back Pain (ED) Additional Instructions: Your MRI from last week and exam today are not consistent with cauda equina syndrome You do have significant disc herniation that is likely contributing to your pain You may take oxycodone as needed for severe breakthrough pain that is unrelieved with Tylenol. Take dexamethasone twice daily for the next 3 days. Follow-up with your neurosurgical specialist Return for new or worsening symptoms Prescriptions: New dexamethasone 4 mg tablet 4 mg PO BID Qty: 6 0RF No Action lidocaine 5 % adhesive patch,medicated 1 patch topical DAILY PRN (Reason: pain) Qty: 15 0RF Rx Instructions: leave on most painful area for up to 12 hrs tizanidine 2 mg tablet 2 mg PO BID PRN (Reason: Muscle Spasm) acetaminophen 650 mg tablet extended release 650 mg PO Q8H PRN (Reason: pain) gabapentin 300 mg capsule 300 mg PO QID pravastatin 20 mg tablet 20 mg PO DAILY estradiol 0.5 mg tablet 0.5 mg PO MOWEFR@0900 fluoxetine 20 mg capsule 20 mg PO DAILY oxycodone 5 mg tablet 5 mg PO Q8H PRN (Reason: severe pain) polyvinyl alcohol [Artificial Tears (polyvin alc)] 1.4 % Drops 1 drp OPHTHALMIC (EYE) QID PRN (Reason: Dry Eyes) ibuprofen 200 mg Tablet 400 mg PO Q8H PRN (Reason: Pain (Scale Score 1-3)) omeprazole 20 mg Capsule,Delayed Release(Dr/Ec) 20 mg PO DAILY@0630 PRN (Reason: Heartburn) cyclosporine [Restasis] 0.05 % Dropperette 1 drp OPHTHALMIC (EYE) DAILY multivitamin Tablet 1 tab PO DAILY flaxseed oil 1,000 mg Capsule 1,000 mg PO DAILY Rx Instructions: administer with a meal Referrals: Drew Negro [Outside] Print Language: Indonesian
[2024-08-11 23:53] VITALS: BP 182/84; PULSE 70; RESP 18; TEMP 36.6; O2SAT 99
--- NOTE | 2024-08-11 23:54 | MHC.EDTECH ---
Patient bladder scanned per provider's request,206MLS, rounds and vitals completed,BP is elevated,RN/PA aware
[2024-08-12] MEDS: Acetaminophen 325 MG TABLET 650 MG PO ×2 (01:36→13:02)
--- NOTE | 2024-08-12 02:27 | PC.NURSE ---
Upon attempting to discharge patient 1 hour ago, patient stated I know that I said that I could go, but I don't think I can get up into a wheelchair now. Is there any way that I can stay longer, and get some Tylenol and a sandwich? I haven't eaten since 2pm today . Patient was given Tylenol as requested, ham sandwich, and mecca ulises. This RN spoke with SHANELLE Mckeon regarding the patient's hesitation to be discharged home despite sitting up well with provider and stating verbal readiness for discharge 10 minutes prior to attempted discharge. Linda went to bedside to speak with patient. Patient stated I think I just need some more time and maybe I can get up and go home later . Patient requesting PRN medication orders while remaining in [facility], Linda aware. Rena Flores (inspector handbag frames) aware that patient will remain in [facility] until (possible) discharge home. Otherwise, patient will remain for case management in the morning.
[2024-08-12 03:30] VITALS: BP 164/78; PULSE 80; RESP 16; TEMP 36.6; O2SAT 97
[2024-08-12] MEDS: oxyCODONE HCl Immed Release 5 MG TABLET PO ×2 (05:45→13:01)
--- NOTE | 2024-08-12 05:48 | PC.NURSE ---
Primary RN Radha came up to this assembly instructions writer to explain pts abusive behavior. Pt medicated at 0545 and threw medicine cup across room, yelling expletives at Radha. I entered the room shortly after and advised the patient that abusive behavior will not be tolerated and pt appears receptive at this time and when asked if she understands this behavior will not be tolerated she stated I sure do.
--- NOTE | 2024-08-12 05:52 | PC.NURSE ---
pt using foul language toward me, regarding not getting her pain medication, throwing medication cup at me, Notified Clinical coordinator Rena to address pt and her behavior.
--- NOTE | 2024-08-12 06:31 | MHC.EDTECH ---
Emptied 600MLS from canister,patient was repositioned to comfort,warm pack applied to rt knee
--- NOTE | 2024-08-12 10:40 | PHA.MEDREC ---
Pharmacy Consult ? Medication Reconciliation Pharmacy has completed the medication reconciliation. Spoke to pt to confirm meds. Pt had med list with them.
[2024-08-12 10:58] LABS: COVID-19 Test Negative (Negative); IDNOW Serial# 55D5AD1C
--- NOTE | 2024-08-12 12:15 | MHC.CM.ED ---
Received case management consult overnight from Guero TIMMONS. Patient came to the ER due to back pain. Work up essentially negative for anything acute. Physical therapy eval completed. Short term rehab is recommended. T/W met with patient during previous ER visit on 07/28. At that time, patient was d/c'd home with [facility]. Patient has not been inpatient in any facility for the past 30 days. Referral made to all 3 acute rehab facilities. No bed offers at this time. Met with patient in regards to discharge planning. Patient lives with her daughter. PCP verified as Dr Uribe. Patient states she is unable to privately pay for STR. Patient will return home with resumption of VNA. BLS trasnport offered. Patient declined. Patient mentions she has back surgery scheduled for 08/29. Patient will call her family for transport home. Andree DORMAN and Irish FLETCHER made aware. Continue to monitor for d/c needs.
[2024-08-12 14:28] VITALS: BP 164/78; PULSE 80; RESP 16; TEMP 36.6; O2SAT 97
== END 2024-08-12 14:28 | disposition home or self-care (01) ==
PROVIDERS: Physician Assistant; Emergency Provider Emergency Medicine Emergency Medical Services; PCP Internal Medicine
DX: M54.50 Low back pain, unspecified (principal); R33.9 Retention of urine, unspecified; R26.81 Unsteadiness on feet; Z11.52 Encounter for screening for COVID-19; Z79.899 Other long term (current) drug therapy
CPT/HCPCS: 51798; 87635; 97162; 99284

== ENCOUNTER → 2024-08-17 14:02 | Outpatient (BNV) | payer MEDICARE, SELFPAY | PROVIDERS: Admitting Provider Neurological Surgery; PCP Internal Medicine; Visit Provider Internal Medicine | DX: Z13.6 Encounter for screening for cardiovascular disorders (principal) | CPT/HCPCS: 93010 ==

== ENCOUNTER 2024-08-25 18:12 | Emergency (ER) | payer MEDICARE, SELFPAY ==
[2024-08-25 18:27] VITALS: BP 158/98; PULSE 82; O2SAT 98
[2024-08-25 18:32] VITALS: BP 105/61; PULSE 69; RESP 18; TEMP 36.8; O2SAT 95; BMI 28.8
--- NOTE | 2024-08-25 18:55 | PC.NURSE ---
assumed care of patient at this time patient reporting increased pain and inability to walk d/t sciatic pain. surgery planned for wednesday
--- OUTSIDE RECORDS SUMMARY | 2024-08-25 19:02 | XMS_ITS | Clinical Summary ---
Author Organization Unknown Care Team Providers Care Case Making Machine Operator Name Role Phone JIMMY TIDWELL, JOHN Unavailable Unavailable ANTONIA PT, MARCUS Unavailable Unavailable Payers Payer Name Policy Type Policy Number Effective Date Expira tion Date MEDICARE - [facility] [id number] [facility] [id number] Problems Condition Name Condition Details Condition Category [...] 2- 00:00: 00 07-26 00:00 :00 No [id number] Per instruc tions Per instructio ns (route: oral) Med Classific ation: Cardiovas cular Therapy Agents fluoxetine 20 mg capsule 2023-07 00:00: 00 Yes [id number] 1 capsule BEDTIME 1 capsule BEDTIME (route: oral) Med Classific ation: Central Nervous System Agents gabapentin 100 mg capsule 2023-07 00:00: 00 Yes [id number] 2 capsule 3 TIMES DAILY 2 capsule 3 TIMES DAILY (route: oral) Med Classific ation: Central Nervous System Agents estradiol 0.5 mg tablet 2023-07 00:00: 00 Yes [id number] Per instruc tions DIRECTED Per instructio ns DIRECTED (route: oral) Med Classific ation: Endocrine diclofenac 1 % topical gel 2023-07 00:00: 00 Yes [id number] Per instruc tions DIRECTED Per instructio ns DIRECTED (route: topical) Med Classific ation: Dermatolo gical estradiol 0.01% (0.1 mg/gram) vaginal cream 2023-07 00:00: 00 Yes [id number] Per instruc tions DIRECTED Per instructio ns DIRECTED (route: vaginal) Med Classific ation: Vaginal Products omeprazole magnesium 20 mg tablet,leon yed release 2023-07 00:00: 00 Yes [id number] 1 tablet DAILY 1 tablet DAILY (route: oral) Med Classific ation: Gastroint estinal Therapy Agents oxycodone 5 mg tablet 2023-07 00:00: 00 Yes [id number] 1 tablet EVERY 8 HOURS 1 tablet EVERY 8 HOURS (route: oral) Med Classific ation: Analgesic , Anti-infl ammatory or Antipyret ic pravastatin 20 mg tablet 2023-07 00:00: 00 Yes [id number] 1 tablet BEDTIME 1 tablet BEDTIME (route: oral) Med Classific ation: Cardiovas cular Therapy Agents Restasis MultiDose 0.05 % eye drops 2023-07 00:00: 00 Yes [id number] 1 drops DAILY 1 drops DAILY (route: ophthalmic (eye)) Med Classific ation: Ophthalmi c Agents tizanidine 2 mg tablet 2023-07 00:00: 00 Yes [id number] 1 tablet 2 TIMES DAILY 1 tablet 2 TIMES DAILY (route: oral) Med Classific ation: Locomotor System Tylenol Extra Strength 500 mg tablet 07-20 00:00: 00 Yes [id number] 1 tablet EVERY AM 1 tablet EVERY AM (route: oral) Med Classific ation: Analgesic , Anti-infl ammatory or Antipyret ic Vital Signs Vital Name Observation Time Observation Value Commen ts Temperature 2024-08-21 16:30:00.000 98.4 [degF] Temperature 2024-08-11 15:48:00.000 98.5 [degF] Temperature 2024-07-26 13:13:00.000 98.5 [degF] BMI (%) 2024-07-26 13:13:00.000 22 kg/m2 Height 2024-07-26 13:13:00.000 58 [in_us] Pulse 2024-08-21 16:30:00.000 82 /min Pulse 2024-08-11 15:48:00.000 77 /min Pulse 2024-07-26 13:13:00.000 72 /min O2 Saturation (%) 2024-08-21 16:30:00.000 98 % O2 Saturation (%) 2024-08-11 15:48:00.000 98 % O2 Saturation (%) 2024-07-26 13:13:00.000 99 % Respirations 2024-08-21 16:30:00.000 16 /min Respirations 2024-08-11 15:48:00.000 16 /min Respirations 2024-07-26 13:13:00.000 16 /min Weight (lbs) 2024-07-26 13:13:00.000 110 [lb_av] Systolic Blood Pressure 2024-08-21 16:30:00.000 128 mm [Hg] Systolic Blood Pressure 2024-08-11 15:48:00.000 132 mm [Hg] Systolic Blood Pressure 2024-07-26 13:13:00.000 168 mm [Hg] Diastolic Blood Pressure 2024-08-21 16:30:00.000 74 mm [Hg] Diastolic Blood Pressure 2024-08-11 15:48:00.000 70 mm [Hg] Diastolic Blood Pressure 2024-07-26 13:13:00.000 [...] PRESENTS REFERRAL FOR HOME PT SERVICES FOLLOWING [facility] ED PRESENTATION ON 07/23-07/24 FOR RIGHT SIDED HIP/LOWER EXTREMITY PAIN. PATIENT HAD RECENT ED PRESENTATION AT [facility] ON 07/11 FOR EVALUATION, PATIENT DISCHARGED HOME WITHOUT ANY MEDICATION CHANGES. WORKUP FOR SECOND ED PRESENTATION REMARKABLE FOR SCIATICA AND PATIENT REFERRED TO [facility] DR. BOBBY. PATIENT WAS PRESCRIBED OXYCODONE AND DISCHARGED HOME. PATIENT REQUESTED TO DISCHARGE TO SHORT TERM REHAB HOWEVER UNABLE TO BE PLACED PATIENT WAS NOT ADMITTED AND WOULD HAVE TO PAY OUT OF POCKET FOR REHAB SERVICES IN FACILITY. 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 PATIENT IS PENDING LUMBAR SPINE MRI, SHE WAS EDUCATED ON CALLING [facility] FOR FOLLOW UP APPOINTMENT FROM THIS CLINICIAN. [...] HOWEVER RESPONDING NO ON PHQ QUESTIONS. RECOMMENDED TERMINAL COMPUTER OPERATOR CONSULT FOR FURTHER EMOTIONAL SUPPORT PATIENT HAS LOST SPOUSE IN THE LAST 2 YEARS AND HAS HAD MAJOR AGUAYO [code = SUMMARY OF THERAPY EVAL/ASSESSMENT FINDINGS AND REASON(S) SKILLS OF A THERAPIST ARE INDICATED: 07/26 SOC SUMMARY: PATIENT IS A 73-YEAR-OLD FEMALE WITH HISTORY OF CERVICAL SPONDYLOSIS, URINARY INCONTINENCE, GERD, MULTINODULAR GOITER, HYPERLIPIDEMIA, DEPRESSION, BIPOLAR DISORDER, PRESENTS REFERRAL FOR HOME PT SERVICES FOLLOWING [facility] ED PRESENTATION ON 07/23-07/24 FOR RIGHT SIDED HIP/LOWER EXTREMITY PAIN. PATIENT HAD RECENT ED PRESENTATION AT [facility] ON 07/11 FOR EVALUATION, PATIENT DISCHARGED HOME WITHOUT ANY MEDICATION CHANGES. WORKUP FOR SECOND ED PRESENTATION REMARKABLE FOR SCIATICA AND PATIENT REFERRED TO [facility] DR. BOBBY. PATIENT WAS PRESCRIBED OXYCODONE AND DISCHARGED HOME. PATIENT REQUESTED TO DISCHARGE TO SHORT TERM REHAB HOWEVER UNABLE TO BE PLACED PATIENT WAS NOT ADMITTED AND WOULD HAVE TO PAY OUT OF POCKET FOR REHAB SERVICES IN FACILITY. 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 PATIENT IS PENDING LUMBAR SPINE MRI, SHE WAS EDUCATED ON CALLING [facility] FOR FOLLOW UP APPOINTMENT FROM THIS CLINICIAN. [...] HOWEVER RESPONDING NO ON PHQ QUESTIONS. RECOMMENDED TERMINAL COMPUTER OPERATOR CONSULT FOR FURTHER EMOTIONAL SUPPORT PATIENT HAS [...] AND TRAINING FOR PROPER WHEELCHAIR FIT.] Goal 2024-08-21 Patient Goal - I WANT TO GET [...] WILL DEMONSTRATE IMPROVED WHEELCHAIR MOBILITY AND FITTING. Reason for Visit MINIMUM ASSIST WITH TRANSFER/AMBULATION/ADLS Encounters Start Date/Time End Date/Time Encounter Type Admission Type Attending [facility] Care Department Encounter ID Discharge Date Discharge Status Discharge Condition Discharge Reason Percent Goals Met 2024-07-26 00:00:00 2024-08-21 00:00:00 Outpatient NEW ADMISSION ANTONIA MARCUS [facility] [id number] 2024-08-21 00:00:00 DISCHARGE TO HOME OR SELF CARE MINIMUM ASSIST WITH TRANSFER/A MBULATION/ ADLS PER CLIENT REQUEST 83.33
--- OUTSIDE RECORDS SUMMARY | 2024-08-25 19:02 | XMS_ITS ---
Author Organization [facility] Address [address] [place] [address] Care Team Providers Care Certified Medical Technician Assistant Name Role Phone Jay Uribe MD Primary Care Provider Unavaileugene Mendoza Jr, Robert Serrato REASON FOR VISIT Pt no show Encounters Encounter Location Date Provider Diagnosis [facility] [address] [place] [address] 2023 Robert Mendoza Jr PLAN OF TREATMENT Next Appt Details Provider Name:Robert loving Jr, 04/09/2025 10:50:00 AM, [address] [place] [address], [address], [place], [address],
--- OUTSIDE RECORDS SUMMARY | 2024-08-25 19:02 | XMS_ITS ---
Author Organization [facility] Address [address] [place] [address] Care Team Providers Care Power Systems Engineer Name Role Phone Jay Uribe MD Primary [...] 04/10/2024 Encounters Encounter Location Date Provider Diagnosis [facility] [address] [place] [address] 04/10/2024 Robert Mendoza Jr Gastroesophageal reflux disease [...] Name:Robert loving Jr, 04/09/2025 10:50:00 AM, [address], [address], [place], [address],
--- OUTSIDE RECORDS SUMMARY | 2024-08-25 19:03 | XMS_ITS | Patient Health Record ---
Author Organization [facility] Address [address] [place] [address] Care Team Providers Care Public Address System Operator Name Role Phone Jay Uribe MD Primary [...] Problem Colon cancer screening (Z12.11) Active confirmed 081133031 Problem Irritable bowel syndrome with diarrhea (K58.0) Active confirmed 834793626 Problem Gastroesophageal reflux disease without esophagitis (K21.9) Active confirmed 612442652 Problem Constipation, unspecified constipation type (K59.00) Active confirmed 30822587 VITAL SIGNS Temperature 96.9 degrees Fahrenheit 04/10/2024 Blood pressure diastolic 00 mm Hg 04/10/2024 Height 58 in 04/10/2024 Blood pressure systolic 000 mm Hg 04/10/2024 Weight 121 lb 2 oz lbs 04/10/2024 BMI 25.31 kg/m2 04/10/2024 Encounters Encounter Location Date Provider Diagnosis [facility] [address] [place] [address] 2023 Robert Mendoza Jr [facility] [address] [place] [phone] 04/10/2024 Robert Mendoza Jr Gastroesophageal reflux disease without esophagitis K21.9 ; Irritable bowel syndrome with diarrhea K58.0 and Colon cancer screening Z12.11 [facility] [address] [place] [phone] 11/18/2023 Robert Mendoza Jr [facility] [address] [place] [address] [place] [phone] 2023 Robert Mendoza Jr ASSESSMENTS Encounter Date [...] Provider Name:Robert loving Jr, 04/09/2025 10:50:00 AM, [address] [place] [address], [address], [place], [address], Insurance Providers Payer Name Payer Address Payer Phone Subscriber Number Group Number Insured Name Patient Relationship to Insured Coverage Start Date Coverage End Date MEDICARE OF [facility] [address] [place] [address] [id number] LOVELY Mon RIANNA Self - patient is the insured [employer] ATT[employer] CLAIMS [address] [place] [address] [phone] [id number] RIANNA FERGUSON Self - patient is the insured MEDICAL (GENERAL) HISTORY Medical History History ICD Code urinary incontinence, bladder stimulator placement and removal Multinodular goiter Arthritis Depression Elevated cholesterol Gastroesophageal reflux disease Surgical History Surgery Date(Month/Year) removal fibroadenoma left and right [address] [facility] Total hysterectomy 09/1999 Cholecystectomy 08/2006 Thyroid nodules neurostimulator in bladder 08/11
--- OUTSIDE RECORDS SUMMARY | 2024-08-25 19:03 | XMS_ITS ---
Author Organization [facility] Address [address] [place] [address] Care Team Providers Care Subeditor Name Role Phone Jay Uribe MD Primary Care Provider Unavaila Robert Harmon Jr REASON FOR VISIT Patient presents today for gerd Encounters Encounter Location Date Provider Diagnosis [facility] [address] [place] [address] [address] [place] [address] 2023 Robert Mendoza Jr PLAN OF TREATMENT Next Appt Details Provider Name:Robert loving Jr, 04/09/2025 10:50:00 AM, [address] [place] [address], [address], [place], [address],
[2024-08-25 19:54] VITALS: BP 147/74; PULSE 74; RESP 16; TEMP 36.6; O2SAT 97
--- NOTE | 2024-08-25 20:01 | PC.NURSE ---
This RN to bedside pt reporting terrible pain and needs and oxycodone because it the only thing that takes away the pain. no provider assigned to patient at this time. Providers aware of patient request
[2024-08-25] MEDS: Acetaminophen 325 MG TABLET 975 MG PO (21:05)
[2024-08-25 22:16] VITALS: BP 162/82; PULSE 78; RESP 18; TEMP 36.8; O2SAT 97
[2024-08-26 00:38] VITALS: BP 180/85; PULSE 73; RESP 16; TEMP 36.8; O2SAT 96
[2024-08-26 02:54] VITALS: BP 202/90; PULSE 86; RESP 16; TEMP 36.9; O2SAT 99
--- NOTE | 2024-08-26 04:31 | ED.EXTPRO ---
HPI - Extremity Problem General Chief complaint: Extremity Injury, Lower Stated complaint: 04/27 nerve pain, pt states sciatica Time Seen by Provider: 08/26/24 04:30 Source: patient Mode of arrival: ambulatory Limitations: no limitations History of Present Illness ED Provider: HPI Narrative: Patient with chronic right leg pain from sciatica plan to see pain specialist complaining of pain patient took oxycodone prior felt much better Related Data Home Medications ?Medication ?Instructions ?Recorded ?Confirmed flaxseed oil 1,000 mg capsule 1,000 mg PO DAILY 07/23/24 08/17/24 multivitamin 1 tab PO DAILY 07/23/24 08/17/24 acetaminophen 650 mg 650 mg PO Q8H PRN pain 08/12/24 08/17/24 tablet,extended release cyclosporine 0.05 % eye drops in a 1 drp ophthalmic (eye) DAILY 08/12/24 08/17/24 dropperette (Restasis) estradiol 0.5 mg tablet 0.5 mg PO MOWEFR@0900 08/12/24 08/17/24 fluoxetine 20 mg capsule 20 mg PO DAILY 08/12/24 08/17/24 gabapentin 300 mg capsule 300 mg PO QID 08/12/24 08/17/24 ibuprofen 200 mg tablet 400 mg PO Q8H PRN Pain (Scale 08/12/24 08/17/24 Score 1-3) omeprazole 20 mg capsule,delayed 20 mg PO DAILY@0630 PRN Heartburn 08/12/24 08/17/24 release polyvinyl alcohol 1.4 % eye drops 1 drp ophthalmic (eye) QID PRN Dry 08/12/24 08/17/24 (Artificial Tears (polyvinyl Eyes alcohol)) pravastatin 20 mg tablet 20 mg PO DAILY 08/12/24 08/17/24 tizanidine 2 mg tablet 2 mg PO BID PRN Muscle Spasm 08/12/24 08/17/24 amlodipine 2.5 mg tablet 2.5 mg PO DAILY 08/17/24 08/17/24 Previous Rx's ?Medication ?Instructions ?Recorded lidocaine 5 % topical patch 1 patch topical DAILY PRN pain #15 07/28/24 ea oxycodone 5 mg tablet 5 mg PO Q6H PRN pain #8 tabs 08/12/24 oxycodone 5 mg tablet 5 mg PO BID PRN pain #10 tabs 08/26/24 Allergies Allergy/AdvReac Type Severity Reaction Status Date / Time hydrocodone Allergy Intermediate Vomiting Verified 08/25/24 18:34 amoxicillin AdvReac Intermediate Gastrointestinal Verified 08/25/24 18:34 Upset nitrofurantoin AdvReac Intermediate Gastrointestinal Verified 08/25/24 18:34 Upset sulfadiazine AdvReac Intermediate Gastrointestinal Verified 08/25/24 18:34 Upset Review of Systems Review of Systems: Yes all other systems are reviewed and are negative [facility] Past Medical History Medical History Bipolar disorder Lumbar degenerative disc disease Sciatic nerve pain Cervical spondylosis Urinary incontinence Arthritis Elevated cholesterol Depression GERD (gastroesophageal reflux disease) Non-toxic multinodular goiter Surgical History S/P placement of nerve stimulator Hx of bilateral cataract extraction History of breast lump/mass excision Hx of cholecystectomy Hx of total hysterectomy with removal of both tubes and ovaries H/O colonoscopy Social History Social History Household Members: Family Household Members Other:: daughter/grandson Housing: House Are you a primary health care manager to a significant other at home: No Do you presently have visiting nurse or other home services: Yes (Meals on Wheels) Alcohol intake: current Alcohol intake frequency: a few times a week Comment: states does not move around at all, stays in bed due to pain Patient Tobacco Use Status: Former Tobacco user Tobacco use type: Cigarette Years Smoked: 5 Smoked in Last 30 Days: No Use of substances other than those prescribed or required for medical reasons: No Substance Use Type: Marijuana Advance Directives: Yes Advance Directives on File: Yes Advance Directives Date on File: 07/23/24 Physical Exam Vital Signs: Vital Signs: Last Vital Signs Temp 98.6 F 08/26/24 06:20 Pulse 80 08/26/24 06:20 Resp 16 08/26/24 06:20 BP 153/80 H 08/26/24 06:20 Pulse Ox 96 08/26/24 06:20 O2 Del Method Room Air 08/26/24 06:20 BMI result Body Mass Index 28.8 Appearance: Alert. Oriented X3. No acute distress. Eyes: PERRLA, No Nystagmus ENT: Pharynx normal. Oral Mucosa moist Neck: Normal inspection. Neck supple. CVS: Normal heart rate and rhythm. Pulses normal. Respiratory: No respiratory distress. Equal air entry bilateral, no wheezing/rales/rhonchi Abdomen: Soft and nontender. Bowel sounds are present, no mass palpable, no CVA tenderness Skin: Skin warm and dry. Normal skin color. Normal skin turgor. Extremities: No lower extremity edema. No calf tenderness diffuse muscular pain right leg SLR positive at 45 degrees Neuro: Oriented X 3. No motor deficit. No sensory deficit.No cerebellar signs , cranial nerves II-XII intact Medications Administered Discontinued Medications Generic Name Dose Route Start Last Admin Trade Name Freq PRN Reason Stop Dose Admin Acetaminophen 975 mg 08/25/24 20:56 08/25/24 21:05 Acetaminophen 325 Mg Tablet PO 08/25/24 20:57 975 mg ONCE ONE Administration Oxycodone HCl 10 mg 08/26/24 04:31 08/26/24 04:43 Oxycodone Hcl Immed Release 5 Mg Tablet PO 08/26/24 04:32 10 mg ONCE ONE Administration Medical Decision Making Medical Decision Making [facility] Narrative: Patient with chronic right leg pain with some sciatica will prescribe oxycodone plan to see pain clinic next week Discharge Plan Discharge Clinical Impression: Acute right-sided back pain with sciatica Patient Disposition: Home, Self-Care Instructions: Sciatica (ED) Additional Instructions: Continue pain medication as prescribed Follow up with pain clinic as scheduled Prescriptions: New oxycodone 5 mg tablet 5 mg PO BID PRN (Reason: pain) Qty: 10 0RF Rx Instructions: Partial Fill upon patient request. No Action lidocaine 5 % adhesive patch,medicated 1 patch topical DAILY PRN (Reason: pain) Qty: 15 0RF Rx Instructions: leave on most painful area for up to 12 hrs amlodipine 2.5 mg tablet 2.5 mg PO DAILY tizanidine 2 mg tablet 2 mg PO BID PRN (Reason: Muscle Spasm) acetaminophen 650 mg tablet extended release 650 mg PO Q8H PRN (Reason: pain) gabapentin 300 mg capsule 300 mg PO QID pravastatin 20 mg tablet 20 mg PO DAILY estradiol 0.5 mg tablet 0.5 mg PO MOWEFR@0900 fluoxetine 20 mg capsule 20 mg PO DAILY polyvinyl alcohol [Artificial Tears (polyvin alc)] 1.4 % Drops 1 drp OPHTHALMIC (EYE) QID PRN (Reason: Dry Eyes) ibuprofen 200 mg Tablet 400 mg PO Q8H PRN (Reason: Pain (Scale Score 1-3)) omeprazole 20 mg Capsule,Delayed Release(Dr/Ec) 20 mg PO DAILY@0630 PRN (Reason: Heartburn) cyclosporine [Restasis] 0.05 % Dropperette 1 drp OPHTHALMIC (EYE) DAILY oxycodone 5 mg tablet 5 mg PO Q6H PRN (Reason: pain) Qty: 8 0RF Rx Instructions: Partial Fill upon patient request. multivitamin Tablet 1 tab PO DAILY flaxseed oil 1,000 mg Capsule 1,000 mg PO DAILY Rx Instructions: administer with a meal Interventions: ED Discharge Assessment Last Done: 08/26/24 06:20 Discharge Date/Time: 08/26/24 06:21 Print Language: Ukrainian
[2024-08-26] MEDS: oxyCODONE HCl Immed Release 5 MG TABLET 10 MG PO (04:43)
--- NOTE | 2024-08-26 04:43 | PC.NURSE ---
provider at bedside
[2024-08-26 05:18] VITALS: BP 153/80; PULSE 80; RESP 16; TEMP 37; O2SAT 96
[2024-08-26 06:20] VITALS: BP 153/80; PULSE 80; RESP 16; TEMP 37; O2SAT 96
== END 2024-08-26 06:21 | disposition home or self-care (01) ==
PROVIDERS: Emergency Provider Internal Medicine; PCP Internal Medicine
DX: M54.41 Lumbago with sciatica, right side (principal); Z87.891 Personal history of nicotine dependence
CPT/HCPCS: 99283; 99284

== ENCOUNTER 2024-08-29 07:44 | Inpatient (IN) | payer MEDICARE, SELFPAY ==
--- NOTE | 2024-08-17 | ECG_ITS ---
Test Reason : preop Blood Pressure : */* mmHG Vent. Rate : 85 BPM Atrial Rate : 85 BPM P-R Int : 170 ms QRS Dur : 76 ms QT Int : 344 ms P-R-T Axes : 33 -4 19 degrees QTcB Int : 409 ms Normal sinus rhythm with sinus arrhythmia Normal ECG When compared with ECG of 08-Dec-2020 02:38, No significant change was found Referred By: Cony Handley Electronically Signed By: FARAZ BRISCOE
[2024-08-17 13:19] VITALS: BP 111/68; PULSE 84; RESP 20; O2SAT 97; BMI 25.1
[2024-08-29] VITALS (14 sets, daily range): BP systolic 108–159; BP diastolic 50–92; PULSE 76–92; RESP 12–17; TEMP 36.1–37.1; O2SAT 93–100
--- NOTE | ~2024-08-29 | FL_ITS ---
EXAMINATION: FL GUIDANCE ONLY HISTORY: L4-L5 TLIF COMPARISON: Correlation is made with plain films of the lumbar spine dated 08/09/2024. TECHNIQUE: Fluoroscopy time: 46 seconds. Cumulative Dose: 28.466 mGy. DAP: 9.2615 mGym2 Images: 2. FINDINGS: AP and lateral spot films of the lumbar spine demonstrate posterior fusion of L4 and L5 with pedicle screws and spinal stabilization rods. A spacer is seen at this level. FL/FL guidance in OR IMPRESSION: Fluoroscopy during procedure. Please see procedure report for additional information. Electronically signed by: Alexander Allred MD 08/29/2024 01:27 PM [facility] [place]
--- OUTSIDE RECORDS SUMMARY | 2024-08-29 07:49 | XMS_ITS ---
Author Organization [facility] Address [address] [place] [address] Care Team Providers Care Biodiesel Processing Technician Name Role Phone Jay Uribe MD Primary [...] 04/10/2024 Encounters Encounter Location Date Provider Diagnosis [facility] [address] [place] [address] 04/10/2024 Robert Mendoza Jr Gastroesophageal reflux disease [...] Name:Robert loving Jr, 04/09/2025 10:50:00 AM, [address], [address], [place], [address],
--- OUTSIDE RECORDS SUMMARY | 2024-08-29 07:49 | XMS_ITS ---
Author Organization [facility] Address [address] [place] [address] Care Team Providers Care Riffler Tender Name Role Phone Jay Uribe MD Primary Care Provider Unavaileugene Mendoza Jr, Robert Serrato REASON FOR VISIT Pt no show Encounters Encounter Location Date Provider Diagnosis [facility] [address] [place] [address] 2023 Robert Mendoza Jr PLAN OF TREATMENT Next Appt Details Provider Name:Robert loving Jr, 04/09/2025 10:50:00 AM, [address], [address], [place], [address],
--- OUTSIDE RECORDS SUMMARY | 2024-08-29 07:49 | XMS_ITS | Clinical Summary ---
Author Organization Unknown Care Team Providers Care Railway Station Manager Name Role Phone JIMMY TIDWELL, JOHN Unavailable Unavailable ANTONIA PT, MARCUS Unavailable Unavailable Payers Payer Name Policy Type Policy Number Effective Date Expira tion Date MEDICARE - [facility] [place] [id number] [facility] [id number] Problems Condition Name Condition Details Condition Category [...] 2- 00:00: 00 07-26 00:00 :00 No [id number] Per instruc tions Per instructio ns (route: oral) Med Classific ation: Cardiovas cular Therapy Agents fluoxetine 20 mg capsule 2023-07 00:00: 00 Yes [id number] 1 capsule BEDTIME 1 capsule BEDTIME (route: oral) Med Classific ation: Central Nervous System Agents gabapentin 100 mg capsule 2023-07 00:00: 00 Yes [id number] 2 capsule 3 TIMES DAILY 2 capsule 3 TIMES DAILY (route: oral) Med Classific ation: Central Nervous System Agents estradiol 0.5 mg tablet 2023-07 00:00: 00 Yes [id number] Per instruc tions DIRECTED Per instructio ns DIRECTED (route: oral) Med Classific ation: Endocrine diclofenac 1 % topical gel 2023-07 00:00: 00 Yes [id number] Per instruc tions DIRECTED Per instructio ns DIRECTED (route: topical) Med Classific ation: Dermatolo gical estradiol 0.01% (0.1 mg/gram) vaginal cream 2023-07 00:00: 00 Yes [id number] Per instruc tions DIRECTED Per instructio ns DIRECTED (route: vaginal) Med Classific ation: Vaginal Products omeprazole magnesium 20 mg tablet,leon yed release 2023-07 00:00: 00 Yes [id number] 1 tablet DAILY 1 tablet DAILY (route: oral) Med Classific ation: Gastroint estinal Therapy Agents oxycodone 5 mg tablet 2023-07 00:00: 00 Yes [id number] 1 tablet EVERY 8 HOURS 1 tablet EVERY 8 HOURS (route: oral) Med Classific ation: Analgesic , Anti-infl ammatory or Antipyret ic pravastatin 20 mg tablet 2023-07 00:00: 00 Yes [id number] 1 tablet BEDTIME 1 tablet BEDTIME (route: oral) Med Classific ation: Cardiovas cular Therapy Agents Restasis MultiDose 0.05 % eye drops 2023-07 00:00: 00 Yes [id number] 1 drops DAILY 1 drops DAILY (route: ophthalmic (eye)) Med Classific ation: Ophthalmi c Agents tizanidine 2 mg tablet 2023-07 00:00: 00 Yes [id number] 1 tablet 2 TIMES DAILY 1 tablet 2 TIMES DAILY (route: oral) Med Classific ation: Locomotor System Tylenol Extra Strength 500 mg tablet 07-20 00:00: 00 Yes [id number] 1 tablet EVERY AM 1 tablet EVERY [...] PRESENTS REFERRAL FOR HOME PT SERVICES FOLLOWING [facility] ED PRESENTATION ON 07/23-07/24 FOR RIGHT SIDED HIP/LOWER EXTREMITY PAIN. PATIENT HAD RECENT ED PRESENTATION AT [facility] ON 07/11 FOR EVALUATION, PATIENT DISCHARGED HOME WITHOUT ANY MEDICATION CHANGES. WORKUP FOR SECOND ED PRESENTATION REMARKABLE FOR SCIATICA AND PATIENT REFERRED TO [facility] CONCRETE ANALYST DR. BOBBY. PATIENT WAS PRESCRIBED OXYCODONE AND DISCHARGED HOME. PATIENT REQUESTED TO DISCHARGE TO SHORT TERM REHAB HOWEVER UNABLE TO BE PLACED PATIENT WAS NOT ADMITTED AND WOULD HAVE TO PAY OUT OF POCKET FOR REHAB SERVICES IN FACILITY. 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 PATIENT IS PENDING LUMBAR SPINE MRI, SHE WAS EDUCATED ON CALLING CONCRETE ANALYST FOR FOLLOW UP APPOINTMENT FROM THIS CLINICIAN. [...] HOWEVER RESPONDING NO ON PHQ QUESTIONS. RECOMMENDED TILE TRIMMER CONSULT FOR FURTHER EMOTIONAL SUPPORT PATIENT HAS LOST SPOUSE IN THE LAST 2 YEARS AND HAS HAD MAJOR AGUAYO [code = SUMMARY OF THERAPY EVAL/ASSESSMENT FINDINGS AND REASON(S) SKILLS OF A THERAPIST ARE INDICATED: 07/26 SOC SUMMARY: PATIENT IS A 73-YEAR-OLD FEMALE WITH HISTORY OF CERVICAL SPONDYLOSIS, URINARY INCONTINENCE, GERD, MULTINODULAR GOITER, HYPERLIPIDEMIA, DEPRESSION, BIPOLAR DISORDER, PRESENTS REFERRAL FOR HOME PT SERVICES FOLLOWING [facility] ED PRESENTATION ON 07/23-07/24 FOR RIGHT SIDED HIP/LOWER EXTREMITY PAIN. PATIENT HAD RECENT ED PRESENTATION AT [facility] ON 07/11 FOR EVALUATION, PATIENT DISCHARGED HOME WITHOUT ANY MEDICATION CHANGES. WORKUP FOR SECOND ED PRESENTATION REMARKABLE FOR SCIATICA AND PATIENT REFERRED TO [facility] CONCRETE ANALYST DR. BOBBY. PATIENT WAS PRESCRIBED OXYCODONE AND DISCHARGED HOME. PATIENT REQUESTED TO DISCHARGE TO SHORT TERM REHAB HOWEVER UNABLE TO BE PLACED PATIENT WAS NOT ADMITTED AND WOULD HAVE TO PAY OUT OF POCKET FOR REHAB SERVICES IN FACILITY. 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 PATIENT IS PENDING LUMBAR SPINE MRI, SHE WAS EDUCATED ON CALLING CONCRETE ANALYST FOR FOLLOW UP APPOINTMENT FROM THIS CLINICIAN. [...] HOWEVER RESPONDING NO ON PHQ QUESTIONS. RECOMMENDED TILE TRIMMER CONSULT FOR FURTHER EMOTIONAL SUPPORT PATIENT HAS [...] End Date/Time Encounter Type Admission Type Attending [facility] Care Department Encounter ID Discharge Date Discharge Status Discharge Condition Discharge Reason Percent Goals Met 2024-07-26 00:00:00 2024-08-21 00:00:00 Outpatient NEW ADMISSION ANTONIA MARCUS [facility] [id number] 2024-08-21 00:00:00 DISCHARGE TO HOME OR SELF CARE MINIMUM ASSIST WITH TRANSFER/A MBULATION/ ADLS PER CLIENT REQUEST 83.33
--- OUTSIDE RECORDS SUMMARY | 2024-08-29 07:49 | XMS_ITS ---
Author Organization [facility] Address [address] [place] [address] Care Team Providers Care Aircraft Charter Dispatcher Name Role Phone Jay Uribe MD Primary Care Provider Unavaila Robert Harmon Jr REASON FOR VISIT Patient presents today for gerd Encounters Encounter Location Date Provider Diagnosis [facility] [address] [place] [address] [address] [place] [address] 2023 Robert Mendoza Jr PLAN OF TREATMENT Next Appt Details Provider Name:Robert loving Jr, 04/09/2025 10:50:00 AM, [address] [place] [address], [address], [place], [address],
--- OUTSIDE RECORDS SUMMARY | 2024-08-29 07:49 | XMS_ITS | Clinical Summary ---
Author Organization Unknown Care Team Providers Care Injection Molding Supervisor Name Role Phone JIMMY TIDWELL, JOHN Unavailable Unavailable ANTONIA PT, MARCUS Unavailable Unavailable Payers Payer Name Policy Type Policy Number Effective Date Expira tion Date MEDICARE - [facility] [id number] [facility] [id number] Problems Condition Name Condition Details Condition Category [...] 2- 00:00: 00 07-26 00:00 :00 No [id number] Per instruc tions Per instructio ns (route: oral) Med Classific ation: Cardiovas cular Therapy Agents fluoxetine 20 mg capsule 2023-07 00:00: 00 Yes [id number] 1 capsule BEDTIME 1 capsule BEDTIME (route: oral) Med Classific ation: Central Nervous System Agents gabapentin 100 mg capsule 2023-07 00:00: 00 Yes [id number] 2 capsule 3 TIMES DAILY 2 capsule 3 TIMES DAILY (route: oral) Med Classific ation: Central Nervous System Agents estradiol 0.5 mg tablet 2023-07 00:00: 00 Yes [id number] Per instruc tions DIRECTED Per instructio ns DIRECTED (route: oral) Med Classific ation: Endocrine diclofenac 1 % topical gel 2023-07 00:00: 00 Yes [id number] Per instruc tions DIRECTED Per instructio ns DIRECTED (route: topical) Med Classific ation: Dermatolo gical estradiol 0.01% (0.1 mg/gram) vaginal cream 2023-07 00:00: 00 Yes [id number] Per instruc tions DIRECTED Per instructio ns DIRECTED (route: vaginal) Med Classific ation: Vaginal Products omeprazole magnesium 20 mg tablet,leon yed release 2023-07 00:00: 00 Yes [id number] 1 tablet DAILY 1 tablet DAILY (route: oral) Med Classific ation: Gastroint estinal Therapy Agents oxycodone 5 mg tablet 2023-07 00:00: 00 Yes [id number] 1 tablet EVERY 8 HOURS 1 tablet EVERY 8 HOURS (route: oral) Med Classific ation: Analgesic , Anti-infl ammatory or Antipyret ic pravastatin 20 mg tablet 2023-07 00:00: 00 Yes [id number] 1 tablet BEDTIME 1 tablet BEDTIME (route: oral) Med Classific ation: Cardiovas cular Therapy Agents Restasis MultiDose 0.05 % eye drops 2023-07 00:00: 00 Yes [id number] 1 drops DAILY 1 drops DAILY (route: ophthalmic (eye)) Med Classific ation: Ophthalmi c Agents tizanidine 2 mg tablet 2023-07 00:00: 00 Yes [id number] 1 tablet 2 TIMES DAILY 1 tablet 2 TIMES DAILY (route: oral) Med Classific ation: Locomotor System Tylenol Extra Strength 500 mg tablet 07-20 00:00: 00 Yes [id number] 1 tablet EVERY AM 1 tablet EVERY [...] PRESENTS REFERRAL FOR HOME PT SERVICES FOLLOWING [facility] ED PRESENTATION ON 07/23-07/24 FOR RIGHT SIDED HIP/LOWER EXTREMITY PAIN. PATIENT HAD RECENT ED PRESENTATION AT [facility] ON 07/11 FOR EVALUATION, PATIENT DISCHARGED HOME WITHOUT ANY MEDICATION CHANGES. WORKUP FOR SECOND ED PRESENTATION REMARKABLE FOR SCIATICA AND PATIENT REFERRED TO [facility] USED CAR LOT ATTENDANT DR. BOBBY. PATIENT WAS PRESCRIBED OXYCODONE AND DISCHARGED HOME. PATIENT REQUESTED TO DISCHARGE TO SHORT TERM REHAB HOWEVER UNABLE TO BE PLACED PATIENT WAS NOT ADMITTED AND WOULD HAVE TO PAY OUT OF POCKET FOR REHAB SERVICES IN FACILITY. 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 PATIENT IS PENDING LUMBAR SPINE MRI, SHE WAS EDUCATED ON CALLING USED CAR LOT ATTENDANT FOR FOLLOW UP APPOINTMENT FROM THIS CLINICIAN. [...] HOWEVER RESPONDING NO ON PHQ QUESTIONS. RECOMMENDED GUMMING MACHINE OPERATOR CONSULT FOR FURTHER EMOTIONAL SUPPORT PATIENT [...] PRESENTS REFERRAL FOR HOME PT SERVICES FOLLOWING [facility] ED PRESENTATION ON 07/23-07/24 FOR RIGHT SIDED HIP/LOWER EXTREMITY PAIN. PATIENT HAD RECENT ED PRESENTATION AT [facility] ON 07/11 FOR EVALUATION, PATIENT DISCHARGED HOME WITHOUT ANY MEDICATION CHANGES. WORKUP FOR SECOND ED PRESENTATION REMARKABLE FOR SCIATICA AND PATIENT REFERRED TO [facility] USED CAR LOT ATTENDANT DR. BOBBY. PATIENT WAS PRESCRIBED OXYCODONE AND DISCHARGED HOME. PATIENT REQUESTED TO DISCHARGE TO SHORT TERM REHAB HOWEVER UNABLE TO BE PLACED PATIENT WAS NOT ADMITTED AND WOULD HAVE TO PAY OUT OF POCKET FOR REHAB SERVICES IN FACILITY. 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 PATIENT IS PENDING LUMBAR SPINE MRI, SHE WAS EDUCATED ON CALLING USED CAR LOT ATTENDANT FOR FOLLOW UP APPOINTMENT FROM THIS CLINICIAN. [...] HOWEVER RESPONDING NO ON PHQ QUESTIONS. RECOMMENDED GUMMING MACHINE OPERATOR CONSULT FOR FURTHER EMOTIONAL SUPPORT PATIENT [...] End Date/Time Encounter Type Admission Type Attending Rust Care Department Encounter ID Discharge Date Discharge Status Discharge Condition Discharge Reason Percent Goals Met 2024-07-26 00:00:00 2024-08-21 00:00:00 Outpatient NEW ADMISSION ANTONIA MARCUS [facility] [id number] 2024-08-21 00:00:00 DISCHARGE TO HOME OR SELF CARE MINIMUM ASSIST WITH TRANSFER/A MBULATION/ ADLS PER CLIENT REQUEST 83.33
--- OUTSIDE RECORDS SUMMARY | 2024-08-29 07:49 | XMS_ITS | Patient Health Record ---
Author Organization [facility] Address [address] [place] [address] Care Team Providers Care Vocational Rehabilitation Specialist Name Role Phone Jay Uribe MD Primary [...] Problem Colon cancer screening (Z12.11) Active confirmed 356134675 Problem Irritable bowel syndrome with diarrhea (K58.0) Active confirmed [id number] Problem Gastroesophageal reflux disease without esophagitis (K21.9) Active confirmed [id number] Problem Constipation, unspecified constipation type (K59.00) Active confirmed [id number] VITAL SIGNS Temperature 96.9 degrees Fahrenheit 04/10/2024 Blood pressure diastolic 00 mm Hg 04/10/2024 Height 58 in 04/10/2024 Blood pressure systolic 000 mm Hg 04/10/2024 Weight 121 lb 2 oz lbs 04/10/2024 BMI 25.31 kg/m2 04/10/2024 Encounters Encounter Location Date Provider Diagnosis [facility] [address] [place] [phone] 2023 Robert Mendoza Jr [facility] [address] [place] [phone] 04/10/2024 Robert Mendoza Jr Gastroesophageal reflux disease without esophagitis K21.9 ; Irritable bowel syndrome with diarrhea K58.0 and Colon cancer screening Z12.11 [facility] [address] [place] [phone] 11/18/2023 Robert Mendoza Jr [facility] [address] [place] [address] [place] [phone] 2023 Robert Mendoza Jr ASSESSMENTS Encounter Date [...] Name:Robert loving Jr, 04/09/2025 10:50:00 AM, [address] [place] [address], [address], [place], [address], Insurance Providers Payer Name Payer Address Payer Phone Subscriber Number Group Number Insured Name Patient Relationship to Insured Coverage Start Date Coverage End Date MEDICARE OF [facility] [address] [place] [id number] [phone] [id number] LOVELY Mon RIANNA Self - patient is the insured [employer] ATTN CLAIMS [address] [place] [address] [id number] RIANNA FERGUSON Self - patient is the insured MEDICAL (GENERAL) HISTORY Medical History History ICD Code urinary incontinence, bladder stimulator placement and removal Multinodular goiter Arthritis Depression Elevated cholesterol Gastroesophageal reflux disease Surgical History Surgery Date(Month/Year) removal fibroadenoma left and right [address] Total hysterectomy 09/1999 Cholecystectomy 08/2006 Thyroid nodules neurostimulator in bladder 08/11
[2024-08-29] MEDS: methocarbamoL 750 MG TABLET PO (08:11)
[2024-08-29] MEDS: Lactated Ringers 1,000 ML 100 ML IVCONT (08:29)
--- NOTE | 2024-08-29 09:59 | MHC.SHP ---
Pre-Procedural Eval Section A - 24 Hr Update-Section A only Date of Service: 08/29/24 The patient is an INPATIENT: No Changes since office visit: No Cold of Flu in the past 2 weeks, No New Medical Problems, No Changes in Medication and No Patient answered all questions The patient has been examined within 24 hours of the surgical procedure. The History & Physical has been completed within 30 days and I have reviewed it.: No Section B - Complete if H&P > 30 days Chief Complaint: s/p L4-5 lumbar fusion Allergies: Allergies Allergy/AdvReac Type Severity Reaction Status Date / Time hydrocodone Allergy Intermediate Vomiting Verified 08/29/24 08:07 amoxicillin AdvReac Intermediate Gastrointestinal Verified 08/29/24 08:07 Upset nitrofurantoin AdvReac Intermediate Gastrointestinal Verified 08/29/24 08:07 Upset sulfadiazine AdvReac Intermediate Gastrointestinal Verified 08/29/24 08:07 Upset Review of Systems Sugical H&P ROS: Negative: Constitution, Cardiovascular, Respiratory, Neurological, Psychiatric, Hem-Onc, Allergic/Immunologic, Gastrointestinal, Genitourinary, Musculoskeletal, Integumentary, Endocrine and Eyes/Ears/Nose/Throat Exam Surgical H&P Exam: Normal: HEENT, Normal: Heart, Normal: Lungs, Normal: Extremities, Normal: Abdomen, Normal: Skin and Normal: Neurological (awake, alerty,oriented x 3 ) Plan Diagnosis/Plan: Unchanged right L4-5 transforaminal lumbar interebody fusion Time Spent With Patient Time: Total time managing care of this patient today _5___ minutes.
--- NOTE | 2024-08-29 10:15 | P.CONAN_ITS ---
Documented by User: Cony Handley NP 08/28/24 10:30 HPI - Anesthesia Eval Consult details Narrative: 73yo F for L4-5 Transforaminal Lumbar Interbody Fuse, 08/29/24 No recent illness No CP/SOB with minimal activity r/t pain GERD: controlled with ppi PMFSH Active Problems Active Problems: All Active Problems Acute exacerbation of chronic low back pain (Acute) Spinal stenosis of lumbar region with neurogenic claudication (Acute) Spondylolisthesis at L4-L5 level (Acute) Myofascial pain (Acute) Tear of right biceps muscle (Acute) Depression (Acute) Impingement syndrome of right shoulder (Acute) Lumbar degenerative disc disease (Acute) Cervical spondylosis (Acute) Non-toxic multinodular goiter (Acute) Past Medical History Medical History Bipolar disorder Lumbar degenerative disc disease Sciatic nerve pain Cervical spondylosis Urinary incontinence Arthritis Elevated cholesterol Depression GERD (gastroesophageal reflux disease) Non-toxic multinodular goiter Family History Family history of problems with anesthesia: No Surgical History Surgical History S/P placement of nerve stimulator Hx of bilateral cataract extraction History of breast lump/mass excision Hx of cholecystectomy Hx of total hysterectomy with removal of both tubes and ovaries H/O colonoscopy History of Problems with Anesthesia: No Social History Social History Household Members: Family Household Members Other:: daughter/grandson Housing: House Are you a primary childcare administrator to a significant other at home: No Do you presently have visiting nurse or other home services: Yes (Meals on Wheels) Alcohol intake: current Alcohol intake frequency: a few times a week Comment: states does not move around at all, stays in bed due to pain Patient Tobacco Use Status: Former Tobacco user Tobacco use type: Cigarette Years Smoked: 5 Use of substances other than those prescribed or required for medical reasons: Yes Substance Use Type: Marijuana Substance Use Type Other:: smokes occasional marijuana Substance Use Frequency: Occasionally Have you been hit, kicked, punched, or otherwise hurt by someone within the past year? If so, by whom?: No Spiritual Healthcare Practices: none Holiness Healthcare Practices: Baptisr Cultural Healthcare Practices: none Are you DNR?: No Advance Directives: Yes Advance Directives Information Provided: Yes Advance Directives on File: Yes Advance Directives Date on File: 07/23/24 Recently lost weight without trying: No Eating poorly because of decreased appetite: No Nutrition Risks: No Nutritional Risk FDLMP: n/a Poor oral hygiene: No (upper partial) Meds Allergies Allergy/AdvReac Type Severity Reaction Status Date / Time hydrocodone Allergy Intermediate Vomiting Verified 08/29/24 08:07 amoxicillin AdvReac Intermediate Gastrointestinal Verified 08/29/24 08:07 Upset nitrofurantoin AdvReac Intermediate Gastrointestinal Verified 08/29/24 08:07 Upset sulfadiazine AdvReac Intermediate Gastrointestinal Verified 08/29/24 08:07 Upset Home Medications ?Medication ?Instructions ?Recorded ?Confirmed ?Last Taken ?Type flaxseed oil 1,000 mg capsule 1,000 mg PO DAILY 07/23/24 08/17/24 08/11/24 History multivitamin 1 tab PO DAILY 07/23/24 08/17/24 08/11/24 History acetaminophen 650 mg 650 mg PO Q8H PRN pain 08/12/24 08/17/24 Unknown History tablet,extended release cyclosporine 0.05 % eye drops in a 1 drp ophthalmic (eye) DAILY 08/12/24 08/17/24 08/11/24 History dropperette (Restasis) estradiol 0.5 mg tablet 0.5 mg PO MOWEFR@0900 08/12/24 08/17/24 08/11/24 History fluoxetine 20 mg capsule 20 mg PO DAILY 08/12/24 08/17/24 08/11/24 History gabapentin 300 mg capsule 300 mg PO QID 08/12/24 08/17/24 08/29/24 06:45 History ibuprofen 200 mg tablet 400 mg PO Q8H PRN Pain (Scale 08/12/24 08/17/24 Unknown History Score 1-3) omeprazole 20 mg capsule,delayed 20 mg PO DAILY@0630 PRN Heartburn 08/12/24 08/17/24 08/11/24 History release polyvinyl alcohol 1.4 % eye drops 1 drp ophthalmic (eye) QID PRN Dry 08/12/24 08/17/24 08/29/24 06:45 History (Artificial Tears (polyvinyl Eyes alcohol)) pravastatin 20 mg tablet 20 mg PO DAILY 08/12/24 08/17/24 08/11/24 History tizanidine 2 mg tablet 2 mg PO BID PRN Muscle Spasm 08/12/24 08/17/24 Unknown History amlodipine 2.5 mg tablet 2.5 mg PO DAILY 08/17/24 08/17/24 08/29/24 06:45 History clindamycin HCl 150 mg capsule 300 mg PO Q6H 08/29/24 Unknown History Exam Height,Weight and Vital Signs: Height 4 ft 9 in Weight 52.617 kg Last Vital Signs Pulse 84 08/17/24 13:19 Resp 20 08/17/24 13:19 BP 111/68 08/17/24 13:19 Pulse Ox 97 08/17/24 13:19 O2 Del Method Room Air 08/17/24 13:19 Pertinent Lab Results Pertinent Lab Results: Laboratory Tests 07/22/24 14:28 WBC 9.2 Hgb 13.6 Hct 38.0 Plt Count 341 Sodium 135 Potassium 4.3 Chloride 102 Carbon Dioxide 23 BUN 12 Creatinine 0.66 Narrative Narrative: EKG 07/2024 Vent. Rate : 85 BPM Atrial Rate : 85 BPM P-R Int : 170 ms QRS Dur : 76 ms QT Int : 344 ms P-R-T Axes : 33 -4 19 degrees QTcB Int : 409 ms Normal sinus rhythm with sinus arrhythmia Normal ECG When compared with ECG of 08-Dec-2020 02:38, No significant change was found Airway Mallampati Class: I (small mouth) TM Dist: >3cm Neck ROM: Limited Partial: Upper Heart: RRR Lungs: CTAB Assessment and Plan Assessment Anesthesia Assessment: Anesthesia Plan Discussed and PAT Visit Final Anesthetic Review Family History of Problems with Anesthesia: No History of Problems with Anesthesia: No Documented by User: Alix Kim DO 08/29/24 10:35 [facility] Past Medical History Medical History Bipolar disorder Lumbar degenerative disc disease Sciatic nerve pain Cervical spondylosis Urinary incontinence Arthritis Elevated cholesterol Depression GERD (gastroesophageal reflux disease) Non-toxic multinodular goiter Family History Family history of problems with anesthesia: No Surgical History Surgical History S/P placement of nerve stimulator Hx of bilateral cataract extraction History of breast lump/mass excision Hx of cholecystectomy Hx of total hysterectomy with removal of both tubes and ovaries H/O colonoscopy History of Problems with Anesthesia: No Social History Social History Household Members: Family Household Members Other:: daughter/grandson Housing: House Are you a primary childcare administrator to a significant other at home: No Do you presently have visiting nurse or other home services: Yes (Meals on Wheels) Alcohol intake: current Alcohol intake frequency: a few times a week Comment: states does not move around at all, stays in bed due to pain Patient Tobacco Use Status: Former Tobacco user Tobacco use type: Cigarette Years Smoked: 5 Use of substances other than those prescribed or required for medical reasons: Yes Substance Use Type: Marijuana Substance Use Type Other:: smokes occasional marijuana Substance Use Frequency: Occasionally Have you been hit, kicked, punched, or otherwise hurt by someone within the past year? If so, by whom?: No Spiritual Healthcare Practices: none Holiness Healthcare Practices: Baptisr Cultural Healthcare Practices: none Are you DNR?: No Advance Directives: Yes Advance Directives Information Provided: Yes Advance Directives on File: Yes Advance Directives Date on File: 07/23/24 Recently lost weight without trying: No Eating poorly because of decreased appetite: No Nutrition Risks: No Nutritional Risk FDLMP: n/a Poor oral hygiene: No (upper partial) Meds Allergies Allergy/AdvReac Type Severity Reaction Status Date / Time hydrocodone Allergy Intermediate Vomiting Verified 08/29/24 08:07 amoxicillin AdvReac Intermediate Gastrointestinal Verified 08/29/24 08:07 Upset nitrofurantoin AdvReac Intermediate Gastrointestinal Verified 08/29/24 08:07 Upset sulfadiazine AdvReac Intermediate Gastrointestinal Verified 08/29/24 08:07 Upset Home Medications ?Medication ?Instructions ?Recorded ?Confirmed ?Last Taken ?Type flaxseed oil 1,000 mg capsule 1,000 mg PO DAILY 07/23/24 08/17/24 08/11/24 History multivitamin 1 tab PO DAILY 07/23/24 08/17/24 08/11/24 History acetaminophen 650 mg 650 mg PO Q8H PRN pain 08/12/24 08/17/24 Unknown History tablet,extended release cyclosporine 0.05 % eye drops in a 1 drp ophthalmic (eye) DAILY 08/12/24 08/17/24 08/11/24 History dropperette (Restasis) estradiol 0.5 mg tablet 0.5 mg PO MOWEFR@0900 08/12/24 08/17/24 08/11/24 History fluoxetine 20 mg capsule 20 mg PO DAILY 08/12/24 08/17/24 08/11/24 History gabapentin 300 mg capsule 300 mg PO QID 08/12/24 08/17/24 08/29/24 06:45 History ibuprofen 200 mg tablet 400 mg PO Q8H PRN Pain (Scale 08/12/24 08/17/24 Unknown History Score 1-3) omeprazole 20 mg capsule,delayed 20 mg PO DAILY@0630 PRN Heartburn 08/12/24 08/17/24 08/11/24 History release polyvinyl alcohol 1.4 % eye drops 1 drp ophthalmic (eye) QID PRN Dry 08/12/24 08/17/24 08/29/24 06:45 History (Artificial Tears (polyvinyl Eyes alcohol)) pravastatin 20 mg tablet 20 mg PO DAILY 08/12/24 08/17/24 08/11/24 History tizanidine 2 mg tablet 2 mg PO BID PRN Muscle Spasm 08/12/24 08/17/24 Unknown History amlodipine 2.5 mg tablet 2.5 mg PO DAILY 08/17/24 08/17/24 08/29/24 06:45 History clindamycin HCl 150 mg capsule 300 mg PO Q6H 08/29/24 Unknown History Exam Exam Date and Time: 08/29/24 1015 Height,Weight and Vital Signs: Height 4 ft 9 in Weight 52.617 kg Last Vital Signs Pulse 84 08/17/24 13:19 Resp 20 08/17/24 13:19 BP 111/68 08/17/24 13:19 Pulse Ox 97 08/17/24 13:19 O2 Del Method Room Air 08/17/24 13:19 Vital Signs Pulse Rate 84 08/17/24 13:19 Respiratory Rate 20 08/17/24 13:19 Blood Pressure 111/68 08/17/24 13:19 Pulse Oximetry 97 08/17/24 13:19 Oxygen Delivery Method Room Air 08/17/24 13:19 Temperature 98.8 F 08/29/24 08:20 Pulse Rate 82 08/29/24 08:20 Respiratory Rate 15 08/29/24 08:20 Blood Pressure 153/72 H 08/29/24 08:20 Pulse Oximetry 95 08/29/24 08:20 Oxygen Delivery Method Room Air 08/29/24 08:20 Airway Mallampati Class: I (small mouth) TM Dist: >3cm Neck ROM: Limited Partial: Upper Heart: S1S2 Assessment and Plan Assessment Anesthesia Assessment: Anesthesia Plan Discussed and Chart Reviewed Final Anesthetic Review Family History of Problems with Anesthesia: No History of Problems with Anesthesia: No NPO: Yes ASA Class: II Final Preanesthetic Review: No Changes in Pt Med Stat, Meds/Allgs Chart Reviewed, Consent Obtained/Reviewed and Anes Risks/Benef Reviewed Patient Risk: Low Procedure Risk: Intermediate Anesthetic Plan Anesthetic Plan: GA and Agree w/ Assess. and Plan Disposition: Standard PACU
[2024-08-29] MEDS: ceFAZolin Sodium/Dextrose,Iso 2 GM/50 ML PIGGYBACK IV ×3 (11:17→23:36)
--- NOTE | 2024-08-29 12:41 | P.OP_ITS ---
Operative Note Operative Note Date of Service: 08/29/24 Narrative: Preop diagnosis: L4-5 spondylolisthesis and disc herniation compressing the right L5 and L4 nerve roots Postop diagnosis: Same Procedure: L4-5 Complete facetectomy; Diskectomy, arthrodesis and implantation cage; L4-5 posterior instrumentation; combination of allograft and allograft Consent Informed Consent was obtained for this operation. I have explained the nature, purpose and benefits of the operation. I have discussed the risks and benefit of the operation including possible complications or adverse events with patient/family. Alternative(s) were discussed with the patient with their relative benefits and risks as well as the consequences of not accepting the operation were included in obtaining consent. Surgeon: Martinez Lyon MD, PhD Assist: aliya Platt Description of Procedure: This patient from a right lumbar radiculopathy due to a disc herniation L4-5 compressing the L4 and L5 nerve roots. Dynamic lumbar x-ray shows an unstable L4-5 segment with the development of a spondylolisthesis grade 2 in the flexion image.. The patient was offered a remove the disc herniation followed by a fusion of the L4-5 segment with a transforaminal lumbar interbody fusion. The procedure and complication explained. The patient was consented. The patient was brought to the operating room endotracheally intubated. The patient was turned in a prone position the Otis spine table prepping and draping was done followed by time-out. Two C arms were installed for fluoroscopy. Two paramedian incisions were made in preparation for pedicle screw placement. Following steps were taken for pedicle screw placement: First the pediguard tap was used to create a transpedicular trajectory into the vertebral body. Then a K-wire was advanced into the vertebral body. On the contralateral side, a specially designed instrument was advanced over the K-wire, followed by placement of a pedicle screw in the corresponding pedicle and removal of the K- wire. On the ipsilateral side, the K-wires were bent out of the way after which the transforaminal interbody fusion process was started. The paravertebral muscles were released to expose the L4-5 laminae and facet joint. A high-speed drill was used to a complete facetectomy. The nerve root was retracted medially after which a thorough L4-5 diskectomy was done. An 8 mm trial implant was inserted. More disc material was removed. The endplates were prepared. Then I palpated with a nerve hook cranially from the disc space and I was able to retrieve 2 large extruded fragments from under the axilla of the L4 nerve root. Immediate pulsations were seen from the L4 and L5 nerve roots. The anterior 1/3 of disc space was filled with a mixture of autograft and allograft followed by placement of a 8 mm by 28 mm and 0 degree lordosis CTL titanium cage filled with autograft and allograft ending in the the midline on AP fluoroscopic image. Hemostasis was done. The retractor was removed. Finally, pedicle screws were placed over the K-wires and the K-wires were removed. A total 4 pedicle screws were placed with a diameter of 6.5 x 45 mm in the L4 and L5 pedicles. The pedicle screws were connected with a 40 mm braxton and locked down with locking caps. Final x-rays in AP and lateral projection showed good position of the interbody device and posterior instrumentation. Hemostasis was done and the incisions were closed with an 0 Vicryl to fascia and a 3-0 Vicryl for the subdermal layer. All sponge and needle counts were correct. Patient was extubated and transported in a stable condition to recovery room. This procedure was done with assistance of her physician certified surgical assistant who helped an decal applier in the fluoroscopic imaging, placed pedicle screws and performed hemostasis and closure of the incisions. Anesthesia: General Estimated blood loss: 25 mL Complications: None. Surgical time: 1 hour 30 minutes Deposition: Admit to inpatient for observation.
[2024-08-29] MEDS: Ketorolac Tromethamine 15 MG/ML VIAL IVPUSH ×2 (13:00→18:32)
[2024-08-29] MEDS: HYDROmorphone HCl 0.5 MG/0.5 ML SYRINGE 0.25 MG IVPUSH ×4 (13:37→14:09)
[2024-08-29] MEDS: oxyCODONE HCl Immed Release 5 MG TABLET 10 MG PO (16:30)
--- NOTE | 2024-08-29 16:42 | PHA.MEDREC ---
Addendum entered by Mani Kim [facility] 08/29/24 17:44: med rec reviewed Addendum entered by Asha Chen 08/29/24 16:48: Patient also confimed with me that she stopped taking the Clindamycin tablet a few days ago due to bad reactions while taking it. Original Note: Pharmacy Consult ? Medication Reconciliation Pharmacy has completed the medication reconciliation. Spoke with patient and she confirmed her medications. She confirmed her Gabapentin 300mg tab and states she takes 1 capsule three- four times a day. She also confirmed the Oxycodone 5mg tab and states she takes 1 tablet every 6-8 hours as needed for pain. She states she has been taking the Tizanidine 2mg tab once daily as needed for pain again recently and states its been helping while back on it. When I asked the last time she took her medications the patient got confused on the question and did not know at this time.
[2024-08-29] MEDS: Gabapentin 300 MG CAPSULE PO ×2 (18:15→20:24)
[2024-08-29] MEDS: Acetaminophen 1,000 MG/100 ML PIGGYBACK 400 MG IV (18:15)
[2024-08-29] MEDS: Docusate Sodium 100 MG CAPSULE PO (20:24)
[2024-08-29] MEDS: oxyCODONE HCl Immed Release 5 MG TABLET PO (20:25)
[2024-08-30] MEDS: Ketorolac Tromethamine 15 MG/ML VIAL IVPUSH ×3 (00:30→12:37)
[2024-08-30] MEDS: Acetaminophen 1,000 MG/100 ML PIGGYBACK 400 MG IV ×2 (00:30→08:33)
[2024-08-30 03:35] VITALS: BP 130/75; PULSE 71; RESP 16; TEMP 36.5; O2SAT 95
[2024-08-30] MEDS: ceFAZolin Sodium/Dextrose,Iso 2 GM/50 ML PIGGYBACK IV (05:30)
[2024-08-30] MEDS: oxyCODONE HCl Immed Release 5 MG TABLET PO (05:37)
--- NOTE | 2024-08-30 07:43 | P.DS_ITS ---
DS: Providers Provider Date of Service: 08/30/24 Date of admission: 08/29/24 07:44 Date of discharge: 08/30/24 Primary care physician: Jay Uribe MD DS: Summary Time Attestation Discharge Coordination Time (in mins): 20 Quality: Safe Use of Opioids Does Pt have an Active Cancer Diagnosis on the Problem List?: No Quality: Stroke Does the patient have a stroke diagnosis?: No Physical Exam Vital Signs: Vital Signs: Last Vital Signs Temp 97.7 F 08/30/24 03:35 Pulse 71 08/30/24 03:35 Resp 16 08/30/24 03:35 BP 130/75 08/30/24 03:35 Pulse Ox 95 08/30/24 03:35 O2 Del Method Room Air 08/30/24 03:35 O2 Flow Rate 2 08/29/24 15:11 BMI result Body Mass Index 25.1 Discharge Plan Discharge Anticipated Discharge Date/Time: 08/30/24 09:06 Patient Disposition: Home, Self-Care Discharge Diagnosis: s/p L4-5 TLIF Referrals: Jay Uribe MD [Primary Care Provider] - 1 Week Discharge Medications: New oxycodone 5 mg tablet See Rx Instructions .ROUTE .COMPLEX PRN (Reason: pain) Qty: 30 0RF Rx Instructions: Take 1-2 tablets by mouth every 4 hours. Partial Fill upon patient request. Continued amlodipine 2.5 mg tablet 2.5 mg PO DAILY calcium carbonate-vitamin D3 600 mg-25 mcg (1,000 unit) Capsule 1 cap PO DAILY tizanidine 2 mg tablet 2 mg PO BID PRN (Reason: Muscle Spasm) acetaminophen 650 mg tablet extended release 650 mg PO Q8H PRN (Reason: pain) gabapentin 300 mg capsule 300 mg PO TID-QID pravastatin 20 mg tablet 20 mg PO DAILY@0630 estradiol 0.5 mg tablet 0.5 mg PO MOWEFR@0900 fluoxetine 20 mg capsule 20 mg PO DAILY polyvinyl alcohol [Artificial Tears (polyvin alc)] 1.4 % Drops 1 drp OPHTHALMIC (EYE) QID PRN (Reason: Dry Eyes) cyclosporine [Restasis] 0.05 % Dropperette 1 drp OPHTHALMIC (EYE) DAILY multivitamin Tablet 1 tab PO DAILY flaxseed oil 1,000 mg Capsule 1,000 mg PO DAILY Rx Instructions: administer with a meal Held oxycodone 5 mg Tablet 5 mg PO Q6-8H PRN (Reason: Pain) Hold Instructions: Resume on 08/30/24. Use post-op Rx Discharge Orders: Discharge Order (Routine); Ordered 08/30/24 Ordered By: Adria Vera Diet: Advance to usual diet Activity on Discharge: As tolerated Stand Alone Forms: Patient Portal Discharge page Print Language: Armenian Activity Restrictions/Additional Instructions: After your spinal surgery we ask you to observe the following restrictions/guidelines: Activity: It is normal to feel some discomfort as you increase your activity, but that will improve with time. We ask you avoid heavy lifting or acitivities that cause pain. As a general rule, 8lbs is a safe limit for lifting right after surgery. Walk as much as you feel comfortable but not to exhaustion. You will feel extra tired the first few days after surgery. Stay well hydrated. It is OK to walk up and down stairs You may return to driving when you are off narcotics (such as vicodin, oxycodone, dilaudid, etc), and you are back to normal functional capacity. If you have any concerns please check with office before driving. Return to work is specific to each patient and each surgery, so please speak with your doctor/PA at first follow up. Please bring paperwork such as FMLA at that time if you need it filled out. Medications: We recommend you take 1,000mg Tylenol every 8 hours for the first few weeks after surgery, if you do not have any liver issues and can tolerate this medication. Do not exceed 4,000mg daily. We will give you a short supply of narcotics after surgery (usually one weeks worth). If you need more please call the office but do not use more than pre scribed. You will need to give our office 48 hours notice if you need narcotics refilled and we do not fill narcotics on weekends or evenings. If you are on a narcotic, it is a good idea to take a stool softener such as colace or senna to avoid constipation If you take blood thinner such as aspirin, Plavix, Coumadin, Effient, Eliquis etc for conditions such as Afib, DVT, Pulmonary embolus, coronary disease, stents etc please speak with your surgeon about specific details as to when you can resume these medications. You can resume NSAIDs on post op day 1 (eg: Motrin, Naproxen, etc). Follow up: Please call the office, , after surgery to arrange a 3 week follow up for wound check. Wound Care: You may remove your dressing on the first day after surgery. ?You may ?leave open to air. Please do not remove the steri strips underneath. they will fall off on their own in one week. IT IS NORMAL FOR THE WOUND TO OOZE OR BE BLOODY FOR A FEW DAYS AFTER SURGERY. ?IF THIS HAPPENS JUST PLACE NEW DRESSING OVER IT TO AVOID STAINING CLOTHES. You may shower on post op day # 1 We ask that you do not let the water soak the wound. If it does get wet, just towel dry lightly. Please do not scrub your incision or place any type of chemical/ointment on the wound. No tub baths, pools or jacuzzis for one month. If you have any leaking or redness from your wound, or fevers, please call the office. Care Plan Goals: Return to normal activity as tolerated Health Concerns: None Plan of Treatment: Follow-up in clinic in 2-3 weeks Assessment: POD: 1 Procedure: L4-5 TLIF Isabel was seen this morning sitting upright in bed on 3-S. She underwent L4-[address] Lyon. Patient reports she is up walking around is otherwise doing well. She feels his symptoms are much better than pre- operatively. She has been up OOB and is voiding well, tolerating diet. Afebrile, vital signs stable. Full strength 5/5 LE's. Back dressings have some staining without signs of hematoma. No active sanguineous drainage. Area is dry. Plan: Isabel is a pleasant 73-year-old female who underwent L4-[address] Lyon yesterday. She is progressing as expected, ambulating well and tolerating current diet. Patient meets criteria to be medically discharged home. She was seen at bedside with Dr. Lyon. A prescription of oxycodone was sent to her pharmacy. Adria Lyon MD,PhD [facility]
[2024-08-30 08:00] VITALS: BP 142/71; PULSE 75; RESP 17; TEMP 36.7; O2SAT 98
[2024-08-30] MEDS: Multivitamin TABLET 1 TAB PO (08:33)
[2024-08-30] MEDS: estradioL 0.5 MG TABLET PO (08:33)
[2024-08-30] MEDS: methocarbamoL 750 MG TABLET PO (08:33)
[2024-08-30] MEDS: FLUoxetine HCl 20 MG CAPSULE PO (08:33)
[2024-08-30] MEDS: Pravastatin Sodium 20 MG TABLET PO (08:34)
[2024-08-30] MEDS: amLODIPine Besylate 2.5 MG TABLET PO (08:34)
[2024-08-30] MEDS: Gabapentin 300 MG CAPSULE PO ×2 (08:34→12:36)
[2024-08-30] MEDS: oxyCODONE HCl Immed Release 5 MG TABLET 10 MG PO ×2 (08:34→12:36)
[2024-08-30] MEDS: PT OWN (Cyclosporine [Restasis] 0.05 % Dropperette) 1 EACH EYE-BOTH (08:34)
[2024-08-30] MEDS: Docusate Sodium 100 MG CAPSULE PO (08:35)
--- NOTE | 2024-08-30 08:44 | HO.POSTANES ---
Post Anesthesia Evaluation Post Anesthesia Evaluation Date of Service: 08/30/24 Vital Signs: Vital Signs Temp Pulse Resp BP Pulse Ox O2 Del Method 08/30/24 08:00 98.1 F 75 17 142/71 H 98 Room Air 08/30/24 03:35 97.7 F 71 16 130/75 95 Room Air Anesthesia: General Mental Status: Awake Pain Control: Satisfactory Nausea/Vomiting: None Hydration: Adequate Anesthesia-Related Issues: No Anes. Related Issues
--- NOTE | 2024-08-30 09:51 | W.MHC.F2F ---
Service Date Service Date: 08/30/24 Encounter Date of encounter: 08/30/24 Reasons for Services Signs and symptoms assessed: s/p L4-5 TLIF Reason for physical therapy: home safety and mobility, gait/transfer training and ADL training Homebound: Leaving the home is medically contraindicated at this time without the asist of a device and/or another person due th the listed conditions above and below. Reason homebound: unsteady gait / fall risk, pain with ambulation and poor balance / fall risk Certification: Based on the above findings, I certify that this patient is confined to the home and needs intermittent intermediate care, physical therapy and/or speech therapy, or continues to need occupational therapy. The patient is under my care, and I have initiated the establishment of the plan of care. The patient will be followed by a physician who will periodically review the plan of care. Time Spent With Patient Time: Total time managing care of this patient today _14___ minutes.
--- NOTE | 2024-08-30 09:55 | MHC.CM.PN ---
Addendum entered by Arely Gonzalez RN 08/30/24 13:27: Unable to reach patient's daughter since 10am, originally planned for 11am dc. Patient to dc lounge - ok per RN. LM for daughter Jordana. Son, Juice, aware and will slate picker patient shortly if Jordana is unable. Original Note: [facility]MM delivered. Patient lives in a home w/ her daughter. Ambulates w/ rollator. Daughter assists w/ ADLs PRN. No current services, but has used [facility] for PT in the last few months. PCP Jay Uribe MD HCP on file and verified. DP: PT rec home w/ services. Patient prefers [facility]. Medically cleared for dc. Daughter to transport. RN aware.
== END 2024-08-30 13:46 | disposition home health service (06) | DRG 451 ==
LOC: HO.SSSA 10:01 → HO.S3 13:19
PROVIDERS: Neurological Surgery; Admitting Provider Physician Assistant; PCP Internal Medicine; Visit Provider Physician Assistant
PROC: 0SG00AJ Fusion of Lumbar Vertebral Joint with Interbody Fusion Device, Posterior Approach, Anterior Column, Open Approach (ICD-10-PCS; principal; 2024-08-29 10:40)
DX: M43.16 Spondylolisthesis, lumbar region (principal); M51.26 Other intervertebral disc displacement, lumbar region; Z79.899 Other long term (current) drug therapy
CPT/HCPCS: 93005; 97162; C1713; J0131; J0665; J0690; J1100; J1171; J1885; J2003; J2250; J2405; J2704; J3010; L8699

== ENCOUNTER → 2024-08-29 07:44 | Outpatient (BNV) | payer MEDICARE, SELFPAY | PROVIDERS: Admitting Provider Physician Assistant; PCP Internal Medicine; Visit Provider Neurological Surgery | DX: M51.362 Other intervertebral disc degeneration, lumbar region with discogenic back pain and lower extremity pain (principal) | CPT/HCPCS: 20930; 20936; 22633; 22840; 22853; 63052; 99499; G0180 ==

== ENCOUNTER 2024-09-19 13:35 | Outpatient (AMB) | payer MEDICARE, SELFPAY ==
--- NOTE | 2024-09-19 13:43 | A.SPINEOV_ITS ---
Intake Visit Reasons: 1st post Intake Note: Ms. Cid is here today for 1st post-op visit. Dispatch Specialist Required: No Allergies hydrocodone Allergy (Intermediate, Verified 08/29/24 08:07) Vomiting amoxicillin Adverse Reaction (Intermediate, Verified 08/29/24 08:07) Gastrointestinal Upset nitrofurantoin Adverse Reaction (Intermediate, Verified 08/29/24 08:07) Gastrointestinal Upset sulfadiazine Adverse Reaction (Intermediate, Verified 08/29/24 08:07) Gastrointestinal Upset Assessment & Plan Assessment & Plan (1) Spondylolisthesis at L4-L5 level: Code(s): M43.16 - Spondylolisthesis, lumbar region Category: Medical Plan Isabel is a pleasant 73 year old female who presents today for her 1st postoperative visit after having an L5-S1 TLIF completed by Dr. Lyon few weeks ago. She has overall been doing well since her surgery. She has very little low back pain but still has a fairly significant radiculopathy. She reports that she has been up ambulating about once every hour since her surgery. She has been relying on her Oxycodone Rx and still feels she needs to take it at least 3 times daily to keep her pain at bay. She has been ambulating independently from her walker when walking around her home, but did need to bring her walker with her into clinic today. She has been working with at home occupational and physical therapy. She did recount one incident when she fell onto her knees when trying to ambulate up a step. We discussed how her right leg pain is likely related to postoperative inflammation and will hopefully self resolve on its own in the coming weeks. She asked a plethora of questions regarding the surgery, her symptoms, and the postoperative healing course, all of which I answered to the best of my ability. The patient ambulates well with the assistance of a walker. She has no new neurological deificits. Her posterior and lateral incision sites are clean and dry without any drainage. Strength is full 5/5 in bilateral lower extremities. Shavon 73 year old female s/p L5-S1 TLIF a few weeks ago with Dr. Lyon. Overall she is progressing well. She has some continued pain but I assume this will resolve on its own in the coming weeks. I informed her that we can refill her Oxycodone script today but she should take it sparingly as we likely will not be able to refill it again. She understands and will attempt to utilize Tylenol for pain control more so than she has been. I would like to see her again in 6 weeks with X-rays. Adria Lyon MD,PhD [facility] Medications: Refilled oxycodone 5 mg PO Q4-6H PRN 30 tabs 0RF pain Coding Level of Care Code Global (94621) Diagnoses Spondylolisthesis at L4-L5 level M43.16
--- OUTSIDE RECORDS SUMMARY | 2024-09-19 17:05 | XMS_ITS ---
Author Organization [facility] Address [address] [place] [address] Care Team Providers Care Chemical Plant Technical Director Name Role Phone Jay Uribe MD [...] bowel syndrome with diarrhea (K58.0) Active confirmed 450134880 VITAL SIGNS Temperature 96.9 degrees Fahrenheit 04/10/20 24 Blood pressure systolic 000 mm Hg 04/10/20 24 Blood pressure diastolic 00 mm Hg 024 Height 58 in 04/10/2024 Weight 121 lb 2 oz lbs 04/10/2024 BMI 25.31 kg/m2 04/10/2024 Encounters Encounter Location Date Provider Diagnosis [facility] [address] [place] [address] 04/10/2024 Robert Mendoza Jr Gastroesophageal reflux disease [...] Name:Robert loving Jr, 04/09/2025 10:50:00 AM, [address], [address], [place], [address],
--- OUTSIDE RECORDS SUMMARY | 2024-09-19 17:05 | XMS_ITS | Patient Health Record ---
Author Organization [facility] Address [address] [place] [address] Care Team Providers Care Heavy Media Operator Name Role Phone Jay Uribe MD [...] Problem Colon cancer screening (Z12.11) Active confirmed [id number] Problem Irritable bowel syndrome with diarrhea (K58.0) Active confirmed [id number] Problem Gastroesophageal reflux disease without esophagitis (K21.9) Active confirmed [id number] Problem Constipation, unspecified constipation type (K59.00) Active confirmed 32809049 VITAL SIGNS Temperature 96.9 degrees Fahrenheit 04/10/2024 Blood pressure diastolic 00 mm Hg 04/10/2024 Height 58 in 04/10/2024 Blood pressure systolic 000 mm Hg 04/10/2024 Weight 121 lb 2 oz lbs 04/10/2024 BMI 25.31 kg/m2 04/10/2024 Encounters Encounter Location Date Provider Diagnosis [facility] [address] [place] [phone] 2023 Robert Mendoza Jr [facility] [address] [place] [phone] 04/10/2024 Robert Mendoza Jr Gastroesophageal reflux disease without esophagitis K21.9 ; Irritable bowel syndrome with diarrhea K58.0 and Colon cancer screening Z12.11 [facility] [address] [place] [phone] 11/18/2023 Robert Mendoza Jr [facility] [address] [place] [address] [place] [phone] 2023 Robert Mendoza Jr ASSESSMENTS Encounter Date [...] Provider Name:Robert loving Jr, 04/09/2025 10:50:00 AM, [address] [place] [address], [address], [place], [address], Insurance Providers Payer Name Payer Address Payer Phone Subscriber Number Group Number Insured Name Patient Relationship to Insured Coverage Start Date Coverage End Date [facility]IC[facility] OF [facility] [address] [place] [address] [id number] LOVELY Mon RIANNA Self - patient is the insured eInstruction by [employer] ATTN CLAIMS [address] [place] [address] [phone] [id number] RIANNA FERGUSON Self - patient is the insured MEDICAL (GENERAL) HISTORY Medical History History ICD Code urinary incontinence, bladder stimulator placement and removal Multinodular goiter Arthritis Depression Elevated cholesterol Gastroesophageal reflux disease Surgical History Surgery Date(Month/Year) removal fibroadenoma left and right [address] Total hysterectomy 09/1999 Cholecystectomy 08/2006 Thyroid nodules neurostimulator in bladder 08/11
--- OUTSIDE RECORDS SUMMARY | 2024-09-19 17:05 | XMS_ITS ---
Author Organization [facility] Address [address] [place] [address] Care Team Providers Care Life Insurance Actuary Name Role Phone Jay Uribe MD Primary Care Provider Unavaila denia Mendoza Jr, Robert Serrato REASON FOR VISIT Patient presents today for gerd Encounters Encounter Location Date Provider Diagnosis [facility] [address] [place] [address] [address] [place] [address] 2023 Robert Mendoza Jr PLAN OF TREATMENT Next Appt Details Provider Name:Robert loving Jr, 04/09/2025 10:50:00 AM, [address] [place] [address], [address], [place], [phone],
--- OUTSIDE RECORDS SUMMARY | 2024-09-19 17:05 | XMS_ITS ---
Author Organization [facility] Address [address] [place] [address] Care Team Providers Care Medical Library Assistant Name Role Phone Jay Uribe MD Primary Care Provider Unavaila denia Mendoza Jr, Robert Serrato REASON FOR VISIT Pt no show Encounters Encounter Location Date Provider Diagnosis [facility] [address] [place] [address] 2023 Robert Mendoza Jr PLAN OF TREATMENT Next Appt Details Provider Name:Robert loving Jr, 04/09/2025 10:50:00 AM, [address] [place] [address], [address], [place], [address],
== END 2024-09-19 14:33 | disposition home or self-care (01) ==
PROVIDERS: PCP Internal Medicine; Visit Provider Physician Assistant
DX: M43.16 Spondylolisthesis, lumbar region (principal)
CPT/HCPCS: 99024

== ENCOUNTER → 2024-09-19 13:35 | Outpatient (BNVA) | payer MEDICARE, SELFPAY | PROVIDERS: PCP Internal Medicine; Visit Provider Physician Assistant | DX: M43.16 Spondylolisthesis, lumbar region (principal) | CPT/HCPCS: 99212 ==

== ENCOUNTER 2024-10-04 13:51 | Outpatient (AMB) | payer MEDICARE, SELFPAY ==
--- NOTE | 2024-10-04 13:51 | A.OFFPC_ITS ---
Vital Signs 10/04/24 13:55 Weight 120 lb BP 130/70 Respiration 14 Pulse 78 Pulse Source Pulse Oximeter Temp 97.9 F Temp Source Temporal Artery Scan Pulse Oximetry (%) 97 Oxygen Delivery Method Room Air Intake Visit Reasons: Routine Pest Control Chemical Technician Required: No Allergies hydrocodone Allergy (Intermediate, Verified 10/04/24 13:51) Vomiting amoxicillin Adverse Reaction (Intermediate, Verified 10/04/24 13:51) Gastrointestinal Upset nitrofurantoin Adverse Reaction (Intermediate, Verified 10/04/24 13:51) Gastrointestinal Upset sulfadiazine Adverse Reaction (Intermediate, Verified 10/04/24 13:51) Gastrointestinal Upset Tobacco use date assessed: 10/04/24 Fall risk assessment: No Falls in past year Last assessed Fall Risk: 10/04/24 Dental Screening Dental Screen Date: 10/04/24 Did you have a dental visit in the last 12 months?: Yes Did you have a dental problem in the last 6 months where you did not have access to dental care?: No PFSH Medical History (Updated 10/04/24 @ 14:36 by Calvin Brooke MD) Essential hypertension Bipolar disorder Lumbar degenerative disc disease Sciatic nerve pain Cervical spondylosis Urinary incontinence Arthritis Elevated cholesterol Depression GERD (gastroesophageal reflux disease) Non-toxic multinodular goiter Surgical History (Updated 10/04/24 @ 14:09 by Calvin Brooke MD) S/P placement of nerve stimulator Hx of bilateral cataract extraction History of breast lump/mass excision Hx of cholecystectomy Hx of total hysterectomy with removal of both tubes and ovaries H/O colonoscopy (07/28/22) Family History (Updated 10/04/24 @ 14:07 by JONAH Ohara) Father Heart problem Mother Dementia Social History (Updated 10/04/24 @ 14:08 by JONAH Ohara) Household Members: Family Household Members Other:: daughter/grandson Housing: House Are you a primary intensive care nurse to a significant other at home: No Do you presently have visiting nurse or other home services: Yes (Meals on Wheels) Alcohol intake: current Alcohol intake frequency: a few times a week Comment: states does not move around at all, stays in bed due to pain Patient Tobacco Use Status: Former Tobacco user Tobacco use type: Cigarette Years Smoked: 5 Substance Use Type: Marijuana Advance Directives Date on File: 07/23/24 service: No Current occupational status: retired Cognitive needs: No Hearing needs: Yes (b/l ears) Vision needs: Yes (rx glasses) Questionnaire Thrive Questionnaire Date Thrive assessed: 10/04/24 I am a: Patient What is your living situation today?: I have a steady place to live Within the past 12 months, did the food you bought not last and you didn't have the money to get more?: Never true Within the past 12 months, did you worry whether your food would run out before you got money to buy more?: Never true Do you have trouble paying for medicines?: No Do you have trouble getting transportation to medical appointments?: No Do you have trouble paying your heating and electricity bill?: No Do you have trouble taking care of your child, family member or friend?: No Do you have trouble with day-to-day activities such as bathing, preparing meals, shopping, managing finances, etc.?: No Are you currently unemployed and looking for a job?: No Are you interested in more education?: No Please select the resources that you would like help with: None THRIVE Score: 0 AUDIT C Alcohol Use Questionnaire (AUDIT-C) 1. How often do you have a drink containing alcohol?: Monthly or less 2. How many drinks containing alcohol do you have on a typical day when you are drinking?: 1 or 2 3. How often do you have six or more drinks on one occasion?: Never Total Score: 1 CAREN-7 AMB Questionnaire CAREN-7 Date CAREN - 7 assessed: 10/04/24 Source: Developed by Drs. Alexander Stoner, Kendra Mosquera, Joshua Thompson and colleagues, with an educational saad from [employer]. Physical exam (Primary Care) Vital Signs: Last Vital Signs Temp 97.9 F 10/04/24 13:55 Pulse 78 10/04/24 13:55 Resp 14 10/04/24 13:55 BP 130/70 10/04/24 13:55 Pulse Ox 97 10/04/24 13:55 Oxygen Delivery Method Room Air 10/04/24 13:55 Tobacco/Smoking Status: Tobacco use Status Tobacco use date assessed 10/04/24 10/04/24 13:54 Patient Tobacco Use Status Former Tobacco user 10/04/24 14:08 Tobacco use type Cigarette 10/04/24 14:08 PHQ-9: PHQ-9 Score PHQ-9: Total score 0 10/04/24 13:54 Thrive Assessment: Date of Thrive Assessment Date Thrive assessed 10/04/24 10/04/24 13:54 Coding Level of Care Code New Pt Level 4 (23812) Complex EM visit Add On G2211 Diagnoses Spondylolisthesis at L4-L5 level M43.16 Spinal stenosis of lumbar region with neurogenic claudication M48.062 Essential hypertension I10 Assessment & Plan Assessment & Plan (1) Spondylolisthesis at L4-L5 level: Code(s): M43.16 - Spondylolisthesis, lumbar region Category: Medical Plan: Taper Oxycodone 2.5 mg to once a day. Physical therapy ordered. Keep follow up appt with Dr Lyon (2) Spinal stenosis of lumbar region with neurogenic claudication: Code(s): M48.062 - Spinal stenosis, lumbar region with neurogenic claudication Category: Medical Plan: As above (3) Essential hypertension: Code(s): I10 - Essential (primary) hypertension Category: Medical Plan: Amlodipine has been discontinued. Mammogram has been scheduled by her previous PCP. Encouraged her to keep the appt for the first week of October Plan History of Present Illness The patient is a 73-year-old female presenting with management concerns post- sciatica surgery and challenges related to hypertension management. She underwent a surgical intervention on August 29 for severe sciatica, which has left residual numbness from the knee to the ankle on the right, contributing to leg weakness and occasional falls due to sudden leg collapses. Her regular use of a walker when fatigued and ongoing pain management on oxycodone demonstrate the severity and impact on her daily life, though she is keen on reducing oxycodone dependency. Her previous history with amlodipine for blood pressure revealed ankle swelling, leading her to self-discontinue the medication approximately three weeks prior. Recent episodes where hypertension peaks critically have raised concern, for which she is interested in addressing without a specialist referral. A newly discovered mass in her right breast is scheduled for further evaluation with imaging on October 19, based on an external consult finding. 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 - Lives in a multi-generation household with her daughter and grandson. - Relies on public transportation or assistance from friends for mobility, due to current health limitations. Review of Systems - Musculoskeletal: Reports weakness in the right leg; denies any new traumatic injuries. - Cardiovascular: Reports bilateral ankle swelling; denies chest pain or palpitations. - Sleep: Reports poor sleep and possible insomnia; denies use of new therapies for sleep. Physical Exam General: Appearance normal, both eyes and all related structures Nutritional Appearance: Well nourished Orientation/consciousness: Patient oriented x3 Limitations: Weakness in the right leg, requires support when tired Head: Normal to inspection Neck: Normal visual inspection Chest: Normal palpation of entire chest wall Respiratory: Normal respiratory effort Neurology: Patient oriented x3 Results - Tests and Diagnostics: Mammogram and ultrasound scheduled on October 19 for right breast mass. Plan Management for the patient's post-surgical sciatica will involve both pharmaceutical and physical therapy approaches, including reducing oxycodone usage and starting physical therapy. Hypertension will be managed with lisinopril, closely observing any adverse reactions and adjusting as necessary. Ankle swelling will be monitored alongside the prescription adjustments. For new onset insomnia, melatonin will be trialed. I arranged for home health services, ensuring patient support in activities of daily living. Scheduling for mammogram and ultrasound to evaluate the breast mass is complete, with follow-up actions contingent on their findings. Patient was informed and verbally consented to the use of an ambient scribe for clinic note documentation during this visit. Discussion Notes I discussed with the patient the transition from oxycodone dependency to sustainable physical therapy rehabilitation, minimizing medication side effects. I clarified the initiation of lisinopril, emphasizing careful monitoring and dosage adjustments to manage hypertension effectively. I reiterated previously hard-managed ankle swelling potentially linked to amlodipine, supporting our current choice of lisinopril for blood pressure control. We agreed sleep disturbances could be addressed cautiously with melatonin as a supplementary aid. I recommended continuous home care support care and contingency steps based on pending diagnostic evaluations of the identified breast mass. Patient Instructions - Reduce oxycodone intake to 5 mg once daily. - Engage in physical therapy at [facility] for leg strengthening exercises. - Start lisinopril 5 mg for blood pressure management; monitor for side effects. - Take melatonin 2 mg at bedtime for better sleep if required. - Attend scheduled mammogram and ultrasound on October 19. - Confirm arrangements for home health aides through [facility]. - Report any worsening symptoms, particularly with pain, swelling, or new findings. - Follow lifestyle modifications and limit physical exertion. - Return to clinic for follow-up in three months. Orders: Referrals [facility] Referral M43.16 - Spondylolisthesis, lumbar region, M48.062 - Spinal stenosis, lumbar region with neurogenic claudication Medications: New lisinopril 5 mg PO DAILY 90 tabs 1RF
[2024-10-04 13:55] VITALS: BP 130/70; PULSE 78; RESP 14; TEMP 36.6; O2SAT 97
--- OUTSIDE RECORDS SUMMARY | 2024-10-04 16:15 | XMS_ITS ---
Author Organization [facility] Address [address] [place] [address] Care Team Providers Care Talent Acquisition Program Manager Name Role Phone Jay Uribe MD Primary Care Provider Robert Powell Jr Unavailable Allergies Allergen (clinical drug ingredient) Drug/Non Drug Allergy documented on EMR Reaction Allergy Type Onset Date Status Sulfa Unknown Drug Allergy Active REASON FOR VISIT Patient presents today for stomach issues Medications Medication SIG (Take, Route, Frequency, Duration) Notes [...] for Three Weeks, 1 Week off Active Problems Problem Type SNOMED Code ICD Code Onset Dates Problem Status W/U Status Risk Notes Problem 335452822 Irritable bowel syndrome with diarrhea (K58.0) Active confirmed Vital Signs Temperature 96.9 degrees Fahrenheit 04/10/20 24 Blood pressure systolic 000 mm Hg 04/10/20 24 Blood pressure diastolic 00 mm Hg 024 Height 58 in 04/10/2024 Weight 121 lb 2 oz lbs 04/10/2024 BMI 25.31 kg/m2 04/10/2024 Encounters Encounter Location Date Provider Diagnosis [facility] [address] [place] [address] 04/10/2024 Robert Mendoza Jr Gastroesophageal reflux disease without esophagitis K21.9 ; Irritable bowel syndrome with diarrhea K58.0 and Colon cancer screening Z12.11 Assessments Encounter Date Diagnosis (ICD Code) Assessment Notes Treatment Notes Treatment Clinical Notes Section Notes 04/10/2024 Gastroesophageal reflux disease without esophagitis (ICD-10 - K21.9) Gastroesophageal reflux disease material was printed We discussed her symptoms today. We recommended she continue omeprazole. We discussed diet, lifestyle modifications , and weight management regarding the treatment of reflux. She will continue Citrucel for her IBS. She is up-to-date on colorectal cancer screening. We encouraged a more balanced diet. 04/10/2024 Irritable bowel syndrome with diarrhea (ICD-10 - K58.0) We discussed her symptoms today. We recommended she continue omeprazole. We discussed diet, lifestyle modifications , and weight management regarding the treatment of reflux. She will continue Citrucel for her IBS. She is up-to-date on colorectal cancer screening. We encouraged a more balanced diet. 04/10/2024 Colon cancer screening (ICD-10 - Z12.11) We discussed her symptoms today. We recommended she continue omeprazole. We discussed diet, lifestyle modifications , and weight management regarding the treatment of reflux. She will continue Citrucel for her IBS. She is up-to-date on colorectal cancer screening. We encouraged a more balanced diet. Plan Of Treatment Treatment Notes Assessment Notes Gastroesophageal reflux dise ase without esophagitis Gastroesophageal reflux disease material was printed Next Appt Details Follow Up: 1 Year, Reason: Provider Name:Robert loving Jr, 04/09/2025 10:50:00 AM, [address], [address], [place], [address], Progress Notes * RIANNA LUEVANO MDOB:[birth year] (73 yo F)Acc No.[id number]:04/10/2024 Progress Notes Patient:?RIANNA LUEVANO Provider:?Robert Mendoza MD :1950???Age:73 Y???Sex:Female D ate:04/10/2024 Address:[place], [place] Pcp:Jay Uribe MD Subjective: * Chief Complaints: * ???1. Patient presents today for stomach issues. * HPI: ???New symptom(s):? Rianna is a pleasant 73-year-old woman seen today in consultation. She history of colon polyps and was seen for colonoscopy in July 2022 with removal of a small tubular adenoma. 7 year followup was recommended. Today she complains of diarrhea related to her IBS symptoms. Stools are sometimes hard and sometimes soft. She admits to poor dietary habits. ?For her reflux she is taking omeprazole on a p.r.n. basis usually, 2 times per week. She has a CT scan that scheduled through her primary care provider later this week and we will review this when it becomes available. She is using Citrucel as a fiber supplement. * Medical History:?Urinary inc ontinence, bladder stimulator placement and removal, Multinodular goiter, Arthritis, Depression, Elevated cholesterol, Gastroesophageal reflux disease. * Surgical History:?removal fi broadenoma left and right breast , Total hysterectomy 09/1999, Cholecystectomy 08/2006, Thyroid nodules , neurostimulator in bladder 08/11. * Family History:?Father: dece ased, diagnosed with Heart disease.?Mother: , dementia, diagnosed with HTN (hypertension).?Paternal Grand Father: , diagnosed with Colon cancer.?Paternal Grand Mother: , diagnosed with Diabetes, Heart disease.?Siblings: 64 yrs, brother/massive heart attack, diagnosed with Heart disease.? Paternal grandfather colon cancer. No family history of liver cancer. * Social History:?Tobacco Use:?Tobacco Use/Smoking?Are you a: nonsmoker.?Drugs/Alcohol:?Alcohol Screen?Points: 2, Interpretation: Negative.?Miscellaneous:?Marital status: / in relationship since 1990. 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 ???drinks wine. * Medications:?Taking oxyBUTYn in Chloride 5 MG Tablet 1 tablet Orally Twice a day, Notes: as needed, Taking Flax Seed Oil 1000 MG Capsule as directed Orally , Taking Calcium 1 tab Oral , Taking Tylenol 325 MG Tablet 1 tablet as needed Orally every 4 hrs, Taking Estradiol 0.5 MG Tablet 1 tablet Orally Once a day, Taking Hair Regrowth for Women , Taking Multi For Her 50+ - Tablet as directed Orally , Taking Pravastatin Sodium 20 MG Tablet 1 tablet Orally Once a day, Taking Fluoxetine & Diet Manage Prod 10 MG Miscellaneous Orally , Taking Premarin 0.3 MG Tablet 1 tablet Orally Daily for Three Weeks, 1 Week off, Taking Omeprazole 20 MG Capsule Delayed Release 1 capsule Orally Once a day, Discontinued Biotin 10 MG Tablet 1 tablet Orally Once a day, Discontinued Naproxen 15 % Cream Externally , Medication List reviewed and reconciled with the patient * Allergies:?Sulfa. Objective: * Vitals:?Wt: 121 lb 2 oz, Ht: 58 in, BMI:25.31 Index, BP: 000/00 mm Hg, Temp: 96.9. * Examination: ???General Examination: ???On examination today, she appears well. Skin is anicteric. Lungs are clear. Heart shows a regular rate and rhythm. Abdomen is soft without focal masses or tenderness. Extremities are without edema. Assessment: * Assessment: 1.?Gastroesophageal reflux d isease without esophagitis - K21.9 (Primary)?2.?Irritable bowel syndrome with diarrhea - K58.0?3.?Colon cancer screening - Z12.11? We discussed her symptoms to day. We recommended she continue omeprazole. We discussed diet, lifestyle modifications, and weight management regarding the treatment of reflux. She will continue Citrucel for her IBS. She is up-to-date on colorectal cancer screening. We encouraged a more balanced diet. Plan: * Treatment: * Procedure Codes:?3017F COLOR ECTAL CA SCREEN DOC REV, G9745 DOC RSN FOR NOT SCREEN/REC F/U HBP * Preventive Medicine:? ??Counseling:?Care goal follow-up plan:?Above Normal BMI Follow-up?Giving encouragement to exercise,?BMI management provided?Yes.? ??Urinary Incontinence:?Urinary Incontinence?Assessment:?Absent,?Plan of care documented:?No, reason not specified.? ??Screenings:?Fall Risk Screening?Fall Risk Assessment:?No falls in the past year.? * Follow Up:?1 Year * * Sign off status: Completed true * Provider:?Robert Mendoza MD Date:?0 04/10/2024 Generated for Printi chepe/Ofelia/eTransmitting on:?10/04/2024 04:15 PM EDT History and Physical Notes * HPI (History of Present Illness) Category Sub-Category Detail Notes Category Not es New symptom(s) Rianna is a pleasant 73-year-old woman seen today in consultation. She history of colon polyps and was seen for colonoscopy in July 2022 with removal of a small tubular adenoma. 7 year followup was recommended. Today she complains of diarrhea related to her IBS symptoms. Stools are sometimes hard and sometimes soft. She admits to poor dietary habits. For her reflux she is taking omeprazole on a p.r.n. basis usually, 2 times per week. She has a CT scan that scheduled through her primary care provider later this week and we will review this when it becomes available. She is using Citrucel as a fiber supplement. Examination Category Sub-Category Detail Notes Category Not es General Examination On exami nation today, she appears well. Skin is anicteric. Lungs are clear. Heart shows a regular rate and rhythm. Abdomen is soft without focal masses or tenderness. Extremities are without edema.
--- OUTSIDE RECORDS SUMMARY | 2024-10-04 16:16 | XMS_ITS | Patient Health Record ---
Author Organization [facility] Address [address] [place] [address] Care Team Providers Care Starbucks Barista Name Role Phone Jay Uribe MD Primary Care Provider Robert Powell Jr Unavailable Allergies Allergen (clinical drug ingredient) Drug/Non Drug Allergy documented on EMR Reaction Allergy Type Onset Date Status Sulfa Unknown Drug Allergy Active Reason For Referral No Information Medications Medication SIG (Take, Route, Frequency, Duration) [...] 1 tab Oral for 14 days Active Immunizations Vaccine Route Administration Date Status Comme nts Influenza Unknown 03/19/2015 Administered Influenza Unknown 05/19/2022 Administered Influenza Unknown 06/08/2023 Administered Problems Problem Type SNOMED Code ICD Code Onset Dates Problem Status W/U Status Risk Notes Problem 515257358 Colon cancer screening (Z12.11) Active confirmed Problem 819573168 Irritable bowel syndrome with diarrhea (K58.0) Active confirmed Problem 354769728 Gastroesophageal reflux disease without esophagitis (K21.9) Active confirmed Problem 01122879 Constipation, unspecified constipation type (K59.00) Active confirmed Vital Signs Temperature 96.9 degrees Fahrenheit 04/10/2024 Blood pressure diastolic 00 mm Hg 04/10/2024 Height 58 in 04/10/2024 Blood pressure systolic 000 mm Hg 04/10/2024 Weight 121 lb 2 oz lbs 04/10/2024 BMI 25.31 kg/m2 04/10/2024 Encounters Encounter Location Date Provider Diagnosis [facility] [address] [place] [address] 04/10/2024 Robert Mendoza Jr Gastroesophageal reflux disease without esophagitis K21.9 ; Irritable bowel syndrome with diarrhea K58.0 and Colon cancer screening Z12.11 [facility] [address] [place] [address] 11/18/2023 Robert Mendoza Jr [facility] [address] [place] [address] 2023 Robert Mendoza Jr Assessments Encounter Date Diagnosis (ICD Code) Assessment Notes Treatment Notes Treatment Clinical Notes Section Notes 04/10/2024 Irritable bowel syndrome with diarrhea (ICD-10 - K58.0) We discussed her symptoms today. We recommended she continue omeprazole. We discussed diet, lifestyle modifications , and weight management regarding the treatment of reflux. She will continue Citrucel for her IBS. She is up-to-date on colorectal cancer screening. We encouraged a more balanced diet. 04/10/2024 Gastroesophageal reflux disease without esophagitis (ICD-10 [...] a more balanced diet. Plan Of Treatment Future Test Test Name Order Date COLONOSCOPY 12/04/2015 COLONOSCOPY 06/08/2022 Next Appt Details Provider Name:Robert Hall Jaylen loving Jr, 04/09/2025 10:50:00 AM, [address] [place] [address], [address], [place], [address], Insurance Providers Payer Name Payer Address Payer Phone Subscriber Number Group Number Insured Name Patient Relationship to Insured Coverage Start Date Coverage End Date MEDICARE OF [place] [address] [place]HA[place]ENCHACA [id number] [phone] [id number] RIANNA FREGUSON Self - patient is the insured MEDEX ATTN CLAIMS [address] [place] [address] [phone] [id number] RIANNA FERGUSON Self - patient is the insured Medical (General) History Medical History History ICD Code urinary incontinence, bladder stimulator placement and removal Multinodular goiter Arthritis Depression Elevated cholesterol Gastroesophageal reflux disease Surgical History Surgery Date(Month/Year) removal fibroadenoma left and right [facility] [facility] Total hysterectomy 09/1999 Cholecystectomy 08/2006 Thyroid nodules neurostimulator in bladder 08/11
--- OUTSIDE RECORDS SUMMARY | 2024-10-04 16:16 | XMS_ITS ---
Author Organization [facility] Address [address] [place] [address] Care Team Providers Care Automatic Buffing Wheel Former Name Role Phone Jay Uribe MD Primary Care Provider Unavaileugene Mendoza Jr, Robert Serrato REASON FOR VISIT Patient presents today for gerd Encounters Encounter Location Date Provider Diagnosis [facility] [address] [place] [address] 2023 Robert Mendoza Jr Plan Of Treatment Next Appt Details Provider Name:Robert loving Jr, 04/09/2025 10:50:00 AM, [address] [place] [address], [address], [place], [address], Progress Notes * RIANNA LUEVANO MDOB:[birth year] (73 yo F)Acc No.[id number]:2023 Progress Notes Patient:?RIANNA LUEVANO Provider:?Robert Mendoza MD :1950???Age:72 Y???Sex:Female D ate:2023 Address:[id number] Pcp:Jay Uribe MD Subjective: * Chief Complaints: * ???1. Patient presents today for gerd. * Medical History:? Objective: * Vitals:? Assessment: Plan: * Treatment: * * The named appointment provid er may or may not be the originator of this progress note, and it is not deemed complete until electronically signed by the appointment provider. Sign off status: Pending * Provider:?Robert Mendoza MD Date:?0 2023 Generated for John mo/Ofelia/Reece on:?10/04/2024 04:15 PM EDT
--- OUTSIDE RECORDS SUMMARY | 2024-10-04 16:16 | XMS_ITS ---
Author Organization [facility] Address [address] [place] [address] Care Team Providers Care Hired Help Name Role Phone Jay Uribe MD Primary Care Provider Unavaileugene Mendoza Jr, Robert Serrato REASON FOR VISIT Pt no show Encounters Encounter Location Date Provider Diagnosis [facility] [address] [place] [address] 2023 Robert Mendoza Jr Plan Of Treatment Next Appt Details Provider Name:Robert loving Jr, 04/09/2025 10:50:00 AM, [address], [address], [place], [address], Progress Notes * RIANNA LUEVANO MDOB:[birth year] (73 yo F)Acc No.[id number]:2023 Patient:?RIANNA LUEVANO :1950???Age:72 Y???Sex:Female Address:[place] [address] * true * Date:? Generated for Printi ng/Faxing/eTransmitting on:?10/04/2024 04:15 PM EDT
== END 2024-10-04 15:05 | disposition home or self-care (01) ==
LOC: HO.HMCHD 13:51
PROVIDERS: PCP Internal Medicine; Visit Provider Internal Medicine
DX: M43.16 Spondylolisthesis, lumbar region (principal); M48.062 Spinal stenosis, lumbar region with neurogenic claudication; I10 Essential (primary) hypertension

== ENCOUNTER → 2024-10-04 13:51 | Outpatient (BNVA) | payer MEDICARE, SELFPAY | PROVIDERS: PCP Internal Medicine; Visit Provider Internal Medicine | DX: M43.16 Spondylolisthesis, lumbar region (principal); M48.062 Spinal stenosis, lumbar region with neurogenic claudication; I10 Essential (primary) hypertension | CPT/HCPCS: 99202 ==

== ENCOUNTER → 2024-10-19 13:30 | Outpatient (BNV) | payer MEDICARE, SELFPAY | PROVIDERS: PCP Internal Medicine; Referring Provider Internal Medicine; Visit Provider Internal Medicine | DX: N63.12 Unspecified lump in the right breast, upper inner quadrant (principal) | CPT/HCPCS: 76642; 77066; G0279 ==

== ENCOUNTER 2024-10-19 13:44 | Outpatient (REF) | payer MEDICARE, SELFPAY ==
--- NOTE | ~2024-10-19 | MM_ITS ---
EXAMINATION: MM DIAGNOSTIC DIGITAL BREAST TOMOSYNTHESIS, BILATERAL Right limited ultrasound. CLINICAL INFORMATION: Palpable right breast lump upper inner breast. COMPARISON: Mammography: Comparison is made with relevant prior exams. TECHNIQUE: Digital breast mammography with tomosynthesis is performed in both the craniocaudal and mediolateral oblique views along with computer-aided detection (CAD). FINDINGS: The breasts are heterogeneously dense, which may obscure small masses (ACR BI-RADS breast composition Category c). Left: There are no significant masses, abnormal calcifications, or other abnormalities. Right: BB marker in the upper inner breast with an underlying focal asymmetry with associated architectural distortion and far posterior depth. No suspicious calcifications or other abnormal findings. Targeted color Doppler ultrasound demonstrates a solid irregular mass at 2:00 8 cm from the nipple measuring 10 x 10 x 4 mm and a solid irregular mass at 2:00 5 cm from the nipple measuring 13 x 6 x 12 mm. These areas correlate with the focal asymmetry with distortion on mammography and palpable mass. Results are provided to the patient at time of visit by the technologist. MM/MM tomosynthesis diagnostic BI IMPRESSION: 2 solid irregular masses one at 2:00 5 cm from the nipple and another 2:00 8 cm from the nipple. Recommend histology of both sites with ultrasound-guided core needle biopsy at this time. The findings and recommendations were discussed with the patient the procedures will be scheduled. ASSESSMENT: BI-RADS BI-RADS 4 - Suspicious finding RECOMMENDATION: Biopsy recommended This patient's information was entered into a reminder system with a target due date for their next mammogram. Electronically signed by: Fior Atkins DO 10/20/2024 08:54 AM EDT
--- OUTSIDE RECORDS SUMMARY | 2024-10-19 15:05 | XMS_ITS ---
Author Organization [facility] Address [address] [place] [address] Care Team Providers Care Blaster Helper Name Role Phone Jay Uribe MD Primary Care Provider Robert Powell Jr Unavailable [phone] Allergies Allergen (clinical drug ingredient) Drug/Non Drug [...] Problem Status W/U Status Risk Notes Problem 691444873 Irritable bowel syndrome with diarrhea (K58.0) Active confirmed Vital Signs Temperature 96.9 degrees Fahrenheit 04/10/20 24 Blood pressure systolic 000 mm Hg 04/10/20 24 Blood pressure diastolic 00 mm Hg 024 Height 58 in 04/10/2024 Weight 121 lb 2 oz lbs 04/10/2024 BMI 25.31 kg/m2 04/10/2024 Encounters Encounter Location Date Provider Diagnosis [facility] [address] [place] [address] 04/10/2024 Robert Mendoza Jr Gastroesophageal reflux disease [...] 10:50:00 AM, [address], [address], [place], [address], Progress Notes * RIANNA LUEVANO MDOB:[birth year] (73 yo F)Acc No.[id number]:04/10/2024 Progress Notes Patient:?RIANNA LUEVANO Provider:?Robert Mendoza MD :1950???Age:73 Y???Sex:Female D ate:04/10/2024 Address:[place], [place] Pcp:Jay Uribe MD Subjective: * Chief Complaints: [...] MD Date:?0 04/10/2024 Generated for Printi chepe/Ofelia/eTransmitting on:?10/19/2024 03:04 PM EDT History and Physical Notes * [...]
--- OUTSIDE RECORDS SUMMARY | 2024-10-19 15:05 | XMS_ITS ---
Author Organization [facility] Address [address] [place] [address] Care Team Providers Care Homebound Teacher Name Role Phone Jay Uribe MD Primary Care Provider Unavaileugene Mendoza Jr, Robert Serrato [phone] REASON FOR VISIT Pt no show Encounters Encounter Location Date Provider Diagnosis [facility] [address] [place] [address] 2023 Robert Mendoza Jr Plan Of Treatment Next Appt Details Provider Name:Robert loving Jr, 04/09/2025 10:50:00 AM, [address], [address], [place], [address], Progress Notes * RIANNA LUEVANO MDOB:[birth year] (73 yo F)Acc No.[id number]:2023 Patient:?RIANNA LUEVANO :1950???Age:72 Y???Sex:Female Address:[place] [address] * true * Date:? Generated for Printi ng/Faxing/eTransmitting on:?10/19/2024 03:05 PM EDT
--- OUTSIDE RECORDS SUMMARY | 2024-10-19 15:05 | XMS_ITS ---
Author Organization [facility] Address [address] [place] [address] Care Team Providers Care Plate Corrector Name Role Phone Jay Uribe MD Primary Care Provider Unavaileugene Mendoza Jr, Robert Serrato REASON FOR VISIT Patient presents today for gerd Encounters Encounter Location Date Provider Diagnosis [facility] [address] [place] [address] 2023 Robert Mendoza Jr Plan Of Treatment Next Appt Details Provider Name:Robert loving Jr, 04/09/2025 10:50:00 AM, [address] [place] [address], [address], [place], [address], Progress Notes * RIANNA LUEVANO MDOB:[birth year] (73 yo F)Acc No.[id number]:2023 Progress Notes Patient:?RIANNA LUEVANO Provider:?Robert Mendoza MD :1950???Age:72 Y???Sex:Female D ate:2023 Address:[place] Pcp:Jay Uribe MD Subjective: * Chief Complaints: [...] MD Date:?0 2023 Generated for John mo/Ofelia/Reece on:?10/19/2024 03:05 PM EDT
--- OUTSIDE RECORDS SUMMARY | 2024-10-19 15:06 | XMS_ITS | Patient Health Record ---
Author Organization [facility] Address [address] [place] [address] Care Team Providers Care Records Analyst Name Role Phone Jay Uribe MD Primary [...] Problem Status W/U Status Risk Notes Problem 581191966 Colon cancer screening (Z12.11) Active confirmed Problem 560335174 Irritable bowel syndrome with diarrhea (K58.0) Active confirmed Problem 982416595 Gastroesophageal reflux disease without esophagitis (K21.9) Active confirmed Problem 11088460 Constipation, unspecified constipation type (K59.00) Active confirmed Vital Signs Temperature 96.9 degrees Fahrenheit 04/10/2024 Blood pressure diastolic 00 mm Hg 04/10/2024 Height 58 in 04/10/2024 Blood pressure systolic 000 mm Hg 04/10/2024 Weight 121 lb 2 oz lbs 04/10/2024 BMI 25.31 kg/m2 04/10/2024 Encounters Encounter Location Date Provider Diagnosis [facility] [address] [place] [address] 04/10/2024 Robert Mendoza Jr Gastroesophageal reflux disease without esophagitis K21.9 ; Irritable bowel syndrome with diarrhea K58.0 and Colon cancer screening Z12.11 [facility] [address] [place] [address] 11/18/2023 Robert Mendoza Jr [facility] [address] [place] [address] 2023 Robert Mendoza Jr Assessments Encounter Date [...] Hall Jaylen loving Jr, 04/09/2025 10:50:00 AM, [address] [place] [address], [address], [place], [address], Insurance Providers Payer Name Payer Address Payer Phone Subscriber Number Group Number Insured Name Patient Relationship to Insured Coverage Start Date Coverage End Date MEDICARE OF [place] [address] [place]ACA [address] [phone] [id number] RIANNA FERGUSON Self - patient is the insured MEDEX ATTN CLAIMS [address] [place] [address] [phone] [id number] RIANNA FERGUSON Self - patient is the insured Medical (General) History Medical History History ICD Code urinary incontinence, bladder stimulator placement and removal Multinodular goiter Arthritis Depression Elevated cholesterol Gastroesophageal reflux disease Surgical History Surgery Date(Month/Year) removal fibroadenoma left and right [facility] [facility] Total hysterectomy 09/1999 Cholecystectomy 08/2006 Thyroid nodules neurostimulator in bladder 08/11
== END 2024-10-19 13:45 | disposition home or self-care (01) ==
LOC: HO.MAMMO 13:44
PROVIDERS: PCP Internal Medicine; Referring Provider Internal Medicine; Visit Provider Internal Medicine
DX: N63.12 Unspecified lump in the right breast, upper inner quadrant (principal)
CPT/HCPCS: 76642; 77062; 77066

== ENCOUNTER → 2024-10-23 15:09 | Outpatient (BNVA) | payer MEDICARE, SELFPAY | PROVIDERS: PCP Internal Medicine ==

== ENCOUNTER 2024-10-31 14:49 | Outpatient (AMB) | payer MEDICARE, SELFPAY ==
--- NOTE | 2024-10-31 14:51 | A.SPINEOV_ITS ---
Intake Visit Reasons: 2nd post op Intake Note: is here today for her 2nd post op. Ski Maker Required: No Allergies hydrocodone Allergy (Intermediate, Verified 10/04/24 13:51) Vomiting amoxicillin Adverse Reaction (Intermediate, Verified 10/04/24 13:51) Gastrointestinal Upset nitrofurantoin Adverse Reaction (Intermediate, Verified 10/04/24 13:51) Gastrointestinal Upset sulfadiazine Adverse Reaction (Intermediate, Verified 10/04/24 13:51) Gastrointestinal Upset Assessment & Plan Assessment & Plan (1) S/P lumbar spinal fusion: Code(s): Z98.1 - Arthrodesis status Category: Medical Plan Isabel comes in today for her 2nd postoperative visit after having L4-[address] Lyon about 2 months ago. She reports that overall her pain is much better than it was prior to surgery. The numbness and tingling in her right lower extremity has subsided. She has been back to going out to the pub dancing, which she is very excited about. She asked several questions regarding the postoperative healing course all of which I answered to the best of my a bility. She reports she is no longer taking the narcotic pain medication that was prescribed postoperatively, and is only taking oign-cgi-medodyn medications as needed. No new neurological deficits. The patient ambulates well and rises from a seated position without difficulty. Her posterior incision sites are closed and well healed. There is no need for continued routine follow up with Isabel, she may be discharged as a patient. Adria Lyon MD,PhD [facility] Orders: Orders PT Evaluation and Treatment Today Z98.1 - Arthrodesis status Coding Level of Care Code Global (08988) Diagnoses S/P lumbar spinal fusion Z98.1
== END 2024-10-31 15:22 | disposition home or self-care (01) ==
LOC: HO.HNS 14:49
PROVIDERS: PCP Internal Medicine; Visit Provider Physician Assistant
DX: Z98.1 Arthrodesis status (principal)
CPT/HCPCS: 99024

== ENCOUNTER → 2024-10-31 14:49 | Outpatient (BNVA) | payer MEDICARE, SELFPAY | PROVIDERS: PCP Internal Medicine; Visit Provider Physician Assistant | DX: Z98.1 Arthrodesis status (principal) | CPT/HCPCS: 99212 ==

== ENCOUNTER 2024-11-01 15:42 | Outpatient (AMB) | payer MEDICARE, SELFPAY ==
--- NOTE | 2024-11-01 15:49 | MHC.PC.OV ---
Vital Signs 11/01/24 15:57 Height 4 ft 9 in Weight 124 lb BMI 26.8 BP 128/80 Blood Pressure Location Lt brachial Position Sitting Pulse 74 Temp 97.5 F Temp Source Axillary Pulse Oximetry (%) 98 Oxygen Delivery Method Room Air Intake Visit Reasons: BP Program Facilitator Required: No Accompanied by: Self / Same As Patient Allergies hydrocodone Allergy (Intermediate, Verified 11/05/24 08:22) Vomiting amoxicillin Adverse Reaction (Intermediate, Verified 11/05/24 08:22) Gastrointestinal Upset nitrofurantoin Adverse Reaction (Intermediate, Verified 11/05/24 08:22) Gastrointestinal Upset sulfadiazine Adverse Reaction (Intermediate, Verified 11/05/24 08:22) Gastrointestinal Upset Medication List - Last Reconciled 11/05/24 by Calvin Brooke MD acetaminophen ER 650 mg PO Q8H PRN cyclosporine 0.05% (Restasis) 1 drp ophthalmic (eye) DAILY estradiol 0.5 mg PO MOWEFR@0900 flaxseed oil 1,000 mg PO DAILY fluoxetine 20 mg PO DAILY lisinopril 5 mg PO DAILY mecobalamin (vitamin B12) mcg PO melatonin 5 mg PO .HS omeprazole magnesium 20 mg PO DAILY simvastatin 10 mg PO BEDTIME tizanidine 2 mg PO BID PRN Tobacco use date assessed: 11/01/24 Fall risk assessment: 1 Fall in past year Last assessed Fall Risk: 11/01/24 Dental Screening Dental Screen Date: 11/01/24 Did you have a dental visit in the last 12 months?: Yes Did you have a dental problem in the last 6 months where you did not have access to dental care?: No HPI BP HPI Details BP is better controlled. She is feeling better PFSH Medical History Breast mass, right Essential hypertension Bipolar disorder Lumbar degenerative disc disease Sciatic nerve pain Cervical spondylosis Urinary incontinence Arthritis Elevated cholesterol Depression GERD (gastroesophageal reflux disease) Non-toxic multinodular goiter Surgical History S/P placement of nerve stimulator Hx of bilateral cataract extraction History of breast lump/mass excision Hx of cholecystectomy Hx of total hysterectomy with removal of both tubes and ovaries H/O colonoscopy (07/28/22) Family History Father Heart problem Mother Dementia Social History Household Members: Family Household Members Other:: daughter/grandson Housing: House Are you a primary physician locums urgent care to a significant other at home: No Do you presently have visiting nurse or other home services: Yes (Meals on Wheels) Alcohol intake: current Alcohol intake frequency: a few times a week Comment: states does not move around at all, stays in bed due to pain Patient Tobacco Use Status: Current everyday Tobacco user Tobacco use type: Cigarette Years Smoked: 5 e-Cigarette/Vaping Use: Currently Using Substance Use Type: Marijuana Advance Directives Date on File: 07/23/24 service: No Current occupational status: retired Cognitive needs: No Hearing needs: Yes (b/l ears) Vision needs: Yes (rx glasses) Questionnaire PHQ-9 Over the last 2 weeks, how often have you been bothered by any of the following problems? 1. Little interest or pleasure in doing things: not at all 2. Feeling down, depressed, or hopeless: not at all 3. Trouble falling or staying asleep, or sleeping too much: not at all 4. Feeling tired or having little energy: not at all 5. Poor appetite or overeating: not at all 6. Feeling bad about yourself - or that you are a failure or have let yourself or your family down: not at all 7. Trouble concentrating on things, such as reading the newspaper or watching television: not at all 8. Moving or speaking so slowly that other people could have noticed. Or the opposite - being so fidgety or restless that you have been moving around a lot more than usual: not at all 9. Thoughts that you would be better off or of hurting yourself in some way: not at all Total score: 0 Depression Screening Interpretation: Negative Depression Screening Done: Yes Source: Developed by Drs. Alexander Stoner, Kendra Mosquera, Joshua Thompson and colleagues, with an educational saad from [employer]. Thrive Questionnaire Date Thrive assessed: 11/01/24 I am a: Patient Within the past 12 months, did the food you bought not last and you didn't have the money to get more?: Never true Within the past 12 months, did you worry whether your food would run out before you got money to buy more?: Never true Do you have trouble paying for medicines?: No Do you have trouble getting transportation to medical appointments?: No Do you have trouble paying your heating and electricity bill?: No Do you have trouble taking care of your child, family member or friend?: No Do you have trouble with day-to-day activities such as bathing, preparing meals, shopping, managing finances, etc.?: No Are you currently unemployed and looking for a job?: No Are you interested in more education?: No THRIVE Score: 0 AUDIT C Alcohol Use Questionnaire (AUDIT-C) 1. How often do you have a drink containing alcohol?: Monthly or less 2. How many drinks containing alcohol do you have on a typical day when you are drinking?: 1 or 2 3. How often do you have six or more drinks on one occasion?: Less than monthly Total Score: 2 CAREN-7 AMB Questionnaire CAREN-7 Date CAREN - 7 assessed: 11/01/24 Feeling nervous, anxious, or on edge: 0 = Not at all Not being able to stop or control worryin = Not at all Worrying too much about different things: 0 = Not at all Trouble relaxin = Not at all Being so restless that it is hard to sit still: 0 = Not at all Becoming easily annoyed or irritable: 0 = Not at all Feeling afraid as if something awful might happen: 0 = Not at all Total CAREN-7 score (0-4 normal; 5-9 mild; 10-14 moderate; 15-21 severe): 0 Source: Developed by Drs. Alexander Stoner, Kendra Mosquera, Joshua Thompson and colleagues, with an educational saad from [employer]. Physical exam (Primary Care) Vital Signs: Last Vital Signs Temp 97.5 F 11/01/24 15:57 Pulse 74 11/01/24 15:57 BP 128/80 11/01/24 15:57 Pulse Ox 98 11/01/24 15:57 Oxygen Delivery Method Room Air 11/01/24 15:57 Care Plan Goal for BP management: Blood pressure is in range. BMI result Body Mass Index 26.8 Tobacco/Smoking Status: Tobacco use Status Tobacco use date assessed 11/01/24 11/01/24 15:53 Patient Tobacco Use Status Current everyday Tobacco 11/01/24 16:11 Tobacco use type Cigarette 11/01/24 15:53 e-Cigarette/Vaping Use Currently Using 11/01/24 16:11 PHQ-9: PHQ-9 Score PHQ-9: Total score 0 11/01/24 15:53 Depression Screening Interpretation: Negative Thrive Assessment: Date of Thrive Assessment Date Thrive assessed 11/01/24 11/01/24 15:53 Advance Care Planning discussion: Exists, not on file Date of discussion: 11/01/24 Who was present: Patient Forms completed: Health Care Proxy Time spent: 1-15 minutes, not on file Actual minutes spent: 5 Coding Level of Care Code Est Pt Level 3 (84082) Complex EM visit Add On G2211 Diagnoses Essential hypertension I10 Spondylolisthesis at L4-L5 level M43.16 Additional Codes Vital Signs *Quality* - Advance Care Planning discussion: Exists, not on file ([id number]) Vital Signs *Quality* - Time spent: 1-15 minutes, not on file ([id number]) Assessment & Plan Assessment & Plan (1) Essential hypertension: Code(s): I10 - Essential (primary) hypertension Category: Medical Plan: BP is in range. (2) Spondylolisthesis at L4-L5 level: Code(s): M43.16 - Spondylolisthesis, lumbar region Category: Medical Plan: Continue muscle relaxants as directed. Medications: New tizanidine 2 mg PO BID PRN 60 tabs 0RF Muscle Spasm simvastatin 10 mg PO BEDTIME 90 tabs 1RF
[2024-11-01 15:57] VITALS: BP 128/80; PULSE 74; TEMP 36.4; O2SAT 98; BMI 26.8
--- OUTSIDE RECORDS SUMMARY | 2024-11-01 18:06 | XMS_ITS ---
Author Organization [facility] Address [address] [place] [address] Care Team Providers Care Ships Equipment Engineer Name Role Phone Jay Uribe MD Primary Care Provider Unavaileugene Mendoza Jr, Robert Serrato [phone] REASON FOR VISIT Pt no show Encounters Encounter Location Date Provider Diagnosis [facility] [address] [place] [address] 2023 Robert Mendoza Jr Plan Of Treatment Next Appt Details Provider Name:Robert loving Jr, 04/09/2025 10:50:00 AM, [address], [address], [place], [address], Progress Notes * RIANNA LUEVANO MDOB:[birth year] (73 yo F)Acc No.[id number] Patient:?RIANNA LUEVANO :1950???Age:72 Y???Sex:Female Address:[place] [address] * true * Date:? Generated for Printi ng/Faxing/eTransmitting on:?11/01/2024 06:05 PM EDT
--- OUTSIDE RECORDS SUMMARY | 2024-11-01 18:06 | XMS_ITS ---
Author Organization [facility] Address [address] [place] [address] Care Team Providers Care Strategic Partnership Manager Name Role Phone Jay Uribe MD [...] Problem Status W/U Status Risk Notes Problem [id number] Irritable bowel syndrome with diarrhea (K58.0) Active confirmed Vital Signs Temperature 96.9 degrees Fahrenheit 04/10/20 24 Blood pressure systolic 000 mm Hg 04/10/20 24 Blood pressure diastolic 00 mm Hg 024 Height 58 in 04/10/2024 Weight 121 lb 2 oz lbs 04/10/2024 BMI 25.31 kg/m2 04/10/2024 Encounters Encounter Location Date Provider Diagnosis [facility] [address] [place] [address] 04/10/2024 Robert Mendoza Jr Gastroesophageal reflux disease [...] 10:50:00 AM, [address], [address], [place], [address], Progress Notes * RIANNA LUEVANO MDOB:[birth year] (73 yo F)Acc No.[id number]:04/10/2024 Progress Notes Patient:?RIANNA LUEVANO Provider:?Robert Mendoza MD :1950???Age:73 Y???Sex:Female D ate:04/10/2024 Address:[place], [place] Pcp:Jay Uribe MD Subjective: * Chief Complaints: [...] Provider:?Robert Mendoza MD Date:?0 04/10/2024 Generated for Seani chepe/Ofelia/eTransmitting on:?11/01/2024 06:05 PM EDT History and Physical Notes * [...]
--- OUTSIDE RECORDS SUMMARY | 2024-11-01 18:06 | XMS_ITS | Patient Health Record ---
Author Organization [facility] Address [address] [place] [address] Care Team Providers Care Primary Care Nurse Practitioner Name Role Phone Jay Uribe MD Primary [...] Problem Status W/U Status Risk Notes Problem 471244738 Colon cancer screening (Z12.11) Active confirmed Problem 467716265 Irritable bowel syndrome with diarrhea (K58.0) Active confirmed Problem 975938952 Gastroesophageal reflux disease without esophagitis (K21.9) Active confirmed Problem 75295822 Constipation, unspecified constipation type (K59.00) Active confirmed Vital Signs Temperature 96.9 degrees Fahrenheit 04/10/2024 Blood pressure diastolic 00 mm Hg 04/10/2024 Height 58 in 04/10/2024 Blood pressure systolic 000 mm Hg 04/10/2024 Weight 121 lb 2 oz lbs 04/10/2024 BMI 25.31 kg/m2 04/10/2024 Encounters Encounter Location Date Provider Diagnosis [facility] [address] [place] [address] 04/10/2024 Robert Mendoza Jr Gastroesophageal reflux disease without esophagitis K21.9 ; Irritable bowel syndrome with diarrhea K58.0 and Colon cancer screening Z12.11 [facility] [address] [place] [address] 11/18/2023 Robert Mendoza Jr [facility] [address] [place] [address] 2023 Robert Mendoza Jr Assessments Encounter Date [...] Hall Jaylen loving Jr, 04/09/2025 10:50:00 AM, [address] [place] [address], [address], [place], [address], Insurance Providers Payer Name Payer Address Payer Phone Subscriber Number Group Number Insured Name Patient Relationship to Insured Coverage Start Date Coverage End Date MEDICARE OF [place] [address] [place]HA[place]EN[place]ACA [id number] RIANNA FERGUSON Self - patient is the insured MEDEX ATTN CLAIMS [address] [place] [address] [id number] RIANNA FERGUSON Self - patient is the insured Medical (General) History Medical History History ICD Code urinary incontinence, bladder stimulator placement and removal Multinodular goiter Arthritis Depression Elevated cholesterol Gastroesophageal reflux disease Surgical History Surgery Date(Month/Year) removal fibroadenoma left and right [facility] [facility] Total hysterectomy 09/1999 Cholecystectomy 08/2006 Thyroid nodules neurostimulator in bladder 08/11
--- OUTSIDE RECORDS SUMMARY | 2024-11-01 18:06 | XMS_ITS ---
Author Organization [facility] Address [address] [place] [address] Care Team Providers Care Mesh Cutter Name Role Phone Jay Uribe MD Primary Care Provider Unavaileugene Mendoza Jr, Robert Serrato REASON FOR VISIT Patient presents today for gerd Encounters Encounter Location Date Provider Diagnosis [facility] [address] [place] [address] 2023 Robert Mendoza Jr Plan Of Treatment Next Appt Details Provider Name:Robert loving Jr, 04/09/2025 10:50:00 AM, [address] [place] [address], [address], [place], [address], Progress Notes * RIANNA LUEVANO MDOB:[birth year] (73 yo F)Acc No.[id number] Progress Notes Patient:?RIANNA LUEVANO Provider:?Robert Mendoza MD :1950???Age:72 Y???Sex:Female D ate:2023 Address:[place] Pcp:Jay Uribe MD Subjective: * Chief Complaints: [...] MD Date:?0 2023 Generated for John mo/Ofelia/Reece on:?11/01/2024 06:06 PM EDT
== END 2024-11-01 16:45 | disposition home or self-care (01) ==
LOC: HO.HMCHD 15:42
PROVIDERS: PCP Internal Medicine; Visit Provider Internal Medicine
DX: I10 Essential (primary) hypertension (principal); M43.16 Spondylolisthesis, lumbar region; Z00.00 Encounter for general adult medical examination without abnormal findings

== ENCOUNTER → 2024-11-01 15:42 | Outpatient (BNVA) | payer MEDICARE, SELFPAY | PROVIDERS: PCP Internal Medicine; Visit Provider Internal Medicine | DX: I10 Essential (primary) hypertension (principal); M43.16 Spondylolisthesis, lumbar region | CPT/HCPCS: 96127; 99212 ==

== ENCOUNTER 2024-11-02 08:59 | Outpatient (AMB) | payer MEDICARE, SELFPAY ==
--- NOTE | 2024-11-02 08:46 | MHC.OFFVIS ---
Vital Signs 11/02/24 08:47 Height 4 ft 9 in Weight 124 lb BMI 26.8 BP 126/72 Blood Pressure Location Lt brachial Position Sitting Pulse 72 Intake Visit Reasons: us bx (R) breast 2 densities upper inner quad Intake Note: Patient referred by pcp Dr. Brooke for Rt br US bx 2 densities on upper inner quadrant. Patient c/o: feels lumps on superior part of Rt br that are tender at times since June. Thinks mother had something removed from breast but it wasn't a big deal. Unsure about family hx of breast CA. Mammogram & Rt br US: 10-19-2024 [employer] Required: No Accompanied by: Self / Same As Patient Allergies hydrocodone Allergy (Intermediate, Verified 11/02/24 09:02) Vomiting amoxicillin Adverse Reaction (Intermediate, Verified 11/02/24 09:02) Gastrointestinal Upset nitrofurantoin Adverse Reaction (Intermediate, Verified 11/02/24 09:02) Gastrointestinal Upset sulfadiazine Adverse Reaction (Intermediate, Verified 11/02/24 09:02) Gastrointestinal Upset HPI HPI us bx (R) breast 2 densities upper inner quad: Details: [age] old female referred for an abnormal mammogram. She says that she has started to feel a lump on the right breast in the medial aspect last June,. She therefore had a diagnostic mammogram and ultrasound done last 10/19/2024. This showed a solid irregular mass at the 2 o'clock position, 8 cm from the nipple, 10 x 10 x 4 mm in size. Another solid irregular mass was seen at the same area 5 cm from the nipple, 13 x 6 x 12 mm in size. An ultrasound biopsy was recommended by the radiologist . Her menarche was at age of 13. Her 1st was at the age of 27. She had 3 pregnancies but had 2 live births. She had her uterus removed at age of 51 because of dysfunctional bleeding. She does not recall a family history of breast cancer. [facility] Medical History Breast mass, right Essential hypertension Bipolar disorder Lumbar degenerative disc disease Sciatic nerve pain Cervical spondylosis Urinary incontinence Arthritis Elevated cholesterol Depression GERD (gastroesophageal reflux disease) Non-toxic multinodular goiter Surgical History S/P placement of nerve stimulator Hx of bilateral cataract extraction History of breast lump/mass excision Hx of cholecystectomy Hx of total hysterectomy with removal of both tubes and ovaries H/O colonoscopy (07/28/22) Family History Father Heart problem Mother Dementia Social History Household Members: Family Household Members Other:: daughter/grandson Housing: House Are you a primary healthcare educator to a significant other at home: No Do you presently have visiting nurse or other home services: Yes (Meals on Wheels) Alcohol intake: current Alcohol intake frequency: a few times a week Comment: states does not move around at all, stays in bed due to pain Patient Tobacco Use Status: Current everyday Tobacco user Tobacco use type: Cigarette Years Smoked: 5 e-Cigarette/Vaping Use: Currently Using Substance Use Type: Marijuana Advance Directives Date on File: 07/23/24 service: No Current occupational status: retired Cognitive needs: No Hearing needs: Yes (b/l ears) Vision needs: Yes (rx glasses) Review of Systems Const Denies chills and Denies fever(s) Card Denies chest pain, Denies dyspnea and Denies dyspnea on exertion Resp Denies cough, Denies dyspnea and Denies dyspnea on exertion GI Denies hematochezia and Denies change in bowel habits Denies hematuria Musc Reports back pain and Denies limited range of motion Neuro Denies focal weakness and Denies convulsions Psych Denies depression and Denies mood swings Physical Exam Vital Signs: Last Vital Signs Pulse 72 11/02/24 08:47 BP 126/72 11/02/24 08:47 BMI result Body Mass Index 26.8 Const General: comfortable and no acute distress Orientation/consciousness: patient oriented x3 Neck Neck: Yes no lymphadenopathy Chest Other: Vague mass on the right breast at the medial aspect, probably about 2 cm Resp Auscultation: clear to auscultation bilaterally Cardio Rhythm: regular rhythm GI Palpation (GI): Soft to palpation, nontender and no guarding Neuro General: patient oriented x3 Assessment & Plan Assessment & Plan (1) Breast mass, right: Code(s): N63.10 - Unspecified lump in the right breast, unspecified quadrant Category: Medical Plan: She had a mammogram and ultrasound showing 2 breast masses on the right as described above. There also seems to be a palpable mass on the area correlating to the ultrasound findings. An ultrasound-guided biopsy was recommended by the radiologist I explained to her the technique of this procedure. She has been scheduled for this. I will see her again in the office next week to discuss the path report. Orders: Orders US breast ndl core biopsy RT 11/01/24 N63.10 - Unspecified lump in the right breast, unspecified quadrant US breast ndl core bio ea add 11/01/24 N63.10 - Unspecified lump in the right breast, unspecified quadrant Coding Level of Care Code New Pt Level 3 (20157) Diagnoses Breast mass, right N63.10
[2024-11-02 08:47] VITALS: BP 126/72; PULSE 72; BMI 26.8
== END 2024-11-02 09:17 | disposition home or self-care (01) ==
LOC: HO.HGS 08:59
PROVIDERS: PCP Internal Medicine; Visit Provider Surgery
DX: N63.10 Unspecified lump in the right breast, unspecified quadrant (principal)
CPT/HCPCS: 99203

== ENCOUNTER → 2024-11-02 09:00 | Outpatient (BNV) | payer MEDICARE, SELFPAY | PROVIDERS: PCP Internal Medicine; Visit Provider Internal Medicine | DX: C50.811 Malignant neoplasm of overlapping sites of right female breast (principal); N63.10 Unspecified lump in the right breast, unspecified quadrant | CPT/HCPCS: 19083; 19084; 77065 ==

== ENCOUNTER 2024-11-02 09:25 | Outpatient (REF) | payer MEDICARE, SELFPAY ==
--- NOTE | ~2024-11-02 | MM_ITS ---
PROCEDURE: ULTRASOUND-GUIDED RIGHT BREAST BIOPSY CLINICAL INFORMATION: 2 solid irregular mass is 2:00 8 cm from the nipple and 2:00 5 cm from the nipple on ultrasound COMPARISON: Priors on PACS. TECHNIQUE: The details of the procedure, as well as the risks, benefits, and alternatives to the procedure were explained to the patient in detail and all of her questions were answered, after which, written informed consent was obtained. PROCEDURE: Prior to the procedure, sonography revealed a solid irregular mass at 2:00 8 cm from nipple and a solid irregular mass at 2:00 5 cm from the nipple. A time-out was performed, Site A Right 2:00 8 cm from the nipple: the lesion intended for biopsy was targeted and the skin of the right breast was then prepped and draped in the usual sterile fashion. Using sonographic guidance, sterile technique, and 1% lidocaine without epinephrine for local anesthesia, a total of 4 cores were obtained through the targeted area with a 14-gauge biopsy device. At the completion of tissue sampling, a single butterfly metallic clip was deposited at the biopsy site. An appropriate sample was obtained. Site B Right 2:00 5 cm from the nipple: the lesion intended for biopsy was targeted and the skin of the right breast was then prepped and draped in the usual sterile fashion. Using sonographic guidance, sterile technique, and 1% lidocaine without epinephrine for local anesthesia, a total of 4 cores were obtained through the targeted area with a 14-gauge biopsy device. At the completion of tissue sampling, a single coil metallic clip was deposited at the biopsy site. An appropriate sample was obtained. The postprocedure 2-view direct digital mammogram reveals satisfactory positioning of the biopsy clips. The patient tolerated the procedure well and, after assuring adequate hemostasis, was discharged in good condition after reviewing postbiopsy breast care instructions. Final pathology results are pending. MM/MM tomosynthesis diagnostic RT IMPRESSION: 1. Uncomplicated sonographically-guided core biopsies of the right breast. The 2-view direct digital postprocedure mammogram reveals satisfactory positioning of the biopsy clips. 2. Final pathology results are pending. A separate report with final recommendations will be issued once these results are made available. Electronically signed by: Fior Atkins DO 11/02/2024 02:31 PM EDT
[2024-11-02] MEDS: Sodium Bicarbonate 8.4% 50 MEQ/50 ML VIAL SUBCUT (10:40)
[2024-11-02] MEDS: Lidocaine HCl 1 % 20 ML VIAL 27 ML SUBCUT (10:41)
== END 2024-11-02 09:26 | disposition home or self-care (01) ==
LOC: HO.MAMMO 09:25
PROVIDERS: PCP Internal Medicine; Visit Provider Surgery
DX: N63.12 Unspecified lump in the right breast, upper inner quadrant (principal); C50.211 Malignant neoplasm of upper-inner quadrant of right female breast
CPT/HCPCS: 19083; 19084; 77061; 77065; 88305; 88341; 88342; 88360; 99202; A4648; A6260; J2003

== ENCOUNTER 2024-11-09 11:39 | Outpatient (AMB) | payer MEDICARE, SELFPAY ==
--- NOTE | 2024-11-09 11:16 | MHC.OFFVIS ---
Vital Signs 11/09/24 11:48 Height 4 ft 9 in Weight 122 lb 8 oz BMI 26.5 BP 155/79 H Blood Pressure Location Lt brachial Position Sitting Pulse 81 Intake Visit Reasons: us bx (R) breast 2 densities upper inner quad Intake Note: Patient is seen in office for ultrasound biopsy RESULTS for right breast upper inner quadrant densities x2. Pt c/o: denies any concerns here for results Laborer Tin Can Required: No Accompanied by: Self / Same As Patient Allergies hydrocodone Allergy (Intermediate, Verified 11/05/24 08:22) Vomiting amoxicillin Adverse Reaction (Intermediate, Verified 11/05/24 08:22) Gastrointestinal Upset nitrofurantoin Adverse Reaction (Intermediate, Verified 11/05/24 08:22) Gastrointestinal Upset sulfadiazine Adverse Reaction (Intermediate, Verified 11/05/24 08:22) Gastrointestinal Upset HPI HPI us bx (R) breast 2 densities upper inner quad: Details: [age] old female referred for an abnormal mammogram. She says that she has started to feel a lump on the right breast in the medial aspect last June,. She therefore had a diagnostic mammogram and ultrasound done last 10/19/2024. This showed a solid irregular mass at the 2 o'clock position, 8 cm from the nipple, 10 x 10 x 4 mm in size. Another solid irregular mass was seen at the same area 5 cm from the nipple, 13 x 6 x 12 mm in size. An ultrasound biopsy was recommended by the radiologist for both lesions . She therefore had it done last 11/02/2024. She says she tolerated is well and denies any problems post procedure. Her menarche was at age of 13. Her 1st was at the age of 27. She had 3 pregnancies but had 2 live births. She had her uterus removed at age of 51 because of dysfunctional bleeding. She does not recall a family history of breast cancer. [facility]LY [facility] Medical History Invasive lobular carcinoma of breast in female Breast mass, right Essential hypertension Bipolar disorder Lumbar degenerative disc disease Sciatic nerve pain Cervical spondylosis Urinary incontinence Arthritis Elevated cholesterol Depression GERD (gastroesophageal reflux disease) Non-toxic multinodular goiter Surgical History S/P placement of nerve stimulator Hx of bilateral cataract extraction History of breast lump/mass excision Hx of cholecystectomy Hx of total hysterectomy with removal of both tubes and ovaries H/O colonoscopy (07/28/22) Family History Father Heart problem Mother Dementia Social History Household Members: Family Household Members Other:: daughter/grandson Housing: House Are you a primary career center advisor to a significant other at home: No Do you presently have visiting nurse or other home services: Yes (Meals on Wheels) Alcohol intake: current Alcohol intake frequency: a few times a week Comment: states does not move around at all, stays in bed due to pain Patient Tobacco Use Status: Current everyday Tobacco user Tobacco use type: Cigarette Years Smoked: 5 e-Cigarette/Vaping Use: Currently Using Substance Use Type: Marijuana Advance Directives Date on File: 07/23/24 service: No Current occupational status: retired Cognitive needs: No Hearing needs: Yes (b/l ears) Vision needs: Yes (rx glasses) Review of Systems Const Denies chills and Denies fever(s) Card Denies chest pain, Denies dyspnea and Denies dyspnea on exertion Resp Denies cough, Denies dyspnea and Denies dyspnea on exertion GI Denies hematochezia and Denies change in bowel habits Denies hematuria Musc Denies back pain and Denies limited range of motion Neuro Denies focal weakness and Denies convulsions Psych Denies depression and Denies mood swings Physical Exam Vital Signs: Last Vital Signs Pulse 81 11/09/24 11:48 BP 155/79 H 11/09/24 11:48 BMI result Body Mass Index 26.5 Const General: comfortable and no acute distress Orientation/consciousness: patient oriented x3 Neck Neck: Yes no lymphadenopathy Chest Other: Vague mass in the medial aspect of the left breast, mild ecchymosis Resp Auscultation: clear to auscultation bilaterally Cardio Rhythm: regular rhythm GI Palpation (GI): Soft to palpation, nontender and no guarding Neuro General: patient oriented x3 Assessment & Plan Assessment & Plan (1) Invasive lobular carcinoma of breast in female: Code(s): C50.919 - Malignant neoplasm of unspecified site of unspecified female breast Category: Medical Plan: She had biopsies of 2 areas on the left breast at the 2 o'clock position. Unfortunately, both sites show invasive lobular carcinoma. The lesion at the 2 o'clock position 8 cm from nipple areola is ER IN positive, HER2 negative, with low proliferation index. The lesion at the 2 o'clock position 5 cm from nipple-areola is also ERPR positive, HER2 low, with low proliferation index I explained to her options including mastectomy with sentinel biopsy, and lumpectomy for lesions with localization, and sentinel biopsy as well. She understands that she will require radiation if she decides to proceed with lumpectomy I had a long discussion with her about risks of each procedure including bleeding, infections, necrosis, hematoma. She states that she really feels strongly about breast conservation and wants to proceed with lumpectomy. Ultrasound technique of this procedure We will schedule for an MRI in view of the presence of the irregular lesions. I will discuss the above with the radiologist as she may require two different areas for the lumpectomy. I will also set her up for a consultation with the oncologist. We will assist her with all of the above, she says that she may have a hard time with navigation of the process. Coding Level of Care Code Est Pt Level 4 (58711) Diagnoses Invasive lobular carcinoma of breast in female C50.919
[2024-11-09 11:48] VITALS: BP 155/79; PULSE 81; BMI 26.5
== END 2024-11-09 13:04 | disposition home or self-care (01) ==
LOC: HO.HGS 11:39
PROVIDERS: PCP Internal Medicine; Visit Provider Surgery
DX: C50.919 Malignant neoplasm of unspecified site of unspecified female breast (principal)
CPT/HCPCS: 99214

== ENCOUNTER → 2024-11-09 11:39 | Outpatient (BNVA) | payer MEDICARE, SELFPAY | PROVIDERS: PCP Internal Medicine; Visit Provider Surgery | DX: C50.412 Malignant neoplasm of upper-outer quadrant of left female breast (principal); N63.12 Unspecified lump in the right breast, upper inner quadrant; Z17.0 Estrogen receptor positive status [ER+]; Z17.21 Progesterone receptor positive status | CPT/HCPCS: 99212 ==

== ENCOUNTER → 2024-11-16 15:23 | Outpatient (BNV) | payer MEDICARE, SELFPAY | PROVIDERS: PCP Internal Medicine; Visit Provider Internal Medicine | DX: D05.02 Lobular carcinoma in situ of left breast (principal) | CPT/HCPCS: 77049 ==

== ENCOUNTER 2024-11-16 15:27 | Outpatient (REF) | payer MEDICARE, SELFPAY ==
[2024-11-16] MEDS: gadobutroL 7.5 ML VIAL IVPUSH (16:34)
== END 2024-11-16 15:28 | disposition home or self-care (01) ==
LOC: HO.MRI 15:27
PROVIDERS: PCP Internal Medicine; Visit Provider Surgery
DX: N63.10 Unspecified lump in the right breast, unspecified quadrant (principal)
CPT/HCPCS: 77049; A9585

== ENCOUNTER 2024-11-21 12:57 | Outpatient (REF) | payer MEDICARE, SELFPAY ==
--- NOTE | ~2024-11-21 | US_ITS ---
EXAMINATION: US DIAGNOSTIC ULTRASOUND BREAST, RIGHT CLINICAL INFORMATION: Second Look ultrasound from MRI examination. Enhancing focus in the lower outer right breast 14 x 10 x 5 mm. COMPARISON: MRI breasts 11/16/2024 TECHNIQUE: Ultrasound of the right breast is performed with real-time jones scale imaging and color Doppler. This was performed at the same time as the RF tag placements. FINDINGS: No focal mass or suspicious finding is present to correlate with the enhancing focus in the lower outer right breast measuring 19 x 10 x 5 mm seen on the MRI. Only heterogeneously dense breast tissue is identified in this region. US/US breast RT limited mamm only IMPRESSION: No correlation with the ultrasound to the enhancing focus in the lower outer right breast. ASSESSMENT: BI-RADS 4: Suspicious RECOMMENDATION: MRI guided biopsy of this abnormality. Electronically signed by: Chavez Liz MD 11/27/2024 01:42 PM EDT
--- NOTE | ~2024-11-21 | MM_ITS ---
EXAMINATION: ULTRASOUND GUIDED RFID LOCALIZATION BREAST, RIGHT, 2 SITES CLINICAL INFORMATION: Invasive ductal carcinoma right breast 2:00 axis 5 cm from the nipple, and 8 cm from the nipple. COMPARISON: None TECHNIQUE NEEDLE LOC: Proper informed consent is obtained from the patient after discussion of the procedure, potential risks and complications, and alternatives including declining the procedure today. Patient was given an opportunity for questions. The patient appeared to understand. The patient consented to the procedure and signed the consent form. SITE A: Butterfly shaped biopsy clip 2:00, N8. GUIDANCE: Ultrasound. APPROACH: Medial Lateral. TARGET: Butterfly shaped biopsy clip 2:00, N8. ANESTHESIA: carbonated lidocaine 1%: 4 mL. LOCALIZATION SYSTEM: [employer] LOCallizer Wire-Free Guidance System with 12g needle applicator. RADIOFREQUENCY TAG: ID # [id number] DERMATOTOMY: Single skin-chana dermatotomy performed. RF Tag ID confirmed with LOCalizer Guidance System prior to placement. The skin is prepped and local anesthesia administered. The needle is positioned and RFID tag deployed. Final CC and ML mammographic images demonstrate the LOCalizer RF tag to reside immediately adjacent to the biopsy clip, in good position. SITE B :Coil shaped biopsy clip 12:00, N5. GUIDANCE: Ultrasound. APPROACH: Medial Lateral. TARGET: Coil shaped biopsy clip 12:00, N5. ANESTHESIA: carbonated lidocaine 1%: 4 mL. LOCALIZATION SYSTEM: [employer] LOCallizer Wire-Free Guidance System with 12g needle applicator. RADIOFREQUENCY TAG: ID # [id number] DERMATOTOMY: Single skin-chana dermatotomy performed. RF Tag ID confirmed with LOCalizer Guidance System prior to placement. The skin is prepped and local anesthesia administered. The needle is positioned and RFID tag deployed. Final CC and ML mammographic images demonstrate the LOCalizer RF tag to reside immediately adjacent to the biopsy clip, in good position. The patient tolerated the procedure well and had no immediate complications. Dressing placed and home instructions reviewed. MM/MM tomosynthesis diagnostic RT IMPRESSION: -Status post 2 site breast RFID localization as discussed. -Postprocedural CC and ML images of the right breast were appropriately labeled for OR reference. Electronically signed by: Chavez Liz MD 11/21/2024 03:54 PM EDT
--- NOTE | ~2024-11-21 | US_ITS ---
EXAMINATION: ULTRASOUND GUIDED RFID LOCALIZATION BREAST, RIGHT, 2 SITES CLINICAL INFORMATION: Invasive ductal carcinoma right breast 2:00 axis 5 cm from the nipple, and 8 cm from the nipple. COMPARISON: None TECHNIQUE NEEDLE LOC: Proper informed consent is obtained from the patient after discussion of the procedure, potential risks and complications, and alternatives including declining the procedure today. Patient was given an opportunity for questions. The patient appeared to understand. The patient consented to the procedure and signed the consent form. SITE A: Butterfly shaped biopsy clip 2:00, N8. GUIDANCE: Ultrasound. APPROACH: Medial Lateral. TARGET: Butterfly shaped biopsy clip 2:00, N8. ANESTHESIA: carbonated lidocaine 1%: 4 mL. LOCALIZATION SYSTEM: [employer] LOCallizer Wire-Free Guidance System with 12g needle applicator. RADIOFREQUENCY TAG: ID # [id number] DERMATOTOMY: Single skin-chana dermatotomy performed. RF Tag ID confirmed with LOCalizer Guidance System prior to placement. The skin is prepped and local anesthesia administered. The needle is positioned and RFID tag deployed. Final CC and ML mammographic images demonstrate the LOCalizer RF tag to reside immediately adjacent to the biopsy clip, in good position. SITE B :Coil shaped biopsy clip 12:00, N5. GUIDANCE: Ultrasound. APPROACH: Medial Lateral. TARGET: Coil shaped biopsy clip 12:00, N5. ANESTHESIA: carbonated lidocaine 1%: 4 mL. LOCALIZATION SYSTEM: [employer] LOCallizer Wire-Free Guidance System with 12g needle applicator. RADIOFREQUENCY TAG: ID # [id number] DERMATOTOMY: Single skin-chana dermatotomy performed. RF Tag ID confirmed with LOCalizer Guidance System prior to placement. The skin is prepped and local anesthesia administered. The needle is positioned and RFID tag deployed. Final CC and ML mammographic images demonstrate the LOCalizer RF tag to reside immediately adjacent to the biopsy clip, in good position. The patient tolerated the procedure well and had no immediate complications. Dressing placed and home instructions reviewed. US/US Breast RF Tag Device Addl IMPRESSION: -Status post 2 site breast RFID localization as discussed. -Postprocedural CC and ML images of the right breast were appropriately labeled for OR reference. Electronically signed by: Chavez Liz MD 11/21/2024 03:54 PM EDT
--- NOTE | ~2024-11-21 | US_ITS ---
EXAMINATION: ULTRASOUND GUIDED RFID LOCALIZATION BREAST, RIGHT, 2 SITES CLINICAL INFORMATION: Invasive ductal carcinoma right breast 2:00 axis 5 cm from the nipple, and 8 cm from the nipple. COMPARISON: None TECHNIQUE NEEDLE LOC: Proper informed consent is obtained from the patient after discussion of the procedure, potential risks and complications, and alternatives including declining the procedure today. Patient was given an opportunity for questions. The patient appeared to understand. The patient consented to the procedure and signed the consent form. SITE A: Butterfly shaped biopsy clip 2:00, N8. GUIDANCE: Ultrasound. APPROACH: Medial Lateral. TARGET: Butterfly shaped biopsy clip 2:00, N8. ANESTHESIA: carbonated lidocaine 1%: 4 mL. LOCALIZATION SYSTEM: [employer] LOCallizer Wire-Free Guidance System with 12g needle applicator. RADIOFREQUENCY TAG: ID # [id number] DERMATOTOMY: Single skin-chana dermatotomy performed. RF Tag ID confirmed with LOCalizer Guidance System prior to placement. The skin is prepped and local anesthesia administered. The needle is positioned and RFID tag deployed. Final CC and ML mammographic images demonstrate the LOCalizer RF tag to reside immediately adjacent to the biopsy clip, in good position. SITE B :Coil shaped biopsy clip 12:00, N5. GUIDANCE: Ultrasound. APPROACH: Medial Lateral. TARGET: Coil shaped biopsy clip 12:00, N5. ANESTHESIA: carbonated lidocaine 1%: 4 mL. LOCALIZATION SYSTEM: [employer] LOCallizer Wire-Free Guidance System with 12g needle applicator. RADIOFREQUENCY TAG: ID # [id number] DERMATOTOMY: Single skin-chana dermatotomy performed. RF Tag ID confirmed with LOCalizer Guidance System prior to placement. The skin is prepped and local anesthesia administered. The needle is positioned and RFID tag deployed. Final CC and ML mammographic images demonstrate the LOCalizer RF tag to reside immediately adjacent to the biopsy clip, in good position. The patient tolerated the procedure well and had no immediate complications. Dressing placed and home instructions reviewed. US/US Breast RF Tag Device Right IMPRESSION: -Status post 2 site breast RFID localization as discussed. -Postprocedural CC and ML images of the right breast were appropriately labeled for OR reference. Electronically signed by: Chavez Liz MD 11/21/2024 03:54 PM EDT
== END 2024-11-21 12:58 | disposition home or self-care (01) ==
LOC: HO.MAMMO 12:57
PROVIDERS: PCP Internal Medicine; Visit Provider Surgery
DX: C50.211 Malignant neoplasm of upper-inner quadrant of right female breast (principal)
CPT/HCPCS: 19285; 19286; 76642; 77061; 77065; C1819

== ENCOUNTER → 2024-11-21 13:00 | Outpatient (BNV) | payer MEDICARE, SELFPAY | PROVIDERS: PCP Internal Medicine; Visit Provider Radiology Diagnostic Radiology | DX: C50.211 Malignant neoplasm of upper-inner quadrant of right female breast (principal) | CPT/HCPCS: 19285; 19286; 77065 ==

== ENCOUNTER 2024-11-29 10:30 | Outpatient (REF) | payer MEDICARE, SELFPAY ==
--- NOTE | ~2024-11-29 | MR_ITS ---
EXAMINATION: MR GUIDED VACUUM-ASSISTED CORE BIOPSY BREAST, RIGHT MM DIGITAL MAMMOGRAPHY POST BIOPSY, RIGHT CLINICAL INFORMATION: 2 areas of biopsy-proven malignancy in the right breast, an additional suspicious enhancing mass in the right breast lower outer quadrant seen on recent MRI.. COMPARISON: Priors on PACS. TECHNIQUE/PROCEDURE: Informed consent was obtained from the patient after discussion of the benefits, risks, and alternatives to biopsy today. Patient appeared to understand. Gave opportunity for questions. Patient signed consent form. Biopsy is performed under MRI guidance using breast surface coil. Imaging is performed without and with use of Gadavist gadolinium contrast. R[employer] Software introducer localization system is used with grid. LESION: Enhancing mass in the lower outer right breast. LOCAL ANESTHESIA: 5 mL 1% lidocaine; 8 mL 1% lidocaine with epinephrine. NEEDLE: ZeroFOX 9-gauge vacuum assisted core biopsy device. APPROACH: Lateral. CORES: 12. CLIP: TriMark barbell shaped. POSTPROCEDURE UNILATERAL DIGITAL MAMMOGRAM: Mammography is performed using digital mammography in CC and MLO views. The breasts are extremely dense, which lowers the sensitivity of mammography (ACR BI-RADS breast composition Category d). The clip marker is in position. No gross hematoma. The patient tolerated the procedure well. No immediate complications. Home instructions reviewed with the patient. Final pathology results are pending. MR/MR guided breast biopsy RT IMPRESSION: 1. Status post MRI guided vacuum-assisted core biopsy right breast with clip placement. 2. Final pathology results pending. An addendum report will be issued. Electronically signed by: Fior Atkins DO 11/29/2024 02:31 PM EDT
--- NOTE | ~2024-11-29 | MM_ITS ---
EXAMINATION: MR GUIDED VACUUM-ASSISTED CORE BIOPSY BREAST, RIGHT MM DIGITAL MAMMOGRAPHY POST BIOPSY, RIGHT CLINICAL INFORMATION: 2 areas of biopsy-proven malignancy in the right breast, an additional suspicious enhancing mass in the right breast lower outer quadrant seen on recent MRI.. COMPARISON: Priors on PACS. TECHNIQUE/PROCEDURE: Informed consent was obtained from the patient after discussion of the benefits, risks, and alternatives to biopsy today. Patient appeared to understand. Gave opportunity for questions. Patient signed consent form. Biopsy is performed under MRI guidance using breast surface coil. Imaging is performed without and with use of Gadavist gadolinium contrast. Cmed introducer localization system is used with grid. LESION: Enhancing mass in the lower outer right breast. LOCAL ANESTHESIA: 5 mL 1% lidocaine; 8 mL 1% lidocaine with epinephrine. NEEDLE: [employer] 9-gauge vacuum assisted core biopsy device. APPROACH: Lateral. CORES: 12. CLIP: TriMark barbell shaped. POSTPROCEDURE UNILATERAL DIGITAL MAMMOGRAM: Mammography is performed using digital mammography in CC and MLO views. The breasts are extremely dense, which lowers the sensitivity of mammography (ACR BI-RADS breast composition Category d). The clip marker is in position. No gross hematoma. The patient tolerated the procedure well. No immediate complications. Home instructions reviewed with the patient. Final pathology results are pending. MM/MM tomosynthesis diagnostic RT IMPRESSION: 1. Status post MRI guided vacuum-assisted core biopsy right breast with clip placement. 2. Final pathology results pending. An addendum report will be issued. Electronically signed by: Fior Atkins DO 11/29/2024 02:31 PM EDT
--- OUTSIDE RECORDS SUMMARY | 2024-11-29 11:41 | XMS_ITS ---
Author Organization [facility] Address [address] [place] [address] Care Team Providers Care Sales Recruiter Name Role Phone Jay Uribe MD Primary Care Provider Unavaileugene Mendoza Jr, Robert Serrato REASON FOR VISIT Pt no show Encounters Encounter Location Date Provider Diagnosis [facility] [address] [place] [address] 2023 Robert Mendoza Jr Plan Of Treatment Next Appt Details Provider Name:Robert loving Jr, 04/09/2025 10:50:00 AM, [address] [facility], [address], [place], [address], Progress Notes * RIANNA LUEVANO MDOB:[birth year] (73 yo F)Acc No.[id number]:2023 Patient:?RIANNA LUEVANO :1950???Age:72 Y???Sex:Female Address:[place] [address] * true * Date:? Generated for Printi ng/Faxing/eTransmitting on:?11/29/2024 11:41 AM EDT
--- OUTSIDE RECORDS SUMMARY | 2024-11-29 11:41 | XMS_ITS | Patient Health Record ---
Author Organization [facility] Address [address] [place] [address] Care Team Providers Care Data Storage Specialist Name Role Phone Jay Uribe MD Primary Care Provider Robert Powell Jr Unavailable [phone] Allergies Allergen (clinical drug ingredient) Drug/Non Drug [...] Problem Status W/U Status Risk Notes Problem 658751935 Colon cancer screening (Z12.11) Active confirmed Problem 912876946 Irritable bowel syndrome with diarrhea (K58.0) Active confirmed Problem 837399609 Gastroesophageal reflux disease without esophagitis (K21.9) Active confirmed Problem 61330011 Constipation, unspecified constipation type (K59.00) Active confirmed Vital Signs Temperature 96.9 degrees Fahrenheit 04/10/2024 Blood pressure diastolic 00 mm Hg 04/10/2024 Height 58 in 04/10/2024 Blood pressure systolic 000 mm Hg 04/10/2024 Weight 121 lb 2 oz lbs 04/10/2024 BMI 25.31 kg/m2 04/10/2024 Encounters Encounter Location Date Provider Diagnosis [facility] [address] [place] [id number] 04/10/2024 Robert Mendoza Jr Gastroesophageal reflux disease without esophagitis K21.9 ; Irritable bowel syndrome with diarrhea K58.0 and Colon cancer screening Z12.11 [facility] [address] [place] [phone] 2023 Robert Mendoza Jr Assessments Encounter Date [...] Name:Robert loving Jr, 04/09/2025 10:50:00 AM, [address], [address], [place], [address], Insurance Providers Payer Name Payer Address Payer Phone Subscriber Number Group Number Insured Name Patient Relationship to Insured Coverage Start Date Coverage End Date MEDICARE [place] [address] [place] [address] [id number] RIANNA FERGUSON Self - patient is the insured MED[employer] ATTN CLAIMS [address] [place] [phone] [id number] RIANNA FERGUSON Self - patient is the insured Medical (General) History Medical History History ICD Code urinary incontinence, bladder stimulator placement and removal Multinodular goiter Arthritis Depression Elevated cholesterol Gastroesophageal reflux disease Surgical History Surgery Date(Month/Year) removal fibroadenoma left and right [facility] [facility] Total hysterectomy 09/1999 Cholecystectomy 08/2006 Thyroid nodules neurostimulator in bladder 08/11
--- OUTSIDE RECORDS SUMMARY | 2024-11-29 11:41 | XMS_ITS ---
Author Organization [facility] Address [address] [place] [address] Care Team Providers Care Research Scientist Name Role Phone Jay Uribe MD [...] Problem Status W/U Status Risk Notes Problem 164415048 Irritable bowel syndrome with diarrhea (K58.0) Active confirmed Vital Signs Temperature 96.9 degrees Fahrenheit 04/10/20 24 Blood pressure systolic 000 mm Hg 04/10/20 24 Blood pressure diastolic 00 mm Hg 024 Height 58 in 04/10/2024 Weight 121 lb 2 oz lbs 04/10/2024 BMI 25.31 kg/m2 04/10/2024 Encounters Encounter Location Date Provider Diagnosis [facility] [address] [place] [address] 04/10/2024 Robert Mendoza Jr Gastroesophageal reflux disease [...] 10:50:00 AM, [address], [address], [place], [address], Progress Notes * RIANNA LUEVANO MDOB:[birth year] (73 yo F)Acc No.[id number]:04/10/2024 Progress Notes Patient:?RIANNA LUEVANO Provider:?Robert Mendoza MD :1950???Age:73 Y???Sex:Female D ate:04/10/2024 Address:[place], [id number] Pcp:Jay Uribe MD Subjective: * Chief Complaints: [...] MD Date:?0 04/10/2024 Generated for Seani chepe/Ofelia/eTransmitting on:?11/29/2024 11:41 AM EDT History and Physical Notes * HPI [...]
--- OUTSIDE RECORDS SUMMARY | 2024-11-29 11:41 | XMS_ITS ---
Author Organization [facility] Address [address] [place] [address] Care Team Providers Care Dietetics Teacher Name Role Phone Jay Uribe MD Primary Care Provider Unavaileugene Mendoza Jr, Robert Serrato [phone] REASON FOR VISIT Patient presents today for gerd Encounters Encounter Location Date Provider Diagnosis [facility] [address] [place] [address] 2023 Robert Mendoza Jr Plan Of Treatment Next Appt Details Provider Name:Robert loving Jr, 04/09/2025 10:50:00 AM, [address] [place] [address], [address], [place], [address], Progress Notes * RIANNA LUEVANO MDOB:[birth year] (73 yo F)Acc No.[id number]:2023 Progress Notes Patient:?RIANNA LUEVANO Provider:?Robert Mendoza MD :1950???Age:72 Y???Sex:Female D ate:2023 Address:[id number] Pcp:Jay Uribe MD Subjective: * Chief Complaints: [...] MD Date:?0 2023 Generated for John mo/Ofelia/Reece on:?11/29/2024 11:41 AM EDT
[2024-11-29] MEDS: gadobutroL 7.5 ML VIAL IVPUSH (12:39)
[2024-11-29] MEDS: Sodium Bicarbonate 8.4% 50 MEQ/50 ML VIAL SUBCUT (12:41)
[2024-11-29] MEDS: Lidocaine HCl 1 % MPF 30 ML VIAL SUBCUT (12:44)
[2024-11-29] MEDS: Lidocaine HCl 1%/Epi 1:100,000 10 ML VIAL SUBCUT (12:46)
== END 2024-11-29 10:31 | disposition home or self-care (01) ==
LOC: HO.MRI 10:30
PROVIDERS: PCP Internal Medicine; Visit Provider Surgery
DX: C50.911 Malignant neoplasm of unspecified site of right female breast (principal); N63.13 Unspecified lump in the right breast, lower outer quadrant
CPT/HCPCS: 19085; 77061; 77065; 88305; 88341; 88342; A4648; A9585; J2003; J2004

== ENCOUNTER → 2024-11-29 10:40 | Outpatient (BNV) | payer MEDICARE, SELFPAY | PROVIDERS: PCP Internal Medicine; Visit Provider Internal Medicine | DX: N63.31 Unspecified lump in axillary tail of the right breast (principal); C50.911 Malignant neoplasm of unspecified site of right female breast | CPT/HCPCS: 19085; 77065 ==

== ENCOUNTER 2024-12-14 06:55 | Day surgery (SDC) | payer MEDICARE, SELFPAY ==
--- NOTE | 2024-12-13 09:21 | P.CONAN_ITS ---
Documented by User: Cony Handley NP 12/13/24 09:25 HPI - Anesthesia Eval Consult details Narrative: 73yo F for Right Breast Lumpectomy w/LOCalizer X2, Veteran Node Biopsy s/p TLIF 08/2024 with GA-ETT 6.5 Bladder stim in situ PMFSH Active Problems Active Problems: All Active Problems Invasive lobular carcinoma of breast in female (Acute) Breast mass, right (Acute) S/P lumbar spinal fusion (Acute) Essential hypertension (Acute) Acute exacerbation of chronic low back pain (Acute) Spinal stenosis of lumbar region with neurogenic claudication (Acute) Spondylolisthesis at L4-L5 level (Acute) Myofascial pain (Acute) Tear of right biceps muscle (Acute) Depression (Acute) Impingement syndrome of right shoulder (Acute) Lumbar degenerative disc disease (Acute) Cervical spondylosis (Acute) Non-toxic multinodular goiter (Acute) Past Medical History Medical History Invasive lobular carcinoma of breast in female Breast mass, right Essential hypertension Bipolar disorder Lumbar degenerative disc disease Sciatic nerve pain Cervical spondylosis Urinary incontinence Arthritis Elevated cholesterol Depression GERD (gastroesophageal reflux disease) Non-toxic multinodular goiter Family History Family History Father Heart problem Mother Dementia Family history of problems with anesthesia: No Surgical History Surgical History S/P placement of nerve stimulator Hx of bilateral cataract extraction History of breast lump/mass excision Hx of cholecystectomy Hx of total hysterectomy with removal of both tubes and ovaries H/O colonoscopy (07/28/22) History of Problems with Anesthesia: No Social History Social History Household Members: Family Household Members Other:: daughter/grandson Housing: House Are you a primary child care associate teacher to a significant other at home: No Do you presently have visiting nurse or other home services: Yes (Meals on Wheels) Alcohol intake: current Alcohol intake frequency: holidays/special occasions only Comment: states does not move around at all, stays in bed due to pain Patient Tobacco Use Status: Never used Tobacco Tobacco use type: Cigarette Years Smoked: 5 e-Cigarette/Vaping Use: Currently Using Second Hand Smoke Exposure: No Substance Use Type: Marijuana Advance Directives Date on File: 07/23/24 service: No Current occupational status: retired Cognitive needs: No Hearing needs: Yes (b/l ears) Vision needs: Yes (rx glasses) Meds Allergies Allergy/AdvReac Type Severity Reaction Status Date / Time hydrocodone Allergy Intermediate Vomiting Verified 11/05/24 08:22 amoxicillin AdvReac Intermediate Gastrointestinal Verified 11/05/24 08:22 Upset nitrofurantoin AdvReac Intermediate Gastrointestinal Verified 11/05/24 08:22 Upset sulfadiazine AdvReac Intermediate Gastrointestinal Verified 11/05/24 08:22 Upset Home Medications ?Medication ?Instructions ?Recorded ?Confirmed ?Last Taken ?Type flaxseed oil 1,000 mg capsule 1,000 mg PO DAILY 07/23/24 11/05/24 08/11/24 History acetaminophen 650 mg 650 mg PO Q8H PRN pain 08/12/24 11/05/24 Unknown History tablet,extended release cyclosporine 0.05 % eye drops in a 1 drp ophthalmic (eye) DAILY 08/12/24 11/05/24 08/11/24 History dropperette (Restasis) estradiol 0.5 mg tablet 0.5 mg PO MOWEFR@0900 08/12/24 11/05/24 08/11/24 History fluoxetine 20 mg capsule 20 mg PO DAILY 08/12/24 11/05/24 08/11/24 History mecobalamin (vitamin B12) 500 mcg mcg PO 10/04/24 11/05/24 Unknown History chewable tablet omeprazole magnesium 20 mg 20 mg PO DAILY 10/04/24 11/05/24 Unknown History capsule,delayed release Exam Pertinent Lab Results Pertinent Lab Results: Laboratory Tests 07/22/24 14:28 WBC 9.2 Hgb 13.6 Hct 38.0 Plt Count 341 Sodium 135 Potassium 4.3 Chloride 102 Carbon Dioxide 23 BUN 12 Creatinine 0.66 Narrative Narrative: EKG 07/2024 Vent. Rate : 85 BPM Atrial Rate : 85 BPM P-R Int : 170 ms QRS Dur : 76 ms QT Int : 344 ms P-R-T Axes : 33 -4 19 degrees QTcB Int : 409 ms Normal sinus rhythm with sinus arrhythmia Normal ECG When compared with ECG of 08-Dec-2020 02:38, No significant change was found Assessment and Plan Assessment Anesthesia Assessment: Chart Reviewed Final Anesthetic Review Family History of Problems with Anesthesia: No History of Problems with Anesthesia: No Documented by User: David Cannon MD 12/14/24 10:14 [facility] Past Medical History Medical History Invasive lobular carcinoma of breast in female Breast mass, right Essential hypertension Bipolar disorder Lumbar degenerative disc disease Sciatic nerve pain Cervical spondylosis Urinary incontinence Arthritis Elevated cholesterol Depression GERD (gastroesophageal reflux disease) Non-toxic multinodular goiter Functional capacity: independent ambulation Patient : No Family History Family History Father Heart problem Mother Dementia Surgical History Surgical History S/P placement of nerve stimulator Hx of bilateral cataract extraction History of breast lump/mass excision Hx of cholecystectomy Hx of total hysterectomy with removal of both tubes and ovaries H/O colonoscopy (07/28/22) Social History Social History Household Members: Family Household Members Other:: daughter/grandson Housing: House Are you a primary child care associate teacher to a significant other at home: No Do you presently have visiting nurse or other home services: Yes ([employer]als on [employer]) Alcohol intake: current Alcohol intake frequency: holidays/special occasions only Comment: states does not move around at all, stays in bed due to pain Patient Tobacco Use Status: Never used Tobacco Tobacco use type: Cigarette Years Smoked: 5 e-Cigarette/Vaping Use: Currently Using Second Hand Smoke Exposure: No Substance Use Type: Marijuana Advance Directives Date on File: 07/23/24 service: No Current occupational status: retired Cognitive needs: No Hearing needs: Yes (b/l ears) Vision needs: Yes (rx glasses) Meds Allergies Allergy/AdvReac Type Severity Reaction Status Date / Time hydrocodone Allergy Intermediate Vomiting Verified 11/05/24 08:22 amoxicillin AdvReac Intermediate Gastrointestinal Verified 11/05/24 08:22 Upset nitrofurantoin AdvReac Intermediate Gastrointestinal Verified 11/05/24 08:22 Upset sulfadiazine AdvReac Intermediate Gastrointestinal Verified 11/05/24 08:22 Upset Home Medications ?Medication ?Instructions ?Recorded ?Confirmed ?Last Taken ?Type flaxseed oil 1,000 mg capsule 1,000 mg PO DAILY 07/23/24 11/05/24 08/11/24 History acetaminophen 650 mg 650 mg PO Q8H PRN pain 08/12/24 11/05/24 Unknown History tablet,extended release cyclosporine 0.05 % eye drops in a 1 drp ophthalmic (eye) DAILY 08/12/24 11/05/24 08/11/24 History dropperette (Restasis) estradiol 0.5 mg tablet 0.5 mg PO MOWEFR@0900 08/12/24 11/05/24 08/11/24 History fluoxetine 20 mg capsule 20 mg PO DAILY 08/12/24 11/05/24 08/11/24 History mecobalamin (vitamin B12) 500 mcg mcg PO 10/04/24 11/05/24 Unknown History chewable tablet omeprazole magnesium 20 mg 20 mg PO DAILY 10/04/24 11/05/24 Unknown History capsule,delayed release Exam Airway Mallampati Class: II (partial upper denture) TM Dist: >3cm Neck ROM: Full Denture: Upper Loose/Missing/Broken Teeth: Yes Heart: RRR Lungs: cta Other: patient smokes Marijuana., last time used was 12/13/2024 evening Assessment and Plan Assessment Anesthesia Assessment: Anesthesia Plan Discussed Final Anesthetic Review NPO: Yes ASA Class: II Final Preanesthetic Review: No Changes in Pt Med Stat, Meds/Allgs Chart Reviewed, Consent Obtained/Reviewed and Anes Risks/Benef Reviewed Patient Risk: Low Procedure Risk: Low Anesthetic Plan Anesthetic Plan: GA and Agree w/ Assess. and Plan Disposition: Standard PACU
--- NOTE | ~2024-12-14 | NM_ITS ---
EXAMINATION: Nuclear medicine sentinel node right breast. CLINICAL INDICATION: Right breast invasive lobular cancer. COMPARISON: Right Breast biopsy TECHNIQUE: Following explaining right breast sentinel node procedure, benefits and risk, a written consent was obtained by the surgeon. The area of the right breast was prepped in 4% lidocaine and left in place for approximately 30 minutes. The area around the areola was then cleaned and aseptic manner. 0.5 mCi of 99 m Tc tilmanocept divided in 4 equal doses was injected subcutaneously in 4 quadrants around the right breast areola. Imaging was obtained 30 minutes later over the anterior chest. Patient tolerated procedure extremely well. FINDINGS/ NM/NM sentinel node w imaging IMPRESSION: There are isotope activity in 4 quadrants around the right breast areola. There are 2 areas of isotope activity is right anterior axilla and right supra clavicular fossa. These correspond to sentinel lymph nodes. Electronically signed by: Pasquale Paniagua MD 12/14/2024 11:38 AM EDT
--- NOTE | ~2024-12-14 | MM_ITS ---
Single right breast specimen radiograph demonstrates the 2 TAG localization clips and the 2 marker clips within the specimen. Electronically signed by: Fior Atkins DO 12/14/2024 01:29 PM EDT
[2024-12-14] MEDS: Lidocaine 4 % Cream KIT 1 APPL TOPICAL (07:05)
[2024-12-14 07:12] VITALS: BMI 26.5
[2024-12-14 07:26] VITALS: BP 115/55; PULSE 71; RESP 16; TEMP 36.1; O2SAT 95
--- NOTE | 2024-12-14 12:44 | MHC.SHP ---
Pre-Procedural Eval Section A - 24 Hr Update-Section A only Date of Service: 12/14/24 The patient is an INPATIENT: No Section B - Complete if H&P > 30 days Chief Complaint: Malignant neoplasm of unspecified site of unspecif Details of Present Illness: Invasive lobular carcinoma of the right breast, [address] Relevant Family History (Specify if Yes): No Relevant Social History: None Present Medications: see Short Stay Collaborative assessment Medical History: Significant History (Hypertension , degenerative disc disease) Allergies: Allergies Allergy/AdvReac Type Severity Reaction Status Date / Time hydrocodone Allergy Intermediate Vomiting Verified 11/05/24 08:22 amoxicillin AdvReac Intermediate Gastrointestinal Verified 11/05/24 08:22 Upset nitrofurantoin AdvReac Intermediate Gastrointestinal Verified 11/05/24 08:22 Upset sulfadiazine AdvReac Intermediate Gastrointestinal Verified 11/05/24 08:22 Upset Review of Systems Sugical H&P ROS: Negative: Constitution, Cardiovascular and Respiratory Exam Surgical H&P Exam: Normal: Heart, Normal: Lungs and Normal: Abdomen Plan Diagnosis/Plan: Unchanged I have reviewed the history and physical and performed a pertinent physical examination on my patient. No changes have occurred unless specified. Time Spent With Patient Time: Total time managing care of this patient today ____ minutes.
--- NOTE | 2024-12-14 14:03 | W.PM.OPN ---
Operative Note Operative Note Date of Service: 12/14/24 Narrative: Preop diagnosis: Invasive lobular carcinoma right breast Postop diagnosis: The same Procedure: Lumpectomy with the Hologic localizer right breast, with [address], sentinel node biopsy Surgeon: Jay Baldwin MD assistant loan processor: SHANELLE Clifton The patient is a 73-year-old female with a recent diagnosis of invasive lobular carcinoma of the right breast. There were actually 2 lesions seen at the 2 o'clock position so to RF ID he has were left in place by the radiologist. After discussions with the radiologist, we had decided to proceed with lumpectomy with 1 incision as the to RF ID tags were in the same quadrant. The patient had wanted to proceed breast conservation therapy. She understood the technique of the planned procedure as well as the risks, benefits, and alternatives . She underwent sentinel node mapping earlier today. I have reviewed the images and there appeared to be 1-2 lymph nodes that picked up the radicular material. She was brought to the operating room. She was placed supine with both arms abducted under general anesthesia via laryngeal mask airway. The right breast in the axilla were prepped and draped in the usual sterile fashion. A surgical time-out was done. The patient received cefazolin 2 g IV preoperatively. I had marked the area of the 2 RF ID clips earlier. I infiltrated the area. I made 1 curvilinear incision to include both clips using blade 15. This carried down with electrocautery through the full-thickness of the skin and subcutaneous fat. I then proceeded to use the Alonso scissors to gently dissect the 1st RF ID tag which was a little more inferior than the other tag. This was located with the Hologic localizer. I carefully dissected this and once we had confirmed that this was within the specimen, I proceeded to then continued to dissect towards the direction of the 2nd RF ID tag which was more superior. Since the 2 tags appeared to be enough to remove as 1 lumpectomy specimen, I continued to dissect circumferentially, using the Hologic localizer to make sure that we had the 2nd RF he tag within the specimen. We marked the superior and medial margins with sutures An immediate reray of the specimen was then done and both RF ID tags as well as the biopsy clips were within the specimen. I palpated for the surrounding areas and it appeared that there was more induration all over the margins We already had removed a large lumpectomy specimen so I had to wait for the pathologist to review the gross and decide on further margins. I irrigated. We observed for hemostasis. We then applied a moist packing into the lumpectomy cavity. In the meantime, I proceeded to do the sentinel node biopsy. I gamma probe to otilio the area of the axilla were with the nuclear counts were ideas. I infiltrated this with lidocaine and made a short incision. This has done a blade 15. I carried down the incision through the full-thickness of the skin and subcutaneous fat. I divided through the fascia and entered the axillary fat pad. I then proceeded to use the gamma probe to identify the sentinel node. I was able to identify 1 sentinel node. This was grasped with an Allis clamp and was gently dissected circumferentially. I applied a right angle clamp pedicle and excise the sentinel node. I tied the pedicle with Polysorb 3-0. [place] node 1 had a count of 3500. I scanned the entire axilla for a prolonged period of time and there were no other elevated counts with the gamma probe. We thoroughly irrigated the entire axillary fat pad and we could not feel or identify any other lymphatic tissue. We spent an extended period time to identify any other additional sentinel node but there were no other elevated counts with multiple scanning of the area with the gamma probe We irrigated. We made sure that there was good hemostasis We closed the deep layers with Polysorb 3-0 sutures in the [place] I then proceeded to go down to the pathology lab. I reviewed the specimen with the pathologist. It appeared that this was a much larger tumor, and appeared to be involved multiple margins. After discussions with the pathologist, felt therefore that it would be best for the patient to undergo a mastectomy as removing much more tissue to achieve negative margins would create significant deformity with the likelihood that there will still be positive margins I therefore proceeded to go back to the operating room and we scrubbed. I palpated for the margins of the lumpectomy cavity. Again, it appeared that there were subtle nodularities and induration all over the area and would create significant deformity of the breast if we continued to remove more breast tissue. I therefore decided to close the lumpectomy site. We made sure that there was good hemostasis. Once hemostasis was confirmed, we reapposed the deep tissue with Polysorb 3-0 simple interrupted sutures. Skin closure was then achieved with Polysorb 4-0 subcuticular running sutures on all incisions Both incisions were infiltrated with Marcaine 0.5% for postop analgesia. Pressure dressings were applied The patient tolerated the procedure well. There were no immediate complications. Estimated blood loss about 100 cc She was extubated without difficulty and transferred to the recovery room with stable vital signs. In view of the large tumor noted intraoperatively, along with extensive positive margins on gross exam, I will talk to her and discuss the benefit of proceeding with mastectomy.
[2024-12-14 14:30] VITALS: BP 150/102; PULSE 80; RESP 16; TEMP 36.5; O2SAT 97
[2024-12-14 14:35] VITALS: BP 145/77; PULSE 88; RESP 16; O2SAT 98
[2024-12-14 14:40] VITALS: BP 137/70; PULSE 86; RESP 16; O2SAT 98
[2024-12-14 14:45] VITALS: BP 127/52; PULSE 81; RESP 18; O2SAT 99
[2024-12-14 15:00] VITALS: BP 128/52; PULSE 79; RESP 16; TEMP 36.9; O2SAT 95
== END 2024-12-14 15:44 | disposition home or self-care (01) ==
PROVIDERS: PCP Internal Medicine; Visit Provider Surgery
PROC: (CPT 19301; principal; 2024-12-14 13:40)
PROC: (CPT 19301; 2024-12-14 13:40)
DX: C50.211 Malignant neoplasm of upper-inner quadrant of right female breast (principal); Z17.0 Estrogen receptor positive status [ER+]; Z17.21 Progesterone receptor positive status; Z17.32 Human epidermal growth factor receptor 2 negative status; I10 Essential (primary) hypertension; E78.00 Pure hypercholesterolemia, unspecified; E04.2 Nontoxic multinodular goiter; F31.9 Bipolar disorder, unspecified; Z88.1 Allergy status to other antibiotic agents; Z88.5 Allergy status to narcotic agent; Z88.8 Allergy status to other drugs, medicaments and biological substances; Z90.710 Acquired absence of both cervix and uterus; Z96.82 Presence of neurostimulator; Z98.890 Other specified postprocedural states; F17.210 Nicotine dependence, cigarettes, uncomplicated; Z79.899 Other long term (current) drug therapy
CPT/HCPCS: 19301; 38525; 78195; 88307; 88329; 88341; 88342; A9520; J0131; J0690; J1100; J2003; J2371; J2405; J2704; J2795; J3010

== ENCOUNTER → 2024-12-14 06:55 | Outpatient (BNV) | payer MEDICARE, SELFPAY | PROVIDERS: PCP Internal Medicine; Visit Provider Surgery | DX: D05.01 Lobular carcinoma in situ of right breast (principal) | CPT/HCPCS: 19301; 38525; 38900 ==

== ENCOUNTER → 2024-12-14 08:15 | Outpatient (BNV) | payer MEDICARE, SELFPAY | PROVIDERS: PCP Internal Medicine; Visit Provider Radiology Diagnostic Radiology | DX: C50.811 Malignant neoplasm of overlapping sites of right female breast (principal) | CPT/HCPCS: 78195 ==

== ENCOUNTER 2024-12-28 10:38 | Outpatient (AMB) | payer MEDICARE, SELFPAY ==
[2024-12-28 10:46] VITALS: BP 124/76; PULSE 72; BMI 27.2
--- NOTE | 2024-12-28 10:46 | A.OFFVIS_ITS ---
Vital Signs 12/28/24 10:46 Height 4 ft 10 in Weight 130 lb BMI 27.2 BP 124/76 Blood Pressure Location Lt brachial Position Sitting Pulse 72 Intake Visit Reasons: S/P Rt. breast lumpectomy w/localizer x2 & SN bx Intake Note: Pt states, I'm here to have the surgery checked. The biopsy site and my armpit is sore and feels swollen. c/o swelling and tenderness Internal Medicine Specialist Required: No Allergies hydrocodone Allergy (Intermediate, Verified 01/03/25 13:05) Vomiting amoxicillin Adverse Reaction (Intermediate, Verified 01/03/25 13:05) Gastrointestinal Upset nitrofurantoin Adverse Reaction (Intermediate, Verified 01/03/25 13:05) Gastrointestinal Upset sulfadiazine Adverse Reaction (Intermediate, Verified 01/03/25 13:05) Gastrointestinal Upset Medication List - Last Reconciled 12/28/24 by Rob Sow, RN acetaminophen ER 650 mg PO Q8H PRN cyclosporine 0.05% (Restasis) 1 drp ophthalmic (eye) DAILY estradiol 0.5 mg PO MOWEFR@0900 flaxseed oil 1,000 mg PO DAILY fluoxetine 20 mg PO DAILY ibuprofen 600 mg PO Q6H PRN lisinopril 5 mg PO DAILY mecobalamin (vitamin B12) mcg PO melatonin 5 mg PO .HS omeprazole magnesium 20 mg PO DAILY oxycodone 5 mg PO Q4H PRN simvastatin 10 mg PO BEDTIME tizanidine 2 mg PO BID PRN HPI HPI S/P Rt. breast lumpectomy w/localizer x2 & SN bx: Details: 74 year old female here for a wound check. She initially found a lump on the right breast in the medial aspect in June 2024 and underwent diagnostic mammogram and ultrasound done 10/19/2024 which showed a solid irregular mass at the 2 o'clock position, 8 cm from the nipple, 10 x 10 x 4 mm in size. Another solid irregular mass was seen at the same area 5 cm from the nipple, 13 x 6 x 12 mm in size. An ultrasound biopsy was recommended by the radiologist for both lesions which was performed 11/02/2024. Both sites showed invasive lobular carcinoma. The lesion at the 2 o'clock position 8 cm from nipple areola is ER WA positive, HER2 negative, with low proliferation index. The lesion at the 2 o'clock position 5 cm from nipple-areola is also ERPR positive, HER2 low, with low proliferation index She felt about breast conservation and wanted to proceed with lumpectomy and this was arranged. She went for a MRI prior which showed a third lesion. MR biopsy of the third mass on the lower aspect of the right breast showed benign findings and it was discussed with Dr. Atkins to proceed with lumpectomy. She underwent lumpectomy with the Hologic localizer right breast, with [address], sentinel node biopsy on 12/14/[address] Baldwin. She tolerated the procedure well. She presents today with her friend for a wound check and to discuss pathology. She reports feeling overall well. She has mild tenderness at the incision sites but otherwise denies pain. She is tolerating a solid diet and moving her bowels. [facility] Medical History Invasive lobular carcinoma of breast in female Breast mass, right Essential hypertension Bipolar disorder Lumbar degenerative disc disease Sciatic nerve pain Cervical spondylosis Urinary incontinence Arthritis Elevated cholesterol Depression GERD (gastroesophageal reflux disease) Non-toxic multinodular goiter Surgical History S/P placement of nerve stimulator Hx of bilateral cataract extraction History of breast lump/mass excision Hx of cholecystectomy Hx of total hysterectomy with removal of both tubes and ovaries H/O colonoscopy (07/28/22) Family History (Updated 01/09/25 @ 16:24 by Cherise Thomas) Father Heart problem Thyroid cancer Skin cancer Mother Dementia Father No problems noted. Social History (Updated 01/09/25 @ 16:37 by Cherise Thmoas) Household Members: Family Household Members Other:: daughter/grandson Housing: House Are you a primary skin care instructor to a significant other at home: No Do you presently have visiting nurse or other home services: Yes (Meals on Wheels) Alcohol intake: current Alcohol intake frequency: holidays/special occasions only Comment: states does not move around at all, stays in bed due to pain Patient Tobacco Use Status: Former Tobacco user Tobacco use type: Cigarette Years Smoked: 5 e-Cigarette/Vaping Use: Currently Using Second Hand Smoke Exposure: No Substance Use Type: Marijuana Advance Directives Date on File: 07/23/24 Current occupational status: retired Cognitive needs: No Hearing needs: Yes (b/l ears) Vision needs: Yes (rx glasses) Review of Systems Const All systems reviewed & are unremarkable except as noted in HPI and below Physical Exam Vital Signs: Last Vital Signs Pulse 72 12/28/24 10:46 BP 124/76 12/28/24 10:46 BMI result Body Mass Index 27.2 Const General: comfortable, no acute distress and alert Orientation/consciousness: patient oriented x3 Chest Other: right breast with some mild edema and thickening of skin- lumpectomy incision site well healed, moderate residual induration and tenderness, axilla incision also well healed without erythema Resp Effort & Inspection: normal respiratory effort Skin Other: warm and dry Neuro General: patient oriented x3 and moves all extremities Results Reviewed Results Reviewed: A. Breast, right, lumpectomy: -Invasive lobular carcinoma, MSBR grade 2, spanning 65 mm (pT3). -Tumor present at superior margin (medial and central aspects of tumor), at anterior margin, and inferior is close (< 1mm). -Lobular carcinoma in situ, extensive, extending into ducts. -Fibrocystic change with usual ductal hyperplasia, columnar cell change with calcifications, apocrine metaplasia, and sclerosing adenosis. -Fibroadenomas. -Biopsy sites identified. B. Lymph node, sentinel, 3500, biopsy: -One lymph node with isolated tumor cells (pN0 (i+)). Assessment & Plan Assessment & Plan (1) Invasive lobular carcinoma of breast in female: Code(s): C50.919 - Malignant neoplasm of unspecified site of unspecified female breast Category: Medical Plan: Patient had undergone lumpectomy and sentinel biopsy However, mass itself appeared to be more irregular and extending past imaging margins I explained to the patient that it would have been caused significant deformity to continue removing breast tissue Margins are therefore positive Current states his T3 N0 ERPR positive HER2 negative invasive lobular carcinoma I told the patient that it is best to proceed with completion mastectomy I explained the technique of this procedure I reviewed the risks including but not limited to bleeding, infections, flap necrosis, hematoma, as well as the benefits and alternatives Explained to her that she will have drains in place She has given consent Patient was seen and examined with SHANELLE Clifton (2) S/P lumpectomy, right breast: Code(s): Z98.890 - Other specified postprocedural states Category: Surgical Plan 74 year old female with invasive lobular carcinoma of two sites of her right breast who underwent lumpectomy with the Hologic localizer right breast, with [address], right axillary sentinel node biopsy on 12/14/[address] Baldwin. She tolerated the procedure well. Her wounds are well approximated and healing well without evidence of infection. Unfortunately the pathology reveals positive margins throughout almost the entire specimen. One lymph node biopsied which was negative. It was therefore recommended to proceed with right simple mastectomy to completely excise the cancer. Technique of the procedure, risks and benefits including infection, bleeding, post operative hematoma or seroma formation, poor wound healing were discussed. What to expect post operatively was also discussed with the patient including admission post operatively for pain and drain placement and care. She is in agreement. She will be scheduled for this through [facility]. Referral to oncology will be made as well. Patient seen with with Dr. Baldwin. Orders: Referrals Hematology & Oncology Referral Z98.890 - Other specified postprocedural states, C50.919 - Malignant neoplasm of unspecified site of unspecified female breast Coding Level of Care Code Global (14648) Diagnoses Invasive lobular carcinoma of breast in female C50.919 S/P lumpectomy, right breast Z98.890
== END 2024-12-28 11:18 | disposition home or self-care (01) ==
LOC: HO.HGS 10:39
PROVIDERS: PCP Internal Medicine; Visit Provider Physician Assistant Surgical
DX: C50.919 Malignant neoplasm of unspecified site of unspecified female breast (principal); Z98.890 Other specified postprocedural states
CPT/HCPCS: 99024

== ENCOUNTER → 2024-12-28 10:38 | Outpatient (BNVA) | payer MEDICARE, SELFPAY | PROVIDERS: PCP Internal Medicine; Visit Provider Physician Assistant Surgical | DX: C50.911 Malignant neoplasm of unspecified site of right female breast (principal); Z98.890 Other specified postprocedural states | CPT/HCPCS: 99212 ==

== ENCOUNTER 2025-01-03 11:14 | Outpatient (RCR) | payer MEDICARE, SELFPAY | END 2025-05-09 10:44 | disposition home or self-care (01) | LOC: HO.PT 11:14 | PROVIDERS: PCP Internal Medicine; Visit Provider Physician Assistant | DX: Z98.1 Arthrodesis status (principal) | CPT/HCPCS: 97110 ==

== ENCOUNTER → 2025-01-09 16:15 | Outpatient (BNV) | payer MEDICARE, SELFPAY | PROVIDERS: PCP Internal Medicine; Referring Provider Internal Medicine; Visit Provider Internal Medicine | DX: D05.01 Lobular carcinoma in situ of right breast (principal) | CPT/HCPCS: 99205; G2211 ==

== ENCOUNTER 2025-01-17 11:02 | Inpatient (IN) | payer MEDICARE, SELFPAY ==
--- OUTSIDE RECORDS SUMMARY | 2023-12-22 07:00 | XMS_ITS ---
Author Organization [facility] Address [address] [place] [address] Care Team Providers Care Hospital Scientist Name Role Phone Jay Uribe MD Primary Care Provider Unavaileugene Mendoza Jr, Robert Serrato [phone] REASON FOR VISIT Patient presents today for gerd Encounters Encounter Location Date Provider Diagnosis [facility] [address] [place] [address] 2023 Robert Mendoza Jr Plan Of Treatment Next Appt Details Provider Name:Robert loving Jr, 04/09/2025 10:40:00 AM, [address] [place] [address], [address], [place], [address], Progress Notes * RIANNA LUEVANO MDOB:[birth year] (74 yo F)Acc No.[id number]:2023 Progress Notes Patient: Ngozi RIANNA OTT Provider: Ngozi Mendoza MD :1950 A ge:72 Y S ex:Female Date:2023 Address: [address] [id number] Pcp:Jay Uribe MD Subjective: * Chief Complaints: * 1 . [...] 0 2023 Generated for John mo/Ofelia/Reece on: 01/17/2025 12:02 PM EDT
[2025-01-09 07:45] VITALS: BMI 27.2
--- NOTE | 2025-01-10 09:09 | HO.ANESPROP2 ---
Documented by User: Cony Handley NP 01/10/25 09:11 HPI - Anesthesia Eval Consult details Narrative: 74yo F for Right Mastectomy Simple s/p lumpectomy 11/2024 with GA-LMA 3 s/p TLIF 08/2024 with GA-ETT 6.5 Bladder stim in situ PMFSH Active Problems Active Problems: All Active Problems S/P lumpectomy, right breast (Acute) Invasive lobular carcinoma of breast in female (Acute) Breast mass, right (Acute) S/P lumbar spinal fusion (Acute) Essential hypertension (Acute) Acute exacerbation of chronic low back pain (Acute) Spinal stenosis of lumbar region with neurogenic claudication (Acute) Spondylolisthesis at L4-L5 level (Acute) Myofascial pain (Acute) Tear of right biceps muscle (Acute) Depression (Acute) Impingement syndrome of right shoulder (Acute) Lumbar degenerative disc disease (Acute) Cervical spondylosis (Acute) Non-toxic multinodular goiter (Acute) Past Medical History Medical History Invasive lobular carcinoma of breast in female Breast mass, right Essential hypertension Bipolar disorder Lumbar degenerative disc disease Sciatic nerve pain Cervical spondylosis Urinary incontinence Arthritis Elevated cholesterol Depression GERD (gastroesophageal reflux disease) Non-toxic multinodular goiter Family History Family History Father Heart problem Thyroid cancer Skin cancer Mother Dementia Father No problems noted. Family history of problems with anesthesia: No Surgical History Surgical History S/P placement of nerve stimulator Hx of bilateral cataract extraction History of breast lump/mass excision Hx of cholecystectomy Hx of total hysterectomy with removal of both tubes and ovaries H/O colonoscopy (07/28/22) History of Problems with Anesthesia: No Social History Social History Household Members: Family Household Members Other:: daughter/grandson Housing: House Are you a primary ocular care technologist to a significant other at home: No Do you presently have visiting nurse or other home services: Yes (Meals on Wheels) Alcohol intake: current Alcohol intake frequency: holidays/special occasions only Comment: states does not move around at all, stays in bed due to pain Patient Tobacco Use Status: Former Tobacco user Tobacco use type: Cigarette Years Smoked: 5 e-Cigarette/Vaping Use: Currently Using Second Hand Smoke Exposure: No Substance Use Type: Marijuana Advance Directives Date on File: 07/23/24 Current occupational status: retired Cognitive needs: No Hearing needs: Yes (b/l ears) Vision needs: Yes (rx glasses) Meds Allergies Allergy/AdvReac Type Severity Reaction Status Date / Time hydrocodone Allergy Intermediate Vomiting Verified 01/03/25 13:05 amoxicillin AdvReac Intermediate Gastrointestinal Verified 01/03/25 13:05 Upset nitrofurantoin AdvReac Intermediate Gastrointestinal Verified 01/03/25 13:05 Upset sulfadiazine AdvReac Intermediate Gastrointestinal Verified 01/03/25 13:05 Upset Home Medications ?Medication ?Instructions ?Recorded ?Confirmed ?Last Taken ?Type flaxseed oil 1,000 mg capsule 1,000 mg PO DAILY 07/23/24 01/09/25 08/11/24 History acetaminophen 650 mg 650 mg PO Q8H PRN pain 08/12/24 01/09/25 Unknown History tablet,extended release cyclosporine 0.05 % eye drops in a 1 drp ophthalmic (eye) DAILY 08/12/24 01/09/25 08/11/24 History dropperette (Restasis) fluoxetine 20 mg capsule 20 mg PO DAILY 08/12/24 01/09/25 08/11/24 History mecobalamin (vitamin B12) 500 mcg 500 mcg PO DAILY 10/04/24 01/09/25 Unknown History chewable tablet omeprazole magnesium 20 mg 20 mg PO DAILY 10/04/24 01/09/25 Unknown History capsule,delayed release Vitamin D3 1,000 mg PO DAILY 01/09/25 01/09/25 Unknown History Exam Height,Weight and Vital Signs: Height 4 ft 10 in Weight 58.967 kg Pertinent Lab Results Pertinent Lab Results: Laboratory Tests 07/22/24 14:28 WBC 9.2 Hgb 13.6 Hct 38.0 Plt Count 341 Sodium 135 Potassium 4.3 Chloride 102 Carbon Dioxide 23 BUN 12 Creatinine 0.66 Narrative Narrative: EKG 07/2024 Vent. Rate : 85 BPM Atrial Rate : 85 BPM P-R Int : 170 ms QRS Dur : 76 ms QT Int : 344 ms P-R-T Axes : 33 -4 19 degrees QTcB Int : 409 ms Normal sinus rhythm with sinus arrhythmia Normal ECG When compared with ECG of 08-Dec-2020 02:38, No significant change was found Assessment and Plan Assessment Anesthesia Assessment: Chart Reviewed Final Anesthetic Review Family History of Problems with Anesthesia: No History of Problems with Anesthesia: No Documented by User: David Cannon MD 01/17/25 10:51 [facility] Past Medical History Medical History Invasive lobular carcinoma of breast in female Breast mass, right Essential hypertension Bipolar disorder Lumbar degenerative disc disease Sciatic nerve pain Cervical spondylosis Urinary incontinence Arthritis Elevated cholesterol Depression GERD (gastroesophageal reflux disease) Non-toxic multinodular goiter Functional capacity: independent ambulation Patient : No Family History Family History Father Heart problem Thyroid cancer Skin cancer Mother Dementia Father No problems noted. Surgical History Surgical History S/P placement of nerve stimulator Hx of bilateral cataract extraction History of breast lump/mass excision Hx of cholecystectomy Hx of total hysterectomy with removal of both tubes and ovaries H/O colonoscopy (07/28/22) Social History Social History Household Members: Family Household Members Other:: daughter/grandson Housing: House Are you a primary ocular care technologist to a significant other at home: No Do you presently have visiting nurse or other home services: Yes (Meals on Wheels) Alcohol intake: current Alcohol intake frequency: holidays/special occasions only Comment: states does not move around at all, stays in bed due to pain Patient Tobacco Use Status: Former Tobacco user Tobacco use type: Cigarette Years Smoked: 5 e-Cigarette/Vaping Use: Currently Using Second Hand Smoke Exposure: No Substance Use Type: Marijuana Advance Directives Date on File: 07/23/24 Current occupational status: retired Cognitive needs: No Hearing needs: Yes (b/l ears) Vision needs: Yes (rx glasses) Meds Allergies Allergy/AdvReac Type Severity Reaction Status Date / Time hydrocodone Allergy Intermediate Vomiting Verified 01/03/25 13:05 amoxicillin AdvReac Intermediate Gastrointestinal Verified 01/03/25 13:05 Upset nitrofurantoin AdvReac Intermediate Gastrointestinal Verified 01/03/25 13:05 Upset sulfadiazine AdvReac Intermediate Gastrointestinal Verified 01/03/25 13:05 Upset Home Medications ?Medication ?Instructions ?Recorded ?Confirmed ?Last Taken ?Type flaxseed oil 1,000 mg capsule 1,000 mg PO DAILY 07/23/24 01/09/25 08/11/24 History acetaminophen 650 mg 650 mg PO Q8H PRN pain 08/12/24 01/09/25 Unknown History tablet,extended release cyclosporine 0.05 % eye drops in a 1 drp ophthalmic (eye) DAILY 08/12/24 01/09/25 08/11/24 History dropperette (Restasis) fluoxetine 20 mg capsule 20 mg PO DAILY 08/12/24 01/09/25 08/11/24 History mecobalamin (vitamin B12) 500 mcg 500 mcg PO DAILY 10/04/24 01/09/25 Unknown History chewable tablet omeprazole magnesium 20 mg 20 mg PO DAILY 10/04/24 01/09/25 Unknown History capsule,delayed release Vitamin D3 1,000 mg PO DAILY 01/09/25 01/09/25 Unknown History Exam Exam Date and Time: 01/17/2025 Airway Mallampati Class: II TM Dist: >3cm Neck ROM: Full Partial: Lower Loose/Missing/Broken Teeth: Yes Heart: rrr Lungs: cta Other: oriented Assessment and Plan Final Anesthetic Review ASA Class: III Final Preanesthetic Review: No Changes in Pt Med Stat, Meds/Allgs Chart Reviewed, Consent Obtained/Reviewed and Anes Risks/Benef Reviewed Patient Risk: Low Procedure Risk: Low Anesthetic Plan Anesthetic Plan: GA and Regional Block Disposition: Standard PACU
[2025-01-17] VITALS (15 sets, daily range): BP systolic 140–174; BP diastolic 64–84; PULSE 73–87; RESP 12–20; TEMP 36.2–36.9; O2SAT 93–100
[2025-01-17] MEDS: Lactated Ringers 1,000 ML 100 ML IVCONT (10:26)
--- NOTE | 2025-01-17 11:01 | MHC.SHP ---
Pre-Procedural Eval Section A - 24 Hr Update-Section A only Date of Service: 01/17/25 The patient is an INPATIENT: No Changes since office visit: No Cold of Flu in the past 2 weeks, No New Medical Problems, No Changes in Medication and No Patient answered all questions The patient has been examined within 24 hours of the surgical procedure. The History & Physical has been completed within 30 days and I have reviewed it.: Yes Section B - Complete if H&P > 30 days Chief Complaint: Malignant neoplasm of unspecified site, Allergies: Allergies Allergy/AdvReac Type Severity Reaction Status Date / Time hydrocodone Allergy Intermediate Vomiting Verified 01/03/25 13:05 amoxicillin AdvReac Intermediate Gastrointestinal Verified 01/03/25 13:05 Upset nitrofurantoin AdvReac Intermediate Gastrointestinal Verified 01/03/25 13:05 Upset sulfadiazine AdvReac Intermediate Gastrointestinal Verified 01/03/25 13:05 Upset Plan I have reviewed the history and physical and performed a pertinent physical examination on my patient. No changes have occurred unless specified. Time Spent With Patient Time: Total time managing care of this patient today ____ minutes.
--- OUTSIDE RECORDS SUMMARY | 2025-01-17 12:02 | XMS_ITS | Patient Health Record ---
Author Organization [facility] Address [address] [address] Care Team Providers Care Chip Crusher Operator Name Role Phone Jay Uribe MD Primary Care Provider Williams Huber Unavailable [phone] Allergies Allergen (clinical drug ingredient) Drug/Non Drug Allergy documented on EMR Reaction Allergy Type Onset Date Status Bactrim nausea and vomiting Drug Allergy Active sulfa nausea and vomiting Drug Allergy Active Reason For Referral No Information Medications Medication SIG (Take, Route, Frequency, Duration) Notes Start Date End Date Status Multivitamin Active Calcium + D Active Fish Oil Active Cephalexin 500 MG 1 tablet Orally Twic e a day; Duration: 7 days Not-Taking Biotin Not-Taking Night Splint AFO - L1930 as directed 03/30/2018 Active FLUoxetine HCl 20 MG 1 tablet in the mor jasmin Orally Once a day Active Premarin 0.3 MG 1 tablet Orally Jeanne y for Three Weeks, 1 Week off Active Omeprazole 20 MG 1 capsule Orally Onc e a day Active Naproxen Sodium Acti ve Tylenol Active Social History Tobacco Use: Social History Observation Description Date Details (start date - stop date) Former Smoker NA - NA Tobacco Use/Smoking Question Answer Notes Are you a: former smoker Additional Findings: Tobacco Non-User Current no n-smoker Alcohol Screen Question Answer Notes Did you have a drink containing alcohol in the p ast year? Yes Points 0 Interpretation Negative Tobacco use other than smoking: Question Answer Notes Are you an other tobacco user? No Problems Problem Type SNOMED Code ICD Code Onset Dates Problem Status W/U Status Risk Notes Problem Localized, primary osteoarthritis of the ankle and/or foot (820617942) Primary osteoarthritis, right ankle and foot (M19.071) Active confirmed Problem Acquired hammer toe of right foot (9981838496942561 ) Other hammer toe(s) (acquired), right foot (M20.41) Active confirmed Problem Localized, primary osteoarthritis of the ankle and/or foot (672743524) 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.072) Active confirmed Problem Pes cavus (51695446) Pes cavus (Q66.7) Active confirmed Plan Of Treatment Pending Test Test Name Order Date X ray : Foot, left 3V 12/02/2018 X ray : Foot, right 3V 03/30/2018 X ray : Foot, right 3V 12/02/2018 Insurance Providers Payer Name Payer Address Payer Phone Subscriber Number Group Number Insured Name Patient Relationship to Insured Coverage Start Date Coverage End Date Medicare National [employer] [address] [place] [address] [id number] Isabel Cid Self - patient is the insured 4 [employer] MD[employer] [address] [place] [address] [id number] Isabel Cid Self - patient is the insured Medical (General) History Medical History History ICD Code Anxiety Arthritis Back,Hip,and Knee pain Broken bones CAD (Cholesterol) Cataracts Depression Diverticulosis Gall bladder problems thyroid Warts Surgical History Surgery Date(Month/Year) hysterectomy 09/1999 gall bladder 09/2006 fibroadenoid lump removed 07/1986-12/2016
--- NOTE | 2025-01-17 12:55 | W.PM.OPN ---
Operative Note Operative Note Date of Service: 01/17/25 Narrative: Preop diagnosis: Invasive lobular carcinoma, right breast, status post lumpectomy sentinel biopsy Postop diagnosis: The same Procedure: Simple mastectomy right breast Surgeon: Jay Baldwin MD fleet administrative assistant: SHANELLE Clifton The patient is a 74 year old female with invasive lobular carcinoma of the right breast. She had undergone lumpectomy with sentinel biopsy last month but the tumor appeared to to be much bigger than suggested by imaging studies. We had anticipated positive margins but was of the large tumor, I explained to her that it would be best to just proceed with mastectomy in view of the irregular margins, in the size of the tumor. She understood the technique of mastectomy. She was aware risks, benefits, and alternatives She was brought to the operating room. She was placed supine under general anesthesia via laryngeal mask airway A pectoralis block was done by the anesthesiologist as per the ERAS protocol. The right breast was prepped and draped in the usual sterile fashion. A surgical time-out had been done. The patient received cefazolin 2 g IV preoperatively. I made an elliptical incision on the skin of the right breast around the nipple-areolar complex in a standard mastectomy incision. This was carried down through the full-thickness of the skin and subcutaneous fat with electrocautery.The subcutaneous layer was lifted with Sheldon clamps and we developed this plane of dissection We then proceeded to develop the superior flap using electrocautery, carefully maintaining thickness as we proceeded along a well-defined plane of dissection of about 5 mm of subcutaneous fat all the way to the subclavicular line. I proceeded to define the pectoralis fascia and incised this at this level all the way to the sternal area medially. We developed this plane of dissection with electrocautery by lifting the pectoralis fascia off of the pectoralis muscle. We controlled bleeders as we proceeded with electrocautery and with ligatures using Polysorb 3-0. I the pectoralis fascia from the muscle layer the way to the lateral edge of the pectoralis. I then proceeded to develop our inferior flap in the same manner as above. The subcutaneous layer wwa lifted with Sheldon clamps and we developed this plane of dissection, lifting the subcutaneous layer from the breast tissue all the way to the inframammary crease. I then proceeded to continue to define plane of dissection between the pectoralis muscle and the pectoralis fascia from medial to lateral all the way to the lateral edge of the pectoralis muscle. We completed the mastectomy by dividing the remaining attachments of the entire breast tissue towards the axilla. We marked the lateral aspect with a stitch for orientation We copiously irrigated. We made sure that there was good hemostasis. Once hemostasis was confirmed, I proceeded to then positioned 1 DESMOND drain in the inferior flap, and a 2nd DESMOND drain on the superior flap. Both of these were brought out through separate exit sites on the aspect of the inferior flap . Both of these were secured to the skin with nylon 3-0 sutures The subdermal layer was reapposed with simple interrupted buried 3-0 sutures. Skin closure was achieved with Polysorb 4-0 subcuticular running stitch Thick dressings were applied. The chest was wrapped with a compression bandage The procedure was completed The patient tolerated procedure well. There were no immediate complications. Initial and final counts of sponges and instruments were correct. Estimated blood loss about 100 cc The patient was extubated without difficulty and transferred to the recovery room with stable vital signs.
[2025-01-17] MEDS: 0.9 % Sodium Chloride Flush 3 ML SYRINGE IVFLUSH (14:59)
[2025-01-17] MEDS: Lactated Ringers 1,000 ML 60 ML IVCONT (15:01)
[2025-01-17] MEDS: oxyCODONE HCl Immed Release 5 MG TABLET PO ×2 (15:43→19:52)
--- NOTE | 2025-01-17 16:42 | PHA.MEDREC ---
Pharmacy Consult ? Medication Reconciliation Pharmacy has completed the medication reconciliation. Spoke to patient to confirm medication list. Per patient, she is no longer taking estradiol tablets nor vaginal cream.
--- NOTE | 2025-01-17 18:29 | PM.EVENT ---
Event Note Date of Service: 01/18/25 Event Note: Seen now on rounds Says she is comfortable Good pain control Stable vital signs DESMOND drains working, with thick serosanguineous output Dressings dry Pain control She wants to be discharged tomorrow - we will re-evaluate She will need a visiting nurse Time Spent With Patient Time: Total time managing care of this patient today ____ minutes.
[2025-01-18] MEDS: oxyCODONE HCl Immed Release 5 MG TABLET PO ×3 (01:57→19:41)
[2025-01-18 03:48] VITALS: BP 151/70; PULSE 75; RESP 18; TEMP 36.1; O2SAT 97
[2025-01-18 06:20] LABS: MANUAL DIFF FLAG NO
--- NOTE | 2025-01-18 06:57 | PM.PNGS ---
Subjective Subjective Date of Service: 01/18/25 <Luanne Jeffry - Last Filed: 01/18/25 07:11> 01/18/25 <Danette Clifton PA-C - Last Filed: 01/18/25 08:19> 01/18/25 <Jay Baldwin MD - Last Filed: 01/18/25 08:49> Interval history: Isabel Cid is a 74 y/o F POD #1 for right mastectomy with a PMH of invasive lobular carcinoma. No acute overnight events. Pain described as good , rated 1-2/ 10, managed on PO oxycodone PRN requested 2x last PM. No n/v, fever, or chills. Has not passed flatulence or had a BM. Ambulating. Performed spirometry successfully, will continue throughout the day. Tolerating regular diet. Ins: PO oxycodone, IV lactated ringer. Outs: DESMOND #1 drained 30 ccs last PM and 20 ccs this AM. DESMOND#2 drained 15 ccs last PM and 10ccs this AM. One of the JPs spilled last PM. <Luanne Jeffry - Last Filed: 01/18/25 07:11> Physical Exam Vital Signs: Vital Signs: Last Vital Signs Temp 96.9 F 01/18/25 03:48 Pulse 75 01/18/25 03:48 Resp 18 01/18/25 03:48 BP 151/70 H 01/18/25 03:48 Pulse Ox 97 01/18/25 03:48 O2 Del Method Room Air 01/18/25 03:48 O2 Flow Rate 2 01/17/25 14:11 BMI result Body Mass Index 27.2 <Luanne Westbury - Last Filed: 01/18/25 07:11> Const: General: no acute distress <Luanne Westbury - Last Filed: 01/18/25 07:11> Orientation/consciousness: patient oriented x3 <Luanne Jeffry - Last Filed: 01/18/25 07:11> Chest: Other: Dressings dry and intact <Luanne Westbury - Last Filed: 01/18/25 07:11> Other: breast wrap in place, both DESMOND drains serosanguineous <Danette Clifton PA-C - Last Filed: 01/18/25 08:19> Resp: Effort & Inspection: normal respiratory effort <Luanne Jeffry - Last Filed: 01/18/25 07:11> Skin: General skin exam: no rashes or lesions noted <Danette Clifton PA-C - Last Filed: 01/18/25 08:19> Neuro: General: patient oriented x3 and moves all extremities <Luanne Westbury - Last Filed: 01/18/25 07:11> Extrem: General: Yes normal to inspection <Luanne Westbury - Last Filed: 01/18/25 07:11> Psych: Mental Status: mental status grossly normal <Luanne Jeffry - Last Filed: 01/18/25 07:11> Objective Data Active Medications Atorvastatin Calcium (Atorvastatin Calcium 10 Mg Tablet) 10 mg PO BEDTIME [facility] Last Admin: 01/17/25 19:52 Dose: 10 mg Documented By: ROBY Calcium Carbonate (Calcium Carbonate 750 Mg Tab.Chew) 750 mg PO Q4H PRN PRN Reason: Heartburn Fluoxetine HCl (Fluoxetine Hcl 20 Mg Capsule) 20 mg PO BEDTIME [facility] Last Admin: 01/17/25 19:52 Dose: 20 mg Documented By: ROBY Lactated Ringer's (Lr) 1,000 mls @ 60 mls/hr IVCONT .[id number] [facility] Last Admin: 01/17/25 15:01 Dose: 60 mls/hr Documented By: ANABELL Acetaminophen (Ofirmev) 1,000 mg in 100 mls @ 400 mls/hr IV Q6H [facility] Last Infusion: 01/18/25 06:03 Dose: Infused Documented By: ROBY Lisinopril (Lisinopril 5 Mg Tablet) 5 mg PO DAILY [facility]; Protocol Magnesium Hydroxide (Milk Of Magnesia 30 Ml Oral.Susp) 30 ml PO DAILY PRN PRN Reason: Constipation Melatonin (Melatonin 3 Mg Tablet) 6 mg PO BEDTIME PRN PRN Reason: Insomnia Morphine Sulfate (Morphine Sulfate 4 Mg/Ml Cartridge) 3 mg IVPUSH Q4H PRN; Protocol PRN Reason: Pain, Severe (Pain Scale 7-10) Naloxone HCl (Naloxone Hcl 0.4 Mg/Ml Vial) 0.04 mg IVPUSH Q5M PRN PRN Reason: Excessive sedation or RR < 8 Omeprazole (Omeprazole 20 Mg Capsule.) 20 mg PO DAILY@629 [facility] Last Admin: 01/18/25 05:47 Dose: 20 mg Documented By: ROBY Ondansetron HCl (Ondansetron Hcl 4 Mg/2 Ml Vial) 4 mg IVPUSH Q6H PRN PRN Reason: Nausea and Vomiting Oxycodone HCl (Oxycodone Hcl Immed Release 5 Mg Tablet) 5 mg PO Q4H PRN PRN Reason: Pain, Moderate(Pain Scale 4-6) Last Admin: 01/18/25 01:57 Dose: 5 mg Documented By: ROBY Sodium Chloride (0.9 % Sodium Chloride Flush 3 Ml Syringe) 3 ml IVFLUSH QSHIFT [facility] Last Admin: 01/17/25 22:01 Dose: Not Given Documented By: ROBY Non-Admin Reason: IV Running Tizanidine HCl (Tizanidine Hcl 4 Mg Tablet) 2 mg PO BID PRN PRN Reason: Muscle Spasm <Luanne Teran - Last Filed: 01/18/25 07:11> Labs CBC & Chem 7: 01/18/25 05:26 <Luanne Teran - Last Filed: 01/18/25 07:11> Procedures Date of Service Date of Service: 01/18/25 <Luanne Teran - Last Filed: 01/18/25 07:11> 01/18/25 <Danette Clifton PA-C - Last Filed: 01/18/25 08:19> 01/18/25 <Jay Baldwin MD - Last Filed: 01/18/25 08:49> Progress Note: A&P Assessment and plan (1) S/P right mastectomy: Status: Acute <Luanne Teran - Last Filed: 01/18/25 07:11> Assessment and Plan: Feels well this morning Good pain control No events overnight DESMOND drains with scanty dark bloody output Will check her mastectomy site later today She may be able to go home this has being nurse I will see her in the office next week Seen and examined independently <Jay Baldwin MD - Last Filed: 01/18/25 08:49> (2) Invasive lobular carcinoma of breast in female: Status: Acute <Luanne Teran - Last Filed: 01/18/25 07:11> Assessment and Plan: Isabel Cid is a 74 y/o F POD #1 for right mastectomy with a PMH of invasive lobular carcinoma, improving. Pain rated 1-2/10, managed on PO oxycodone. No n/v, fevers, or chills. Has not passed flatulence or BM. Ambulating. Tolerating regular diet. Dressings intact and dry. JPs in tact, but one of them spilled last PM/ DESMOND#1 drained 30 ccs last PM and 20ccs this AM. DESMOND #2 drained 15 ccs last PM and 10ccs this AM. Labs pending. Continue PO oxycodone PRN for pain management. Continue regular diet. Continue encouraging ambulation. <Luanne Teran - Last Filed: 01/18/25 07:11> Isabel Cid is a 74 y/o F POD #1 for right mastectomy with a PMH of invasive lobular carcinoma, improving. Pain rated 1-2/10, managed on PO oxycodone. No n/v, fevers, or chills. Has not passed flatulence or BM. Ambulating. Tolerating regular diet. Dressings intact and dry. JPs in tact, but one of them spilled last PM/ DESMOND#1 drained 30 ccs last PM and 20ccs this AM. DESMOND #2 drained 15 ccs last PM and 10ccs this AM. Labs pending. Continue PO oxycodone PRN for pain management. Continue regular diet. Continue encouraging ambulation. Agree with above assessment and plan. Patient POD #1 s/p right simple mastectomy. She feels well with good pain control and is asking to go home. Has not ambulated yet. VSS. Breast wrap is in place, DESMOND drains with serosanguineous drainage, low output. AM CBC reviewed, leukocytosis likely reactive, H/H slightly drifted but stable. Will dc IV tylenol. Encourage oral analgesics in preparation for dc to home. Increase activity, OOB and ambulation, IS use. Will reassess later today for possible discharge to home with VNA services if remains comfortable on oral analgesics. Patient comfortable with plan. <Danette Clifton PA-C - Last Filed: 01/18/25 08:19> Time Spent With Patient Time: Total time managing care of this patient today ____ minutes. <Luanne Teran - Last Filed: 01/18/25 07:11> Quality Stroke Does the patient have a stroke diagnosis?: No <Danette Clifton PA-C - Last Filed: 01/18/25 08:19> VTE Prior VTE?: No <Danette Clifton PA-C - Last Filed: 01/18/25 08:19> VTE Risk Level:: Medical - moderate - high <Luanne Teran - Last Filed: 01/18/25 07:11> VTE Device Contraindication: N/A - Device Ordered <Luanne Teran - Last Filed: 01/18/25 07:11> VTE Drug Contraindication: Treatment Not Indicated <Luanne Teran - Last Filed: 01/18/25 07:11>
[2025-01-18 07:18] LABS: Hematocrit 31.6 % (37.0-47.0); Hemoglobin 10.9 g/dl (12.0-16.0); Imm Gran Abs Auto 0.09 X10*3/uL (0.00-0.03); Imm Gran Pct Auto 0.7 % (0.0-0.4); Lymphocytes Absolute Auto 1.3 X10*3/uL (1.2-4.9); Mean Corpuscular HGB Conc 34.5 g/dl (31.0-35.0); Mean Corpuscular Hemoglobin 31.5 pg (27.0-33.0); Mean Corpuscular Volume 91.3 fL (80.0-98.0); NRBC Abs Auto 0.000 X10*3/uL (0.0-0.012); NRBC Pct Auto 0.0 /100WBC (0.0-0.2); Platelet Count 315 X10*3/uL (160-400); Red Blood Count 3.46 X10*6/uL (4.20-5.50); White Blood Count 12.8 X10*3/uL (4.8-10.8)
[2025-01-18 08:03] VITALS: BP 161/77; PULSE 73; RESP 18; TEMP 36.1; O2SAT 97
[2025-01-18] MEDS: Lactated Ringers 1,000 ML 60 ML IVCONT (08:20)
[2025-01-18] MEDS: 0.9 % Sodium Chloride Flush 3 ML SYRINGE IVFLUSH ×3 (08:21→20:16)
--- NOTE | 2025-01-18 08:43 | HO.POSTANES ---
Post Anesthesia Evaluation Post Anesthesia Evaluation Date of Service: 01/18/25 Vital Signs: Vital Signs Temp Pulse Resp BP Pulse Ox O2 Del Method 01/18/25 08:03 96.9 F 73 18 161/77 H 97 Room Air 01/18/25 03:48 96.9 F 75 18 151/70 H 97 Room Air Anesthesia: General Endotracheal-GETA Mental Status: Awake Pain Control: Satisfactory Nausea/Vomiting: None Hydration: Adequate Anesthesia-Related Issues: No Anes. Related Issues
--- NOTE | 2025-01-18 10:18 | MHC.CM.PN ---
[facility] DELIVERED PT LIVES WITH DAUGHTER AND IS FUNCTIONALLY INDEPENDENT. PT HAS MOW 5X/WK. + HCP ON FILE AND PCP DR. FISCHER. DP: HOME WITH NEW [facility] FOR SN (FIRST CHOICE) REFERRAL SENT. PT'S DAUGHTER WILL TRANSPORT HOME. CM WILL CONTINUE TO FOLLOW FOR ANY CHANGE TO DC PLAN/NEEDS.
[2025-01-18 11:40] LABS: Glucose, Whole Blood 123 mg/dL (60-115)
--- NOTE | 2025-01-18 14:16 | W.MHC.F2F ---
Service Date Service Date: 01/18/25 Encounter Date of encounter: 01/18/25 Reasons for Services Signs and symptoms assessed: mastectomy site pain, DESMOND drain output Reason for correction: wound care and postoperative assessment and/or care Homebound: Leaving the home is medically contraindicated at this time without the asist of a device and/or another person due th the listed conditions above and below. Reason homebound: weakness related to hospital stay and unable to drive Homebound supporting statement: Ms. Cid underwent a right simple mastectomy on 01/17/25. She will need VNA services for DESMOND drain care. Certification: Based on the above findings, I certify that this patient is confined to the home and needs intermittent correction care, physical therapy and/or speech therapy, or continues to need occupational therapy. The patient is under my care, and I have initiated the establishment of the plan of care. The patient will be followed by a physician who will periodically review the plan of care. Time Spent With Patient Time: Total time managing care of this patient today ____ minutes.
--- NOTE | 2025-01-18 14:52 | PM.EVENT ---
Event Note Date of Service: 01/22/25 Event Note: Seen on afternoon rounds poor wound check No hematoma Flaps viable although we ecchymosis DESMOND drains scanty, serosanguineous Dressings changed Plan to discharge home tomorrow morning VNA services arranged for the weekend -- discussed with protective services case worker We will see the patient next week in the office Patient understands the plan Time Spent With Patient Time: Total time managing care of this patient today ____ minutes.
[2025-01-18 16:47] VITALS: BP 138/65; PULSE 75; RESP 12; TEMP 36.1; O2SAT 93
[2025-01-18 19:19] VITALS: BP 168/67; PULSE 81; RESP 17; TEMP 36.1; O2SAT 94
[2025-01-19 03:34] VITALS: BP 150/70; PULSE 70; RESP 18; TEMP 36; O2SAT 98
[2025-01-19] MEDS: oxyCODONE HCl Immed Release 5 MG TABLET PO ×2 (04:29→10:15)
[2025-01-19 07:05] VITALS: BP 181/79; PULSE 66; RESP 16; TEMP 36.7; O2SAT 97
--- NOTE | 2025-01-19 08:14 | P.PNGS_ITS ---
Subjective Subjective Date of Service: 01/19/25 Interval history: Reports feeling tight with increased pain in the right axilla. She is concerned about her blood pressure and elevated. Physical Exam 2 Vital Signs: Vital Signs: Last Vital Signs Temp 98.0 F 01/19/25 07:05 Pulse 66 01/19/25 07:05 Resp 16 01/19/25 07:05 BP 181/79 H 01/19/25 07:05 Pulse Ox 97 01/19/25 07:05 O2 Del Method Room Air 01/19/25 07:05 O2 Flow Rate 2 01/17/25 14:11 BMI result Body Mass Index 27.2 Const: General: no acute distress Nutritional Appearance: well nourished Orientation/consciousness: patient oriented x3 Chest: Other: Dressings clean, dry, and intact. DESMOND with serosanguineous fluid, thin. Flaps are clean and viable with minimal ecchymosis. No evidence of hematoma or seroma. Resp: Effort & Inspection: normal respiratory effort, no audible wheezes, no cough and no respiratory distress Neuro: General: patient oriented x3 Extrem: Other: No edema Objective Data Active Medications Acetaminophen (Acetaminophen 325 Mg Tablet) 650 mg PO Q6H PRN PRN Reason: Pain, Mild 1-3,fever,headache Last Admin: 01/18/25 23:10 Dose: 650 mg Documented By: ROBY Atorvastatin Calcium (Atorvastatin Calcium 10 Mg Tablet) 10 mg PO BEDTIME [facility] Last Admin: 01/18/25 20:13 Dose: 10 mg Documented By: ROBY Calcium Carbonate (Calcium Carbonate 750 Mg Tab.Chew) 750 mg PO Q4H PRN PRN Reason: Heartburn Docusate Sodium (Docusate Sodium 100 Mg Capsule) 100 mg PO BID [facility] Last Admin: 01/18/25 20:13 Dose: 100 mg Documented By: ROBY Fluoxetine HCl (Fluoxetine Hcl 20 Mg Capsule) 20 mg PO BEDTIME [facility] Last Admin: 01/18/25 20:13 Dose: 20 mg Documented By: ROBY Lisinopril (Lisinopril 5 Mg Tablet) 5 mg PO DAILY [facility]; Protocol Last Admin: 01/18/25 08:20 Dose: 5 mg Documented By: ANABELL Magnesium Hydroxide (Milk Of Magnesia 30 Ml Oral.Susp) 30 ml PO DAILY PRN PRN Reason: Constipation Melatonin (Melatonin 3 Mg Tablet) 6 mg PO BEDTIME PRN PRN Reason: Insomnia Morphine Sulfate (Morphine Sulfate 4 Mg/Ml Cartridge) 3 mg IVPUSH Q4H PRN; Protocol PRN Reason: Pain, Severe (Pain Scale 7-10) Naloxone HCl (Naloxone Hcl 0.4 Mg/Ml Vial) 0.04 mg IVPUSH Q5M PRN PRN Reason: Excessive sedation or RR < 8 Omeprazole (Omeprazole 20 Mg Capsule.Dr) 20 mg PO DAILY@0630 [facility] Last Admin: 01/19/25 04:28 Dose: 20 mg Documented By: ROBY Ondansetron HCl (Ondansetron Hcl 4 Mg/2 Ml Vial) 4 mg IVPUSH Q6H PRN PRN Reason: Nausea and Vomiting Oxycodone HCl (Oxycodone Hcl Immed Release 5 Mg Tablet) 5 mg PO Q4H PRN PRN Reason: Pain, Moderate(Pain Scale 4-6) Last Admin: 01/19/25 04:29 Dose: 5 mg Documented By: ROBY Polyethylene Glycol (Polyethylene Glycol 3350 17 Gm Powd.Pack) 17 gm PO DAILY [facility] Last Admin: 01/18/25 15:01 Dose: 17 gm Documented By: ANABELL Sodium Chloride (0.9 % Sodium Chloride Flush 3 Ml Syringe) 3 ml IVFLUSH QSHIFT [facility] Last Admin: 01/18/25 20:16 Dose: 3 ml Documented By: ROBY Tizanidine HCl (Tizanidine Hcl 4 Mg Tablet) 2 mg PO BID PRN PRN Reason: Muscle Spasm Labs 01/18/25 05:26 Labs: Laboratory Results - last 24 hr 01/18/25 11:30 POC Glucose 123 H Procedures Date of Service Date of Service: 01/19/25 Progress Note: A&P Assessment and plan (1) Invasive lobular carcinoma of breast in female: Status: Acute (2) S/P right mastectomy: Status: Acute Plan 74-year-old female status post right mastectomy for an invasive lobular carcinoma of the right breast. She has increased pain today probably due to the pectoralis block now wearing off. There was no evidence of hematoma or seroma and flaps are healthy. BP may be result of the increased incisional pain. We will continue to monitor. Possible discharge later today if comfortable with oral pain medication. Time Spent With Patient Time: Total time managing care of this patient today ____ minutes. Quality Stroke Does the patient have a stroke diagnosis?: No VTE Prior VTE?: No VTE Risk Level:: Medical - moderate - high VTE Device Contraindication: N/A - Device Ordered VTE Drug Contraindication: Treatment Not Indicated
[2025-01-19] MEDS: 0.9 % Sodium Chloride Flush 3 ML SYRINGE IVFLUSH (08:44)
--- NOTE | 2025-01-19 10:10 | P.F2F_ITS ---
Service Date Service Date: 01/19/25 Encounter Date of encounter: 01/19/25 Reasons for Services Signs and symptoms assessed: DESMOND output examined, wounds examined Reason for long-term: wound care and postoperative assessment and/or care MD Overseeing Care: Jay Baldwin Homebound: Leaving the home is medically contraindicated at this time without the asist of a device and/or another person due th the listed conditions above and below. Reason homebound: unsteady gait / fall risk and weakness related to hospital stay Certification: Based on the above findings, I certify that this patient is confined to the home and needs intermittent long-term care, physical therapy and/or speech therapy, or continues to need occupational therapy. The patient is under my care, and I have initiated the establishment of the plan of care. The patient will be followed by a physician who will periodically review the plan of care. Time Spent With Patient Time: Total time managing care of this patient today ____ minutes.
[2025-01-19 11:00] VITALS: BP 148/78; PULSE 79; RESP 16; TEMP 36.6; O2SAT 98
--- NOTE | 2025-01-19 12:32 | MHC.CM.PN ---
PT WILL DC HOME TODAY WITH [facility]IA [facility]
--- NOTE | 2025-01-19 13:14 | PM.DS ---
DS: Providers Provider Date of Service: 01/19/25 <JOSE G Mattson Last Filed: 01/22/25 08:11> Date of admission: 01/17/25 11:02 <JOSE G Mattson Last Filed: 01/22/25 08:11> Date of discharge: 01/19/25 <Danette Clifton PA-C - Last Filed: 01/22/25 08:11> Primary care physician: Calvin Brooke MD <JOSE G Mattson Last Filed: 01/22/25 08:11> Attending physician on admission: Jay Baldwin <JOSE G Mattson Last Filed: 01/22/25 08:11> DS: Diagnosis Discharge Diagnosis (1) S/P right mastectomy: Status: Acute <JOSE G Mattson Last Filed: 01/22/25 08:11> (2) Invasive lobular carcinoma of breast in female: Status: Acute <JOSE G Mattson Last Filed: 01/22/25 08:11> DS: Summary Hospital Course Hospital Course: HPI AT ADMISSION: The patient is a 74 year old female with invasive lobular carcinoma of the right breast. She had undergone lumpectomy with sentinel biopsy last month but the tumor appeared to to be much bigger than suggested by imaging studies. We had anticipated positive margins but was of the large tumor, I explained to her that it would be best to just proceed with mastectomy in view of the irregular margins, in the size of the tumor. She now presents for the planned procedure. HOSPITAL COURSE: On 01/17/25 simple mastectomy right breast was performed by Dr. Baldwin without complication. The patient tolerated the procedure well. She had an uncomplicated recovery course. She remained inpatient for 2 nights for pain control. Her activity was increased. DESMOND drain education was performed. On the day of discharge, she was tolerating a solid diet without nausea or vomiting. She had good pain control on oral analgesics. She was hemodynamically stable with clean incision, viable appearing flaps and low serosanguineous DESMOND drain output. She felt ready for discharge. She was discharged to home on 01/19/25 in stable condition. She was discharged to home with VNA services. She is to follow up in the office in 1 week. <Danette Clifton PA-C - Last Filed: 01/22/25 08:11> Status at Discharge Functional status at discharge: independent ambulation <Danette Clifton PA-C - Last Filed: 01/22/25 08:11> Overall status at discharge: patient is progressing back to baseline <Danette Clifton PA-C - Last Filed: 01/22/25 08:11> Time Attestation Discharge Coordination Time (in mins): 35 <Danette Clifton PA-C - Last Filed: 01/22/25 08:11> Quality: Safe Use of Opioids Does Pt have an Active Cancer Diagnosis on the Problem List?: Yes <Danette Clifton PA-C - Last Filed: 01/22/25 08:11> Opioid Measure Date for [facility] Report: 12/23/24 <Danette Clifton PA-C - Last Filed: 01/22/25 08:11> 12/19/24 <Jay Bladwin MD - Last Filed: 01/18/25 14:56> Opioid Measure Time for [facility] Report: 08:09 <Danette Clifton PA-C - Last Filed: 01/22/25 08:11> 14:55 <Jay Baldwin MD - Last Filed: 01/18/25 14:56> Quality: Stroke Does the patient have a stroke diagnosis?: No <Danette Clifton PA-C - Last Filed: 01/22/25 08:11> Physical Exam Vital Signs: Vital Signs: Last Vital Signs Temp 96.9 F 01/18/25 08:03 Pulse 73 01/18/25 08:03 Resp 18 01/18/25 08:03 BP 161/77 H 01/18/25 08:03 Pulse Ox 97 01/18/25 08:03 O2 Del Method Room Air 01/18/25 08:03 O2 Flow Rate 2 01/17/25 14:11 BMI result Body Mass Index 27.2 <Danette Clifton PA-C - Last Filed: 01/22/25 08:11> Const: General: comfortable, no acute distress and alert <Danette Clifton PA-C - Last Filed: 01/22/25 08:11> Orientation/consciousness: patient oriented x3 <JOSE G Mattson Last Filed: 01/22/25 08:11> Chest: Other: dressing changed 01/18- incision site clean, flaps viable- small fullness of axilla, mildly tender steri strips intact DESMOND drain serosanguineous output <JOSE G Mattson Last Filed: 01/22/25 08:11> Skin: General skin exam: no rashes or lesions noted <JOSE G Mattson Last Filed: 01/22/25 08:11> Neuro: General: patient oriented x3 and moves all extremities <JOSE G Mattson Last Filed: 01/22/25 08:11> DS: Data Data Completed and Pending Completed studies during hospitalization [Text1]: Procedures Excision of Lumbar Vertebral Disc, Open Approach (08/29/24) Fusion of Lumbar Vertebral Joint with Interbody Fusion Device, Posterior Approach, Anterior Column, Open Approach (08/29/24) <Danette Clifton PA-C - Last Filed: 01/22/25 08:11> Pending studies at discharge: Pending at discharge 01/17/25 12:31 Surgical [PTH] Routine <JOSE G Mattson Last Filed: 01/22/25 08:11> Labs on day of discharge: Laboratory Results - last 24 hr 01/18/25 01/18/25 05:26 11:30 WBC 12.8 H RBC 3.46 L Hgb 10.9 L Hct 31.6 L MCV 91.3 MCH 31.5 MCHC 34.5 RDW 13.4 Plt Count 315 MPV 9.4 Immature Gran % (Auto) 0.7 H Neut % (Auto) 84.4 H Lymph % (Auto) 10.2 L Rhea % (Auto) 4.5 Eos % (Auto) 0.0 Baso % (Auto) 0.2 Lymph # (Auto) 1.3 Rhea # (Auto) 0.6 Eos # (Auto) 0.0 Baso # (Auto) 0.0 Abs Immat Gran (auto) 0.09 H Absolute Neuts (auto) 10.8 H Absolute Nucleated RBC 0.000 Nucleated RBC % (auto) 0.0 POC Glucose 123 H <Danette Clifton PA-C - Last Filed: 01/22/25 08:11> Discharge Plan Discharge Anticipated Discharge Date/Time: 01/19/25 10:09 <Danette Clifton PA-C - Last Filed: 01/22/25 08:11> Patient Disposition: Home Health Service <Danette Clifton PA-C - Last Filed: 01/22/25 08:11> Discharge Diagnosis: s/p right simple mastectomy <Danette Clifton PA-C - Last Filed: 01/22/25 08:11> s/p right simple mastectomy <Jay Baldwin MD - Last Filed: 01/18/25 14:56> Referrals: Lonnie FIGUEROA [Outside] - 1 Week Jay Baldwin MD [Physician, General Surgery] - 1 Week Calvin Brooke MD [Primary Care Provider, Internal Medicine] - 1 Week <Danette Clifton PA-C - Last Filed: 01/22/25 08:11> Discharge Medications: New docusate sodium [Colace] 100 mg capsule 100 mg PO BID Qty: 30 0RF oxycodone 5 mg tablet 5 mg PO Q4H PRN (Reason: pain (scale score 7-10)) Qty: 26 0RF Rx Instructions: Partial Fill upon patient request. polyethylene glycol 3350 [Miralax] 17 gram/dose powder 17 g PO DAILY PRN (Reason: constipation) Qty: 119 0RF ibuprofen 600 mg tablet 600 mg PO Q6H PRN (Reason: pain) Qty: 30 0RF Continued acetaminophen 650 mg tablet extended release 650 mg PO Q8H PRN (Reason: pain) fluoxetine 20 mg capsule 20 mg PO BEDTIME cyclosporine [Restasis] 0.05 % Dropperette 1 drp OPHTHALMIC (EYE) DAILY ibuprofen 600 mg tablet 600 mg PO Q6H PRN (Reason: pain) Qty: 30 0RF oxycodone 5 mg tablet 5 mg PO Q4H PRN (Reason: pain) Qty: 25 0RF Rx Instructions: Partial Fill upon patient request. melatonin 5 mg capsule 5 mg PO BEDTIME cholecalciferol (vitamin D3) [Vitamin D3] 25 mcg (1,000 unit) Tablet 25 mcg PO DAILY omeprazole magnesium 20 mg capsule,delayed release(DR/EC) 20 mg PO DAILY PRN (Reason: Acid Reflux) mecobalamin (vitamin B12) 500 mcg tablet,chewable 500 mcg PO DAILY lisinopril 5 mg tablet 5 mg PO DAILY Qty: 90 1RF tizanidine 2 mg tablet 2 mg PO BID PRN (Reason: Muscle Spasm) Qty: 60 0RF simvastatin 10 mg tablet 10 mg PO BEDTIME Qty: 90 1RF <Danette Clifton PA-C - Last Filed: 01/22/25 08:11> Discharge Orders: Discharge Order (Routine); Ordered 01/19/25 Ordered By: Spencer Machuca <JOSE G Mattson Last Filed: 01/22/25 08:11> Diet: Advance to usual diet <JOSE G Mattson Last Filed: 01/22/25 08:11> Advance to usual diet <Jay Baldwin MD - Last Filed: 01/18/25 14:56> Activity on Discharge: No heavy lifting <JOSE G Mattson Last Filed: 01/22/25 08:11> No heavy lifting <Jay Baldwin MD - Last Filed: 01/18/25 14:56> Stand Alone Forms: Patient Portal Discharge page <JOSE G Mattson Last Filed: 01/22/25 08:11> Print Language: Lithuanian <JOSE G Mattson Last Filed: 01/22/25 08:11> Activity Restrictions/Additional Instructions: VNA will him on Wednesday or Wednesday to change your dressings - dry dressings with gauze, wrapped the mastectomy site with binder If the incision area is tender, you may apply an ice pack for short intervals (No more than 20 minutes on, followed by at least 20 minutes off). Do not apply heat. Do not use creams, lotions, or topical antibiotics. These can cause infection or allergic reaction. Ok to shower. You have steri strips (small white cloth strips) covering your incision- these will fall off ~1 week. NO HEAVY LIFTING (>10lbs) with your right arm. DESMOND drain care- empty drains BID and as needed. Record output. Bring record to follow up appointment. Follow up in office. ([phone]) Call Your Doctor If: ? ? -Your temperature exceeds 101.5? F? ? ? -You experience excessive pain or swelling ? ? -You have an unexpected reaction to medication ? ? -You have excessive bleeding ? ? -You experience continued vomiting/nausea ? ? -Your incision begins to separate ?? ? -Your incision shows signs of infection such as increased redness, swelling, excessive pain, drainage (light blood or clear fluid is normal) or heat <Danette Cliftno PA-C - Last Filed: 01/22/25 08:11> Care Plan Goals: Return to baseline health and resume normal activities following recovery period. <JOSE G Mattson Last Filed: 01/22/25 08:11> Health Concerns: right breast CA hypertension <Danette Clifton PA-C - Last Filed: 01/22/25 08:11> Plan of Treatment: s/p right simple mastectomy home with VNA services, DESMOND drain care pain control eventual DESMOND drain removal <Danette Clifton PA-C - Last Filed: 01/22/25 08:11> Assessment: Doing well post op <JOSE G Mattson Last Filed: 01/22/25 08:11> Patient Instructions: [facility] Drain Care (DC) <Danette Clifton PA-C - Last Filed: 01/22/25 08:11> Discharge Date/Time: 01/19/25 13:00 <JOSE G Mattson Last Filed: 01/22/25 08:11>
== END 2025-01-19 13:00 | disposition home health service (06) | DRG 583 ==
LOC: HO.SSSA 11:16 → HO.S3 13:40
PROVIDERS: Physician Assistant Surgical; Admitting Provider Surgery; PCP Internal Medicine; Visit Provider Surgery
PROC: 0HTT0ZZ Resection of Right Breast, Open Approach (ICD-10-PCS; CPT 19303; principal; 2025-01-17 11:00)
DX: C50.411 Malignant neoplasm of upper-outer quadrant of right female breast (principal); G89.18 Other acute postprocedural pain; Z87.891 Personal history of nicotine dependence; Z79.899 Other long term (current) drug therapy
CPT/HCPCS: 36415; 82947; 85025; 88307; J0131; J0665; J0690; J1100; J1171; J2003; J2405; J2704; J2795; J3010; J7120

== ENCOUNTER → 2025-01-17 11:02 | Outpatient (BNV) | payer MEDICARE, SELFPAY | PROVIDERS: Admitting Provider Surgery; PCP Internal Medicine; Visit Provider Physician Assistant Surgical | DX: Z90.11 Acquired absence of right breast and nipple (principal); C50.919 Malignant neoplasm of unspecified site of unspecified female breast | CPT/HCPCS: 99024; 99499; G0180 ==

== ENCOUNTER 2025-01-24 10:36 | Outpatient (AMB) | payer MEDICARE, SELFPAY ==
--- NOTE | 2025-01-24 10:39 | A.OFFVIS_ITS ---
Vital Signs 01/24/25 10:41 Weight 127 lb BP 199/83 H Blood Pressure Location Rt brachial Position Sitting Pulse 76 Intake Visit Reasons: S/P Rt. breast mastectomy Intake Note: Patient here s/p simple mastectomy right breast on 01-17-2025. Patient c/o: patient had a hard time checking in this morning. Too upset to talk. 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 breast mastectomy: Details: She had undergone mastectomy for the right breast in view of her invasive lobular carcinoma last 01/17/2025. She was discharged on postop day 2. She has drains in place. She denies any significant complaints She says she has good pain control. [facility] Medical History Invasive lobular carcinoma of breast in female Breast mass, right Essential hypertension Bipolar disorder Lumbar degenerative disc disease Sciatic nerve pain Cervical spondylosis Urinary incontinence Arthritis Elevated cholesterol Depression GERD (gastroesophageal reflux disease) Non-toxic multinodular goiter Surgical History S/P placement of nerve stimulator Hx of bilateral cataract extraction History of breast lump/mass excision Hx of cholecystectomy Hx of total hysterectomy with removal of both tubes and ovaries H/O colonoscopy (07/28/22) Family History Father Heart problem Thyroid cancer Skin cancer Mother Dementia Father No problems noted. Social History Household Members: Other Household Members Other:: daughter and grandson Housing: House Are you a primary senior resident care director to a significant other at home: No Do you presently have visiting nurse or other home services: No Alcohol intake: current Alcohol intake frequency: holidays/special occasions only Comment: tolerable Patient Tobacco Use Status: Former Tobacco user Tobacco use type: Cigarette Years Smoked: 5 e-Cigarette/Vaping Use: Currently Using Second Hand Smoke Exposure: No Substance Use Type: Marijuana Advance Directives Date on File: 07/23/24 service: No Current occupational status: retired Cognitive needs: No Hearing needs: Yes (b/l ears) Vision needs: Yes (rx glasses) Review of Systems Const Denies chills and Denies fever(s) Card Denies dyspnea on exertion and Denies orthopnea Resp Denies cough and Denies dyspnea on exertion Physical Exam Vital Signs: Last Vital Signs Pulse 76 01/24/25 10:41 BP 199/83 H 01/24/25 10:41 Const General: comfortable and no acute distress Chest Other: Right mastectomy site healing well, no signs of flap necrosis, some patchy areas of ecchymosis noted, drains in place, both with serosanguineous output Resp Effort & Inspection: normal respiratory effort Assessment & Plan Assessment & Plan (1) Invasive lobular carcinoma of breast in female: Code(s): C50.919 - Malignant neoplasm of unspecified site of unspecified female breast Category: Medical Plan: Status post mastectomy. Her mastectomy site is healing well. I removed 1 of the drains which was leading into the superior flap. I changed her dressings. I will see her again next week to remove the 2nd drain. Her final path report shows a T3 N0 invasive lobular carcinoma, ERPR positive, HER2 negative. She is to continue to follow up with Oncology. She appears comfortable. Coding Level of Care Code Global (15930) Diagnoses Invasive lobular carcinoma of breast in female C50.919
[2025-01-24 10:41] VITALS: BP 199/83; PULSE 76
== END 2025-01-24 11:30 | disposition home or self-care (01) ==
LOC: HO.HGS 10:36
PROVIDERS: PCP Internal Medicine; Visit Provider Surgery
DX: C50.919 Malignant neoplasm of unspecified site of unspecified female breast (principal)
CPT/HCPCS: 99024

== ENCOUNTER → 2025-01-24 10:36 | Outpatient (BNVA) | payer MEDICARE, SELFPAY | PROVIDERS: PCP Internal Medicine; Visit Provider Surgery | DX: Z48.817 Encounter for surgical aftercare following surgery on the skin and subcutaneous tissue (principal); Z48.03 Encounter for change or removal of drains; C50.911 Malignant neoplasm of unspecified site of right female breast | CPT/HCPCS: 99212 ==

== ENCOUNTER 2025-01-29 13:05 | Outpatient (AMB) | payer MEDICARE, SELFPAY ==
--- OUTSIDE RECORDS SUMMARY | 2025-01-28 23:59 | XMS_ITS | Continuity of Care Document ---
Author Organization [facility] Address [address] [place] [address]- Care Team Providers Care Senior Enlisted Advisor Name Role Phone Jay Uribe MD Primary Care Physician Encounter [facility] Date(s): 12/29/24 - 01/28/25 [facility] [address] [place] [address]- Encounter Type: Triage Allergies, Adverse Reactions, Alerts Substance Criticality Severity Reaction Reaction Severity Status amoxicillin stomach pains Ac tive Macrobid pain in stomach Acti ve Bactrim 1 Unable to assess criticality Persistent Mild Active Vicodin severe vomiting Active 1Nausea/vomiting Medications Calcium 600 +D 1 tablet, By Mouth, Daily in AM, PRN, 0 Refills, Maintenance, 01/28/12 10:13:35 AM EDT Start Date: 01/28/12 Status: Ordered Repeat number: 1 Calcium, Magnesium and Zinc 1 tablet, By Mouth, Daily in AM, 0 Refills, Maintenance, 01/12/20 3:35:00 PM EDT Start Date: 01/12/20 Status: Ordered Repeat number: 1 Fish Oil = 1,000 mg, By Mouth, Daily in AM, PRN, 0 Refills, Maintenance, 01/28/12 10:13:48 AM EDT Start Date: 01/28/12 Status: Ordered Repeat number: 1 Flax Seed Oil oral capsule 1 capsule, By Mouth, Daily in AM, 0 Refills, Maintenance, 06/20/19 10:20:27 AM EST Start Date: 06/20/19 Status: Ordered Repeat number: 1 FLUoxetine 20 mg oral tablet 1 tablet = 20 mg, By Mouth, Daily at bedtime, 0 Refills, Maintenance, 05/09/20 4:01:00 PM EDT Start Date: 05/09/20 Status: Ordered Repeat number: 1 Misc Rx 2 tablets, By Mouth, Daily in AM, Refills 0, Maintenance, [facility], 03/21/20 10:43:00 AM EDT, Supply Start Date: 03/21/20 Status: Ordered Repeat number: 1 Multivitamin By Mouth, Daily in AM, 0 Refills, Maintenance, 01/28/12 10:13:24 AM EDT Start Date: 01/28/12 Status: Ordered Repeat number: 1 nitrofurantoin macrocrystals 100 mg oral capsule 1 capsule = 100 mg, By Mouth, 4 times a day, 0 Refills, Maintenance, 10/08/22 3:37:00 PM EDT, Partial fill upon patient request if the prescription is for a schedule II opioid drug. Start Date: 10/08/22 Status: Ordered Repeat number: 1 omeprazole 20 mg oral enteric coated capsule 1 capsule = 20 mg, By Mouth, Daily, PRN Other, PRN, # 30 capsule, 0 Refills, Maintenance, 01/28/12 10:13:04 AM EDT, EC Capsule Start Date: 01/28/12 Status: Ordered Quantity: 30.0 Unit: capsule Repeat number: 1 oxybutynin 10 mg/24 hr oral tablet, extended release 1 tablet = 10 mg, By Mouth, Daily, # 30 tablet, 11 Refills, Maintenance, 02/17/22 9:04:00 AM EDT, ER Tablet, [id number], Partial fill upon patient request if the prescription is for a schedule II opioid drug., 147.32, cm, 01/22/22 15:20:00 EDT, Height, 53.6, kg, 01/22/22 15:20:00 EDT, Dry Weight Start Date: 02/17/22 Status: Ordered Quantity: 30.0 Unit: tablet Repeat number: 12 Problem List Condition Confirmation Course Effective Dates Status H ealth Status Informant Anxiety Confirmed Active Depression Confirmed Active Fibroadenoma of breast Confirmed Active Bowel incontinence Confirmed Active Urinary frequency Confirmed Active Nephrolithiasis Confirmed Active Microscopic hematuria Confirmed Active Poor posture Confirmed Active Urinary tract infection Confirmed Active Stones, urinary tract Confirmed Active Vaginal wall prolapse with midline cystocele Confirmed Active Social History Social History Type Response Smoking Status Former smoker, quit more than 30 days ago entered on: 06/30/19 Sex Sex Representation Female (finding) Patient Care team information Care Team Personnel Name: Jay Uribe MD Position: [facility] Outreach Member Role: PCP Address: [address] [place] [address] Jay Uribe MD [address] Telecom: Care Team Related Persons Name: BECKY CHAWLA Name: KYLE DEAN Insurance Providers Guarantor name: RIANNAKayla CHAWLA Health Plan Information #: 1 P[facility] Payer Identifier: HONORIO Member Number: [id number] Group Number: [id number] Subscriber Identifier: [id number] Relationship to Subscriber: self Coverage Type: NA Coverage Verification Date: NA Telecom: NA Address:
[2025-01-29 13:03] VITALS: BP 120/70; PULSE 74; TEMP 36.4; O2SAT 98; BMI 26.3
--- NOTE | 2025-01-29 13:03 | MHC.PC.OV ---
Vital Signs 01/29/25 13:03 Height 4 ft 10 in Weight 126 lb BMI 26.3 BP 120/70 Blood Pressure Location Lt brachial Position Sitting Pulse 74 Pulse Source Pulse Oximeter Temp 97.6 F Temp Source Axillary Pulse Oximetry (%) 98 Oxygen Delivery Method Room Air Intake Visit Reasons: S/P mastectomy, right on 01/17/25 Spine Surgeon Required: No Accompanied by: Self / Same As Patient Allergies hydrocodone Allergy (Intermediate, Verified 01/29/25 13:04) Vomiting amoxicillin Adverse Reaction (Intermediate, Verified 01/29/25 13:04) Gastrointestinal Upset nitrofurantoin Adverse Reaction (Intermediate, Verified 01/29/25 13:04) Gastrointestinal Upset sulfadiazine Adverse Reaction (Intermediate, Verified 01/29/25 13:04) Gastrointestinal Upset Tobacco use date assessed: 01/29/25 Fall risk assessment: No Falls in past year Last assessed Fall Risk: 01/29/25 Dental Screening Dental Screen Date: 01/29/25 Did you have a dental visit in the last 12 months?: Yes Did you have a dental problem in the last 6 months where you did not have access to dental care?: No PFSH Medical History Invasive lobular carcinoma of breast in female Breast mass, right Essential hypertension Bipolar disorder Lumbar degenerative disc disease Sciatic nerve pain Cervical spondylosis Urinary incontinence Arthritis Elevated cholesterol Depression GERD (gastroesophageal reflux disease) Non-toxic multinodular goiter Surgical History S/P placement of nerve stimulator Hx of bilateral cataract extraction History of breast lump/mass excision Hx of cholecystectomy Hx of total hysterectomy with removal of both tubes and ovaries H/O colonoscopy (07/28/22) Family History Father Heart problem Thyroid cancer Skin cancer Mother Dementia Father No problems noted. Social History Household Members: Other Household Members Other:: daughter and grandson Housing: House Are you a primary dialysis patient care technician to a significant other at home: No Do you presently have visiting nurse or other home services: No Alcohol intake: current Alcohol intake frequency: holidays/special occasions only Comment: tolerable Patient Tobacco Use Status: Former Tobacco user Tobacco use type: Cigarette Years Smoked: 5 e-Cigarette/Vaping Use: Currently Using Second Hand Smoke Exposure: No Substance Use Type: Marijuana Advance Directives Date on File: 07/23/24 service: No Current occupational status: retired Cognitive needs: No Hearing needs: Yes (b/l ears) Vision needs: Yes (rx glasses) Questionnaire PHQ-9 Over the last 2 weeks, how often have you been bothered by any of the following problems? 1. Little interest or pleasure in doing things: not at all 2. Feeling down, depressed, or hopeless: nearly every day 3. Trouble falling or staying asleep, or sleeping too much: not at all 4. Feeling tired or having little energy: not at all 5. Poor appetite or overeating: not at all 6. Feeling bad about yourself - or that you are a failure or have let yourself or your family down: not at all 7. Trouble concentrating on things, such as reading the newspaper or watching television: not at all 8. Moving or speaking so slowly that other people could have noticed. Or the opposite - being so fidgety or restless that you have been moving around a lot more than usual: not at all 9. Thoughts that you would be better off or of hurting yourself in some way: not at all Total score: 3 Source: Developed by Drs. Alexander Stoner, Kendra Mosquera, Joshua Thompson and colleagues, with an educational saad from [employer]. Thrive Questionnaire Date Thrive assessed: 01/29/25 I am a: Patient Within the past 12 months, did the food you bought not last and you didn't have the money to get more?: Never true Within the past 12 months, did you worry whether your food would run out before you got money to buy more?: Never true Do you have trouble paying for medicines?: No Do you have trouble getting transportation to medical appointments?: No Do you have trouble paying your heating and electricity bill?: No Do you have trouble taking care of your child, family member or friend?: No Do you have trouble with day-to-day activities such as bathing, preparing meals, shopping, managing finances, etc.?: No Are you currently unemployed and looking for a job?: No Are you interested in more education?: No THRIVE Score: 0 AUDIT C Alcohol Use Questionnaire (AUDIT-C) 1. How often do you have a drink containing alcohol?: Monthly or less 2. How many drinks containing alcohol do you have on a typical day when you are drinking?: 1 or 2 3. How often do you have six or more drinks on one occasion?: Less than monthly Total Score: 2 CAREN-7 AMB Questionnaire CAREN-7 Date CAREN - 7 assessed: 01/29/25 Feeling nervous, anxious, or on edge: 3 = Nearly every day Not being able to stop or control worryin = Not at all Worrying too much about different things: 0 = Not at all Trouble relaxin = Not at all Being so restless that it is hard to sit still: 0 = Not at all Becoming easily annoyed or irritable: 0 = Not at all Feeling afraid as if something awful might happen: 0 = Not at all Total CAREN-7 score (0-4 normal; 5-9 mild; 10-14 moderate; 15-21 severe): 3 Source: Developed by Drs. Alexander Stoner, Kendra Mosquera, Joshua Thompson and colleagues, with an educational saad from [employer]. Physical exam (Primary Care) Vital Signs: Last Vital Signs Temp 97.6 F 01/29/25 13:03 Pulse 74 01/29/25 13:03 BP 120/70 01/29/25 13:03 Pulse Ox 98 01/29/25 13:03 Oxygen Delivery Method Room Air 01/29/25 13:03 BMI result Body Mass Index 26.3 Tobacco/Smoking Status: Tobacco use Status Tobacco use date assessed 01/29/25 01/29/25 13:05 Patient Tobacco Use Status Former Tobacco user 01/29/25 13:05 Tobacco use type Cigarette 01/29/25 13:05 e-Cigarette/Vaping Use Currently Using 01/29/25 13:05 PHQ-9: PHQ-9 Score PHQ-9: Total score 3 01/29/25 13:23 Thrive Assessment: Date of Thrive Assessment Date Thrive assessed 01/29/25 01/29/25 13:05 Coding Level of Care Code Est Pt Level 4 (12730) Complex EM visit Add On G2211 Diagnoses Depression F32.A Assessment & Plan Assessment & Plan (1) Depression: Code(s): F32.A - Depression, unspecified Category: Medical Plan: Xanax added to the regimen. Intermittent use and about 15 pills/month Plan History of Present Illness - The patient is a 74-year-old female presenting with follow-up for breast cancer and mental health concerns. - Breast cancer: Post-mastectomy care is ongoing with Dr. Baldwin, including drain management. - Bipolar disorder: Mood instability noted, linked to recent surgical trauma, managed with fluoxetine 20 mg. - Anxiety: Considering Xanax for anxiety management, pending further evaluation. - Post-surgical pain: Reports arm pain and swelling post-fall, managed with tizanidine, with caution advised against concurrent Xanax use. Social History Review of Systems - Psychiatric: Reports mood instability and anxiety. Denies seeing a mental health provider in person recently. - Musculoskeletal: Reports arm pain and swelling post-fall. Physical Exam General: Cooperative and healthy appearing Nutritional Appearance: Well nourished Orientation/consciousness: Patient oriented x3 Limitations: No limitations Head: Normal to inspection General: Appearance normal, both eyes and all related structures Neck: Normal visual inspection Chest: Normal palpation of entire chest wall Respiratory: N ormal respiratory effort Neurology: Patient oriented x3, but reports feeling confused. Results Plan 1. Breast Cancer - Continue follow-up with Dr. Baldwin for post-surgical care and drain management. - Follow-up with Dr. Hernandes for oncological care. 2. Bipolar Disorder - Continue fluoxetine 20 mg for mood stabilization. - Monitor mood and consider psychiatric evaluation if symptoms persist. 3. Anxiety - Consider short-term Xanax prescription for anxiety management, with caution advised against concurrent use with tizanidine. 4. Post-Surgical Pain - Manage pain with tizanidine, avoiding concurrent use with Xanax. - Monitor arm swelling and pain, consider further evaluation if symptoms persist. Discussion Notes I discussed with the patient the importance of continuing follow-up care with Dr. Milner for post-surgical management and with Dr. Hernandes for oncological care. We reviewed the current management of her bipolar disorder with fluoxetine and the potential use of Xanax for anxiety, emphasizing the need to avoid concurrent use with tizanidine. I advised monitoring her arm pain and swelling and considering further evaluation if symptoms persist. Patient Instructions - Continue follow-up appointments with Dr. Milner and Dr. Hernandes. - Take fluoxetine as prescribed and monitor mood changes. - Use Xanax only as needed for anxiety and avoid using it with tizanidine. - Monitor arm pain and swelling, and seek further evaluation if symptoms worsen.
== END 2025-01-29 13:37 | disposition home or self-care (01) ==
LOC: HO.HMCHD 13:06
PROVIDERS: PCP Internal Medicine; Visit Provider Internal Medicine
DX: F32.A Depression, unspecified (principal)

== ENCOUNTER → 2025-01-29 13:05 | Outpatient (BNVA) | payer MEDICARE, SELFPAY | PROVIDERS: PCP Internal Medicine; Visit Provider Internal Medicine | DX: F32.A Depression, unspecified (principal) | CPT/HCPCS: 99212 ==

== ENCOUNTER 2025-01-31 15:23 | Outpatient (AMB) | payer MEDICARE, SELFPAY ==
--- OUTSIDE RECORDS SUMMARY | 2023-12-22 07:00 | XMS_ITS ---
Author Organization [facility] Address [address] [place] [address] Care Team Providers Care Software Packager Name Role Phone Rony (RETIRED) Jay TIDWELL Primary Care Provide r Ama Mendoza Jr, Robert Serrato [phone] REASON FOR VISIT Patient presents today for gerd Encounters Encounter Location Date Provider Diagnosis [facility] [address] [place] [address] [address] [place] [address] 2023 Robert Mendoza Jr Plan Of Treatment Next Appt Details Provider Name:Robert loving Jr, 04/09/2025 10:40:00 AM, [address] [place] [address], [address], [place], [address], Progress Notes * RIANNA LUEVANO MDOB:[birth year] (74 yo F)Acc No.[id number]:2023 Progress Notes Patient: Ngozi RIANNA OTT Provider: Ngozi Mendoza MD :1950 A ge:72 Y S ex:Female Date:2023 Address: [place] Pcp:Jay Uribe (RETIRED )MD Subjective: * Chief [...] 2023 Generated for John mo/Ofelia/Reece on: 0 01/31/2025 03:38 PM EDT
--- NOTE | 2025-01-31 15:24 | A.OFFVIS_ITS ---
Vital Signs 01/31/25 15:37 Height 4 ft 10 in Weight 128 lb BMI 26.7 BP 187/73 H Blood Pressure Location Lt brachial Position Sitting Pulse 73 Intake Visit Reasons: s/p unilat mastectomy Intake Note: Patient here s/p right breast mastectomy and follow up drain removal (2nd drain to be removed). Patient c/o: awaiting to hear for radiation oncology. Does not want to take Letrozole. Pals Specialist Required: No Accompanied by: Self / Same As Patient Allergies hydrocodone Allergy (Intermediate, Verified 01/31/25 15:36) Vomiting amoxicillin Adverse Reaction (Intermediate, Verified 01/31/25 15:36) Gastrointestinal Upset nitrofurantoin Adverse Reaction (Intermediate, Verified 01/31/25 15:36) Gastrointestinal Upset sulfadiazine Adverse Reaction (Intermediate, Verified 01/31/25 15:36) Gastrointestinal Upset HPI HPI s/p unilat mastectomy: Details: She is here for follow-up after mastectomy on the right side for invasive lobular carcinoma. She still has [address] She denies any new complaints. She says she has been driving already. [facility] Medical History Invasive lobular carcinoma of breast in female Breast mass, right Essential hypertension Bipolar disorder Lumbar degenerative disc disease Sciatic nerve pain Cervical spondylosis Urinary incontinence Arthritis Elevated cholesterol Depression GERD (gastroesophageal reflux disease) Non-toxic multinodular goiter Surgical History S/P placement of nerve stimulator Hx of bilateral cataract extraction History of breast lump/mass excision Hx of cholecystectomy Hx of total hysterectomy with removal of both tubes and ovaries H/O colonoscopy (07/28/22) Family History Father Heart problem Thyroid cancer Skin cancer Mother Dementia Father No problems noted. Social History Household Members: Other Household Members Other:: daughter and grandson Housing: House Are you a primary direct care supervisor to a significant other at home: No Do you presently have visiting nurse or other home services: No Alcohol intake: current Alcohol intake frequency: holidays/special occasions only Comment: tolerable Patient Tobacco Use Status: Former Tobacco user Tobacco use type: Cigarette Years Smoked: 5 e-Cigarette/Vaping Use: Currently Using Second Hand Smoke Exposure: No Substance Use Type: Marijuana Advance Directives Date on File: 07/23/24 service: No Current occupational status: retired Cognitive needs: No Hearing needs: Yes (b/l ears) Vision needs: Yes (rx glasses) Review of Systems Const Denies chills and Denies fever(s) Physical Exam Const Other: Looks well General: comfortable and no acute distress Chest Other: Very scanty thin output from the DESMOND drain; incision healing well but note of superficial flap necrosis on the medial aspect of the incision about 2 x 3 cm Assessment & Plan Assessment & Plan (1) Invasive lobular carcinoma of breast in female: Code(s): C50.919 - Malignant neoplasm of unspecified site of unspecified female breast Category: Medical Plan: Status post mastectomy. She is currently has a T3 N0 invasive lobular carcinoma. I removed her 2nd drain. The incision is healing well. However, there is an area of delayed superficial flap necrosis on the medial aspect of the incision, about 2 x 3 cm.. I sharply debrided this with scissors . I applied dry dr tresa on top She is here again in the office next week for another wound check. I explained to her the importance of good wound care for now. Coding Level of Care Code Global (32464) Diagnoses Invasive lobular carcinoma of breast in female C50.919
[2025-01-31 15:37] VITALS: BP 187/73; PULSE 73; BMI 26.7
--- OUTSIDE RECORDS SUMMARY | 2025-01-31 15:38 | XMS_ITS | Patient Health Record ---
Author Organization [facility] Address [address] [place] [address] Care Team Providers Care Clinical Orthoptist Name Role Phone Jay Uribe MD Primary Care Provider Williams Huber Unavailable [phone] Allergies Allergen (clinical drug ingredient) Drug/Non Drug Allergy documented on EMR Reaction Allergy Type Onset Date Status sulfamethoxazole / trimethoprim Bactrim nausea and vomiting Drug Allergy Active [...] primary osteoarthritis of the ankle and/or foot (434889169) Primary osteoarthritis, right ankle and foot (M19.071) Active confirmed Problem Acquired hammer toe of right foot (6341920393081642 ) Other hammer toe(s) (acquired), right foot (M20.41) Active confirmed Problem Localized, primary osteoarthritis of the ankle and/or foot (969432048) 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.072) Active confirmed Problem Pes cavus (84400961) Pes cavus (Q66.7) Active confirmed Plan Of [...] Inc [address] [place] [address] [id number] Isabel Cid Self - patient is the insured 4 [employer] [address] [place] [address] [id number] Isabel Cid Self - patient is the insured Medical (General) History Medical History History ICD Code Anxiety Arthritis Back,Hip,and Knee pain Broken bones CAD (Cholesterol) Cataracts Depression Diverticulosis Gall bladder problems thyroid Warts Surgical History Surgery Date(Month/Year) hysterectomy 09/1999 gall bladder 09/2006 fibroadenoid lump removed 07/1986-12/2016
== END 2025-01-31 15:53 | disposition home or self-care (01) ==
LOC: HO.HGS 15:23
PROVIDERS: PCP Internal Medicine; Visit Provider Surgery
DX: C50.919 Malignant neoplasm of unspecified site of unspecified female breast (principal)
CPT/HCPCS: 99024

== ENCOUNTER → 2025-01-31 15:23 | Outpatient (BNVA) | payer MEDICARE, SELFPAY | PROVIDERS: PCP Internal Medicine; Visit Provider Surgery | DX: Z48.3 Aftercare following surgery for neoplasm (principal); C50.919 Malignant neoplasm of unspecified site of unspecified female breast; Z90.13 Acquired absence of bilateral breasts and nipples | CPT/HCPCS: 99212 ==

== ENCOUNTER 2025-02-07 13:20 | Outpatient (AMB) | payer MEDICARE, SELFPAY ==
--- NOTE | 2025-02-07 13:24 | A.OFFVIS_ITS ---
Vital Signs 02/07/25 13:33 Height 4 ft 10 in Weight 124 lb BMI 25.9 BP 165/88 H Blood Pressure Location Lt brachial Position Sitting Pulse 67 Intake Visit Reasons: s/p unilat mastectomy Intake Note: Patient here s/p Rt breast mastectomy. Reports incision is looking infected. Patient c/o: oozing, yellow pus, bad odor coming from Rt incision. José Miguel from [facility] noticed infection as well. Patient currently on Cephalexin 500mg BID X7d for UTI. 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 She had this superficial ulceration on the incision and I had asked her to come back from last week She says there is some this has and drainage on the area Otherwise, she seems to be doing well overall. [facility] Medical History Invasive lobular carcinoma of breast in female Breast mass, right Essential hypertension Bipolar disorder Lumbar degenerative disc disease Sciatic nerve pain Cervical spondylosis Urinary incontinence Arthritis Elevated cholesterol Depression GERD (gastroesophageal reflux disease) Non-toxic multinodular goiter Surgical History S/P placement of nerve stimulator Hx of bilateral cataract extraction History of breast lump/mass excision Hx of cholecystectomy Hx of total hysterectomy with removal of both tubes and ovaries H/O colonoscopy (07/28/22) Family History Father Heart problem Thyroid cancer Skin cancer Mother Dementia Father No problems noted. Social History Household Members: Other Household Members Other:: daughter and grandson Housing: House Are you a primary aged or disabled carer to a significant other at home: No Do you presently have visiting nurse or other home services: No Alcohol intake: current Alcohol intake frequency: holidays/special occasions only Comment: tolerable Patient Tobacco Use Status: Former Tobacco user Tobacco use type: Cigarette Years Smoked: 5 e-Cigarette/Vaping Use: Currently Using Second Hand Smoke Exposure: No Substance Use Type: Marijuana Advance Directives Date on File: 07/23/24 service: No Current occupational status: retired Cognitive needs: No Hearing needs: Yes (b/l ears) Vision needs: Yes (rx glasses) Review of Systems Const Denies chills and Denies fever(s) Card Denies chest pain at rest Resp Denies cough Physical Exam Vital Signs: Last Vital Signs Pulse 67 02/07/25 13:33 BP 165/88 H 02/07/25 13:33 BMI result Body Mass Index 25.9 Const General: comfortable and no acute distress Chest Other: Area of skin necrosis, superficial skin, about 2 x 1 cm on the medial aspect of the incision Assessment & Plan Assessment & Plan (1) S/P right mastectomy: Code(s): Z90.11 - Acquired absence of right breast and nipple Category: Surgical Plan: She has this area off skin necrosis on the incision as described above. I proceeded to do sharp excisional debridement of the area using fine scissors. Full thickness of skin was excised, an area of about 2x1 cm. I appled dry dressings. I instructed her on oseas wound care with dressing changes 12 times a day. There is nit of good granulation tissue after the debridement. I will see her again for a wound check in 2 weeks. Coding Level of Care Code Global (13576) Diagnoses S/P right mastectomy Z90.11
[2025-02-07 13:33] VITALS: BP 165/88; PULSE 67; BMI 25.9
== END 2025-02-07 13:49 | disposition home or self-care (01) ==
LOC: HO.HGS 13:21
PROVIDERS: PCP Internal Medicine; Visit Provider Surgery
DX: Z90.11 Acquired absence of right breast and nipple (principal)
CPT/HCPCS: 99024

== ENCOUNTER → 2025-02-07 13:20 | Outpatient (BNVA) | payer MEDICARE, SELFPAY | PROVIDERS: PCP Internal Medicine; Visit Provider Surgery | DX: Z48.3 Aftercare following surgery for neoplasm (principal); C50.911 Malignant neoplasm of unspecified site of right female breast; Z90.11 Acquired absence of right breast and nipple | CPT/HCPCS: 99212 ==

== ENCOUNTER 2025-02-22 15:03 | Outpatient (AMB) | payer MEDICARE, SELFPAY ==
--- OUTSIDE RECORDS SUMMARY | 2023-12-22 07:00 | XMS_ITS ---
Author Organization [facility] Address [address] [place] [address] Care Team Providers Care Senior Accounting Manager Name Role Phone Rony (RETIRED) Jay TIDWELL Primary Care Provide r Ama Mendoza Jr, Robert Serrato REASON FOR VISIT Patient presents today for gerd Encounters Encounter Location Date Provider Diagnosis [facility] [address] [place] [address] [address] [place] [address] 2023 Robert Mendoza Jr Plan Of Treatment Next Appt Details Provider Name:Robert loving Jr, 04/09/2025 10:40:00 AM, [address] [place] [address], [address], [place], [address], Progress Notes * RIANNA LUEVANO MDOB:[birth year] (74 yo F)Acc No.[id number]:2023 Progress Notes Patient: Ngozi RIANNA OTT Provider: Ngozi Mendoza MD :1950 A ge:72 Y S ex:Female Date:2023 Address: [address] Pcp:Jay Uribe (RETIRED )MD Subjective: * Chief [...] 2023 Generated for John mo/Ofelia/Reece on: 0 02/22/2025 03:06 PM EDT
--- OUTSIDE RECORDS SUMMARY | 2025-02-22 15:06 | XMS_ITS | Clinical Summary ---
Author Organization [facility] Address [address] [place] [id number] Phone Care Team Providers Care Extruder Tender Name Role Phone Unavailable Primary Care Provider Unavailabl e Social History Tobacco Use Types Packs/Day Years Used Date Smoking Tobacco: Never Assessed Education Answer Date Recorded Are you interested in more education? Not on akbar e 02/20/2025 Are you concerned about learning? Not on file 02/20/2025 No 02/20/2025 No 02/20/2025 Digital Access Answer Date Recorded No 02/20/2025 No 02/20/2025 Reliable internet access at home? Not on file 02/20/2025 Device with a working camera? Not on file Comments Unknown Sex and Gender Information Value Date Recorded Sex Assigned at Not on file Legal Sex Female 9:58 PM EDT Gender Identity Not on file Sexual Orientation Not on file Last Filed Vital Signs Vital Sign Reading Time Taken Comments Blood Pressure 130/60 10/14/2010 8:09 AM EDT Pulse 64 10/14/2010 8:09 AM EDT Temperature - - Respiratory Rate - - Oxygen Saturation - - Inhaled Oxygen Concentration - - Weight 58.5 kg (129 lb) 10/14/2010 8:09 AM EDT Height - - Body Mass Index - - Plan of Treatment Upcoming Encounters Date Type Department Care Team (Late st Contact Info) Description 03/02/2025 9:00 AM EDT Office Visit [facility] Onc [address] [place] [address] [phone] Lizzie Lanza MD [address] [place], [place] [id number] [email or web address] Health Maintenance Due Date Last Done Comments Adult Td,Tdap Booster 1952 LIPID PANEL 1952 DEPRESSION SCREENING 1964 SMOKING Hx and SMOKELESS TOB ACCO SCREENING 1965 HEPATITIS C SCREENING 1970 MAMMOGRAM 1992 COLOGUARD 1997 COLONOSCOPY 1997 COLORECTAL CANCER SCREENING 1997 FIT TEST 1997 FOBT 1997 SIGMOIDOSCOPY 1997 VIRTUAL COLONOSCOPY 1997 PNEUMOCOCCAL VACCINES (50+ y ears) (1 of 1 - PCV) 2002 ZOSTER VACCINES (1 of 2) 2002 OSTEOPOROSIS SCREENING INITI AL (ONE-TIME) 2017 COVID-19 VACCINE ( - 2023-2 5 season) 2024 RSV VACCINE (1 - 1-dose 75+ series) 12/23/2027 HEPATITIS A VACCINES Aged Out No long er eligible based on patient's age to complete this topic HIB VACCINES Aged Out No longer eligi ble based on patient's age to complete this topic MENINGOCOCCAL VACCINES (ACWY) Aged Out No longer eligible based on patient's age to complete this topic MENINGOCOCCAL VACCINES (B) Aged Out N o longer eligible based on patient's age to complete this topic Medical Devices [place] [address] MEDICARE PART A & B MEDICARE PART A & B Member Subscriber Plan / [facility] Name:Isabel Cid Member ID:[id number] Relation to Subscriber:Self Name:Isabel Cid Subscriber ID:[id number] Payer ID:[id number] Group ID:Not on file Type:Medicare Address: [employer] [address] [place] [address] MEDICARE PART A & B Member Subscriber Plan / Payer [facility]) Name:Isabel Cid Member ID:[id number] Relation to Subscriber:Self Name:Isabel Cid Subscriber ID:[id number] Payer ID:[id number] Group ID:Not on file Type:Medicare Address: [employer] [address] [place] [address] MEDICARE PART A & B Member Subscriber Plan / Payer [facility]) Name:Leo Cidn Member ID:[id number] Relation to Subscriber:Self Name:Isabel Cid Subscriber ID:[id number] Payer ID:[id number] Group ID:Not on file Type:Medicare Address: [employer] [address] [place] [address] MEDICARE PART A & B Member Subscriber Plan / Payer [facility]) Name:Isabel Cid Member ID:[id number] Relation to Subscriber:Self Name:Isabel Cid Subscriber ID:[id number] Payer ID:[id number] Group ID:Not on file Type:Medicare Address: [employer] [address] [place] [address] MEDICARE PART A & B Member Subscriber Plan / Payer ([facility]Present) Name:Leo Cidn Member ID:[id number] Relation to Subscriber:Self Name:Isabel Cid Subscriber ID:[id number] Payer ID:[id number] Group ID:Not on file Type:Medicare Address: [employer] [address] [place] [address] Additional Source Comments The information contained in this document represents components of the legal health record. It is not the complete legal health record.[facility]
--- OUTSIDE RECORDS SUMMARY | 2025-02-22 15:06 | XMS_ITS | Patient Health Record ---
Author Organization [facility] Address [address] [place] [address] Care Team Providers Care Litharge Supervisor Name Role Phone Jay Uribe MD Primary Care Provider Williams Huber Unavailable [phone] Allergies Allergen (clinical drug ingredient) Drug/Non Drug [...] primary osteoarthritis of the ankle and/or foot (019233968) Primary osteoarthritis, right ankle and foot (M19.071) Active confirmed Problem Acquired hammer toe of right foot (4226088251142848 ) Other hammer toe(s) (acquired), right foot (M20.41) Active confirmed Problem Localized, primary osteoarthritis of the ankle and/or foot (922269102) 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.072) Active confirmed Problem Pes cavus (55120387) Pes cavus (Q66.7) Active confirmed Plan Of [...] Inc [address] [place] [address] [id number] Isabel Cid Self - patient is the insured [employer] [address] [place] [address] [id number] Isabel Cid Self - patient is the insured Medical (General) History Medical History History ICD Code Anxiety Arthritis Back,Hip,and Knee pain Broken bones CAD (Cholesterol) Cataracts Depression Diverticulosis Gall bladder problems thyroid Warts Surgical History Surgery Date(Month/Year) hysterectomy 09/1999 gall bladder 09/2006 fibroadenoid lump removed 07/1986-12/2016
--- NOTE | 2025-02-22 15:08 | A.OFFVIS_ITS ---
Vital Signs 02/22/25 15:15 Height 4 ft 10 in Weight 126 lb BMI 26.3 BP 182/77 H Blood Pressure Location Rt brachial Position Sitting Pulse 70 Intake Visit Reasons: s/p umilateral mastectomy Intake Note: Patient here s/p Rt breast mastectomy. Reports debridement done last visit helped. Patient stated Jill [place] nurse changed dressing and reports improve,ent. Playground Aide Required: No Accompanied by: Self / Same As Patient Allergies hydrocodone Allergy (Intermediate, Verified 02/07/25 13:34) Vomiting amoxicillin Adverse Reaction (Intermediate, Verified 02/07/25 13:34) Gastrointestinal Upset nitrofurantoin Adverse Reaction (Intermediate, Verified 02/07/25 13:34) Gastrointestinal Upset sulfadiazine Adverse Reaction (Intermediate, Verified 02/07/25 13:34) Gastrointestinal Upset HPI HPI s/p umilateral mastectomy: Details: She is here for follow-up after her mastectomy and sentinel biopsy for a T3 N0 invasive lobular cancer. She feels well overall and denies any significant complaints. [facility] Medical History Invasive lobular carcinoma of breast in female Breast mass, right Essential hypertension Bipolar disorder Lumbar degenerative disc disease Sciatic nerve pain Cervical spondylosis Urinary incontinence Arthritis Elevated cholesterol Depression GERD (gastroesophageal reflux disease) Non-toxic multinodular goiter Surgical History S/P placement of nerve stimulator Hx of bilateral cataract extraction History of breast lump/mass excision Hx of cholecystectomy Hx of total hysterectomy with removal of both tubes and ovaries H/O colonoscopy (07/28/22) Family History Father Heart problem Thyroid cancer Skin cancer Mother Dementia Father No problems noted. Social History Household Members: Other Household Members Other:: daughter and grandson Housing: House Are you a primary personal care home administrator to a significant other at home: No Do you presently have visiting nurse or other home services: No Alcohol intake: current Alcohol intake frequency: holidays/special occasions only Comment: tolerable Patient Tobacco Use Status: Former Tobacco user Tobacco use type: Cigarette Years Smoked: 5 e-Cigarette/Vaping Use: Currently Using Second Hand Smoke Exposure: No Substance Use Type: Marijuana Advance Directives Date on File: 07/23/24 service: No Current occupational status: retired Cognitive needs: No Hearing needs: Yes (b/l ears) Vision needs: Yes (rx glasses) Review of Systems Const Denies chills and Denies fever(s) Physical Exam Vital Signs: Last Vital Signs Pulse 70 02/22/25 15:15 BP 182/77 H 02/22/25 15:15 BMI result Body Mass Index 26.3 Const General: comfortable and no acute distress Chest Other: Mastectomy site is healing well without cellulitis, skin gap has decreased significantly with good grand healthy granulation Assessment & Plan Assessment & Plan (1) Invasive lobular carcinoma of breast in female: Code(s): C50.919 - Malignant neoplasm of unspecified site of unspecified female breast Category: Medical Plan: Status post mastectomy and sentinel node biopsy. She is doing well. The incision is healing better. I advised her that she should continue to follow up with Dr. Hernandes as she may benefit from hormonal treatment. She was instructed on good wound care for the remaining wound. I will see her again in the office in about 1 month. Coding Level of Care Code Global (71837) Diagnoses Invasive lobular carcinoma of breast in female C50.919
[2025-02-22 15:15] VITALS: BP 182/77; PULSE 70; BMI 26.3
== END 2025-02-22 15:43 | disposition home or self-care (01) ==
LOC: HO.HGS 15:04
PROVIDERS: PCP Internal Medicine; Visit Provider Surgery
DX: C50.919 Malignant neoplasm of unspecified site of unspecified female breast (principal)
CPT/HCPCS: 99024

== ENCOUNTER → 2025-02-22 15:03 | Outpatient (BNVA) | payer MEDICARE, SELFPAY | PROVIDERS: PCP Internal Medicine; Visit Provider Surgery | DX: Z48.3 Aftercare following surgery for neoplasm (principal); C50.911 Malignant neoplasm of unspecified site of right female breast; Z90.11 Acquired absence of right breast and nipple | CPT/HCPCS: 99212 ==

== ENCOUNTER 2025-02-23 11:10 | Outpatient (REF) | payer MEDICARE, SELFPAY ==
--- NOTE | ~2025-02-23 | MM_ITS ---
EXAMINATION: DXA BONE DENSITY AXIAL HISTORY: M81.0 - Age-related osteoporosis without current pathological fracture TECHNIQUE: Phunware Dual energy absorptiometry (DEXA) of the lumbar spine, total left hip, and femoral neck was performed. COMPARISON: Comparison is made with the prior examination dated 10/04/2018. FINDINGS: The bone mineral density of the lumbar spine is 1.169 g/cm2, corresponding to a T-score of 0.0, and a Z-score of 1.9. This is indicative of normal bone mineral density. This represents a BMD change of -9.7% compared to the prior exam. This is statistically significant. The bone mineral density of the left total hip is 1.000 g/cm2, corresponding to a T-score of -0.1, and a Z-score of 1.7. This is indicative of normal bone mineral density. This represents a BMD change of 0.7% compared to the prior exam. This is not statistically significant. The bone mineral density of the left femoral neck is 0.920 g/cm2, corresponding to a T-score of -0.9, and a Z-score of 1.1. This is indicative of normal bone mineral density. This represents a BMD change of -2.7% compared to the prior exam. FRACTURE RISK: The FRAX index suggests a ten year probability of major osteoporotic fracture of 14.0%, and of hip fracture 1.4%. MM/XR DEXA axial skeleton IMPRESSION: Based on bone mineral density, and according to World Health Organization (WHO) criteria, the diagnosis is consistent with normal bone mineral density. Statistically, 68% of repeat scans fall within 1 SD (+/- 0.010 g/cm2 for AP spine L1-L4) and 1 SD (+/- 0.012 g/cm2 for femur total) FRAX is a trademark of the [employer]'s [employer] Met[employer] Bone Disease, a World Health Organization (WHO) Collaborating Center. Electronically signed by: Alexander Allred MD 02/23/2025 11:58 AM EDT
--- OUTSIDE RECORDS SUMMARY | 2025-02-23 11:16 | XMS_ITS | Clinical Summary ---
Author Organization [facility] Address [address] [place] [id number] Phone Care Team Providers Care Pasteurizer Name Role Phone Unavailable Primary Care Provider [...] Description 03/02/2025 9:00 AM EDT Office Visit [facility] Rad Onc [address] [place] [address] [phone] Lizzie Lanza MD [address] [place], [place] [phone] [email or web address] Health Maintenance Due Date Last Done Comments [...] [place] [address] MEDICARE PART A & B MEDICARE PART A & B Member Subscriber Plan / Payer [facility] Name:Isabel Cid Member ID:[id number] Relation to Subscriber:Self Name:Isabel Cid Subscriber ID:[id number] Payer ID:[id number] Group ID:Not on file Type:Medicare Address: [employer] [address] [place] [address] MEDICARE PART A & B Member Subscriber Plan / Payer ([facility]) Name:Isabel Cid Member ID:[id number] Relation to Subscriber:Self Name:Isabel Cid Subscriber ID:[id number] Payer ID:[id number] Group ID:Not on file Type:Medicare Address: [employer] [address] [place] [address] MEDICARE PART A & B Member Subscriber Plan / Payer [facility]) Name:Leo Cidn Member ID:[id number] Relation to Subscriber:Self Name:Isabel Cid Subscriber ID:[id number] Payer ID:[id number] Group ID:Not on file Type:Medicare Address: [employer] [address] [place] [address] MEDICARE PART A & B Member Subscriber Plan / Payer [facility]) Name:Isabel Cid Member ID:[id number] Relation to Subscriber:Self Name:Isabel Cid Subscriber ID:[id number] Payer ID:[id number] Group ID:Not on file Type:Medicare Address: [employer] [address] [place] [address] MEDICARE PART A & B Member Subscriber Plan / Payer ([facility]) Name:Leo Cidn Member ID:[id number] Relation to Subscriber:Self Name:Isabel Cid Subscriber ID:[id number] Payer ID:[id number] Group ID:Not on file Type:Medicare Address: [employer] [address] [place] [address] Additional Source Comments The information contained in this document represents components of the legal health record. It is not the complete legal health record.[facility]
== END 2025-02-23 11:11 | disposition home or self-care (01) ==
LOC: HO.MAMMO 11:10
PROVIDERS: PCP Internal Medicine; Visit Provider Internal Medicine
DX: M81.0 Age-related osteoporosis without current pathological fracture (principal)
CPT/HCPCS: 77080

== ENCOUNTER → 2025-02-23 11:30 | Outpatient (BNV) | payer MEDICARE, SELFPAY | PROVIDERS: PCP Internal Medicine; Visit Provider Radiology Diagnostic Radiology | DX: E28.39 Other primary ovarian failure (principal) | CPT/HCPCS: 77080 ==

== ENCOUNTER 2025-02-24 08:39 | Emergency (ER) | payer MEDICARE, SELFPAY ==
--- OUTSIDE RECORDS SUMMARY | 2023-12-22 07:00 | XMS_ITS ---
Author Organization [facility] Address [address] [place] [address] Care Team Providers Care Necktie Turner Name Role Phone Rony (RETIRED) Jay TIDWELL Primary Care Provide r Ama Mendoza Jr, Robert Serrato [phone] REASON FOR VISIT Patient presents today for gerd Encounters Encounter Location Date Provider Diagnosis [facility] [address] [place] [address] [address] [place] [address] 2023 Robert Mendoza Jr Plan Of Treatment Next Appt Details Provider Name:Robert loving Jr, 04/09/2025 10:40:00 AM, [address] [place] [address], [address], [place], [address], Progress Notes * RIANNA LUEVANO MDOB:[birth year] (74 yo F)Acc No.[id number]:2023 Progress Notes Patient: Ngozi RIANNA OTT Provider: Ngozi Mendoza MD :1950 A ge:72 Y S ex:Female Date:2023 Address: [id number] Pcp:Jay Uribe (RETIRED )MD Subjective: * Chief [...] 2023 Generated for John mo/Ofelia/Reece on: 0 02/24/2025 10:01 AM EDT
[2025-02-24 08:50] VITALS: BP 185/79; PULSE 69; RESP 18; TEMP 36.5; O2SAT 98; BMI 27.0
--- OUTSIDE RECORDS SUMMARY | 2025-02-24 10:02 | XMS_ITS | Clinical Summary ---
Author Organization [facility] Address [address] [place] [phone] Phone Care Team Providers Care Medical Imaging Technician Name Role Phone Unavailable Primary Care Provider [...] Description 03/02/2025 9:00 AM EDT Office Visit [facility] Rad Onc [address] [place] [address] [phone] Lizzie Lanza MD [address] [place], [place] [phone] [email or web address] Health Maintenance Due Date Last Done Comments [...] Devices [place] [id number] MEDICARE PART A & B MEDICARE PART A & B MEDICARE PART A & B MEDICARE PART A & B MEDICARE PART A & B MEDICARE PART A & B Additional Source Comments The information contained in this document represents components of the legal health record. It is not the complete legal health record.[facility]
--- OUTSIDE RECORDS SUMMARY | 2025-02-24 10:02 | XMS_ITS | Patient Health Record ---
Author Organization [facility] Address [address] [place] [address] Care Team Providers Care Casing Worker Name Role Phone Jay Uribe MD Primary Care Provider Williams Huber Unavailable [phone] Allergies Allergen (clinical drug ingredient) Drug/Non Drug [...] primary osteoarthritis of the ankle and/or foot (049324767) Primary osteoarthritis, right ankle and foot (M19.071) Active confirmed Problem Acquired hammer toe of right foot (4013711111994267 ) Other hammer toe(s) (acquired), right foot (M20.41) Active confirmed Problem Osteoarthritis o f left ankle and foot (M19.072) Active confirmed Problem Pes cavus (00872776) Pes cavus (Q66.7) Active confirmed Plan Of Treatment Pending Test Test Name Order Date X ray : Foot, left 3V 12/02/2018 X ray : Foot, right 3V 03/30/2018 X ray : Foot, right 3V 12/02/2018 Insurance Providers Payer Name Payer Address Payer Phone Subscriber Number Group Number Insured Name Patient Relationship to Insured Coverage Start Date Coverage End Date Medicare National [employer]t [employer] [address] [place] [address] [id number] Isabel Cid Self - patient is the insured 4 [employer] [address] [place] [address] [id number] Isabel Cid Self - patient is the insured Medical (General) History Medical History History ICD Code Anxiety Arthritis Back,Hip,and Knee pain Broken bones CAD (Cholesterol) Cataracts Depression Diverticulosis Gall bladder problems thyroid Warts Surgical History Surgery Date(Month/Year) hysterectomy 09/1999 gall bladder 09/2006 fibroadenoid lump removed 07/1986-12/2016
[2025-02-24 10:04] LABS: MANUAL DIFF FLAG NO
[2025-02-24 10:06] LABS: Appearance Urine Cloudy; Glucose Urine UA Negative (Negative); PH 6.5 (5.0-9.0); Specific Gravity - Urine 1.010 (1.005-1.025); UMIC TRIGGER UACC YES
[2025-02-24 10:09] LABS: UACC Culture Trigger YES
[2025-02-24 10:14] LABS: Hematocrit 38.3 % (37.0-47.0); Hemoglobin 13.0 g/dl (12.0-16.0); Imm Gran Abs Auto 0.03 X10*3/uL (0.00-0.03); Imm Gran Pct Auto 0.3 % (0.0-0.4); Lymphocytes Absolute Auto 1.8 X10*3/uL (1.2-4.9); Mean Corpuscular HGB Conc 33.9 g/dl (31.0-35.0); Mean Corpuscular Hemoglobin 31.9 pg (27.0-33.0); Mean Corpuscular Volume 93.9 fL (80.0-98.0); NRBC Abs Auto 0.000 X10*3/uL (0.0-0.012); NRBC Pct Auto 0.0 /100WBC (0.0-0.2); Platelet Count 363 X10*3/uL (160-400); Red Blood Count 4.08 X10*6/uL (4.20-5.50); White Blood Count 11.3 X10*3/uL (4.8-10.8)
[2025-02-24 10:24] LABS: Alanine Aminotransferase 13 U/L (0-31); Albumin Level 4.3 g/dL (3.5-5.0); Alkaline Phosphatase 90 U/L (39-117); Anion Gap 13 (12-20); Aspartate Amino Transferase 27 U/L (5-31); Blood Urea Nitrogen 9 mg/dL (9-16); Calcium 9.1 mg/dL (8.4-10.2); Carbon Dioxide 25 mmol/L (22-29); Chloride 99 mmol/L (96-108); Creatinine Clr Calc Pharmacy 52.5; Estimated Glomerular Filt Rate > 60; Potassium 3.8 mmol/L (3.3-5.1); Sodium 133 mmol/L (135-145); Total Protein 7.7 g/dL (6.5-8.0)
--- NOTE | 2025-02-24 10:47 | ED.FEMALEGU ---
HPI - Female Genitourinary General Chief complaint: Urogenital-Female Stated complaint: possible UTI Time Seen by Provider: 02/24/25 10:47 Source: patient Mode of arrival: ambulatory Limitations: no limitations History of Present Illness ED Provider: Dr. Francis Kenny HPI Narrative: 74-year-old female with a history of recurrent urinary tract infections, bladder stimulator, right breast cancer status post mastectomy 01/17/2025, lumbar surgery 08/29/2024, depression, hypertension who presents emergency department for evaluation of urinary frequency, dysuria and lower abdominal pain. Patient states that she was recently seen in the urgent care clinic and treated with Keflex 500 mg b.i.d. for 7 days. She states she did feel better after this treatment however 2 days prior to evaluation she developed symptoms of urinary tract infection again. She states she is having vaginal pain, urinary frequency and dysuria. She denied fever, chills, nausea, vomiting, diarrhea or back pain. She states she is having pain in the vaginal area and in her suprapubic area. In reviewing the patient's previous Enterobacter cloacae which is not sensitive to cephalosporins but is sensitive to levofloxacin and Bactrim. Related Data Home Medications ?Medication ?Instructions ?Recorded ?Confirmed acetaminophen 650 mg 650 mg PO Q8H PRN pain 08/12/24 01/26/25 tablet,extended release cyclosporine 0.05 % eye drops in a 1 drp ophthalmic (eye) DAILY 08/12/24 01/26/25 dropperette (Restasis) fluoxetine 20 mg capsule 20 mg PO BEDTIME 08/12/24 01/26/25 mecobalamin (vitamin B12) 500 mcg 500 mcg PO DAILY 10/04/24 01/26/25 chewable tablet cholecalciferol (vitamin D3) 25 25 mcg PO DAILY 01/17/25 01/26/25 mcg (1,000 unit) tablet (Vitamin D3) melatonin 5 mg capsule 5 mg PO BEDTIME 01/17/25 01/26/25 Previous Rx's ?Medication ?Instructions ?Recorded simvastatin 10 mg tablet 10 mg PO BEDTIME #90 tabs 11/01/24 tizanidine 2 mg tablet 2 mg PO BID PRN Muscle Spasm #60 11/01/24 tabs ibuprofen 600 mg tablet 600 mg PO Q6H PRN pain #30 tabs 01/18/25 polyethylene glycol 3350 17 17 g PO DAILY PRN constipation 01/18/25 gram/dose oral powder (Miralax) #119 grams omeprazole 20 mg capsule,delayed 20 mg PO DAILY PRN reflux #90 caps 01/26/25 release alprazolam 0.25 mg tablet (Xanax) 0.25 mg PO DAILY #14 tabs 01/29/25 atenolol 25 mg tablet 25 mg PO DAILY #30 tabs 02/16/25 levofloxacin 250 mg tablet 250 mg PO DAILY #5 tabs 02/24/25 phenazopyridine 100 mg tablet 100 mg PO TID PRN Painful, burning 02/24/25 (Pyridium) urination 3 days #9 tabs Allergies Allergy/AdvReac Type Severity Reaction Status Date / Time hydrocodone Allergy Intermediate Vomiting Verified 02/24/25 08:52 amoxicillin AdvReac Intermediate Gastrointestinal Verified 02/24/25 08:52 Upset nitrofurantoin AdvReac Intermediate Gastrointestinal Verified 02/24/25 08:52 Upset sulfadiazine AdvReac Intermediate Gastrointestinal Verified 02/24/25 08:52 Upset Review of Systems Review of Systems: Yes all other systems are reviewed and are negative [facility] Past Medical History Medical History Invasive lobular carcinoma of breast in female Breast mass, right Essential hypertension Bipolar disorder Lumbar degenerative disc disease Sciatic nerve pain Cervical spondylosis Urinary incontinence Arthritis Elevated cholesterol Depression GERD (gastroesophageal reflux disease) Non-toxic multinodular goiter Surgical History S/P placement of nerve stimulator Hx of bilateral cataract extraction History of breast lump/mass excision Hx of cholecystectomy Hx of total hysterectomy with removal of both tubes and ovaries H/O colonoscopy (07/28/22) Family History Family History Father Heart problem Thyroid cancer Skin cancer Mother Dementia Father No problems noted. Social History Social History Household Members: Other Household Members Other:: daughter and grandson Housing: House Are you a primary furnace caretaker to a significant other at home: No Do you presently have visiting nurse or other home services: No Alcohol intake: current Alcohol intake frequency: holidays/special occasions only Comment: tolerable Patient Tobacco Use Status: Former Tobacco user Tobacco use type: Cigarette Years Smoked: 5 e-Cigarette/Vaping Use: Currently Using Second Hand Smoke Exposure: No Substance Use Type: Marijuana Advance Directives: Yes Advance Directives on File: Yes Advance Directives Date on File: 07/23/24 service: No Current occupational status: retired Cognitive needs: No Hearing needs: Yes (b/l ears) Vision needs: Yes (rx glasses) Physical Exam Vital Signs: Vital Signs: Last Vital Signs Temp 97.7 F 02/24/25 08:50 Pulse 69 02/24/25 08:50 Resp 18 02/24/25 08:50 BP 185/79 H 02/24/25 08:50 Pulse Ox 98 02/24/25 08:50 O2 Del Method Room Air 02/24/25 08:50 BMI result Body Mass Index 27.0 Vital signs revealed an elevated blood pressure of 185/79 otherwise unremarkable Exam: General: Awake, alert in no distress Head: Normocephalic, atraumatic EENT: PERRL, Lids normal, sclera normal, conjunctiva normal, nose normal , ears normal, throat without erythema or exudates Neck: Supple, no adenopathy Lung: breath sounds symmetric, no wheezing, rales or rhonchi Chest: symmetric movement, nontender Heart: regular rate and rhythm, normal S1, S2 no murmurs or rubs Abdomen: soft, mild to moderate suprapubic tenderness, nondistended, normal bowel sounds Back: no vertebral tenderness, no CVAT Extremities: no deformities, moves all extremities symmetrically Neuro: Awake, alert, oriented, normal speech Psych: Pleasant, cooperative Medical Decision Making Medical Decision Making MDM Narrative: 74-year-old female with a history of recurrent urinary tract infections, bladder stimulator, right breast cancer status post mastectomy 01/17/2025, lumbar surgery 08/29/2024, depression, hypertension who presents emergency department for evaluation of urinary frequency, dysuria and lower abdominal pain. Patient states that she was recently seen in the urgent care clinic and treated with Keflex 500 mg b.i.d. for 7 days. She states she did feel better after this treatment however 2 days prior to evaluation she developed symptoms of urinary tract infection again. She states she is having vaginal pain, urinary frequency and dysuria. She denied fever, chills, nausea, vomiting, diarrhea or back pain. She states she is having pain in the vaginal area and in her suprapubic area. Vital signs revealed an elevated blood pressure. Physical examination revealed suprapubic tenderness otherwise unremarkable. Differential diagnosis: ?Includes but is not limited to cystitis, pyelonephritis, resistant bacterial infection, anemia, electrolyte abnormalities Course: 11:53 My interpretation patient's laboratory evaluation is as follows: WBC elevated 11,300. Sodium low 133. Kidney function and LFTs were normal. Urinalysis was positive for blood and leukocyte esterase. Microscopic revealed greater than 20 RBCs, greater than 50 WBCs, 6-10 squamous cells and trace bacteria In reviewing the patient's previous Enterobacter cloacae which is not sensitive to cephalosporins but is sensitive to levofloxacin and Bactrim. Therefore I started the patient on levofloxacin 250 mg once a day for 5 days. She was also given a prescription for Pyridium 100 mg 3 times a day as needed for pain and advised to take Tylenol 1000 mg every 6 hours as needed for pain or fever. She was given printed and verbal instructions and discharged home. Admission/Observation Consideration of admission/observation: Escalation of care including admission/observation considered (Yes) Lab Data MDM Lab Attestation statement: I reviewed the patient's lab results. 02/24/25 09:58 02/24/25 09:59 Labs: Lab Results 02/24/25 02/24/25 Range/Units 09:58 09:59 WBC 11.3 H (4.8-10.8) X10*3/uL RBC 4.08 L (4.20-5.50) X10*6/uL Hgb 13.0 (12.0-16.0) g/dl Hct 38.3 D (37.0-47.0) % MCV 93.9 (80.0-98.0) fL MCH 31.9 (27.0-33.0) pg MCHC 33.9 (31.0-35.0) g/dl RDW 13.4 (11.0-16.0) % Plt Count 363 (160-400) X10*3/uL MPV 8.8 L (9.4-12.3) fL Immature Gran % (Auto) 0.3 (0.0-0.4) % Neut % (Auto) 72.5 (45-73) % Lymph % (Auto) 16.2 L (20-40) % [place] % (Auto) 7.7 (2-11) % Eos % (Auto) 2.8 (0-4) % Baso % (Auto) 0.5 (0-2) % Lymph # (Auto) 1.8 (1.2-4.9) X10*3/uL [place] # (Auto) 0.9 (0.1-1.2) X10*3/uL Eos # (Auto) 0.3 (0.0-0.4) X10*3/uL Baso # (Auto) 0.1 (0.0-0.2) X10*3/uL Abs Immat Gran (auto) 0.03 (0.00-0.03) X10*3/uL Absolute Neuts (auto) 8.2 (2.0-8.3) x10*3/uL Absolute Nucleated RBC 0.000 (0.0-0.012) X10*3/uL Nucleated RBC % (auto) 0.0 (0.0-0.2) /100WBC Sodium 133 L (135-145) mmol/L Potassium 3.8 (3.3-5.1) mmol/L Chloride 99 (96-108) mmol/L Carbon Dioxide 25 (22-29) mmol/L Anion Gap 13 (12-20) BUN 9 (9-16) mg/dL Creatinine 0.70 (0.5-1.4) mg/dL Estim Creat Clear Calc 52.5 Estimated GFR > 60 Random Glucose 102 (60-115) mg/dL Calcium 9.1 (8.4-10.2) mg/dL Total Bilirubin 0.6 (0.0-1.0) mg/dL AST 27 (5-31) U/L ALT 13 (0-31) U/L Alkaline Phosphatase 90 (39-117) U/L Total Protein 7.7 (6.5-8.0) g/dL Albumin 4.3 (3.5-5.0) g/dL Urine Color Yellow Urine Appearance Cloudy Urine pH 6.5 (5.0-9.0) Ur Specific [place] 1.010 (1.005-1.025) Urine Protein Trace (Neg-Trace) mg/dL Urine Glucose (UA) Negative (Negative) mg/dL Urine Ketones Negative (Negative) mg/dL Urine Blood Large (3+) H (Negative) Urine Nitrite Negative (Negative) Ur Leukocyte Esterase Large (3+) H (Negative) Urine RBC >20 H (0-2) /HPF Urine WBC >50 H (0-5) /HPF Ur Squamous Epith Cells 6-10 (0-2) /HPF Urine Bacteria Trace (None Seen) Hyaline Casts 0-2 (0-2) /LPF Prescription Management I considered prescription management with: Pain Medication (Pyridium) and Antibiotic (Levofloxacin) Chronic Conditions Patient?s care impacted by: Hypertension and Other (Recurrent urinary tract infections) Discharge Plan Discharge Clinical Impression: Urinary tract infection Patient Disposition: Home, Self-Care Instructions: Urinary Tract Infection in Women (ED) Additional Instructions: Your urine today revealed a large amount of red blood cells and white blood cells with a small amount of bacteria. Your blood work revealed that your kidney function was normal in you only had a slight elevation in your white blood cell count which is reassuring. At this time I suspect that the urine infection that you had previously was not completely treated with the Keflex that you were taking. In the past your urine culture grew Enterobacter cloacae which was not sensitive to Keflex but was sensitive to Bactrim and levofloxacin. I am starting you on levofloxacin 250 mg once a day for 5 days. Take Pyridium (phenazopyridine) 100 mg pills, 1 pill 3 times a day as needed for painful, burning urination. Take Tylenol (acetaminophen) 500 mg pills, 2 pills every 6 hours as needed for pain or fever. Your urine will be cultured by our laboratory and it will take 2-3 days to grow bacteria out of your urine. If you are not feeling better in 3 days you should check with your primary care doctor or call the emergency department to check your urine culture to make sure that any bacteria that your growing in your urine is sensitive to levofloxacin. Follow-up with your doctor in 2 days. Please return to the emergency department if your symptoms get worse or if you develop any symptoms that are concerning to you. Prescriptions: New levofloxacin 250 mg tablet 250 mg PO DAILY Qty: 5 0RF phenazopyridine [Pyridium] 100 mg tablet 100 mg PO TID PRN (Reason: Painful, burning urination) 3 Days Qty: 9 0RF No Action omeprazole 20 mg capsule,delayed release(DR/EC) 20 mg PO DAILY PRN (Reason: reflux) Qty: 90 1RF atenolol 25 mg tablet 25 mg PO DAILY Qty: 30 0RF acetaminophen 650 mg tablet extended release 650 mg PO Q8H PRN (Reason: pain) fluoxetine 20 mg capsule 20 mg PO BEDTIME cyclosporine [Restasis] 0.05 % Dropperette 1 drp OPHTHALMIC (EYE) DAILY melatonin 5 mg capsule 5 mg PO BEDTIME cholecalciferol (vitamin D3) [Vitamin D3] 25 mcg (1,000 unit) Tablet 25 mcg PO DAILY polyethylene glycol 3350 [Miralax] 17 gram/dose powder 17 g PO DAILY PRN (Reason: constipation) Qty: 119 0RF ibuprofen 600 mg tablet 600 mg PO Q6H PRN (Reason: pain) Qty: 30 0RF mecobalamin (vitamin B12) 500 mcg tablet,chewable 500 mcg PO DAILY tizanidine 2 mg tablet 2 mg PO BID PRN (Reason: Muscle Spasm) Qty: 60 0RF simvastatin 10 mg tablet 10 mg PO BEDTIME Qty: 90 1RF alprazolam [Xanax] 0.25 mg tablet 0.25 mg PO DAILY Qty: 14 0RF Print Language: Ghanaian
[2025-02-24 12:54] VITALS: BP 185/79; PULSE 69; RESP 18; TEMP 36.5; O2SAT 98
== END 2025-02-24 12:54 | disposition home or self-care (01) ==
PROVIDERS: Emergency Provider Emergency Medicine Emergency Medical Services; PCP Internal Medicine
DX: N39.0 Urinary tract infection, site not specified (principal); I10 Essential (primary) hypertension; E78.5 Hyperlipidemia, unspecified; Z87.440 Personal history of urinary (tract) infections; Z79.899 Other long term (current) drug therapy; Z87.891 Personal history of nicotine dependence
CPT/HCPCS: 36415; 80053; 81001; 85025; 87086; 99282; 99283

== ENCOUNTER 2025-03-26 13:06 | Outpatient (AMB) | payer MEDICARE, SELFPAY ==
--- OUTSIDE RECORDS SUMMARY | 2023-12-22 07:00 | XMS_ITS ---
Author Organization [facility] Address [address] [place] [address] Care Team Providers Care Academic Support Center Director Name Role Phone Rony (RETIRED) Jay TIDWELL Primary Care Provide r Ama Mendoza Jr, Robert Serrato REASON FOR VISIT Patient presents today for gerd Encounters Encounter Location Date Provider Diagnosis [facility] [address] [place] [address] [address] [place] [address] 2023 Robert Mendoza Jr Plan Of Treatment Next Appt Details Provider Name:Robert loving Jr, 04/09/2025 10:40:00 AM, [address] [place] [address], [address], [place], [address], Progress Notes * RIANNA LUEVANO MDOB:[birth year] (74 yo F)Acc No.[id number]:2023 Progress Notes Patient: Ngozi RIANNA OTT Provider: Ngozi Mendoza MD :1950 A ge:72 Y S ex:Female Date:2023 Address: [id number] Pcp:Jay Uribe (RETIRED )MD Subjective: * Chief Complaints: * 1 . Patient presents today for gerd. * Medical History: Objective: * Vitals: Assessment: Plan: * Treatment: * * The named appointment provid er may or may not be the originator of this progress note, and it is not deemed complete until electronically signed by the appointment provider. Sign off status: Pending * Provider: Ngozi Mendoza MD Date: 0 2023 Generated for John mo/Ofelia/Reece on: 0 03/26/2025 03:18 PM EDT
--- OUTSIDE RECORDS SUMMARY | 2025-03-21 23:59 | XMS_ITS | Continuity of Care Document ---
Author Organization [facility] [address] [place] [address]- Care Team Providers Care Web Services Professional Name Role Phone Jay Uribe MD Primary Care Physician Encounter 03/14/25 - 03/21/25 [facility] [address], [address] [place] [address]- Attending Physician: Shivam Myers MD Admitting Physician: Shivam Myers MD Referring Physician: Shivam Myers MD Encounter Type: OutPatient One Time Allergies, Adverse Reactions, Alerts Substance Criticality Severity Reaction Reaction Severity Status amoxicillin stomach pains Ac tive Macrobid pain in stomach Acti ve Bactrim 1 Unable to assess criticality Persistent Mild Active Vicodin severe vomiting Active 1Nausea/vomiting Medications Calcium 600 +D 1 tablet, By Mouth, Daily in AM, PRN, 0 Refills, Maintenance, 01/28/12 10:13:35 AM EDT Start Date: 01/28/12 Status: Ordered Medication Dispense Status: Completed Total Allowed Fills: 1 Fills Dispensed: 0 Calcium, Magnesium and Zinc 1 tablet, By Mouth, Daily in AM, 0 Refills, Maintenance, 01/12/20 3:35:00 PM EDT Start Date: 01/12/20 Status: Ordered Medication Dispense Status: Completed Total Allowed Fills: 1 Fills Dispensed: 0 Fish Oil = 1,000 mg, By Mouth, Daily in AM, PRN, 0 Refills, Maintenance, 01/28/12 10:13:48 AM EDT Start Date: 01/28/12 Status: Ordered Medication Dispense Status: Completed Total Allowed Fills: 1 Fills Dispensed: 0 Flax Seed Oil oral capsule 1 capsule, By Mouth, Daily in AM, 0 Refills, Maintenance, 06/20/19 10:20:27 AM EST Start Date: 06/20/19 Status: Ordered Medication Dispense Status: Completed Total Allowed Fills: 1 Fills Dispensed: 0 FLUoxetine 20 mg oral tablet 1 tablet = 20 mg, By Mouth, Daily at bedtime, 0 Refills, Maintenance, 05/09/20 4:01:00 PM EDT Start Date: 05/09/20 Status: Ordered Medication Dispense Status: Completed Total Allowed Fills: 1 Fills Dispensed: 0 Misc Rx 2 tablets, By Mouth, Daily in AM, Refills 0, Maintenance, VIVISCAL PRO, 03/21/20 10:43:00 AM EDT, Supply Start Date: 03/21/20 Status: Ordered Medication Dispense Status: Completed Total Allowed Fills: 1 Fills Dispensed: 0 Multivitamin By Mouth, Daily in AM, 0 Refills, Maintenance, 01/28/12 10:13:24 AM EDT Start Date: 01/28/12 Status: Ordered Medication Dispense Status: Completed Total Allowed Fills: 1 Fills Dispensed: 0 nitrofurantoin macrocrystals 100 mg oral capsule 1 capsule = 100 mg, By Mouth, 4 times a day, 0 Refills, Maintenance, 10/08/22 3:37:00 PM EDT, Partial fill upon patient request if the prescription is for a schedule II opioid drug. Start Date: 10/08/22 Status: Ordered Medication Dispense Status: Completed Total Allowed Fills: 1 Fills Dispensed: 0 omeprazole 20 mg oral enteric coated capsule 1 capsule = 20 mg, By Mouth, Daily, PRN Other, PRN, # 30 capsule, 0 Refills, Maintenance, 01/28/12 10:13:04 AM EDT, EC Capsule Start Date: 01/28/12 Status: Ordered Medication Dispense Status: Completed Quantity: 30.0 Unit: capsule Total Allowed Fills: 1 Fills Dispensed: 0 oxybutynin 10 mg/24 hr oral tablet, extended release 1 tablet = 10 mg, By Mouth, Daily, # 30 tablet, 11 Refills, Maintenance, 02/17/22 9:04:00 AM EDT, ER Tablet, [id number], Partial fill upon patient request if the prescription is for a schedule II opioid drug., 147.32, cm, 01/22/22 15:20:00 EDT, Height, 53.6, kg, 01/22/22 15:20:00 EDT, Dry Weight Start Date: 02/17/22 Status: Ordered Medication Dispense Status: Completed Quantity: 30.0 Unit: tablet Total Allowed Fills: 12 Fills Dispensed: 0 Problem List Condition Confirmation Course Effective Dates Status H ealth Status Informant Anxiety Confirmed Active Depression Confirmed Active Fibroadenoma of breast Confirmed Active Bowel incontinence Confirmed Active Urinary frequency Confirmed Active Nephrolithiasis Confirmed Active Microscopic hematuria Confirmed Active Poor posture Confirmed Active Urinary tract infection Confirmed Active Stones, urinary tract Confirmed Active 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 Urogram protocol was used with a 10 minute delayed sequence obtained for ureteral evaluation. 100 cc of Isovue 300 was administered intravenously. This study was performed without oral contrast. Weight-based protocol using automatic tube modulation was used to optimize exposure parameters. [facility] at [facility], .., [address] [place] [address]. COMPARISON: Prior CT, 04/12/2024. FINDINGS: Health Care Manager View Findings, Lines and Tubes: None. Visualized Chest: Linear atelectasis or scarring is seen at both lung bases. There is no pleural effusion. Visualized heart is stable in size. There is no pericardial effusion. Diaphragm: Normal. Liver: Normal. Gallbladder: Absent consistent with prior cholecystectomy. Bile ducts: No biliary ductal dilation. Spleen: Normal. Pancreas: Normal. Adrenal glands: Normal. Kidneys and ureters: No hydronephrosis, stones, or suspicious masses. There is no suspicious filling defect in either renal collecting system or ureter on excretory phase images. Bladder: Normal. Reproductive organs: Unremarkable. Stomach, small bowel, and large bowel: Status post hysterectomy. Appendix: Normal. Peritoneum and retroperitoneum: No ascites or pneumoperitoneum. No omental or mesenteric lesions. Lymph nodes: No enlarged lymph nodes. Blood vessels: Mild vascular calcifications but no aneurysm. No evidence of venous thrombosis. Abdominal and pelvic wall: Stimulator battery is seen in the subcutaneous fat over the right buttock with lead terminating in the right presacral region. Status post right mastectomy. Bones: Postoperative changes are seen from anterior and posterior fusion at L4-5 with intervertebral disc spacer seen at bilateral pedicle screws with interconnecting vertical rods. There is osseous fusion across the L5-S1 disc space with chronic area of sclerosis along the posterior margin of S1. IMPRESSION: No explanation for hematuria. WSN: [id number] Ordering Physician: Shivam Myers Dictated By: Tanya Augustine MD Dictated Date/Time: 03/14/25 2:51 pm Reviewed By: Tanya Augustine MD Signed By: Tanya Augustine MD Signed Date/Time: 03/14/25 2:51 pm Transcribed By: BOBBI Transcribed Date/Time: 03/14/25 2:40 pm Social History Social History Type Response Sexual Sexually involved in last 6 months: No. Smoking Status Former smoker, quit more than 30 days ago entered on: 06/30/19 Sex Sex Representation Female (finding) Patient Care team information Care Team Personnel Name: Jay Uribe MD Position: [facility] Outreach Member Role: PCP Address: [address] [place] [address]- Telecom: Name: Shivam Myers MD Position: [facility] Physician - Urology Med Service: Urology Member Role: Ordering Physician Address: [address] [place] [address]. [address] [facility] [place] [address]- Telecom: Care Team Related Persons Name: BECKY CHAWLA Name: KYLE DEAN Insurance Providers Guarantor name: RIANNA CHAWLA Health Plan Information #: 1 Payer: [facility] Payer Identifier: NA Member Number: [id number] Group Number: [id number] Subscriber Identifier: [id number] Relationship to Subscriber: self Coverage Type: NA Coverage Verification Date: NA Telecom: NA Address: NA
--- NOTE | 2025-03-26 13:07 | A.OFFVIS_ITS ---
Vital Signs 03/26/25 13:15 Height 4 ft 10 in Weight 128 lb BMI 26.7 BP 124/68 Blood Pressure Location Rt radial Position Sitting Pulse 59 Intake Visit Reasons: 1 month follow up s/p unilateral mastectomy Intake Note: Patient here s/p Rt breast mastectomy. Reports debridement done last visit helped. Wound healing well. Patient was discharge from [facility] services last Wednesday. BASSEM: 02-22-2025 Secretarial Teacher Required: No Accompanied by: Self / Same As Patient Allergies hydrocodone Allergy (Intermediate, Verified 03/26/25 13:16) Vomiting amoxicillin Adverse Reaction (Intermediate, Verified 03/26/25 13:16) Gastrointestinal Upset nitrofurantoin Adverse Reaction (Intermediate, Verified 03/26/25 13:16) Gastrointestinal Upset sulfadiazine Adverse Reaction (Intermediate, Verified 03/26/25 13:16) Gastrointestinal Upset HPI HPI 1 month follow up s/p unilateral mastectomy: Details: She is here for follow-up after her mastectomy and sentinel biopsy for a T3 N0 invasive lobular cancer last 01/17/2025. She feels well overall and denies any significant complaints. She has been seen by Dr. Hernandes and no adjuvant chemotherapy is planned. She says she is doing well. She says that her incision has healed completely. [facility] Medical History Invasive lobular carcinoma of breast in female Breast mass, right Essential hypertension Bipolar disorder Lumbar degenerative disc disease Sciatic nerve pain Cervical spondylosis Urinary incontinence Arthritis Elevated cholesterol Depression GERD (gastroesophageal reflux disease) Non-toxic multinodular goiter Surgical History S/P placement of nerve stimulator Hx of bilateral cataract extraction History of breast lump/mass excision Hx of cholecystectomy Hx of total hysterectomy with removal of both tubes and ovaries H/O colonoscopy (07/28/22) Family History Father Heart problem Thyroid cancer Skin cancer Mother Dementia Father No problems noted. Social History Household Members: Other Household Members Other:: daughter and grandson Housing: House Are you a primary care nurse rn to a significant other at home: No Do you presently have visiting nurse or other home services: No Alcohol intake: current Alcohol intake frequency: holidays/special occasions only Comment: tolerable Patient Tobacco Use Status: Former Tobacco user Tobacco use type: Cigarette Years Smoked: 5 e-Cigarette/Vaping Use: Currently Using Second Hand Smoke Exposure: No Use of substances other than those prescribed or required for medical reasons: No Substance Use Type: Marijuana Advance Directives Date on File: 07/23/24 service: No Current occupational status: retired Cognitive needs: No Hearing needs: Yes (b/l ears) Vision needs: Yes (rx glasses) Review of Systems Const Denies chills and Denies fever(s) Physical Exam Vital Signs: Last Vital Signs Pulse 59 03/26/25 13:15 BP 124/68 03/26/25 13:15 BMI result Body Mass Index 26.7 Const General: comfortable and no acute distress Chest Other: Right mastectomy site is well healed, no open areas, no axillary lymphadenopathy Assessment & Plan Assessment & Plan (1) S/P right mastectomy: Code(s): Z90.11 - Acquired absence of right breast and nipple Category: Surgical Plan: She is doing very well. She has a T3 N0 invasive lobular carcinoma. Her maste ctomy site is well healed She says she seeing a radiation oncologist for possible adjacent to the chest wall She looks well overall. I will see her again in the office in about 6 months She says she does not want any hormonal therapy. Coding Level of Care Code Global (39402) Diagnoses S/P right mastectomy Z90.11
[2025-03-26 13:15] VITALS: BP 124/68; PULSE 59; BMI 26.7
--- OUTSIDE RECORDS SUMMARY | 2025-03-26 15:18 | XMS_ITS | Clinical Summary ---
Author Organization [address] [facility] Address [address] [place] [address] Phone Care Team Providers Care Hotel Guest Service Agent Name Role Phone Calvin Brooke MD Primary Care Provider [phone] Encounters Date Type Department Care Team Description 03/12/2025 Lab Requisition [facility] - Main Lab [address] [facility] [place] [address] Shivam Myers MD Urinary tract infection, site not specified from Last 3 Months Social History Tobacco Use Types Packs/Day Years Used Date Smoking Tobacco: Never Assessed Comments Unknown Sex and Gender Information Value Date Recorded Sex Assigned at Not on file Legal Sex Female 8:09 PM EST Gender Identity Not on file Sexual Orientation Not on file Plan of Treatment Health Maintenance Due Date Last Done Comments Breast Cancer Screening 1950 DTaP,Tdap,and Td Vaccines (1 - Tdap) 12/23/1971 Pneumococcal Vaccine: 50+ Ye ars (1 of 1 - PCV) 2002 Zoster Vaccines (1 of 2) 2002 Colorectal Cancer Screening: Colonoscopy 08/12/2023 Falls Risk Assessment 08/12/2023 Hepatitis C Screening 08/12/2023 Medicare Annual Wellness Visit 08/12/2023 Osteoporosis Screening (Bone Density Screening) 08/12/2023 Social Influencers of Health Screening 08/12/2023 Depression Screening 07/19/2024 COVID-19 Vaccine ( - 2023-2 5 season) 2025 Influenza Vaccine (#1) 2025 RSV Immunization Adult Patie nts (1 - 1-dose 75+ series) 12/23/2027 HIB Vaccines Aged Out No longer eligi ble based on patient's age to complete this topic HPV Vaccines Aged Out No longer eligi ble based on patient's age to complete this topic Hepatitis A Vaccines Aged Out No long er eligible based on patient's age to complete this topic Hepatitis B Vaccines Aged Out No long er eligible based on patient's age to complete this topic IPV Vaccines Aged Out No longer eligi ble based on patient's age to complete this topic MMR Vaccines Aged Out No longer eligi ble based on patient's age to complete this topic Meningococcal ACWY Vaccine Aged Out N o longer eligible based on patient's age to complete this topic Meningococcal B Vaccine Aged Out No l onger eligible based on patient's age to complete this topic RSV Immunization Patients Un umair 20 months Aged Out No longer eligible b ased on patient's age to complete this topic Varicella Vaccines Aged Out No longer eligible based on patient's age to complete this topic Procedures Procedure Name Priority Date/Time Associated Diagnosis Comments CULTURE URINE Routine 03/12/2025 1:00 PM EDT Urinary tract infection, site not specified from Last 3 Months Results * Culture urine (03/12/2025 1:00 PM EDT) Culture, Urine No growth 03/13/2025 1:18 PM EDT [facility] Urine Urine specimen obtained by clean catch procedure / Unknown 03/12/2025 1:00 PM EDT 03/12/2025 6:00 PM EDT us Shivam Myers MD LAB MICROBIOLOGY - GENERA L ORDERABLES Final Result [facility] [address] [place] [address], from Last 3 Months [facility] [address] MEDICARE [facility] [place] Care Teams Hotel Guest Service Agent Relationship Specialty Start Date End Date Calvin Brooke MD [address] [place] [address] PCP - General Internal Medicine 03/12/25
--- OUTSIDE RECORDS SUMMARY | 2025-03-26 15:18 | XMS_ITS | Patient Health Record ---
Author Organization [facility] Address [address] [facility] [place] [address] Care Team Providers Care Cook Vegetable Name Role Phone Jay Uribe MD Primary Care Provider Williams Huber Unavailable [phone] Allergies Allergen (clinical drug ingredient) Drug/Non Drug [...] primary osteoarthritis of the ankle and/or foot (643448535) Primary osteoarthritis, right ankle and foot (M19.071) Active confirmed Problem Acquired hammer toe of right foot (0904574675341268 ) Other hammer toe(s) (acquired), right foot (M20.41) Active confirmed Problem Localized, primary osteoarthritis of the ankle and/or foot (384711369) 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.072) Active confirmed Problem Pes cavus (90900375) Pes cavus (Q66.7) Active confirmed Plan Of [...] [employer] [address] [place] [address] [id number] Isabel Cid Self - patient is the insured [employer] [address] [place] [address] [id number] Isabel Cid Self - patient is the insured Medical (General) History Medical History History ICD Code Anxiety Arthritis Back,Hip,and Knee pain Broken bones CAD (Cholesterol) Cataracts Depression Diverticulosis Gall bladder problems thyroid Warts Surgical History Surgery Date(Month/Year) hysterectomy 09/1999 gall bladder 09/2006 fibroadenoid lump removed 07/1986-12/2016
--- OUTSIDE RECORDS SUMMARY | 2025-03-26 15:18 | XMS_ITS | Clinical Summary ---
Author Organization [facility] Address [address] [address] Phone Care Team Providers Care Manager Managed Care Name Role Phone Elvia Hernandes MD Primary Care Provider [phone] Allergies Active Allergy Reactions Criticality Noted Date Comments Amoxicillin GI Upset Medium 03/02/2025 Nitrofurantoin GI Upset Medium 03/02/2025 Silver Sulfadiazine GI Upset Medium 03/02/2025 Medications atenolol (TENORMIN) 25 MG tablet Take 25 mg by mouth daily. Active acetaminophen (TYLENOL) 325 mg tabletIndicatio ns:arthritic pain Take 650 mg by mouth every 6 (six) hours as needed for pain (specific location in comments). Indications: pain associated with arthritis Active cycloSPORINE (RESTASIS) 0.05 % suspension Place 1 drop into each eye 2 (two) times a day. Active FLUoxetine (PROZAC) 20 MG capsule Take 20 mg by mouth daily. At HS Active mecobalamin, vitamin B12, 500 mcg Chew Take 500 mcg by mouth daily. Active cholecalciferol (VITAMIN D3) 10,000 unit tablet Take 10,000 Units by mouth daily. Active omeprazole (PRILOSEC) 20 MG capsule Take 20 mg by mouth daily. Active tiZANidine (ZANAFLEX) 2 MG tablet Take 2 mg by mouth every 6 (six) hours as needed. Active Encounters Date Type Department Care Team Description 03/16/2025 10:30 AM EDT Office Visit [facility] [address] [place] [address] Lizzie Lanza MD Malignant neoplasm of upper-inner quadrant of right breast in female, estrogen receptor positive (Primary Dx) 03/16/2025 Telephone [facility] [address] [place] [address] Lizzie Lanza MD PreAut 03/16/2025 Documentation [facility] [address] [place] [address] Kina Thompson RN 03/05/2025 Telephone [facility] [address] [place] [address] Josefina Leung, MAXINE 03/02/2025 9:00 AM EDT Office Visit [facility] Onc [address] [place] [address] Lizzie Lanza MD Malignant neoplasm of upper-inner quadrant of right breast in female, estrogen receptor positive (Primary Dx) from Last 3 Months Family History Medical History Relation Comments Heart attack Brother Cancer Father Skin cancer Heart failure Father Cancer Maternal Aunt Dementia Mother Relation Status Comments Brother Father Maternal Aunt Mother Social History Tobacco Use Types Packs/Day Years Used Date Smoking Tobacco: Former Cigarettes Q uit: 1990 Smokeless Tobacco: Never Alcohol Use Standard Drinks/Week Comments Yes 0 (1 standard drink = 0.6 oz pur e alcohol) 1-2 glasses [place] weekly Education Answer Date Recorded Are you interested [...] Sign Reading Time Taken Comments Blood Pressure 160/109 03/02/2025 9:51 AM EDT Pulse 62 03/02/2025 9:51 AM EDT Temperature 36.2 C (97.2 F) 03/02/2025 9:51 AM EDT Respiratory Rate - - Oxygen Saturation 98% 03/02/2025 9:51 AM EDT Inhaled Oxygen Concentration - - Weight 57.6 kg (127 lb) 03/02/2025 9:51 AM EDT Height - - Body Mass Index - - Plan of Treatment Upcoming Encounters Date Type Department Care Team (Late st Contact Info) Description 04/05/2025 11:20 AM EDT Office Visit [facility] Onc [address] [place] [address] Lizzie Lanza MD [address] [place] [phone] 04/09/2025 2:30 PM EDT Treatment [facility] Onc [address] [place] [address] Lizzie Lanza MD [address] [place] [address] 04/10/2025 2:30 PM EDT Treatment [facility] Onc [address] [place] [address] Lizzie Lanza MD [address] [place] [address] 04/11/2025 2:30 PM EDT Treatment [facility] Onc [address] [place] [address] Lizzie Lanza MD [address] [place] [address] 04/12/2025 2:30 PM EDT Treatment [facility] Onc [address] [place] [address] Lizzie Lanza MD [address] [place] [address] 04/13/2025 2:30 PM EDT Treatment [facility] Onc [address] [place] [address] Lizzie Lanza MD [address] [place] [address] 04/16/2025 2:30 PM EDT Treatment [facility] Onc [address] [place] [address] Lizzie Lanza MD [address] [place] [address] 04/17/2025 2:30 PM EDT Treatment [facility] Onc [address] [place] [address] Lizzie Lanza MD [address] [place] [address] 04/18/2025 2:00 PM EDT Treatment [facility] Onc [address] [place] [address] Lizzie Lanza MD [address] [place] [address] 230[address] 04/19/2025 2:00 PM EDT Treatment [facility] Onc [address] [place] [address] Lizzie Lanza MD [address] [place] [address] 04/20/2025 2:00 PM EDT Treatment [facility] Onc [address] [place] [address] Lizzie Lanza MD [address] [place] [address] 04/23/2025 2:00 PM EDT Treatment [facility] [address] [place] [address] Lizzie Lanza MD [address] [place] [address] 04/24/2025 2:00 PM EDT Treatment [facility] Onc [address] [place] [address] Lizzie Lanza MD [address] [place] [address] 04/25/2025 2:10 PM EDT Treatment [facility] Onc [address] [place] [address] Lizzie Lanza MD [address] [place] [address] 04/26/2025 2:00 PM EDT Treatment [facility] Onc [address] [place] [address] Lizzie Lanza MD [address] [place] [address] 04/27/2025 2:00 PM EDT Treatment [facility] Onc [address] [place] [address] Lizzie Lanza MD [address] [place] [address] 05/01/2025 2:10 PM EDT Treatment [facility] Onc [address] [place] [address] Lizzie Lanza MD [address] [place] [address] 266[address] 05/02/2025 2:00 PM EDT Treatment [facility] Onc [address] [place] [address] Lizzie Lanza MD [address] [place] [address] 05/03/2025 2:00 PM EDT Treatment [facility] Onc [address] [place] [address] Lizzie Lanza MD [address] [place] [address] 56[address] 05/04/2025 2:00 PM EDT Treatment [facility] Onc [address] [place] [address] Lizzie Lanza MD [address] [place] [address] 05/07/2025 2:00 PM EDT Treatment [facility] Onc [address] [place] [address] Lizzie Lanza MD [address] [place] [address] 18[address] 05/08/2025 2:00 PM EDT Treatment [facility] Onc [address] [place] [address] Lizzie Lanza MD [address] [place] [address] 05/09/2025 2:00 PM EDT Treatment [facility] Onc [address] [place] [address] Lizzie Lanza MD [address] [place] [address] 05/10/2025 2:00 PM EDT Treatment [facility] On[facility] [address] [place] [address] Lizzie Lanza MD [address] [place] [address] 05/11/2025 2:00 PM EDT Treatment [facility] Onc [address] [place] [address] Lizzie Lanza MD [address] [place] [address] 05/14/2025 2:00 PM EDT Treatment [facility] Onc [address] [place] [address] Lizzie Lanza MD [address] [place] [phone] Health Maintenance Due Date Last Done Comments Adult Td,Tdap Booster 1950 LIPID PANEL 1952 DEPRESSION SCREENING 1964 HEPATITIS C SCREENING 1970 PNEUMOCOCCAL VACCINES (50+ y ears) (1 of 2 - PCV) 12/23/1971 ZOSTER VACCINES (1 of 2) 12/23/1971 MAMMOGRAM 1992 COLOGUARD 1997 COLONOSCOPY 1997 COLORECTAL CANCER SCREENING 1997 FIT TEST 1997 FOBT 1997 SIGMOIDOSCOPY 1997 VIRTUAL COLONOSCOPY 1997 OSTEOPOROSIS SCREENING INITI AL (ONE-TIME) 2017 INFLUENZA VACCINE (#1) 2025 COVID-19 VACCINE ( - 2023-2 5 season) 2025 SMOKING Hx and SMOKELESS TOB ACCO SCREENING 03/02/2026 03/02/2025 RSV VACCINE (1 - 1-dose 75+ series) [...] topic Medical Devices Not on file Insurance MEDICARE PART A & B MEDICARE PART A & B MEDICARE PART A & B MEDICARE PART A & B MEDICARE PART A & B MEDICARE PART A & B Care Teams Manager Managed Care Relationship Specialty Start Date End Date Elvia Hernandes MD [address] [place] [address] [email or web address] PCP - General Internal Medicine 03/02/25 Additional Source Comments The information contained in this document represents components of the legal health record. It is not the complete legal health record.[facility]
--- OUTSIDE RECORDS SUMMARY | 2025-03-26 15:18 | XMS_ITS | Encounter Summary ---
Author Organization [facility] Address [address] [place] [address] Care Team Providers Care Correctional Lieutenant Name Role Phone Calvin Brooke MD Primary Care Provider [phone] Encounter Details Date Type Department Care Team (Late st Contact Info) Description 03/12/2025 Lab Requisition [facility] Main Lab [address] [facility] [place] [address] Shivam Myers MD [address] [facility] [address] [place] [address] Urinary tract infection, site not specified Social History Tobacco Use Types Packs/Day Years Used Date Smoking Tobacco: Never Assessed Comments Unknown Sex and Gender Information Value Date Recorded Sex Assigned at Not on file Legal Sex Female 8:09 PM EST Gender Identity Not on file Sexual Orientation Not on file documented as of this encounter Plan of Treatment Not on file documented as of this encounter Procedures Procedure Name Priority Date/Time Associated Diagnosis Comments CULTURE URINE Routine 03/12/2025 1:00 PM EDT Urinary tract infection, site not specified documented in this encounter Results * Culture urine (03/12/2025 1:00 PM EDT) Culture, Urine No growth 03/13/2025 1:18 PM EDT [facility] Urine Urine specimen obtained by clean catch procedure / Unknown 03/12/2025 1:00 PM EDT 03/12/2025 6:00 PM EDT Shivam Myers MD LAB MICROBIOLOGY - GENERA L ORDERABLES Final Result [facility] [place] ([facility] [address] [place] [address], documented in this encounter Visit Diagnoses Diagnosis Urinary tract infection, site not specified documented in this encounter Care Teams Correctional Lieutenant Relationship Specialty Start Date End Date Calvin Brooke MD [address] [place] [phone] PCP - General Internal Medicine 03/12/25 documented as of this encounter
--- OUTSIDE RECORDS SUMMARY | 2025-03-26 15:18 | XMS_ITS | Patient Health Record ---
Author Organization [facility] Address [address] [place] [address] Care Team Providers Care Wire Charger Name Role Phone Rony (RETIRED) Jay TIDWELL Primary Care Provide r Robert Beal Jr Unavailable [phone] Allergies Allergen (clinical drug ingredient) Drug/Non Drug [...] Problem Status W/U Status Risk Notes Problem 768020105 Colon cancer screening (Z12.11) Active confirmed Problem 338910574 Irritable bowel syndrome with diarrhea (K58.0) Active confirmed Problem 618764405 Gastroesophageal reflux disease without esophagitis (K21.9) Active confirmed Problem 86786581 Constipation, unspecified constipation type (K59.00) Active confirmed Vital Signs Temperature 96.9 degrees Fahrenheit 04/10/2024 Blood pressure diastolic 00 mm Hg 04/10/2024 Height 58 in 04/10/2024 Blood pressure systolic 000 mm Hg 04/10/2024 Weight 121 lb 2 oz lbs 04/10/2024 BMI 25.31 kg/m2 04/10/2024 Encounters Encounter Location Date Provider Diagnosis [facility] [address] [place] [address] 04/10/2024 Robert Mendoza Jr Gastroesophageal reflux disease [...] Provider Name:Robert loving Jr, 04/09/2025 10:40:00 AM, [address], [address], [place], [address], Insurance Providers Payer Name Payer Address Payer Phone Subscriber Number Group Number Insured Name Patient Relationship to Insured Coverage Start Date Coverage End Date MEDICARE OF [place] [address] LASHAUN MENCHACA [id number] RIANNA FERGUSON Self - patient is the insured [employer] ATT[employer] CLAIMS [address] [place] [address] [phone] [id number] RIANNA FERGUSON Self - patient is the insured Medical (General) History Medical History History ICD Code urinary incontinence, bladder stimulator placement and removal Multinodular goiter Arthritis Depression Elevated cholesterol Gastroesophageal reflux disease Surgical History Surgery Date(Month/Year) removal fibroadenoma left and right [facility] [facility] Total hysterectomy 09/1999 Cholecystectomy 08/2006 Thyroid nodules neurostimulator in bladder 08/11
== END 2025-03-26 13:26 | disposition home or self-care (01) ==
LOC: HO.HGS 13:06
PROVIDERS: PCP Internal Medicine; Visit Provider Surgery
DX: Z90.11 Acquired absence of right breast and nipple (principal)
CPT/HCPCS: 99024

== ENCOUNTER → 2025-03-26 13:06 | Outpatient (BNVA) | payer MEDICARE, SELFPAY | PROVIDERS: PCP Internal Medicine; Visit Provider Surgery | DX: C50.919 Malignant neoplasm of unspecified site of unspecified female breast (principal); Z87.891 Personal history of nicotine dependence; U07.0 Vaping-related disorder; Z90.11 Acquired absence of right breast and nipple | CPT/HCPCS: 99212 ==

== ENCOUNTER 2025-04-06 10:56 | Outpatient (AMB) | payer MEDICARE, SELFPAY ==
--- NOTE | 2025-04-06 09:44 | A.OFFPC_ITS ---
Vital Signs 04/06/25 11:09 Height 4 ft 10 in Weight 129 lb BMI 27.0 BP 130/76 Blood Pressure Location Lt brachial Position Sitting Respiration 18 Pulse 53 Pulse Source Pulse Oximeter Temp 97.2 F Temp Source Temporal Artery Scan Pulse Oximetry (%) 97 Oxygen Delivery Method Room Air Intake Visit Reasons: follow up Fiber Optics Engineer Required: No Accompanied by: Self / Same As Patient Allergies hydrocodone Allergy (Intermediate, Verified 04/06/25 09:45) Vomiting amoxicillin Adverse Reaction (Intermediate, Verified 04/06/25 09:45) Gastrointestinal Upset nitrofurantoin Adverse Reaction (Intermediate, Verified 04/06/25 09:45) Gastrointestinal Upset sulfadiazine Adverse Reaction (Intermediate, Verified 04/06/25 09:45) Gastrointestinal Upset Medication List - Last Reconciled 04/06/25 by Miller Mckeon MD acetaminophen ER 650 mg PO Q8H PRN atenolol 25 mg PO DAILY cholecalciferol (vitamin D3) (Vitamin D3) 25 mcg PO DAILY cyclosporine 0.05% (Restasis) 1 drp ophthalmic (eye) DAILY fluoxetine 20 mg PO BEDTIME ibuprofen 600 mg PO Q6H PRN mecobalamin (vitamin B12) 500 mcg PO DAILY melatonin 5 mg PO BEDTIME PRN omeprazole 20 mg PO DAILY PRN simvastatin 10 mg PO BEDTIME tizanidine 2 mg PO ONCE PRN Tobacco use date assessed: 10/04/24 Fall risk assessment: 1 Fall in past year Last assessed Fall Risk: 04/06/25 Dental Screening Dental Screen Date: 04/06/25 Did you have a dental visit in the last 12 months?: Yes Did you have a dental problem in the last 6 months where you did not have access to dental care?: No Was dental information given to patient?: Patient has dentist HPI HPI Comments History of Present Illness Details The patient is a 74-year-old female presenting with cervical spondylosis. She reports neck pain persisting for almost three months, which she associates with extensive cell phone use exacerbating the situation. The condition has worsened to the point where she experiences associated symptoms such as nausea and a dizziness feeling when her neck feels compressed. The patient describes that maintaining a poor posture while using her phone intensifies the discomfort. In the past, she has sought treatment for her back but not specifically for the neck issues in some time. The patient had seen a spine doctor a few months back who documented cervical spondylosis, and she also reported undergoing back surgery that year. Over the years, the patient has noticed no significant improvement and sought to better manage these symptoms. She denies any weakness in her hands at present. Medical History: - Cervical Spondylosis - Back pain with a history of back surge ry - Depression and Bipolar Disorder - Essential Hypertension - Osteoarthritis - Dry Eyes - Hyperlipidemia Surgical History: - Back Surgery - Breast Removal Medications: - Atenolol 25 mg once daily for hyperten luis m - Tylenol for osteoarthritis pain, as ne eded - Cyclosporine eye drops for dry eyes - Fluoxetine for depression and anxiety - Melatonin for sleep, as needed - Tizanidine for muscle pain - Simvastatin 10 mg for hyperlipidemia Diagnostic Results: - Labs from last month show normal findi ngs, with the exception of no recent cholesterol test result Social: - Uses a cell phone frequently, which se ems to exacerbate neck issues [facility] Medical History (Updated 04/06/25 @ 11:39 by Miller Mckeon MD) Dry eyes Hyperlipidemia Invasive lobular carcinoma of breast in female Breast mass, right Essential hypertension Bipolar disorder Lumbar degenerative disc disease Sciatic nerve pain Cervical spondylosis Urinary incontinence Arthritis Elevated cholesterol Depression GERD (gastroesophageal reflux disease) Non-toxic multinodular goiter Surgical History S/P placement of nerve stimulator Hx of bilateral cataract extraction History of breast lump/mass excision Hx of cholecystectomy Hx of total hysterectomy with removal of both tubes and ovaries H/O colonoscopy (07/28/22) Family History Father Heart problem Thyroid cancer Skin cancer Mother Dementia Father No problems noted. Social History Household Members: Other Household Members Other:: daughter and grandson Housing: House Are you a primary hospice care consultant to a significant other at home: No Do you presently have visiting nurse or other home services: No Alcohol intake: current Alcohol intake frequency: holidays/special occasions only Comment: tolerable Patient Tobacco Use Status: Former Tobacco user Tobacco use type: Cigarette Years Smoked: 5 e-Cigarette/Vaping Use: Currently Using Second Hand Smoke Exposure: No Substance Use Type: Marijuana Advance Directives Date on File: 07/23/24 service: No Current occupational status: retired Cognitive needs: No Hearing needs: Yes (b/l ears) Vision needs: Yes (rx glasses) Questionnaire Thrive Questionnaire Date Thrive assessed: 01/18/25 AUDIT C Alcohol Use Questionnaire (AUDIT-C) 1. How often do you have a drink containing alcohol?: 2-3 times a week 2. How many drinks containing alcohol do you have on a typical day when you are drinking?: 1 or 2 Total Score: 3 CAREN-7 AMB Questionnaire CAREN-7 Date CAREN - 7 assessed: 10/04/24 Source: Developed by Drs. Alexander Stoner, Kendra Mosquera, Joshua Thompson and colleagues, with an educational saad from [employer]. Review of Systems Const Details: - Musculoskeletal: Reports neck pain and associated dizziness - Neurological: Denies weakness in hands - Psychiatric: Reports depression, history of bipolar disorder - Cardiovascular: Denies current issues with blood pressure control All systems reviewed & are unremarkable except as reviewed in HPI and above Physical exam (Primary Care) Vital Signs: Last Vital Signs Temp 97.2 F 04/06/25 11:09 Pulse 53 04/06/25 11:09 Resp 18 04/06/25 11:09 BP 130/76 04/06/25 11:09 Pulse Ox 97 04/06/25 11:09 Oxygen Delivery Method Room Air 04/06/25 11:09 BMI result Body Mass Index 27.0 Tobacco/Smoking Status: Tobacco use Status Tobacco use date assessed 10/04/24 04/06/25 09:46 Patient Tobacco Use Status Former Tobacco user 04/06/25 09:46 Tobacco use type Cigarette 04/06/25 09:46 e-Cigarette/Vaping Use Currently Using 04/06/25 09:46 Thrive Assessment: Date of Thrive Assessment Date Thrive assessed 01/18/25 04/06/25 09:46 Const Other: General: Alert and oriented, Well nourished, No acute distress. Eye: Pupils are equal, round and reactive to light, Intact accommodation, Extraocular movements are intact, Normal conjunctiva, Vision unchanged. HENT: Normocephalic, Atraumatic, Tympanic membranes are clear, Normal hearing, Oral mucosa is moist, No pharyngeal erythema, Ear canals patent. Respiratory: Lungs CTA bilaterally, No wheeze, Respirations are non-labored. Cardiovascular: Regular rate, Regular rhythm, S1 auscultated, S2 auscultated, No murmur, Good pulses equal in all extremities, Normal peripheral perfusion, No edema. Gastrointestinal: Soft, Non-tender, Non-distended, Normal bowel sounds, No organomegaly. Musculoskeletal: Normal range of motion, Normal strength, No tenderness, No swelling, No deformity, Normal gait. Integumentary: Warm, Dry, [place], Intact. Neurologic: Alert, Oriented, Normal sensory, Normal motor function, No focal defects, Cranial Nerves II-XII are grossly intact, Normal deep tendon reflexes. Psychiatric: Cooperative, Appropriate mood & affect, Normal judgment. Coding Level of Care Code Est Pt Level 4 (73091) Complex EM visit Add On G2211 Diagnoses Depression, unspecified depression type F32.A Depression Type: unspecified Essential hypertension I10 Cervical spondylosis M47.812 Hyperlipidemia, unspecified hyperlipidemia type E78.5 Hyperlipidemia type: unspecified Dry eyes H04.123 Assessment & Plan Assessment & Plan (1) Depression: Comment: - Continue fluoxetine as it addresses depression - Adjustments will be considered during follow-up if symptoms persist. Code(s): F32.A - Depression, unspecified Category: Medical Qualifiers: Depression Type: unspecified Qualified Code(s): F32.A - Depression, unspecified (2) Essential hypertension: Comment: - Continue atenolol 25 mg daily. - Blood pressure is currently well-controlled. Code(s): I10 - Essential (primary) hypertension Category: Medical (3) Cervical spondylosis: Comment: - Imaging of the cervical spine will be obtained - Referral to physical therapy for neck pain management and posture correction - Continue with Tizanidine and Tylenol as needed for neck and muscle pain Code(s): M47.812 - Spondylosis without myelopathy or radiculopathy, cervical region Category: Medical (4) Hyperlipidemia: Comment: - Continue simvastatin 10 mg daily - Plan to repeat cholesterol panels at next visit Code(s): E78.5 - Hyperlipidemia, unspecified Category: Medical Qualifiers: Hyperlipidemia type: unspecified Qualified Code(s): E78.5 - Hyperlipidemia, unspecified (5) Dry eyes: Comment: - Cyclosporine drops help manage symptoms - Encourage compliance with regular use Code(s): H04.123 - Dry eye syndrome of bilateral lacrimal glands Category: Medical Plan: Health Maintenance: - Monitor cholesterol levels with upcoming lab work - Discussed lifestyle modifications to reduce neck pain, including posture correction and minimizing cell phone use Patient was informed and verbally consented to the use of an ambient scribe for clinic note documentation during this visit. Plan We discussed the patient's primary complaint of cervical spondylosis. I explained that imaging studies would help assess the current state of her cervical spine and rule out severe compression. We agreed on the importance of reducing cell phone use and correcting posture to alleviate symptoms. I have made a referral to physical therapy, and we talked about continuing the current medication regimen. Follow-up plans involve reviewing lab results particularly regarding cholesterol, with a specific focus on managing her hyperlipidemia and maintaining control of her blood pressure. I stressed the importance of adherence to medications and will reevaluate the efficacy of her depression treatment during the next visit. Orders: Orders PT Evaluation and Treatment Today Miller Mckeon MD M47.812 - Spondylosis without myelopathy or radiculopathy, cervical region XR cervical spine 3V Today Miller Mckeon MD M47.812 - Spondylosis without myelopathy or radiculopathy, cervical region Medications: Changed From tizanidine 2 mg PO BID PRN 60 tabs 0RF Muscle Spasm To tizanidine 2 mg PO ONCE PRN Calvin Brooke MD Patient Instructions: - Follow up with the physical therapist as recommended - Continue all current medications as prescribed - Avoid excessive cell phone use and correct posture while using it - Attend your next appointment in four months for a follow-up, which will include updated lab work and cholesterol assessment
[2025-04-06 11:09] VITALS: BP 130/76; PULSE 53; RESP 18; TEMP 36.2; O2SAT 97; BMI 27.0
--- OUTSIDE RECORDS SUMMARY | 2025-04-06 11:36 | XMS_ITS | Clinical Summary ---
Author Organization [address] [facility] Address [address] [place] [address] Phone Care Team Providers Care Dance Studio Manager Name Role Phone Calvin Brooke MD Primary Care Provider [phone] Encounters Date Type Department Care Team Description 03/12/2025 Lab Requisition [facility] - Main Lab [address] [facility] [place] [address] Shivam Myers MD Urinary tract [...] Urine No growth 03/13/2025 1:18 PM EDT [facility] Urine Urine specimen obtained by clean catch procedure / Unknown 03/12/2025 1:00 PM EDT 03/12/2025 6:00 PM EDT us Shivam Myers MD LAB MICROBIOLOGY - GENERA L ORDERABLES Final Result [facility] [address] [place] [address], from Last 3 Months [facility] [place] [id number] MEDICARE [facility] Care Teams Dance Studio Manager Relationship Specialty Start Date End Date Calvin Brooke MD [address] [place] [address] PCP - General Internal Medicine 03/12/25
--- OUTSIDE RECORDS SUMMARY | 2025-04-06 11:36 | XMS_ITS | Encounter Summary ---
Author Organization [facility] Address [address] [facility] [address] [place] [address] Phone Care Team Providers Care Organizational Development Manager Name Role Phone Elvia Hernandes MD Primary Care Provider [phone] Reason for Visit * Reason Comments Breast Cancer Pt came in to start radiation. Patient said she no longer wanted to get treatment here and still questioning if she wanted radiation at all. She said she would start today, but wanted to transition to [facility]. Informed patient if she start today, then she should finish the course here and swtiching is not suggested. She would rather wait to be consulted at [facility] and make a decision then. She lives near [facility] and is familiar with the facility. I confirmed that the patient did not want to start Encounter Details Date Type Department Care Team (Late st Contact Info) Description 04/05/2025 Documentation [facility] Rad Onc [address] [place] [address] [email or web address] Breast Cancer (Pt came in to start radiation. Patient said she no longer wanted to get treatment here and still questioning if she wanted radiation at all. She said she would start today, but wanted to transition to [facility]. Informed patient if she start today, then she should finish the course here and swtiching is not suggested. She would rather wait to be consulted at [facility] and make a decision then. She lives near [facility] and is familiar with the facility. I confirmed that the patient did not want to start) Social History Tobacco Use Types Packs/Day Years [...] on file documented as of this encounter Progress Notes * Louann Keller - 04/05/2025 12:09 PM EDT Subjective: Patient ID: Isabel Cid is a 74 y.o. female. Pt came in to start radiation. Patient said she no longer wanted to get treatment here and still questioning if she wanted radiation at all. She said she would start today, but wanted to transition to [facility]. Informed patient if she start today, then she should finish the course here and swtiching is not suggested. She would rather wait to be consulted at [facility] and make a decision then. She lives near [facility] and is familiar with the facility. I confirmed that the patient did not want to start treatment and this would cause a delay and she said I decided on the way here that I do not want to get treatment here Review of Systems Objective: Physical Exam Assessment/Plan: Problem List Items Addressed This Visit None documented in this encounter Plan of Treatment Upcoming Encounters Date Type Department Care Team (Late st Contact Info) Description 04/12/2025 6:30 AM EDT Treatment [facility] Onc [address] [place] [address] Lizzie Lanza MD [address] [place] [address] 04/13/2025 2:30 PM EDT Treatment [facility] Rad Onc [address] [place] [address] Lizzie Lanza MD [address] [place] [address] 04/16/2025 2:30 PM EDT Treatment [facility] Onc [address] [place] [address] 52347 Lizzie Lanza MD [address] [place] [address] 04/17/2025 2:30 PM EDT Treatment [facility] Onc [address] [place] [address] Lizzie Lanza MD [address] [place] [address] 82449 04/17/2025 2:50 PM EDT Procedure visit [facility] On[facility] [address] [place] [address] 15789 Lizzie Lanza MD [address] [place] [address] [phone] 04/18/2025 2:00 PM EDT Treatment [facility] Onc [address] [place] [address] 53383 Lizzie Lanza MD [address] [place] [address] 98842 04/19/2025 2:00 PM EDT Treatment [facility] Onc [address] [place] [address] 52073 Lizzie Lanza MD [address] [place] [address] 84479 04/20/2025 2:00 PM EDT Treatment [facility] Onc [address] [place] [address]479 Lizzie Lanza MD [address] [place] [address] [phone] 04/23/2025 2:00 PM EDT Treatment [facility] Onc [address] [place] [address] 6[address]19 Lizzie Lanza MD [address] [place] [address] 87040 04/24/2025 2:00 PM EDT Treatment [facility] Onc [address] [place] [address]46 Lizzie Lanza MD [address] [place] [address] 48932 04/24/2025 2:20 PM EDT Procedure visit [facility] On[facility] [address] [place] [address] 95767 Lizzie Lanza MD [address] [place] [address] 43960 04/25/2025 2:10 PM EDT Treatment [facility] Onc [address] [place] [address] 61906 Lizzie Lanza MD [address] [place] [address] 82948 04/26/2025 2:00 PM EDT Treatment [facility] Onc [address] [place] [address] 38354 Lizzie Lanza MD [address] [place] [address] 27086 04/27/2025 2:00 PM EDT Treatment [facility] Onc [address] [place] [address] 30272 Lizzie Lanza MD [address] [place] [address] 38187 05/01/2025 2:10 PM EDT Treatment [facility] Onc [address] [place] [address] 26190 Lizzie Lanza MD [address] [place] [address] [phone] 05/01/2025 2:30 PM EDT Procedure visit [facility] On[facility] [address] [place] [address] 86703 Lizzie Lanza MD [address] [place] [address] 31401 05/02/2025 2:00 PM EDT Treatment [facility] Onc [address] [place] [address] 82125 Lizzie Lanza MD [address] [place] [address] 42613 05/03/2025 2:00 PM EDT Treatment [facility] Rad Onc [address] [place] [address] Lizzie Lanza MD [address] [place] [address] 93389 05/04/2025 2:00 PM EDT Treatment [facility] Rad Onc [address] [place] [address] Lizzie Lanza MD [address] [place] [address] [phone] 05/07/2025 2:00 PM EDT Treatment [facility] Onc [address] [place] [address] 47144 Lizzie Lanza MD [address] [place] [address] [phone] 05/08/2025 2:00 PM EDT Treatment [facility] Onc [address] [place] [address] 89368 Lizzie Lanza MD [address] [place] [address] 69212 05/08/2025 2:30 PM EDT Procedure visit [facility] On[facility] [address] [place] [address] 83246 Lizzie Lanza MD [address] [place] [address] 08636 05/09/2025 2:00 PM EDT Treatment [facility] Onc [address] [place] [address] 09214 Lizzie Lanza MD [address] [place] [address] 65668 05/10/2025 2:00 PM EDT Treatment [facility] Onc [address] [place] [address] Lizzie Lanza MD [address] [place] [address] [phone] 05/11/2025 2:00 PM EDT Treatment [facility] Rad Onc [address] [place] [address] Lizzie Lanza MD [address] [place] [address] 40181 05/14/2025 2:00 PM EDT Treatment [facility] Rad Onc [address] [place] [address] Lizzie Lanza MD [address] [place] [address] [phone] 05/15/2025 2:30 PM EDT Procedure visit [facility] Onc [address] [place] [address] Lizzie Lanza MD [address] [place] [address] [phone] documented as of this encounter Visit Diagnoses Not on filedocumented in this encounter Care Teams Organizational Development Manager Relationship Specialty Start Date End Date Elvia Hernandes MD [address] [place] [phone] [email or web address] PCP - General Internal Medicine 03/02/25 documented as of this encounter Additional Source Comments The information contained in this document represents components of the legal health record. It is not the complete legal health record.[facility]
--- OUTSIDE RECORDS SUMMARY | 2025-04-06 11:36 | XMS_ITS | Clinical Summary ---
Author Organization [facility] Address [address] [place] [address] Phone Care Team Providers Care Central Office Installer Name Role Phone Elvia Hernandes MD Primary Care Provider [phone] Allergies Active Allergy Reactions Criticality Noted Date [...] Encounters Date Type Department Care Team Description 04/05/2025 Documentation [facility] Rad Onc [address] [place] [address] Louann Keller Breast Cancer (Pt came in to start radiation. Patient said she no longer wanted to get treatment here and still questioning if she wanted radiation at all. She said she would start today, but wanted to transition to [facility]. Informed patient if she start today, then she should finish the course here and swtiching is not suggested. She would rather wait to be consulted at [facility] and make a decision then. She lives near [facility] and is familiar with the facility. I confirmed that the patient did not want to start) 03/16/2025 10:30 AM EDT Office Visit [facility] Rad Onc [address] [place] [address] Lizzie Lanza MD Malignant neoplasm of upper-inner quadrant of right breast in female, estrogen receptor positive (Primary Dx) 03/16/2025 Telephone [facility] Rad [address] [address] Lizzie [facility]za MD [facility] 03/16/2025 Documentation [facility] [address] [address] Kina Thompson RN 03/05/2025 Telephone [facility] Onc [address] [place] [address] Josefina Leung, MAXINE 03/02/2025 9:00 AM EDT Office Visit [facility] [address] [address] Lizzie Lanza MD Malignant neoplasm of upper-inner [...] Info) Description 04/12/2025 6:30 AM EDT Treatment [facility] Rad Onc [address] [place] [address] Lizzie Lanza MD [address] [place] [address] 04/13/2025 2:30 PM EDT Treatment [facility] Rad Onc [address] [place] [address] Lizzie Lanza MD [address] [place] [address] 04/16/2025 2:30 PM EDT Treatment [facility] Rad Onc [address] [place] [address] Lizzie Lanza MD [address] [place] [address] 04/17/2025 2:30 PM EDT Treatment [facility] Rad Onc [address] [place] [address] Lizzie Lanza MD [address] [place] [address] 04/17/2025 2:50 PM EDT Procedure visit [facility] Rad Onc [address] [place] [address] Lizzie Lanza MD [address] [place] [address] 04/18/2025 2:00 PM EDT Treatment [facility] Rad Onc [address] [place] [address] Lizzie Lanza MD [address] [place] [address] 04/19/2025 2:00 PM EDT Treatment [facility] Rad Onc [address] [place] [address] Lizzie Lanza MD [address] [place] [address] 04/20/2025 2:00 PM EDT Treatment [facility] Rad Onc [address] [place] [address] Lizzie Lanza MD [address] [place] [address] 32427 04/23/2025 2:00 PM EDT Treatment [facility] Rad Onc [address] [place] [address] Lizzie Lanza MD [address] [place] [address] 515[address] 04/24/2025 2:00 PM EDT Treatment [facility] Rad Onc [address] [place] [address] Lizzie Lanza MD [address] [place] [address] 04/24/2025 2:20 PM EDT Procedure visit [facility] Rad Onc [address] [place] [address] Lizzie Lanza MD [address] [place] [address] 04/25/2025 2:10 PM EDT Treatment [facility] Rad Onc [address] [place] [address] 212[address] Lizzie Lanza MD [address] [place] [address] 824[address] 04/26/2025 2:00 PM EDT Treatment [facility] Rad Onc [address] [place] [address] 99[address] Lizzie Lanza MD [address] [place] [address] 21046 04/27/2025 2:00 PM EDT Treatment [facility] Rad Onc [address] [place] [address] Lizzie Lanza MD [address] [place] [address] 187[address] 05/01/2025 2:10 PM EDT Treatment [facility] Rad Onc [address] [place] [address] 119[address] Lizzie Lanza MD [address] [place] [address] 52787 05/01/2025 2:30 PM EDT Procedure visit [facility] Rad Onc [address] [place] [address] Lizzie Lanza MD [address] [place] [address] 76[address] 05/02/2025 2:00 PM EDT Treatment [facility] Rad Onc [address] [place] [address] 46[address] Lizzie Lanza MD [address] [place] [address] 080[address] 05/03/2025 2:00 PM EDT Treatment [facility] Rad Onc [address] [place] [address] Lizzie Lanza MD [address] [place] [address] 29[address] 05/04/2025 2:00 PM EDT Treatment [facility] Rad Onc [address] [place] [address] Lizzie Lanza MD [address] [place] [address] 414[address] 05/07/2025 2:00 PM EDT Treatment [facility] Rad Onc [address] [place] [address] Lizzie Lanza MD [address] [place] [address] 90619 05/08/2025 2:00 PM EDT Treatment [facility] Rad Onc [address] [place] [address] Lizzie Lanza MD [address] [place] [address] 05/08/2025 2:30 PM EDT Procedure visit [facility] Rad Onc [address] [place] [address] Lizzie Lanza MD [address] [place] [address] 35[address] 05/09/2025 2:00 PM EDT Treatment [facility] Rad Onc [address] [place] [address] Lizzie Lanza MD [address] [place] [address] 05/10/2025 2:00 PM EDT Treatment [facility] Rad Onc [address] [place] [address] Lizzie Lanza MD [address] [place] [address] 05/11/2025 2:00 PM EDT Treatment [facility] Rad Onc [address] [place] [address] Lizzie Lanza MD [address] [place] [address] 710[address] 05/14/2025 2:00 PM EDT Treatment [facility] Rad Onc [address] [place] [address] Lizzie Lanza MD [address] [place] [address] 05/15/2025 2:30 PM EDT Procedure visit [facility] Rad Onc [address] [place] [address] Lizzie Lanza MD [address] [place] [address] [email or web address] Health Maintenance Due Date Last Done Comments [...] topic Medical Devices [place] [address] MEDICARE PART A & B MEDICARE PART A & B MEDICARE PART A & B MEDICARE PART A & B MEDICARE PART A & B MEDICARE PART A & B Care Teams Central Office Installer Relationship Specialty Start Date End Date Elvia Hernandes MD [address] [place] [address] [email or web address] PCP - General Internal Medicine 03/02/25 Additional Source Comments The information contained in this document represents components of the legal health record. It is not the complete legal health record.[facility]
--- OUTSIDE RECORDS SUMMARY | 2025-04-06 11:36 | XMS_ITS | Encounter Summary ---
Author Organization [facility] Address [address] [place] [address] Care Team Providers Care Rvda Master Certified Rv Technician Name Role Phone Calvin Brooke MD Primary Care Provider [phone] Encounter Details Date Type Department Care Team (Late st Contact Info) Description 03/12/2025 Lab Requisition [facility] - Main Lab [address] [facility] [place] [address] Shivam Myers MD [address] [facility] [address] [place] [address] Urinary tract infection, site not [...] Urine No growth 03/13/2025 1:18 PM EDT [facility] Urine Urine specimen obtained by clean catch procedure / Unknown 03/12/2025 1:00 PM EDT 03/12/2025 6:00 PM EDT Shivam Myers MD LAB MICROBIOLOGY - GENERA L ORDERABLES Final Result [facility] [place] [facility] [address] [place] [address], documented in this encounter Visit Diagnoses Diagnosis Urinary tract infection, site not specified documented in this encounter Care Teams Rvda Master Certified Rv Technician Relationship Specialty Start Date End Date Calvin Brooke MD [address] [place] [address] PCP - General Internal Medicine 03/12/25 documented as of this encounter
== END 2025-04-06 11:36 | disposition home or self-care (01) ==
LOC: HO.HMCHD 10:57
PROVIDERS: PCP Student in an Organized Health Care Education/Training Program; Visit Provider Student in an Organized Health Care Education/Training Program
DX: I10 Essential (primary) hypertension (principal); F32.A Depression, unspecified; M47.812 Spondylosis without myelopathy or radiculopathy, cervical region; E78.5 Hyperlipidemia, unspecified; H04.123 Dry eye syndrome of bilateral lacrimal glands

== ENCOUNTER 2025-04-06 10:56 | Outpatient (REF) | payer MEDICARE, SELFPAY ==
--- OUTSIDE RECORDS SUMMARY | 2023-12-22 07:00 | XMS_ITS ---
Author Organization [facility] Address [address] [place] [address] Care Team Providers Care Sodium Methylate Operator Name Role Phone Rony (RETIRED) Jay TIDWELL Primary Care Provide r Ama Mendoza Jr, Robert Serrato REASON FOR VISIT Patient presents today for gerd Encounters Encounter Location Date Provider Diagnosis [facility] [address] [place] [address] [address] [place] [address] 2023 Robert Mendoza Jr Plan Of Treatment Next Appt Details Provider Name:Robert loving Jr, 04/09/2025 10:40:00 AM, [address] [place] [address], [address], [place], [address], Progress Notes * RIANNA LUEVANO MDOB:[birth year] (74 yo F)Acc No.[id number]:2023 Progress Notes Patient: Ngozi RIANNA OTT Provider: Ngozi Mendoza MD :1950 A ge:72 Y S ex:Female Date:2023 Address: [address] Pcp:Jay Uribe (RETIRED )MD Subjective: * Chief [...] 2023 Generated for John mo/Ofelia/Reece on: 0 04/06/2025 12:21 PM EDT
--- NOTE | ~2025-04-06 | XR_ITS ---
EXAMINATION: XR CERVICAL SPINE CLINICAL INFORMATION: M47.812 - Spondylosis without myelopathy or radiculopathy, cervical region COMPARISON: November 11, 2023 TECHNIQUE: Lateral, AP, Fuchs, and odontoid wall view cervical spine FINDINGS: There is no prevertebral soft tissue edema. C3-4 demonstrates mild facet sclerosis. C4-5 demonstrates grade 1 anterolisthesis, endplate ossified, and facet joint space narrowing. There is lucency and step-off through the inferior C4 facet. C5-6: There is mild disc space narrowing with endplate osteophytes. There is facet sclerosis. C6-C7: There is mild disc space narrowing and endplate osteophytes. C7-T1: Unremarkable. XR/XR cervical spine 3V IMPRESSION: Degenerative changes are assessed at C5-6 and similar to the prior exam. Possible chronic C4 inferior facet fracture versus degenerative irregularity. Unchanged Electronically signed by: Fabrizio Tate MD 04/06/2025 01:15 PM EDT
--- OUTSIDE RECORDS SUMMARY | 2025-04-06 12:22 | XMS_ITS | Patient Health Record ---
Author Organization [facility] Address [address] [place] [address] Care Team Providers Care Egg Processing Supervisor Name Role Phone Rony (RETIRED) Jay TIDWELL Primary Care Provide r Robert Beal Jr Unavailable [phone] Allergies Allergen (clinical drug ingredient) Drug/Non Drug [...] Problem Status W/U Status Risk Notes Problem 805974974 Colon cancer screening (Z12.11) Active confirmed Problem 360220500 Irritable bowel syndrome with diarrhea (K58.0) Active confirmed Problem 758025942 Gastroesophageal reflux disease without esophagitis (K21.9) Active confirmed Problem 47669503 Constipation, unspecified constipation type (K59.00) Active confirmed Vital Signs Temperature 96.9 degrees Fahrenheit 04/10/2024 Blood pressure diastolic 00 mm Hg 04/10/2024 Height 58 in 04/10/2024 Blood pressure systolic 000 mm Hg 04/10/2024 Weight 121 lb 2 oz lbs 04/10/2024 BMI 25.31 kg/m2 04/10/2024 Encounters Encounter Location Date Provider Diagnosis [facility] [address] [place] [address] 04/10/2024 Robert Mendoza Jr Gastroesophageal reflux disease [...] 10:40:00 AM, [address], [address], [place], [address], Insurance Providers Payer Name Payer Address Payer Phone Subscriber Number Group Number Insured Name Patient Relationship to Insured Coverage Start Date Coverage End Date MEDICARE OF [place] [address] LASHAUN MENCHACA [id number] RIANNA FERGUSON Self - patient is the insured [employer] CLAIMS [address] [place] [address] [id number] RIANNA FERGUSON Self - patient is the insured Medical (General) History Medical History History ICD Code urinary incontinence, bladder stimulator placement and removal Multinodular goiter Arthritis Depression Elevated cholesterol Gastroesophageal reflux disease Surgical History Surgery Date(Month/Year) removal fibroadenoma left and right [address] Total hysterectomy 09/1999 Cholecystectomy 08/2006 Thyroid nodules neurostimulator in bladder 08/11
--- OUTSIDE RECORDS SUMMARY | 2025-04-06 12:22 | XMS_ITS | Patient Health Record ---
Author Organization [facility] Address [address] [facility] [place] [address] Care Team Providers Care Log Feeder Name Role Phone Jay Uribe MD Primary Care Provider Williams Huber Unavailable [phone] Allergies Allergen (clinical drug ingredient) Drug/Non Drug [...] primary osteoarthritis of the ankle and/or foot (712055406) Primary osteoarthritis, right ankle and foot (M19.071) Active confirmed Problem Acquired hammer toe of right foot (5985306534200064 ) Other hammer toe(s) (acquired), right foot (M20.41) Active confirmed Problem Localized, primary osteoarthritis of the ankle and/or foot (801632965) 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.072) Active confirmed Problem Pes cavus (27829513) Pes cavus (Q66.7) Active confirmed Plan Of [...] Inc [address] [place] [address] [id number] Isabel Cid Self - patient is the insured [employer] [address] [place] [address] [id number] Isabel Cid Self - patient is the insured Medical (General) History Medical History History ICD Code Anxiety Arthritis Back,Hip,and Knee pain Broken bones CAD (Cholesterol) Cataracts Depression Diverticulosis Gall bladder problems thyroid Warts Surgical History Surgery Date(Month/Year) hysterectomy 09/1999 gall bladder 09/2006 fibroadenoid lump removed 07/1986-12/2016
== END 2025-04-06 10:57 | disposition home or self-care (01) ==
LOC: HO.XRAY 10:56
PROVIDERS: PCP Internal Medicine; Visit Provider Student in an Organized Health Care Education/Training Program
DX: M47.812 Spondylosis without myelopathy or radiculopathy, cervical region (principal); F32.A Depression, unspecified; I10 Essential (primary) hypertension; E78.5 Hyperlipidemia, unspecified; H04.123 Dry eye syndrome of bilateral lacrimal glands; Z79.899 Other long term (current) drug therapy
CPT/HCPCS: 72040; 99212

== ENCOUNTER → 2025-04-06 11:58 | Outpatient (BNV) | payer MEDICARE, SELFPAY | PROVIDERS: PCP Internal Medicine; Visit Provider Radiology Diagnostic Radiology | DX: M47.812 Spondylosis without myelopathy or radiculopathy, cervical region (principal); M50.322 Other cervical disc degeneration at C5-C6 level | CPT/HCPCS: 72040 ==

== ENCOUNTER 2025-05-04 12:06 | Outpatient (REF) | payer MEDICARE, SELFPAY | END 2025-05-04 12:07 | disposition home or self-care (01) | LOC: HO.LNP 12:06 | PROVIDERS: PCP Student in an Organized Health Care Education/Training Program; Visit Provider Internal Medicine | DX: N30.01 Acute cystitis with hematuria (principal) | CPT/HCPCS: 81003; 87086; 87088; 87186; 99212 ==

== ENCOUNTER 2025-05-04 12:06 | Outpatient (AMB) | payer MEDICARE, SELFPAY ==
--- OUTSIDE RECORDS SUMMARY | 2023-12-22 07:00 | XMS_ITS ---
Author Organization [facility] Address [address] [place] [address] Care Team Providers Care [facility] Name Role Phone Rony (RETIRED) Jay TIDWELL Primary Care Provide r Ama Mendoza Jr, Robert Serrato REASON FOR VISIT Patient presents today for gerd Encounters Encounter Location Date Provider Diagnosis [facility] [address] [place] [address] 2023 Robert Mendoza Jr Plan Of Treatment Next Appt Details Provider Name:Robert loving Jr, 07/02/2025 02:15:00 PM, [address] [place] [address], [address], [place], [address], Progress Notes * RIANNA LUEVANO MDOB:[birth year] (74 yo F)Acc No.[id number]:2023 Progress Notes Patient: Ngozi RIANNA OTT Provider: Ngozi Mendoza MD :1950 A ge:72 Y S ex:Female Date:2023 Address: [address] Pcp:Jay Uribe (RETIRED )MD Subjective: * Chief [...] 0 2023 Generated for John mo/Ofelia/Reece on: 02:47 PM EDT
--- OUTSIDE RECORDS SUMMARY | 2025-04-09 06:40 | XMS_ITS ---
Author Organization [facility] Address [address] [place] [address] Care Team Providers Care Medical Reimbursement Specialist Name Role Phone Rony (RETIRED) Jay TIDWELL Primary Care Provide r Ama Mendoza Jr, Robert Serrato REASON FOR VISIT Patient presents today for gerd Encounters Encounter Location Date Provider Diagnosis [facility] [address] [facility] [place] [address] 04/09/2025 Robert Mendoza Jr Plan Of Treatment Next Appt Details Provider Name:Robert loving Jr, 07/02/2025 02:15:00 PM, [address] [place] [address], [address], [place], [address], Progress Notes * RIANNA LUEVANO MDOB:[birth year] (74 yo F)Acc No.[id number]:04/09/2025 Progress Notes Patient: Ngozi RIANNA OTT Provider: Ngozi Mendoza MD :1950 A ge:74 Y S ex:Female Date:04/09/2025 Address: [id number] Pcp:Jay Uribe (RETIRED )MD Subjective: * Chief [...] * Provider: Ngozi Mendoza MD Date: 0 04/09/2025 Generated for John mo/Ofelia/Reece on: 02:47 PM EDT
--- OUTSIDE RECORDS SUMMARY | 2025-05-01 14:30 | XMS_ITS | Encounter Summary ---
Author Organization [facility] Address [address] [address] Phone Care Team Providers Care Drug Safety Coordinator Name Role Phone Elvia Hernandes MD Primary Care Provider [phone] Reason for Visit * Reason Comments Weekly Visit Malignant neoplasm o f upper-inner quadrant of right breast in female, estrogen receptor positive Encounter Details Date Type Department Care Team (Latest Contact Info) Description 05/01/2025 2:30 PM EDT Procedure visit [facility] Rad Onc [address] [place] [address] Lizzie Lanza MD [address] [place] [address] [email or web address] Malignant neoplasm of upper-inner quadrant of right breast in female, estrogen receptor positive (Primary Dx) Social History Tobacco Use Types Packs/Day Years [...] on file documented as of this encounter Last Filed Vital Signs Vital Sign Reading Time Taken Comments Blood Pressure 143/72 05/01/2025 2:33 PM EDT Pulse 52 05/01/2025 2:33 PM EDT Temperature 36.6 C (97.9 F) 05/01/2025 2:33 PM EDT Respiratory Rate 16 05/01/2025 2:33 PM EDT Oxygen Saturation 97% 05/01/2025 2:33 PM EDT Inhaled Oxygen Concentration - - Weight - - Height - - Body Mass Index - - documented in this encounter Progress Notes * Lia Owens RN - 05/01/2025 2:30 PM EDT Fatigue: moderate, laying down a lot Pain intensity (1-10): mild, intermittent Pain management (meds): none Lymphedema: none Skin products used: RRC, erythema present * Lizzie Lanza MD - 05/01/2025 2:30 PM EDT PATIENT UNDER TREATMENT NOTE Name:Isabel Cid Diagnosis: Stage IIB; T3 (3.5 cm); N0 (0/1) (I+); grade 2 invasive lobular carcinoma ER/SD positiveHER2 negative. No lymphovascular invasion. Margins negative. Oncotype equals 12; C50.211 Date: 05/01/2025 Dose: Current Treatment Documentation Date: 05/01/25 Treatment site: R s'clav, R CW with bolus, R CW no bolus Dose received through today's treatment (cGy): 2600 Planned total dose (cGy): 5000 Fraction number through today's treatment: 13 Total planned number of fractions: 25 Site: Right chest wall and regional lymph nodes Tolerance of therapy: Mild erythema and some fatigue Plan: Status check with Dr. Schumacher next week documented in this encounter Plan of Treatment Upcoming Encounters Date Type Department Care Team (Late st Contact Info) Description 05/07/2025 1:50 PM EDT Treatment [facility] Rad Onc [address] [place] [address] Lizzie Lanza MD [address] [place] [address] 05/08/2025 2:00 PM EDT Treatment [facility] Rad Onc [address] [place] [address] Lizzie Lanza MD [address] [place] [address] 05/09/2025 2:00 PM EDT Treatment [facility] Rad Onc [address] [place] [address] Lizzie Lanza MD [address] [place] [address] 05/09/2025 2:30 PM EDT Procedure visit [facility] Rad Onc [address] [place] [address] Lizzie Lanza MD [address] [place] [address] Spencer Henry MD [address] [place] [address] [email or web address] 05/10/2025 1:50 PM EDT Treatment [facility] Rad Onc [address] [place] [address] Lizzie Lanza MD [address] [place] [address] 05/11/2025 2:00 PM EDT Treatment [facility] Rad Onc [address] [place] [address] Lizzie Lanza MD [address] [place] [address] 05/14/2025 2:00 PM EDT Treatment [facility] Rad Onc [address] [place] [address] Lizzie Lanza MD [address] [place] [address] 05/15/2025 4:00 PM EDT Treatment [facility] Rad Onc [address] [place] [address] Lizzie Lanza MD [address] [place] [address] 05/15/2025 4:30 PM EDT Procedure visit [facility] Rad Onc [address] [place] [address] Lizzie Lanza MD [address] [place] [address] Spencer Henry MD [address] [place] [address] [email or web address] 05/16/2025 4:10 PM EDT Treatment [facility] Rad Onc [address] [place] [address] Lizzie Lanza MD [address] [place] [address] 05/17/2025 4:10 PM EDT Treatment [facility] Rad Onc [address] [place] [address] Lizzie Lanza MD [address] [place] [address] 05/17/2025 4:30 PM EDT Procedure visit [facility] Rad Onc [address] [place] [address] Lizzie Lanza MD [address] [place] [address] [email or web address] Shruti Schumacher MD [address] [place] [address] [email or web address] documented as of this encounter Visit Diagnoses Diagnosis Malignant neoplasm of upper-inner quadrant of right breast in female, estrogen receptor positive- Primary documented in this encounter Care Teams Drug Safety Coordinator Relationship Specialty Start Date End Date Elvia Hernandes MD [address] [place] [address] [email or web address] PCP - General Internal Medicine 03/02/25 documented as of this encounter Additional Source Comments The information contained in this document represents components of the legal health record. It is not the complete legal health record.[facility]
[2025-05-04 12:09] VITALS: BP 146/76; PULSE 69; TEMP 36.6; O2SAT 96; BMI 26.3
--- NOTE | 2025-05-04 12:09 | AM.OFFWIN_ITS ---
Intake Vital Signs 05/04/25 12:09 Height 4 ft 10 in Weight 126 lb BMI 26.3 BP 146/76 H Blood Pressure Location Lt brachial Position Sitting Pulse 69 Pulse Source Pulse Oximeter Temp 97.9 F Temp Source Oral Pulse Oximetry (%) 96 Oxygen Delivery Method Room Air Intake Visit Reasons: EP UTI Patient Tobacco Use Status: Former Tobacco user Allergies hydrocodone Allergy (Intermediate, Verified 05/04/25 12:16) Vomiting amoxicillin Adverse Reaction (Intermediate, Verified 05/04/25 12:16) Gastrointestinal Upset nitrofurantoin Adverse Reaction (Intermediate, Verified 05/04/25 12:16) Gastrointestinal Upset sulfadiazine Adverse Reaction (Intermediate, Verified 05/04/25 12:16) Gastrointestinal Upset Medication List - Last Reconciled 05/04/25 by Alize Hammer MD acetaminophen ER 650 mg PO Q8H PRN atenolol 25 mg PO DAILY 90 days cholecalciferol (vitamin D3) (Vitamin D3) 25 mcg PO DAILY cyclosporine 0.05% (Restasis) 1 drp ophthalmic (eye) DAILY fluoxetine 20 mg PO BEDTIME ibuprofen 600 mg PO Q6H PRN mecobalamin (vitamin B12) 500 mcg PO DAILY melatonin 5 mg PO BEDTIME PRN omeprazole 20 mg PO DAILY PRN simvastatin 10 mg PO BEDTIME tizanidine 2 mg PO ONCE PRN Do you need a note to return to daycare/school/sports/work: No HPI EP UTI HPI Details History of Present Illness The patient is a 74-year-old female presenting with recurrent urinary tract infections (UTIs). Recurrent urinary tract infections (UTIs): - The patient reports frequent urination and a burning sensation during urination. - Patient recalls a urinary tract infect ion approximately six weeks prior, with ongoing recurrent episodes. - There is a history of working with Dr. Myers for ongoing management. - The patient is allergic or sensitive t o nitrofurantoin and sulfonamides. Problem List - Recurrent urinary tract infections (UT Is) Plan - Prescribed Levofloxacin 500 mg once da marj for seven days to address the recurrent urinary tract infection. - Discussed potential side effects of an tibiotics such as cramping and nausea, and recommended taking the medication with food to minimize gastrointestinal discomfort. 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: Alert awake oriented x3 motor intact Skin: Normal turgor PFSH Medical History Dry eyes Hyperlipidemia Invasive lobular carcinoma of breast in female Breast mass, right Essential hypertension Bipolar disorder Lumbar degenerative disc disease Sciatic nerve pain Cervical spondylosis Urinary incontinence Arthritis Elevated cholesterol Depression GERD (gastroesophageal reflux disease) Non-toxic multinodular goiter Surgical History S/P placement of nerve stimulator Hx of bilateral cataract extraction History of breast lump/mass excision Hx of cholecystectomy Hx of total hysterectomy with removal of both tubes and ovaries H/O colonoscopy (07/28/22) Family History Father Heart problem Thyroid cancer Skin cancer Mother Dementia Father No problems noted. Social History Household Members: Other Household Members Other:: daughter and grandson Housing: House Are you a primary medicare nurse to a significant other at home: No Do you presently have visiting nurse or other home services: No Alcohol intake: current Alcohol intake frequency: holidays/special occasions only Comment: tolerable Patient Tobacco Use Status: Former Tobacco user Tobacco use type: Cigarette Years Smoked: 5 e-Cigarette/Vaping Use: Currently Using Second Hand Smoke Exposure: No Substance Use Type: Marijuana Advance Directives Date on File: 07/23/24 service: No Current occupational status: retired Cognitive needs: No Hearing needs: Yes (b/l ears) Vision needs: Yes (rx glasses) Physical Exam Vital Signs: Last Vital Signs Temp 97.9 F 05/04/25 12:09 Pulse 69 05/04/25 12:09 BP 146/76 H 05/04/25 12:09 Pulse Ox 96 05/04/25 12:09 Oxygen Delivery Method Room Air 05/04/25 12:09 BMI result Body Mass Index 26.3 Assessment & Plan Assessment & Plan (1) Acute cystitis with hematuria: Code(s): N30.01 - Acute cystitis with hematuria Plan Recurrent urinary tract infections (UTIs): - The patient reports frequent urination and a burning sensation during urination. - Patient recalls a urinary tract infection approximately six weeks prior, with ongoing recurrent episodes. - There is a history of working with Dr. Myers for ongoing management. - The patient is allergic or sensitive to nitrofurantoin and sulfonamides. Problem List - Recurrent urinary tract infections (UTIs) Plan - Prescribed Levofloxacin 500 mg once daily for seven days to address the r ecurrent urinary tract infection. - Discussed potential side effects of antibiotics such as cramping and nausea, and recommended taking the medication with food to minimize gastrointestinal discomfort. - Advised on hygiene practices to reduce contamination risk, push fluids Orders: Orders AMB Urinalysis Automated Today Z13.9 - Encounter for screening, unspecified Urine Culture Today N30.01 - Acute cystitis with hematuria Medications: New levofloxacin 500 mg PO DAILY 7 tabs 0RF 7 days Coding Level of Care Code Est Pt Level 3 (66836) Diagnoses Acute cystitis with hematuria N30.01
--- OUTSIDE RECORDS SUMMARY | 2025-05-04 14:47 | XMS_ITS | Encounter Summary ---
Author Organization [facility] Address [address] [place] [address] Care Team Providers Care Twenty One Dealer Name Role Phone Calvin Brooke MD Primary Care Provider [phone] Encounter Details Date Type Department Care Team (Late st Contact Info) Description 03/12/2025 Lab Requisition [facility] - Main Lab [address] [facility] [place] [address] Shivam Myers MD [address] [facility] [address] [place] [address] Urinary tract infection, site not [...] Urine No growth 03/13/2025 1:18 PM EDT [facility] Urine Urine specimen obtained by clean catch procedure / Unknown 03/12/2025 1:00 PM EDT 03/12/2025 6:00 PM EDT Shivam Myers MD LAB MICROBIOLOGY - GENERA L ORDERABLES Final Result [facility] [place] ([facility] LAB [address] [place] [address], documented in this encounter Visit Diagnoses Diagnosis Urinary tract infection, site not specified documented in this encounter Care Teams Twenty One Dealer Relationship Specialty Start Date End Date Calvin Brooke MD [address] [place] [phone] PCP - General Internal Medicine 03/12/25 documented as of this encounter
--- OUTSIDE RECORDS SUMMARY | 2025-05-04 14:47 | XMS_ITS | Clinical Summary ---
Author Organization [facility] Address [address] [place] [address] Phone Care Team Providers Care Supervisor Sunglasses Name Role Phone Elvia Hernandes MD Primary Care Provider [phone] Allergies Active Allergy Reactions Criticality Noted Date Comments Amoxicillin GI Upset Medium 03/02/2025 Nitrofurantoin GI Upset Medium 03/02/2025 Silver Sulfadiazine GI Upset Medium 03/02/2025 Medications atenolol (TENORMIN) 25 MG tablet Take 25 mg by mouth daily. Active acetaminophen (TYLENOL) 325 mg tabletIndications :arthritic pain Take 650 mg by mouth every [...] every 6 (six) hours as needed. Active therapeutic multivitamin tablet Take 1 tablet by mouth daily. gummy Active Encounters Date Type Department Care Team Description 05/01/2025 2:30 PM EDT Procedure visit [facility] Rad Onc [address] [place] [address] Lizzie Lanza MD Malignant neoplasm of upper-inner quadrant of right breast in female, estrogen receptor positive (Primary Dx) 04/23/2025 4:50 PM EDT Procedure visit [facility] At [address] [address] Lizzie Lanza MD Malignant neoplasm of upper-inner quadrant of right breast in female, estrogen receptor positive (Primary Dx) 04/17/2025 2:50 PM EDT Procedure visit [facility] At [address] [address] Lizzie Lanza MD Malignant neoplasm of upper-inner quadrant of right breast in female, estrogen receptor positive (Primary Dx) 04/10/2025 12:30 PM EDT Procedure visit [facility] At [address] [address] Lizzie Lanza MD Malignant neoplasm of upper-inner quadrant of right breast in female, estrogen receptor positive (Primary Dx) 04/09/2025 12:10 PM EDT Office Visit [facility] At [address] [address] Lizzie Lanza MD Malignant neoplasm of upper-inner quadrant of right breast in female, estrogen receptor positive (Primary Dx) 04/05/2025 Documentation [facility] At [address] [address] Louann Keller Breast Cancer (Pt came in to start radiation. Patient said she no longer wanted to get treatment here and still questioning if she wanted radiation at all. She said she would start today, but wanted to transition to [facility]. Informed patient if she start today, then she should finish the course here and swtiching is not suggested. She would rather wait to be consulted at [facility] and make a decision then. She lives near [facility] and is familiar with the facility. I confirmed that the patient did not want to start) 03/16/2025 10:30 AM EDT Office Visit [facility] At [address] [address] Lizzie Lanza MD Malignant neoplasm of upper-inner quadrant of right breast in female, estrogen receptor positive (Primary Dx) 03/16/2025 Telephone [facility] At [facility] Rad Onc [address] [place] [address] Lizzie Lanza MD PreAut 03/16/2025 Documentation [facility] Rad Onc [address] [place] [address] Kina Thompson RN 03/05/2025 Telephone [facility] Rad Onc [address] [place] [address] Josefina Leung RN 03/02/2025 9:00 AM EDT Office Visit [facility] At [facility] Rad Onc [address] [place] [address] Lizzie Lanza MD Malignant neoplasm of upper-inner [...] Info) Description 05/07/2025 1:50 PM EDT Treatment [facility] Rad Onc [address] [place] [address] Lizzie Lanza MD [address] [place] [phone] 05/08/2025 2:00 PM EDT Treatment [facility] Rad Onc [address] [place] [address] Lizzie Lanza MD [address] [place] [address] 05/09/2025 2:00 PM EDT Treatment [facility] Rad Onc [address] [place] [address] Lizzie Lanza MD [address] [place] [phone] 05/09/2025 2:30 PM EDT Procedure visit [facility] Rad Onc [address] [place] [address] Lizzie Lanza MD [address] [place] [phone] Spencer Henry MD [address] [place] [phone] [email or web address] 05/10/2025 1:50 PM EDT Treatment [facility] Rad Onc [address] [place] [address] Lizzie Lanza MD [address] [place] [phone] 05/11/2025 2:00 PM EDT Treatment [facility] Rad Onc [address] [place] [address] Lizzie Lanza MD [address] [place] [phone] 05/14/2025 2:00 PM EDT Treatment [facility] Rad Onc [address] [place] [address] Lizzie Lanza MD [address] [place] [phone] 05/15/2025 4:00 PM EDT Treatment [facility] Rad Onc [address] [place] [address] Lizzie Lanza MD [address] [place] [phone] 05/15/2025 4:30 PM EDT Procedure visit [facility] Rad Onc [address] [place] [address] Lizzie Lanza MD [address] [place] [phone] Spencer Henry MD [address] [place] [address] [email or web address] 05/16/2025 4:10 PM EDT Treatment [facility] Rad Onc [address] [place] [address] Lizzie Lanza MD [address] [place] [phone] 05/17/2025 4:10 PM EDT Treatment [facility] Rad Onc [address] [place] [address] Lizzie Lanza MD [address] [place] [phone] 05/17/2025 4:30 PM EDT Procedure visit [facility] Rad Onc [address] [place] [address] Lizzie Lanza MD [address] [place] [address] Shruti Schumacher MD [address] [place] [phone] [email or web address] Health Maintenance Due Date Last Done Comments [...] VACCINE (#1) 2025 COVID-19 VACCINE ( - 2024-2 6 season) 2025 SMOKING Hx and SMOKELESS TOB [...] file Insurance MEDICARE PART A & B [facility] MEDEX SUPPLEMENT MEDICARE PART A & B [employer] MEDEX SUPPLEMENT MEDICARE PART A & B [employer] MEDEX SUPPLEMENT MEDICARE PART A & B [employer] SUPPLEMENT MEDICARE PART A & B [employer] MEDEX SUPPLEMENT MEDICARE PART A & B [employer] SUPPLEMENT [employer] SUPPLEMENT MEDICARE PART A [place] [address] [facility] MEDEX SUPPLEMENT MEDICARE PART A & B [employer] SUPPLEMENT MEDICARE PART A & B Care Teams Supervisor Sunglasses Relationship Specialty Start Date End Date Elvia Hernandes MD [address] [place] [phone] [email or web address] PCP - General Internal Medicine 03/02/25 Additional Source Comments The information contained in this document represents components of the legal health record. It is not the complete legal health record.[facility]
--- OUTSIDE RECORDS SUMMARY | 2025-05-04 14:47 | XMS_ITS | Clinical Summary ---
Author Organization [address] [facility] Address [address] [place] [address] Phone Care Team Providers Care Brake Shoe Rebuilder Name Role Phone Calvin Brooke MD Primary Care Provider [phone] Encounters Date Type Department Care Team Description 03/12/2025 Lab Requisition [facility] - Main Lab [address] [facility] [place] [address] Shivam Myers MD Urinary tract [...] Last Done Comments Breast Cancer Screening 1950 Colorectal Cancer Screening: Colonoscopy 1950 DTaP,Tdap,and Td Vaccines (1 - Tdap) 12/23/1971 Pneumococcal Vaccine: 50+ Ye ars (1 of 1 - PCV) 2002 Zoster Vaccines (1 of 2) 2002 Falls Risk Assessment 08/12/2023 Hepatitis C Screening [...] Urine No growth 03/13/2025 1:18 PM EDT [facility] Urine Urine specimen obtained by clean catch procedure / Unknown 03/12/2025 1:00 PM EDT 03/12/2025 6:00 PM EDT us Shivam Myers MD LAB MICROBIOLOGY - GENERA L ORDERABLES Final Result [facility] [address] [place] [address], from Last 3 Months [facility] [place] [address] MEDICARE [facility] Care Teams Brake Shoe Rebuilder Relationship Specialty Start Date End Date Calvin Brooke MD [address] [place] [address] PCP - General Internal Medicine 03/12/25
--- OUTSIDE RECORDS SUMMARY | 2025-05-04 14:47 | XMS_ITS | Patient Health Record ---
Author Organization [facility] Address [address] [facility] [place] [address] Care Team Providers Care Cripple Cutter Name Role Phone Jay Uribe MD Primary Care Provider Unavaila Williams Eng Unavailable [phone] Allergies Allergen (clinical drug ingredient) Drug/Non Drug [...] primary osteoarthritis of the ankle and/or foot (787219346) Primary osteoarthritis, right ankle and foot (M19.071) Active confirmed Problem Acquired hammer toe of right foot (1895186681947421 ) Other hammer toe(s) (acquired), right foot (M20.41) Active confirmed Problem Localized, primary osteoarthritis of the ankle and/or foot (392312796) 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.072) Active confirmed Problem Pes cavus (51089378) Pes cavus (Q66.7) Active confirmed Plan Of Treatment Pending Test Test Name Order Date X ray : Foot, left 3V 12/02/2018 X ray : Foot, right 3V 03/30/2018 X ray : Foot, right 3V 12/02/2018 Insurance Providers Payer Name Payer Address Payer Phone Subscriber Number Group Number Insured Name Patient Relationship to Insured Coverage Start Date Coverage End Date Medicare National Govt SvContactMonkey [facility] [address] [place] [address] [id number] Isabel Cid Self - patient is the insured 4 [employer] ticketea [address] [place] [address] [id number] Isabel Cid Self - patient is the insured Medical (General) History Medical History History ICD Code Anxiety Arthritis Back,Hip,and Knee pain Broken bones CAD (Cholesterol) Cataracts Depression Diverticulosis Gall bladder problems thyroid Warts Surgical History Surgery Date(Month/Year) hysterectomy 09/1999 gall bladder 09/2006 fibroadenoid lump removed 07/1986-12/2016
--- OUTSIDE RECORDS SUMMARY | 2025-05-04 14:48 | XMS_ITS | Patient Health Record ---
Author Organization [facility] Address [address] [place] [address] Care Team Providers Care Pump House Operator Name Role Phone Rony (RETIRED) Jay TIDWELL Primary Care Provide r Robert Beal Jr Unavailable Allergies Allergen (clinical drug ingredient) Drug/Non Drug Allergy documented on EMR Reaction Allergy Type Onset Date Status Sulfa Unknown Drug Allergy Active Reason For Referral No Information Medications Medication SIG (Take, Route, Frequency, Duration) Notes Start Date End Date Status Estradiol 0.5 MG 1 tablet Orally Once a day; Duration: 30 day(s) Active Tylenol 325 MG 1 tablet as needed Orally every 4 hrs Active Multi For Her 50+ - as directed Orally Active Hair Regrowth for Women Active Fluoxetine & Diet Manage Prod 10 MG Orally Active Pravastatin Sodium 20 MG 1 tablet Orally Once a day Active oxyBUTYnin Chloride 5 MG 1 tablet Orally Twice a day; Duration: 30 day(s) as needed Active Omeprazole 20 MG 1 capsule Orally Onc e a day Active Premarin 0.3 MG 1 tablet Orally Jeanne y for Three Weeks, 1 Week off Active Flax Seed Oil 1000 MG as directed Orally Active Calcium 1 tab Oral; Duration : 14 days Active Immunizations Vaccine Route Administration Date Status Comme nts Influenza Unknown 03/19/2015 Administered Influenza Unknown 05/19/2022 Administered Influenza Unknown 06/08/2023 Administered Problems Problem Type SNOMED Code ICD Code Onset Dates Problem Status W/U Status Risk Notes Problem Colon cancer screening (660414792) Colon cancer screening (Z12.11) Active confirmed Problem Irritable bowel syndrome with diarrhea (380919456) Irritable bowel syndrome with diarrhea (K58.0) Active confirmed Problem Gastroesophageal reflux disease without esophagitis (757861015) Gastroesophageal reflux disease without esophagitis (K21.9) Active confirmed Problem Constipation (48845164) Constipation, unspecified constipation type (K59.00) Active confirmed Encounters Encounter Location Date Provider Diagnosis [facility] [address] [place] [address] 04/09/2025 Robert Mendoza Jr Plan Of Treatment Future Test Test Name Order Date COLONOSCOPY 12/04/2015 COLONOSCOPY 06/08/2022 Next Appt Details Provider Name:Robert loving Jr, 07/02/2025 02:15:00 PM, [address], [address], [place], [address], Insurance Providers Payer Name Payer Address Payer Phone Subscriber Number Group Number Insured Name Patient Relationship to Insured Coverage Start Date Coverage End Date MEDICARE OF [place] [address] [place] [address] [phone] [id number] RIANNA FERGUSON Self - patient is the insured [employer] ATT[employer] CLAIMS [address] [place] [address] [id number] RIANNA FERGUSON Self - patient is the insured Medical (General) History Medical History History ICD Code urinary incontinence, bladder stimulator placement and removal Multinodular goiter Arthritis Depression Elevated cholesterol Gastroesophageal reflux disease Surgical History Surgery Date(Month/Year) removal fibroadenoma left and right [facility] [facility] Total hysterectomy 09/1999 Cholecystectomy 08/2006 Thyroid nodules neurostimulator in bladder 08/11
== END 2025-05-04 12:34 | disposition home or self-care (01) ==
PROVIDERS: PCP Student in an Organized Health Care Education/Training Program; Visit Provider Internal Medicine
DX: N30.01 Acute cystitis with hematuria (principal); Z13.9 Encounter for screening, unspecified